=== PATIENT | female | born 1955 | race Caucasian/White ===

== ENCOUNTER 2016-08-16 09:29 | Inpatient (IN) | payer MEDICARE ==
[2016-08-16] MEDS ORDERED: NS 0.9% 1000 ML* 2,000 ML IV ONE (10:20)
[2016-08-16] MEDS ORDERED: metroNIDAZOLE IV 500 MG/100ML* 500 MG/100 ML BAG IVPB ONE (10:23)
[2016-08-16] MEDS ORDERED: Cefepime(*) 2 GM in NS 0.9% 50 ML* 50 ML IVPB ONE (10:23)
[2016-08-16] MEDS ORDERED: Vancomycin(*) 1,000 MG in NS 0.9% 250 ML* 250 ML IVPB ONE (10:23)
--- NOTE | 2016-08-16 11:20 | RAD ---
INDICATION: Left great toe infection. TECHNIQUE: 3 views of the left great toe were obtained. FINDINGS: There is prominent soft tissue swelling present around the distal phalanx of the great toe. No significant focal osseous abnormality or erosion is seen. IMPRESSION: SOFT TISSUE SWELLING, NO SPECIFIC EVIDENCE FOR OSTEOMYELITIS. IF THE PATIENT'S SYMPTOMS PERSIST CONSIDER MR IMAGING WITHOUT CONTRAST FOR FURTHER EVALUATION.
[2016-08-16 12:26] LABS: Hematocrit 38 % (35-47); Mean Corpuscular HGB Conc 35 g/dl (31-36); Mean Corpuscular Hemoglobin 30 pg (27-31); Mean Corpuscular Volume 86 fL (80-97); Mean Platelet Volume 8 um3 (7.4-10.4); Red Blood Count 4.39 10^6/ul (4.0-5.4); Red Cell Distribution Width 13 % (10.5-15); White Blood Count 8.1 10^3/ul (3.5-10.8)
[2016-08-16] MEDS ORDERED: NS 0.9% 50 ML* 50 ML ONE (12:33)
[2016-08-16] MEDS ORDERED: NS 0.9% 250 ML* 250 ML ONE (12:33)
[2016-08-16] MEDS ORDERED: Vancomycin(*) 1,000 MG - ED ONCE IVPB ONE ×2 (12:40)
[2016-08-16 12:44] LABS: BUN/Creatinine Ratio 22.5 (8-20); C Reactive Protein 46.41 mg/L (< 5.00); Calcium 9.5 mg/dL (8.6-10.3); EGFR African American 48.4 (>60); EGFR Non-African American 37.6 (>60); Globulin 3.7 g/dL (2-4); Potassium 4.6 mmol/L (3.5-5.0); Total Bilirubin 0.4 mg/dL (0.2-1.0); Total Protein 7.7 g/dL (6.4-8.9)
[2016-08-16] MEDS ORDERED: LORazepam TAB(*) 1 MG PO PRN (13:21)
[2016-08-16] MEDS ORDERED: Dextrose 50% Syringe 50 ML* 25 GM/50 ML SYRINGE IV PUSH PRN (13:32)
[2016-08-16] MEDS ORDERED: Acetaminophen TAB* 325 MG PO PRN (13:34)
--- NOTE | 2016-08-16 13:56 | ED ---
German Cox Billy, scribed for Dipak Jaquez MD on 08/16/16 at 1015 . Lower Extremity - HPI Summary HPI Summary: Patient is a 61 year-old diabetic female coming to [facility] for evaluation of a wound on her left great toe. She says her symptoms began 2 weeks ago and she was started on Amoxicillin/Clavulanate 3 days ago. However, the wound is worsening without any improvement. Positive fevers and chills in the last several days. - History of Current Complaint Chief Complaint: EDExtremityLower Stated Complaint: WOUND ON TOE Time Seen by Provider: 08/16/16 09:51 Hx Obtained From: Patient Mechanism Of Injury: Unknown Onset of Pain: Days Onset/Duration: Days Severity Initially: Moderate Severity Currently: Moderate Timing: Constant Location: Is Discrete @ - left great toe Associated Signs And Symptoms: Positive: Swelling, Redness Aggravating Factor(s): Nothing Alleviating Factor(s): Nothing - Allergies/Home Medications Allergies/Adverse Reactions: Allergies Allergy/AdvReac Type Severity Reaction Status Date / Time Codeine Allergy Intermediate Itching Verified 03/27/16 07:03 Fish Allergy Allergy ITCHY Verified 03/27/16 07:03 Hydromorphone [From Dilaudid] Allergy Hives Verified 03/27/16 07:03 Lidocaine Allergy Itching Verified 03/27/16 07:03 Oxycodone Allergy Itching Verified 05/02/16 17:05 Sulfamethoxazole Allergy Unknown Verified 03/27/16 07:03 w/Trimethoprim Reaction [From Bactrim] Details Home Medications: Home Medications Amoxicillin/Clavulanate TAB* [Augmentin TAB 875*] 875 mg PO BID 08/16/16 [ History Confirmed 08/16/16] Chlorzoxazone [Lorzone] 500 mg PO TID 08/16/16 [History Confirmed 08/16/16] Gabapentin CAP(*) [Neurontin 300 CAP(*)] 300 mg PO Q8HR 08/16/16 [History Confirmed 08/16/16] LORazepam TAB(*) [Ativan 1 MG TAB (*)] 1 mg PO BID PRN 08/16/16 [History Confirmed 08/16/16] Metoprolol Succinate XL TAB* [Toprol XL TAB*] 50 mg PO QAM 08/16/16 [History Confirmed 08/16/16] Metronidazole (Topical) [Noritate] 1 % TOPICAL BID PRN 08/16/16 [History Confirmed 08/16/16] Morphine TAB (NF) 15 mg PO TID PRN 08/16/16 [History Confirmed 08/16/16] Simvastatin TAB(NF) [Zocor(NF)] 20 mg PO QPM 08/16/16 [History Confirmed ] PMH/Surg Hx/FS Hx/Imm Hx Endocrine/Hematology History: Reports: Hx Diabetes - type 2 Denies: Hx Thyroid Disease Cardiovascular History: Reports: Hx Hypertension, Other Cardiovascular Problems/ Disorders - SVT, IDDM II (INSULIN DEP) Denies: Hx Pacemaker/ICD Respiratory History: Reports: Hx Sleep Apnea - NO MACHINE Denies: Hx Asthma - ENVIROMENTAL-INDUCED, Hx Chronic Obstructive Pulmonary Disease (COPD) GI History: Reports: Other GI Disorders - CONSTIPATION Denies: Hx Ulcer History: Denies: Hx Renal Disease Musculoskeletal History: Reports: Hx Arthritis, Other Musculoskeletal History - spinal cord deformities Sensory History: Reports: Hx Contacts or Glasses - GLASSES Denies: Hx Hearing Aid Opthamlomology History: Reports: Hx Contacts or Glasses - GLASSES Psychiatric History: Denies: Hx Panic Disorder - Surgical History Surgery Procedure, Year, and Place: lumbar surgery-laminectomy L3-L4 1998, 2nd in feb, 2015;. bilat hip replacement with hip revisions;. hernia repair with mesh;. appendectomy;. hysterectomy;. heart ablasion;. arthroscopic left knee ; Hx Anesthesia Reactions: Yes - ITCHING UPON WAKING UP FROM HYSTERECTOMY Infectious Disease History: No Infectious Disease History: Denies: Hx Hepatitis, Hx Human Immunodeficiency Virus (HIV), Traveled Outside the [place] in Last 30 Days - Family History Known Family History: Positive: Hypertension, Diabetes, Other - Diverticulitis - Social History Alcohol Use: Rare Substance Use Type: Reports: None Hx Tobacco Use: No Smoking Status (MU): Never Smoked Tobacco Review of Systems Positive: Fever, Chills Positive: Other - left toe pain Positive: Other - left toe All Other Systems Reviewed And Are Negative: Yes Physical Exam Triage Information Reviewed: Yes Vital Signs On Initial Exam: Initial Vitals Temp Pulse Resp BP Pulse Ox 96.9 F 77 16 152/52 99 08/16/16 09:31 08/16/16 09:31 08/16/16 09:31 08/16/16 09:31 08/16/16 09:31 Vital Signs Reviewed: Yes Appearance: Positive: Well-Appearing, No Pain Distress Skin: Positive: Warm, Skin Color Reflects Adequate Perfusion, Dry, Other - There is erythema of the left great toe. It appears swollen and there are visible breaks in the skin. Head/Face: Positive: Normal Head/Face Inspection Eyes: Positive: EOMI, SCOT Neck: Positive: Supple, Nontender Respiratory/Lung Sounds: Positive: Clear to Auscultation, Breath Sounds Present Cardiovascular: Positive: RRR Abdomen Description: Positive: Nontender, Soft Musculoskeletal: Positive: Strength/ROM Intact, Pain @ - left great toe Neurological: Positive: Normal, Sensory/Motor Intact, Alert, Oriented to Person Place, Time Psychiatric: Positive: Affect/Mood Appropriate - Ellie Coma Scale Coma Scale Total: 15 Diagnostics - Vital Signs Vital Signs Temp Pulse Resp BP Pulse Ox 08/16/16 09:31 96.9 F 77 16 152/52 99 - Laboratory Lab Results: Lab Results 08/16/16 08/16/16 08/16/16 Range/Units 12:15 12:15 12:15 WBC 8.1 (3.5-10.8) 10^3/ul RBC 4.39 (4.0-5.4) 10^6/ul Hgb 13.0 (12.0-16.0) g/dl Hct 38 (35-47) % MCV 86 (80-97) fL MCH 30 (27-31) pg MCHC 35 (31-36) g/dl RDW 13 (10.5-15) % Plt Count 360 (150-450) 10^3/ul MPV 8 (7.4-10.4) um3 Neut % (Auto) 56.5 (38-83) % Lymph % (Auto) 33.7 (25-47) % [place] % (Auto) 6.5 (1-9) % Eos % (Auto) 2.0 (0-6) % Baso % (Auto) 1.3 (0-2) % Absolute Neuts (auto) 4.6 (1.5-7.7) 10^3/ul Absolute Lymphs (auto) 2.7 (1.0-4.8) 10^3/ul Absolute Monos (auto) 0.5 (0-0.8) 10^3/ul Absolute Eos (auto) 0.2 (0-0.6) 10^3/ul Absolute Basos (auto) 0.1 (0-0.2) 10^3/ul Absolute Nucleated RBC 0 10^3/ul Nucleated RBC % 0 INR (Anticoag Therapy) 0.93 (0.89-1.11) APTT 30.6 (26.0-36.3) seconds Sodium 134 (133-145) mmol/L Potassium 4.6 (3.5-5.0) mmol/L Chloride 100 L (101-111) mmol/L Carbon Dioxide 27 (22-32) mmol/L Anion Gap 7 (2-11) mmol/L BUN 32 H (6-24) mg/dL Creatinine 1.42 H (0.51-0.95) mg/dL Est GFR ( Amer) 48.4 (>60) Est GFR (Non-Af Amer) 37.6 (>60) BUN/Creatinine Ratio 22.5 H (8-20) Glucose 194 H (70-100) mg/dL Lactic Acid (0.5-2.0) mmol/L Calcium 9.5 (8.6-10.3) mg/dL Total Bilirubin 0.40 (0.2-1.0) mg/dL AST 33 (13-39) U/L ALT 42 (7-52) U/L Alkaline Phosphatase 60 (34-104) U/L C-Reactive Protein 46.41 H (< 5.00) mg/L Total Protein 7.7 (6.4-8.9) g/dL Albumin 4.0 (3.2-5.2) g/dL Globulin 3.7 (2-4) g/dL Albumin/Globulin Ratio 1.1 (1-3) /08/29 Range/Units 12:15 WBC (3.5-10.8) 10^3/ul RBC (4.0-5.4) 10^6/ul Hgb (12.0-16.0) g/dl Hct (35-47) % MCV (80-97) fL MCH (27-31) pg MCHC (31-36) g/dl RDW (10.5-15) % Plt Count (150-450) 10^3/ul MPV (7.4-10.4) um3 Neut % (Auto) (38-83) % Lymph % (Auto) (25-47) % [place] % (Auto) (1-9) % Eos % (Auto) (0-6) % Baso % (Auto) (0-2) % Absolute Neuts (auto) (1.5-7.7) 10^3/ul Absolute Lymphs (auto) (1.0-4.8) 10^3/ul Absolute Monos (auto) (0-0.8) 10^3/ul Absolute Eos (auto) (0-0.6) 10^3/ul Absolute Basos (auto) (0-0.2) 10^3/ul Absolute Nucleated RBC 10^3/ul Nucleated RBC % INR (Anticoag Therapy) (0.89-1.11) APTT (26.0-36.3) seconds Sodium (133-145) mmol/L Potassium (3.5-5.0) mmol/L Chloride (101-111) mmol/L Carbon Dioxide (22-32) mmol/L Anion Gap (2-11) mmol/L BUN (6-24) mg/dL Creatinine (0.51-0.95) mg/dL Est GFR ( Amer) (>60) Est GFR (Non-Af Amer) (>60) BUN/Creatinine Ratio (8-20) Glucose (70-100) mg/dL Lactic Acid 1.5 (0.5-2.0) mmol/L Calcium (8.6-10.3) mg/dL Total Bilirubin (0.2-1.0) mg/dL AST (13-39) U/L ALT (7-52) U/L Alkaline Phosphatase (34-104) U/L C-Reactive Protein (< 5.00) mg/L Total Protein (6.4-8.9) g/dL Albumin (3.2-5.2) g/dL Globulin (2-4) g/dL Albumin/Globulin Ratio (1-3) Result Diagrams: 08/16/16 12:15 08/16/16 12:15 Lab Statement: Any lab studies that have been ordered have been reviewed, and results considered in the medical decision making process. - Radiology Toe X-ray Radiology Interpretation Completed By: Radiologist - SOFT TISSUE SWELLING, NO SPECIFIC EVIDENCE FOR OSTEOMYELITIS. IF THE PATIENT'S SYMPTOMS PERSIST CONSIDER MR IMAGING WITHOUT CONTRAST FOR FURTHER EVALUATION. Lower Extremity Course/Dx - Course Course Of Treatment: NO CRITICAL CARE TIME. Assessment/Plan: FAILED OUT PATIENT ABX TREATMENT. ADMIT HOSPITALIST STABLE. - Diagnoses Provider Diagnoses: Diabetic foot infection - Physician Notifications Discussed Care of Patient With: Dr. Pollock (hospitalist) @ [id number]: accepts admission. Discharge - Discharge Plan Condition: Stable Disposition: ADMITTED TO [facility] Referrals: Marylu Barclay MD [Primary Care Provider] - The documentation as recorded by the German slade Billy accurately reflects the service I personally performed and the decisions made by me, Dipak Jaquez MD.
[2016-08-16] MEDS ORDERED: Vancomycin(*) 1,000 MG in NS 0.9% 250 ML* 250 ML IVPB SCH (14:00)
[2016-08-16] MEDS ORDERED: Vancomycin per Pharmacy* NOTE FOLLOW UP PRN (14:55)
[2016-08-16] MEDS: Gabapentin CAP(*) 300 MG PO SCH ×2 (15:52→22:14)
[2016-08-16] MEDS: CHLORZOXAZONE 500 MG PO SCH ×2 (15:53→22:30)
[2016-08-16] MEDS: Heparin VIAL(*) 5000 UNITS/ML VIAL (FIVE THOUSAND) SUBCUT SCH ×2 (15:56→22:17)
[2016-08-16] MEDS: Diltiazem TAB* 30 MG PO SCH (17:51)
[2016-08-16] MEDS: Atorvastatin* 10 MG TAB PO SCH (17:51)
[2016-08-16] MEDS: Venlafaxine EXT RELEASE CAP* 75 MG PO SCH (17:51)
[2016-08-16] MEDS: Ramipril CAP* 10 MG PO SCH (17:52)
--- NOTE | 2016-08-16 17:56 | RAD ---
INDICATION: Left great toe ulcer COMPARISON: None. TECHNIQUE: Ankle-brachial indices and Doppler tracings were obtained of the lower extremities bilaterally.. Volume pulse recordings were acquired at the bilateral ankles. REPORT: Ankle-brachial indices: Right: Value (SBP) Index Brachial: 169 Posterior tibialis: 213 1.26 Dorsalis pedis: 217 1.28 Left: Value (SBP) Index Brachial: 161 Posterior tibialis: 222 1.31 Dorsalis pedis: 199 1.18 Doppler waveforms: In the interrogated lower extremity arteries, Doppler waveforms are slightly deranged in the distribution of the left dorsalis pedis where the waveforms are more biphasic and triphasic. Volume pulse recordings: There is reduced amplitude at the right ankle relative to the left. IMPRESSION: Normal ABIs acquired bilaterally. The waveform acquired at the left dorsalis pedis artery is mildly deranged exhibiting more of a biphasic waveform. Please note that in the presence of calcified atherosclerosis spuriously elevated and/or normal ABIs can be acquired. If there is a strong clinical suspicion for arterial insufficiency contributing to the patient's left great toe ulcer then CTA or MRA with runoff may help better characterize the arteries.
[2016-08-16] MEDS: Insulin LISPRO* 1 UNITS UNIT SUBCUT SCH ×3 (17:57→20:31)
[2016-08-16] MEDS: Insulin GLARGINE(*) 1 UNITS UNIT SUBCUT SCH (17:59)
[2016-08-16] MEDS: Calcium Carbonate CHEW TAB* 500 MG (TUMS) PO PRN (20:15)
[2016-08-16] MEDS: Morphine ORAL.SOLN 10 mg* 2 MG/ML UDC 5 ml PO PRN (20:30)
[2016-08-16] MEDS: metroNIDAZOLE TAB* 250 MG PO SCH (20:30)
[2016-08-16] MEDS ORDERED: Omeprazole CAP* 20 MG PO SCH (21:00)
--- NOTE | 2016-08-16 21:07 | HP ---
HISTORY AND PHYSICAL: DATE OF ADMISSION: 08/16/16 TIME OF EVALUATION: 1:15 p.m. PRIMARY CARE PHYSICIAN: Dr. Bacrlay. CHIEF COMPLAINT: "My foot is infected." HISTORY OF PRESENT ILLNESS: Ms. Miller is a 61-year-old lady with a past medical history of type 2 diabetes, polymyositis, SVT, osteoarthritis status post bilateral total hip replacement, multiple spinal surgeries who presented to the emergency room with complaints of worsening infection to her left hallux. The patient states that she has had a callus on that toe for a long time, but around 10 to 14 days ago, she developed a "crack" in that area. This progressed with mild pain and some erythema, so she saw her clinical lab clerk (Dr. Locke) and had debridement done and was prescribed Augmentin. She states that the edema and erythema got worse and yesterday she developed a low grade fever with body aches. She noticed that she was developing a "blister" on the lateral aspect of that toe and she contacted her clinical lab clerk this morning who recommended she come to the emergency room for further evaluation. She does not remember any trauma to that toe and she states that the toe is sore , but her feet have been numb for a long time, especially after her spinal surgeries. PAST MEDICAL HISTORY: 1. Type 2 diabetes. 2. Polymyositis. 3. Supraventricular tachycardia. 4. Osteoarthritis. 5. Status post bilateral total hip replacement. 6. Status post multiple spinal surgeries, last one was in February 2015 (L4-L5 lumbar diskectomy with Dr. Kang). 7. Status post appendectomy. 8. Status post hysterectomy. MEDICATIONS: 1. Augmentin 875 mg p.o. b.i.d. 2. Lorzone 500 mg p.o. t.i.d. 3. Diltiazem 30 mg p.o. at bedtime. 4. Gabapentin 300 mg p.o. q.8 hours. 5. Lorazepam 1 mg p.o. b.i.d. as needed for anxiety. 6. Metformin 1000 mg p.o. b.i.d. 7. Metoprolol succinate 50 mg p.o. in the morning. 8. Metronidazole 1% topical b.i.d. as needed for rash. 9. Morphine 15 mg p.o. t.i.d. as needed for pain. 10. Omeprazole 40 mg p.o. at bedtime. 11. Ramipril 10 mg p.o. at bedtime. 12. Simvastatin 20 mg p.o. at bedtime. 13. Venlafaxine 75 mg p.o. at bedtime. 14. Lantus 50 units subcutaneously in the morning and 60 units subcutaneously in the evening. 15. Lispro sliding scale 2 units per 10 g of carbs in the morning and 3 units per 10 g of carbs in the evening. ALLERGIES: CODEINE, FISH, HYDROMORPHONE, LIDOCAINE, OXYCODONE, and BACTRIM. FAMILY HISTORY: Mother had a history of Alzheimer's disease. Father had coronary artery disease. Brother had form of small bowel cancer, diabetes, and a sister has SVT, diabetes, and hypertension. SOCIAL HISTORY: She denies alcohol, tobacco, or drug use. Surrogate decision maker is her , Sterling Miller, phone number is [phone]. REVIEW OF SYSTEMS: A 14-point review of systems is deformed and all the pertinent negative and positive findings are in the HPI. PHYSICAL EXAMINATION GENERAL: The patient is a pleasant lady, lying in the ER stretcher in no acute distress. VITAL SIGNS: Temperature 96.9, heart rate is 73, respiratory rate is 16, oxygen saturation 96% on room air, blood pressure 165/68. HEENT: Pupils are equal, moist mucous membranes. CHEST: Breath sounds present bilaterally with no added sounds. CVS: Normal S1 and S2. Regular rate and rhythm. ABDOMEN: Soft. Bowel sounds are present. EXTREMITIES: No edema. She has good pulses bilaterally. Left toe has some edema and erythema with a foamy fluid collection on the lateral aspect. The patient has a callus on the medial aspect with some erythema in the area. NEUROLOGIC: She is alert and oriented x3. Able to move all 4 extremities. LABORATORY AND IMAGING DATA: The patient had a CBC that was normal. INR was 0.93. Chemistry showed sodium of 134, potassium 4.6, chloride of 100, bicarb of 27, BUN of 32, creatinine of 1.4, glucose of 194, lactic acid is 1.5. LFTs are normal. Her CRP is 46. Left great toe x-ray showed soft tissue swelling. No specific evidence for osteomyelitis. ASSESSMENT AND PLAN: Ms. Miller is a 61-year-old lady with a past medical history of type 2 diabetes, supraventricular tachycardia, and polymyositis who presents to the emergency room with complaints of worsening of worsening left hallux infection. 1. Diabetic foot infection. The patient will be admitted as observation to the medical floor. She is going to be treated with vancomycin and cefepime at this point and consultation was requested with Infectious Disease (Dr. Hopkins ) and orthopedist (Dr. Nobles). I believe she may be forming an abscess in the lateral aspect of her toe and may need some I and D and further debridement. 2. Type 2 diabetes. We will check the hemoglobin A1c. We will continue Lantus with lispro sliding scale. 3. Chronic kidney disease stage 3. The patient's renal function is stable at this time. 4. Supraventricular tachycardia. We will continue diltiazem and metoprolol. 5. DVT prophylaxis. The patient has a score of 3 on DVT Prophylaxis Assessment Guide. She will be started on subcutaneous heparin. 6. Code status is full. TIME SPENT: Approximately 50 minutes was spent with the patient interview, medical records review, physical examination to complete the admission, more than half of this time was spent [id number] with the patient in coordination of care. CC: Dr. Barclay; Sonny Locke DPM* [id number]/[facility] #: [id number] [facility] SYSTEMHaley
--- NOTE | 2016-08-16 22:57 | CONS ---
CONSULTATION REPORT: DATE OF CONSULTATION: 08/16/16 REQUESTING PHYSICIAN: Dr. Werner. CONSULTING SERVICE: Infectious Disease. REASON FOR CONSULTATION: Left great toe infection. IMPRESSION: 1. Left great toe callus with subsequent ulcer, lateral superficial abscess and associated cellulitis. Question underlying osteomyelitis. Usual organisms are polymicrobial including staph, strep, Pseudomonas, gram-negative anaerobes. 2. Decreased dorsalis pedis pulse on the left, suspect peripheral arterial disease. 3. Diabetes with peripheral neuropathy. 4. Dermatomyositis. 5. Chronic kidney disease. RECOMMENDATIONS: Agree with vancomycin goal trough 15 to 20, cefepime 1 g IV every 12 hours and will add Flagyl 500 mg by mouth every 12 hours. I unroofed the area of superficial abscess on the lateral toe and sent some bloody purulent fluid for wound culture. We will add an MRI without contrast to evaluate for underlying osteomyelitis. Dr. Nobles has been consulted to see her as well. I discussed with her that debridement is likely to be part of her therapy. HISTORY OF PRESENT ILLNESS: This is a 61-year-old woman with diabetes neuropathy, admitted with left foot infection. She had been well developed 2 weeks ago when she noticed a longstanding callus on the medial toe, opened up, and cracked and became a wound which was a little bit painful which was unusual because she had decreased sensation in her feet. She started seeing her pipe stress engineer who did some debridement of the callus, started her on Augmentin, but despite that has progression of redness, swelling, and appeared to be worsening of the size of the wound. She came to the ER today, an x-ray was done that showed soft tissue swelling. She was started on vancomycin and cefepime today. She overall feels well, though has had some chills and decreased appetite with decreased energy in the last few days. PAST MEDICAL HISTORY: 1. Dermatomyositis. 2. Diabetes with peripheral neuropathy. 3. Gastroesophageal reflux disease. 4. Anxiety. 5. Hyperlipidemia. 6. Tachycardia and a history of ablation. 7. Hypertension. 8. Depression. MEDICATIONS: 1. Tylenol. 2. Lipitor. 3. Calcium carbonate. 4. Cefepime 1 g IV every 12 hours. 5. IV diltiazem. 6. Gabapentin. 7. Heparin subcutaneous injection. 8. Insulin glargine. 9. Insulin lispro. 10. Metoprolol. 11. Ramipril. 12. Vancomycin 1250 mg every 12 hours. ALLERGIES: CODEINE, DILAUDID, LIDOCAINE, OXYCODONE. FAMILY HISTORY: No recurrent infections. SOCIAL HISTORY: She lives in [place]. No pets licking the wound. No sick contacts. REVIEW OF SYSTEMS: Full review of systems was negative except as noted above. PHYSICAL EXAM: Vital Signs: Temperature 36.6, heart rate 70, respiratory rate 18, blood pressure 170/76, O2 sat 99% on room air. In general, she is awake and nondistressed. Neurologic: She is oriented x3. Follows all commands. Decreased sensation to light touch in the bilateral feet. HEENT: There is no conjunctival hemorrhage. Oropharynx without lesions. Neck is supple without nuchal rigidity. Lymph Nodes: There is no cervical, supraclavicular, inguinal, axillary, or epitrochlear lymphadenopathy. Heart has regular rate and rhythm without murmurs, rubs, or gallops. Lungs are clear to auscultation bilaterally. Abdomen: Soft, nontender, nondistended. Skin: There is no splinter hemorrhage. Over her bridge of the nose and bilateral zygomatic arch, there are scattered erythematous pustules and telangiectasia. Musculoskeletal: The left great toe, there is erythema around the lateral plantar wound surrounded by a very indurated callus and then over the lateral toe, there is pus and blood below a section of skin and then in the dorsal part of the toe, there is some erythema where skin has been denuded. Vascular: There are no palpable dorsalis pedis pulses on the left. LABORATORY DATA: Creatinine 1.4. CRP 46. White blood cell count 8, hemoglobin 13, platelets 360. Please see impressions and recommendations as outlined above, which I have discussed with Dr. Werner. Thanks for asking me to see Ms. Miller in consultation. [id number]/[facility] #: [id number] FILIBERTO
[2016-08-16] MEDS: Vancomycin(*) 1,250 MG in NS 0.9% 250 ML* 250 ML IVPB SCH (23:36)
--- NOTE | 2016-08-16 23:46 | CONS ---
CONSULTATION REPORT: DATE OF CONSULT: DATE OF DICTATION: 08/16/16 HISTORY OF PRESENT ILLNESS: Renay is a 61-year-old woman who has been followed by myself in the office previously for variety of diabetic related foot problems. She now for the last couple of weeks has had increased redness of her left great toe and ulceration now. She has been taking amoxicillin and clavulanate 3 days now, but she is not responding well and is admitted today with some general malaise, increasing pain at the toe and a sense of worsening swelling and pain at the toe. PAST MEDICAL HISTORY: She has had history of hypertension. She has had the diabetes type 2 for many years now. She has sleep apnea. She has environmental induced asthma and some generalized aches and pains related to arthritis. MEDICATIONS: Renay has currently been takin. Augmentin. 2. Lorzone 500 mg 3 times a day. 3. Gabapentin 300 mg. 4. Lorazepam 1 mg b.i.d. as needed. 5. Metoprolol 50 mg daily. 6. Morphine tabs 15 mg 3 times a day as needed for pain. 7. Simvastatin 20 mg at night. SOCIAL HISTORY: She is currently not smoking. PHYSICAL EXAM: In the emergency room, her temp was 96.9, respiratory rate 16. She was noted to have white blood count of 8.1, hemoglobin of 13, glucose of 194 , C- reactive protein of 46.4. DIAGNOSTIC STUDIES/LAB DATA: Per admission, radiograph in the emergency room did not show evident erosions consistent with osteomyelitis. IMPRESSION: The patient currently is in the MRI unit to rule out osteomyelitis of the great toe. At this point, I would recommend some broad-spectrum IV antibiotics and tracking for the improvement of the cellulitis. I will followup once the MRI is completed. [id number]/[facility] #: [id number] [facility] SYSTEMHaley
[2016-08-17] MEDS: Gabapentin CAP(*) 300 MG PO SCH ×3 (06:18→20:36)
[2016-08-17] MEDS: Heparin VIAL(*) 5000 UNITS/ML VIAL (FIVE THOUSAND) SUBCUT SCH ×3 (06:20→20:37)
[2016-08-17] MEDS: Morphine ORAL.SOLN 10 mg* 2 MG/ML UDC 5 ml PO PRN ×2 (06:25→17:24)
[2016-08-17 06:54] LABS: Hematocrit 36 % (35-47); Hemoglobin 12.3 g/dl (12.0-16.0); Mean Corpuscular HGB Conc 34 g/dl (31-36); Mean Corpuscular Hemoglobin 29 pg (27-31); Mean Corpuscular Volume 86 fL (80-97); Mean Platelet Volume 8 um3 (7.4-10.4); Red Cell Distribution Width 13 % (10.5-15); White Blood Count 6.1 10^3/ul (3.5-10.8)
[2016-08-17 07:12] LABS: BUN/Creatinine Ratio 19.3 (8-20); C Reactive Protein 29.77 mg/L (< 5.00); Calcium 9.4 mg/dL (8.6-10.3); EGFR African American 51.3 (>60); EGFR Non-African American 39.9 (>60); Potassium 4.4 mmol/L (3.5-5.0)
--- NOTE | 2016-08-17 07:50 | RAD ---
INDICATION: Left great toe ulcer evaluate for osteomyelitis. COMPARISON: Comparison is made with a prior x-ray study of the left great toe from August 16, 2016. TECHNIQUE: Axial, sagittal and coronal T1 and T2-weighted images of the left foot were obtained. FINDINGS: There is focal soft tissue swelling around the distal phalanx of the left great toe. There is bone marrow edema signal intensity present throughout the distal phalanx of the great toe and mild bone marrow edema signal intensity in the proximal phalanx of the great toe. These findings are suggestive of osteomyelitis. In addition there is bone marrow signal intensity present in the distal phalanx of the third toe. No soft tissue fluid collection or abscess is seen. There is mild to moderate osteoarthritic change in the first metatarsal-phalangeal joint. IMPRESSION: THERE IS BONE MARROW EDEMA SIGNAL INTENSITY IN THE PROXIMAL AND DISTAL PHALANGES OF THE GREAT TOE SUSPICIOUS FOR OSTEOMYELITIS. THERE IS ALSO NONSPECIFIC BONE MARROW EDEMA SIGNAL INTENSITY IN THE DISTAL PHALANX OF THE THIRD TOE POSSIBLY REPRESENTING AN ADDITIONAL FOCUS OF OSTEOMYELITIS. NO ABSCESS IS SEEN.
[2016-08-17 08:56] LABS: Erythrocyte Sed Rate 56 mm/Hr (0-30)
[2016-08-17] MEDS: Insulin LISPRO* 1 UNITS UNIT SUBCUT SCH ×7 (08:57→20:35)
[2016-08-17] MEDS ORDERED: Insulin GLARGINE(*) 1 UNITS UNIT SUBCUT SCH (09:00)
[2016-08-17] MEDS: metroNIDAZOLE TAB* 250 MG PO SCH ×2 (10:30→20:37)
[2016-08-17] MEDS: Metoprolol Succinate XL TAB* 50 MG PO SCH (10:31)
[2016-08-17] MEDS: CHLORZOXAZONE 500 MG PO SCH ×3 (10:32→20:36)
[2016-08-17] MEDS: Vancomycin(*) 1,250 MG in NS 0.9% 250 ML* 250 ML IVPB SCH ×2 (10:33→23:06)
[2016-08-17] MEDS ORDERED: Cefepime(*) 1 GM in NS 0.9% 50 ML* 50 ML IVPB SCH ×2 (11:00→14:30)
--- NOTE | 2016-08-17 11:00 | PN ---
Progress Note - Progress Note SOAP: Subjective: DOS: 08/17/16 CC: toe infection HPI: 61 year old woman with DM and 2 weeks of left great toe ulcer, swelling, drainage, redness. No fever but had chills. Had augmentin and podiatric evaluaiton as outpt without improvement. MRI and BRITTANY yesterday. Toe about the same today. No rash or diarrhea. Objective: [] Vital Signs Temp 37.4 C 08/17/16 07:14 Pulse 66 08/17/16 07:14 Resp 18 08/17/16 08:25 BP 128/51 08/17/16 07:14 Pulse Ox 94 08/17/16 07:14 Intake & Output 08/16/16 08/17/16 08/17/16 18:59 06:59 18:59 Intake Total 100 735 Balance 100 735 Weight 228 lb Intake: IV Fluids 100 IVPB 285 Oral 450 Other: # Bowel Movements 0 # Voids 6 Gen:Awake, no distress Neuro:Ox3, decreased sensation to light touch BL feet HEENT: no thrush Neck:supple LN: no visible or palpable LN Heart:RRR no murmur Lungs:CTA BL Abd:+BS NTND soft Skin: no rash MSK: L great toe edema, medial callous, lateral superficial abscess, mild erythema Laboratory Results - last 24 hr 08/16/16 08/16/16 08/16/16 12:15 12:15 12:15 WBC 8.1 RBC 4.39 Hgb 13.0 Hct 38 MCV 86 MCH 30 MCHC 35 RDW 13 Plt Count 360 MPV 8 Neut % (Auto) 56.5 Lymph % (Auto) 33.7 [place] % (Auto) 6.5 Eos % (Auto) 2.0 Baso % (Auto) 1.3 Absolute Neuts (auto) 4.6 Absolute Lymphs (auto) 2.7 Absolute Monos (auto) 0.5 Absolute Eos (auto) 0.2 Absolute Basos (auto) 0.1 Absolute Nucleated RBC 0 Nucleated RBC % 0 ESR INR (Anticoag Therapy) 0.93 APTT 30.6 Sodium 134 Potassium 4.6 Chloride 100 L Carbon Dioxide 27 Anion Gap 7 BUN 32 H Creatinine 1.42 H Est GFR ( Amer) 48.4 Est GFR (Non-Af Amer) 37.6 BUN/Creatinine Ratio 22.5 H Glucose 194 H POC Glucose (mg/dL) Lactic Acid Calcium 9.5 Total Bilirubin 0.40 AST 33 ALT 42 Alkaline Phosphatase 60 C-Reactive Protein 46.41 H Total Protein 7.7 Albumin 4.0 Globulin 3.7 Albumin/Globulin Ratio 1.1 08/16/16 08/16/16 08/16/16 12:15 16:50 20:17 WBC RBC Hgb Hct MCV MCH MCHC RDW Plt Count MPV Neut % (Auto) Lymph % (Auto) [place] % (Auto) Eos % (Auto) Baso % (Auto) Absolute Neuts (auto) Absolute Lymphs (auto) Absolute Monos (auto) Absolute Eos (auto) Absolute Basos (auto) Absolute Nucleated RBC Nucleated RBC % ESR INR (Anticoag Therapy) APTT Sodium Potassium Chloride Carbon Dioxide Anion Gap BUN Creatinine Est GFR ( Amer) Est GFR (Non-Af Amer) BUN/Creatinine Ratio Glucose POC Glucose (mg/dL) 224 H 185 H Lactic Acid 1.5 Calcium Total Bilirubin AST ALT Alkaline Phosphatase C-Reactive Protein Total Protein Albumin Globulin Albumin/Globulin Ratio 08/17/16 08/17/16 08/17/16 06:22 06:23 07:22 WBC 6.1 RBC 4.20 Hgb 12.3 Hct 36 MCV 86 MCH 29 MCHC 34 RDW 13 Plt Count 348 MPV 8 Neut % (Auto) 51.9 Lymph % (Auto) 37.6 [place] % (Auto) 6.9 Eos % (Auto) 2.8 Baso % (Auto) 0.8 Absolute Neuts (auto) 3.2 Absolute Lymphs (auto) 2.3 Absolute Monos (auto) 0.4 Absolute Eos (auto) 0.2 Absolute Basos (auto) 0 Absolute Nucleated RBC 0.01 Nucleated RBC % 0.1 ESR 56 H INR (Anticoag Therapy) APTT Sodium 138 Potassium 4.4 Chloride 104 Carbon Dioxide 27 Anion Gap 7 BUN 26 H Creatinine 1.35 H Est GFR ( Amer) 51.3 Est GFR (Non-Af Amer) 39.9 BUN/Creatinine Ratio 19.3 Glucose 96 POC Glucose (mg/dL) 112 H Lactic Acid Calcium 9.4 Total Bilirubin AST ALT Alkaline Phosphatase C-Reactive Protein 29.77 H Total Protein Albumin Globulin Albumin/Globulin Ratio MRI: L great toe osteomyelitis BRITTANY: BL indices >1 Assessment: 1. L great toe osteomeyelitis, chronic, diabetes related 2. L great tow chronic wound, non pressure related 3. T2DM 4. peripheral neuropathy 5. decr pulses; elevated BRITTANY, suspect arterioscleriosis and component of PAD Plan: 1. continue vancomycin goal tr 15-20, cefepime, and flagyl PO. We discussed options of debridement and antibiotics which carries a high risk of recurrence, she prefers to have this fixed and done with. I think her best chance for that is amputation of her toe. She will discuss more with Dr Nobles. 2. Outpatient CT angio Discussed with Dr Werner 35 minutes floor time >50% face to face in counseling regarding treatment options, side effects, and alternative. All questions answered.
[2016-08-17] MEDS: Cefepime(*) 1 GM in NS 0.9% 50 ML* 50 ML IVPB SCH (15:04)
--- NOTE | 2016-08-17 16:55 | PN ---
Subjective Date of Service: 08/17/16 Interval History: Seen with at bedside No pain Thinks she would like receive surgery over prolonged abx course although still discussing together Has no other complaints Objective Active Medications: Acetaminophen (Tylenol Tab*) 650 mg PO Q6H PRN PRN Reason: pain/fever Atorvastatin Calcium (Lipitor*) 10 mg PO QPM [facility] Last Admin: 08/16/16 17:51 Dose: Not Given Calcium Carbonate (Tums*) 500 mg PO Q4H PRN PRN Reason: INDIGESTION Last Admin: 08/16/16 20:15 Dose: 500 mg Dextrose (D50w Syringe 50 Ml*) 12.5 gm IV PUSH .FOR FS < 60 - SS PRN PRN Reason: FS < 60 Diltiazem HCl (Cardizem Tab*) 30 mg PO QPM [facility] Last Admin: 08/16/16 17:51 Dose: 30 mg Gabapentin (Neurontin Cap(*)) 300 mg PO Q8HR [facility] Last Admin: 08/17/16 14:03 Dose: 300 mg Heparin Sodium (Porcine) (Heparin Vial(*)) 5,000 units SUBCUT Q8HR [facility] Last Admin: 08/17/16 14:03 Dose: 5,000 units Vancomycin HCl 1,250 mg/ (Sodium Chloride) 250 mls @ 166.667 mls/hr IVPB Q12H [facility] Last Admin: 08/17/16 10:33 Dose: 166.667 mls/hr Cefepime HCl 1 gm/ Sodium (Chloride) 50 mls @ 100 mls/hr IVPB Q12H [facility] Last Admin: 08/17/16 15:04 Dose: 100 mls/hr Insulin Glargine (Lantus(*)) 40 units SUBCUT QAM [facility] Last Admin: 08/17/16 10:29 Dose: 40 units Insulin Glargine (Lantus(*)) 50 units SUBCUT QPM [facility] Last Admin: 08/16/16 17:59 Dose: 50 units Insulin Human Lispro (Humalog*) 0 units SUBCUT ACHS [facility] PRN Reason: Protocol Last Admin: 08/17/16 13:54 Dose: 9 units Insulin Human Lispro (Humalog*) 0 units SUBCUT AC [facility] PRN Reason: Protocol Last Admin: 08/17/16 10:28 Dose: 3 units Lorazepam (Ativan Tab(*)) 1 mg PO BID PRN PRN Reason: ANXIETY Metoprolol Succinate (Toprol Xl Tab*) 50 mg PO QAM [facility] Last Admin: 08/17/16 10:31 Dose: 50 mg Metronidazole (Flagyl Tab*) 500 mg PO BID [facility] Last Admin: 08/17/16 10:30 Dose: 500 mg Morphine Sulfate (Morphine Oral.Soln 10 Mg*) 15 mg PO TID PRN PRN Reason: PAIN Last Admin: 08/17/16 06:25 Dose: 15 mg Chlorzoxazone [ (Lorzone] 500 Mg) 500 mg PO TID [facility] Last Admin: 08/17/16 14:07 Dose: Not Given Pharmacy Consult (Vancomycin Per Pharmacy*) 1 note FOLLOW UP . PRN PRN Reason: PER PROTOCOL Pharmacy Profile Note (Vancomycin Trough Check) 1 note FOLLOW UP 1130 ONE Stop: 08/18/16 11:31 Ramipril (Altace Cap*) 10 mg PO QPM [facility] Last Admin: 08/16/16 17:52 Dose: 10 mg Venlafaxine HCl (Effexor Xr Cap*) 75 mg PO QPM [facility] PRN Reason: Protocol Last Admin: 08/16/16 17:51 Dose: 75 mg Vital Signs 08/16/16 08/16/16 08/16/16 17:52 19:42 19:52 Temperature 98.3 F Pulse Rate 70 Respiratory 18 16 18 Rate Blood Pressure 151/72 (mmHg) O2 Sat by Pulse 98 Oximetry 08/16/16 08/16/16 08/16/16 20:30 22:14 22:30 Temperature Pulse Rate Respiratory 18 18 16 Rate Blood Pressure (mmHg) O2 Sat by Pulse Oximetry 08/16/16 08/17/16 08/17/16 23:25 00:14 04:24 Temperature 98.1 F Pulse Rate 74 68 Respiratory 16 16 16 Rate Blood Pressure 145/52 155/64 (mmHg) O2 Sat by Pulse 95 91 Oximetry 08/17/16 08/17/16 08/17/16 06:18 06:25 07:14 Temperature 99.4 F Pulse Rate 66 Respiratory 18 18 Rate Blood Pressure 128/51 (mmHg) O2 Sat by Pulse 94 Oximetry 08/17/16 08/17/16 08/17/16 08:18 08:25 12:56 Temperature Pulse Rate 72 Respiratory 18 18 Rate Blood Pressure 152/72 (mmHg) O2 Sat by Pulse Oximetry 08/17/16 08/17/16 14:03 15:29 Temperature 98.1 F Pulse Rate 64 Respiratory 17 17 Rate Blood Pressure 153/68 (mmHg) O2 Sat by Pulse 97 Oximetry Oxygen Devices in Use Now: None Appearance: NAD Eyes: No Scleral Icterus, PERRLA Ears/Nose/Mouth/Throat: NL Teeth, Lips, Gums, Clear Oropharnyx, Mucous Membranes Moist Neck: NL Appearance and Movements; NL JVP, Trachea Midline Respiratory: Symmetrical Chest Expansion and Respiratory Effort, Clear to Auscultation Cardiovascular: RRR Abdominal: NL Sounds; No Tenderness; No Distention, No Hepatosplenomegaly Lymphatic: No Cervical Adenopathy Extremities: No Edema, - - weak DP and 1+ PT pulses on left Skin: - - ulcer on pad of left first toe with swelling, TTP, minimal erythema Neurological: Alert and Oriented x 3 Result Diagrams: 08/17/16 06:22 08/17/16 06:23 Additional Lab and Data: Lab Results 08/16/16 08/16/16 08/16/16 Range/Units 12:15 12:15 12:15 WBC 8.1 (3.5-10.8) 10^3/ul RBC 4.39 (4.0-5.4) 10^6/ul Hgb 13.0 (12.0-16.0) g/dl Hct 38 (35-47) % MCV 86 (80-97) fL MCH 30 (27-31) pg MCHC 35 (31-36) g/dl RDW 13 (10.5-15) % Plt Count 360 (150-450) 10^3/ul MPV 8 (7.4-10.4) um3 Neut % (Auto) 56.5 (38-83) % Lymph % (Auto) 33.7 (25-47) % [place] % (Auto) 6.5 (1-9) % Eos % (Auto) 2.0 (0-6) % Baso % (Auto) 1.3 (0-2) % Absolute Neuts (auto) 4.6 (1.5-7.7) 10^3/ul Absolute Lymphs (auto) 2.7 (1.0-4.8) 10^3/ul Absolute Monos (auto) 0.5 (0-0.8) 10^3/ul Absolute Eos (auto) 0.2 (0-0.6) 10^3/ul Absolute Basos (auto) 0.1 (0-0.2) 10^3/ul Absolute Nucleated RBC 0 10^3/ul Nucleated RBC % 0 INR (Anticoag Therapy) 0.93 (0.89-1.11) APTT 30.6 (26.0-36.3) seconds Sodium 134 (133-145) mmol/L Potassium 4.6 (3.5-5.0) mmol/L Chloride 100 L (101-111) mmol/L Carbon Dioxide 27 (22-32) mmol/L Anion Gap 7 (2-11) mmol/L BUN 32 H (6-24) mg/dL Creatinine 1.42 H (0.51-0.95) mg/dL Est GFR ( Amer) 48.4 (>60) Est GFR (Non-Af Amer) 37.6 (>60) BUN/Creatinine Ratio 22.5 H (8-20) Glucose 194 H (70-100) mg/dL Lactic Acid (0.5-2.0) mmol/L Calcium 9.5 (8.6-10.3) mg/dL Total Bilirubin 0.40 (0.2-1.0) mg/dL AST 33 (13-39) U/L ALT 42 (7-52) U/L Alkaline Phosphatase 60 (34-104) U/L C-Reactive Protein 46.41 H (< 5.00) mg/L Total Protein 7.7 (6.4-8.9) g/dL Albumin 4.0 (3.2-5.2) g/dL Globulin 3.7 (2-4) g/dL Albumin/Globulin Ratio 1.1 (1-3) /08/29 Range/Units 12:15 WBC (3.5-10.8) 10^3/ul RBC (4.0-5.4) 10^6/ul Hgb (12.0-16.0) g/dl Hct (35-47) % MCV (80-97) fL MCH (27-31) pg MCHC (31-36) g/dl RDW (10.5-15) % Plt Count (150-450) 10^3/ul MPV (7.4-10.4) um3 Neut % (Auto) (38-83) % Lymph % (Auto) (25-47) % [place] % (Auto) (1-9) % Eos % (Auto) (0-6) % Baso % (Auto) (0-2) % Absolute Neuts (auto) (1.5-7.7) 10^3/ul Absolute Lymphs (auto) (1.0-4.8) 10^3/ul Absolute Monos (auto) (0-0.8) 10^3/ul Absolute Eos (auto) (0-0.6) 10^3/ul Absolute Basos (auto) (0-0.2) 10^3/ul Absolute Nucleated RBC 10^3/ul Nucleated RBC % INR (Anticoag Therapy) (0.89-1.11) APTT (26.0-36.3) seconds Sodium (133-145) mmol/L Potassium (3.5-5.0) mmol/L Chloride (101-111) mmol/L Carbon Dioxide (22-32) mmol/L Anion Gap (2-11) mmol/L BUN (6-24) mg/dL Creatinine (0.51-0.95) mg/dL Est GFR ( Amer) (>60) Est GFR (Non-Af Amer) (>60) BUN/Creatinine Ratio (8-20) Glucose (70-100) mg/dL Lactic Acid 1.5 (0.5-2.0) mmol/L Calcium (8.6-10.3) mg/dL Total Bilirubin (0.2-1.0) mg/dL AST (13-39) U/L ALT (7-52) U/L Alkaline Phosphatase (34-104) U/L C-Reactive Protein (< 5.00) mg/L Total Protein (6.4-8.9) g/dL Albumin (3.2-5.2) g/dL Globulin (2-4) g/dL Albumin/Globulin Ratio (1-3) Microbiology and Other Data: Microbiology 08/16/16 16:30 Gram Stain - Final Foot Left Assess/Plan/Problems-Billing Assessment: 61 yo F h/o uncontrolled IDDM, peripheral neuropathy p/w left 1st toe cellulitis with associated osteomyelitis - Patient Problems (1) Osteomyelitis Comment: appreciate ID and ortho assistance suspect surgery although not yet decided BRITTANY not notable for PVD but suspect false negative. c/w cefepime, vanco, flagyl (2) Diabetes Comment: Basal bolus insulin regimen (3) H/O supraventricular tachycardia Comment: cardizem and metoprolol (4) Peripheral neuropathy Comment: gabapentin (5) DVT prophylaxis Comment: HSQ
[2016-08-17] MEDS: Atorvastatin* 10 MG TAB PO SCH (18:08)
[2016-08-17] MEDS: Ramipril CAP* 10 MG PO SCH (18:08)
[2016-08-17] MEDS: Venlafaxine EXT RELEASE CAP* 75 MG PO SCH (18:08)
[2016-08-17] MEDS: Insulin GLARGINE(*) 1 UNITS UNIT SUBCUT SCH (18:09)
[2016-08-17] MEDS: Diltiazem TAB* 30 MG PO SCH (18:15)
[2016-08-17] MEDS: HYDROXYCHLOROQUINE 200 MG PO SCH (23:07)
[2016-08-18] MEDS: Calcium Carbonate CHEW TAB* 500 MG (TUMS) PO PRN ×2 (00:59→19:59)
[2016-08-18] MEDS: Ondansetron INJ* 2 MG/ML VIAL IV PRN ×2 (01:00→19:59)
[2016-08-18] MEDS: Cefepime(*) 1 GM in NS 0.9% 50 ML* 50 ML IVPB SCH ×2 (02:21→16:59)
[2016-08-18] MEDS: Morphine ORAL.SOLN 10 mg* 2 MG/ML UDC 5 ml PO PRN ×3 (02:45→19:57)
[2016-08-18] MEDS: Gabapentin CAP(*) 300 MG PO SCH ×3 (05:16→22:21)
[2016-08-18] MEDS: Insulin LISPRO* 1 UNITS UNIT SUBCUT SCH ×8 (07:28→20:32)
[2016-08-18] MEDS: CHLORZOXAZONE 500 MG PO SCH ×3 (07:29→20:33)
[2016-08-18] MEDS: Metoprolol Succinate XL TAB* 50 MG PO SCH (08:36)
[2016-08-18] MEDS: HYDROXYCHLOROQUINE 200 MG PO SCH ×2 (08:37→20:31)
[2016-08-18] MEDS: metroNIDAZOLE TAB* 250 MG PO SCH ×2 (09:07→20:31)
[2016-08-18] MEDS ORDERED: Vancomycin Trough Check NOTE FOLLOW UP ONE (11:30)
--- NOTE | 2016-08-18 11:37 | PN ---
Progress Note - Progress Note SOAP: Subjective: DOS: 08/18/16 CC: toe infection HPI: 61 year old woman with DM and 2 weeks of left great toe ulcer, swelling, drainage, redness. No fever but had chills. Had augmentin and podiatric evaluaiton as outpt without improvement. Toe pain improved, swelling the same. No fever, rash, or diarrhea. Objective: [] Vital Signs Temp 36.7 C 08/18/16 07:54 Pulse 68 08/18/16 07:54 Resp 18 08/18/16 09:05 BP 138/59 08/18/16 07:54 Pulse Ox 94 08/18/16 07:54 Intake & Output 08/17/16 08/18/16 08/18/16 18:59 06:59 18:59 Intake Total 783 1505 Output Total 0 Balance 783 1505 Intake: IV Fluids 453 60 normal saline 453 60 IVPB 385 ABX - CEFEPIME 110 ABX - VANCOMYCIN 275 Oral 330 1060 Output: Urine 0 Other: # Bowel Movements 0 # Voids 3 4 Gen:Awake, no distress Neuro:Ox3, decreased sensation to light touch BL feet HEENT: no thrush Neck:supple LN: no visible or palpable LN Heart:RRR no murmur Lungs:CTA BL Abd:+BS NTND soft Skin: no rash MSK: L great toe edema, medial callous, lateral superficial abscess, mild erythema Sodium 138 mmol/L (133-145) 08/17/16 06:23 Potassium 4.4 mmol/L (3.5-5.0) 08/17/16 06:23 BUN 26 mg/dL (6-24) H 08/17/16 06:23 Creatinine 1.35 mg/dL (0.51-0.95) H 08/17/16 06:23 Hemoglobin A1c 8.8 % (Less than 6.0) H 08/17/16 06:22 Calcium 9.4 mg/dL (8.6-10.3) 08/17/16 06:23 AST 33 U/L (13-39) 08/16/16 12:15 ALT 42 U/L (7-52) 08/16/16 12:15 Assessment: 1. L great toe osteomeyelitis, chronic, diabetes related 2. L great tow chronic wound, non pressure related 3. T2DM 4. peripheral neuropathy 5. decr pulses; elevated BRITTANY, suspect arterioscleriosis and component of PAD Plan: 1. continue vancomycin goal tr 15-20, cefepime, and flagyl PO. We discussed options of debridement and antibiotics which carries a high risk of recurrence, she prefers to have this fixed and done with. I think her best chance for that is amputation of her toe. She prefers surgical treatment. 2. Outpatient vascular evaluation.
[2016-08-18 12:32] LABS: EGFR African American 53.6 (>60); EGFR Non-African American 41.6 (>60); Vancomycin Trough 16.6 mcg/mL
[2016-08-18] MEDS: Vancomycin(*) 1,250 MG in NS 0.9% 250 ML* 250 ML IVPB SCH (13:29)
[2016-08-18] MEDS: Heparin VIAL(*) 5000 UNITS/ML VIAL (FIVE THOUSAND) SUBCUT SCH ×2 (15:22→22:21)
[2016-08-18] MEDS ORDERED: Sodium Citrate/Citric Acid* 15 ML UDC PO ONE (15:31)
[2016-08-18] MEDS ORDERED: Sodium Citrate/Citric Acid* 15 ML UDC ONE (15:32)
[2016-08-18] MEDS ORDERED: Midazolam* 1 MG/ML 5 ML VIAL (5 MG) ONE (15:38)
[2016-08-18] MEDS ORDERED: fentaNYL* 50 MCG/ML 2 ML VIAL (100 MCG VIAL) ONE (15:38)
[2016-08-18] MEDS ORDERED: Labetalol IV* 5 MG/ML 20 ML VIAL ONE (16:01)
[2016-08-18] MEDS ORDERED: Midazolam* 1 MG/ML 2 ML VIAL (2 MG) ONE (16:02)
--- NOTE | 2016-08-18 17:23 | PN ---
Subjective Date of Service: 08/18/16 Interval History: . Interviewed and examined patient at bedside; Discussed case with Dr. Grier ; Reviewed previous notes and radiology results; patient s/p great toe amputation -- doing well hungry for dinner denies other symptoms. denies CP/SOB/LH/cough/diarrhea Family History: Unchanged from Admission Social History: Unchanged from Admission Past Medical History: Unchanged from Admission Objective Active Medications: . Acetaminophen (Tylenol Tab*) 650 mg PO Q6H PRN PRN Reason: pain/fever Atorvastatin Calcium (Lipitor*) 10 mg PO QPM [facility] [place] Last Admin: 08/17/16 18:08 Dose: 10 mg Calcium Carbonate (Tums*) 500 mg PO Q4H PRN PRN Reason: INDIGESTION Last Admin: 08/18/16 00:59 Dose: 500 mg Dextrose (D50w Syringe 50 Ml*) 12.5 gm IV PUSH .FOR FS < 60 - SS PRN PRN Reason: FS < 60 Diltiazem HCl (Cardizem Tab*) 30 mg PO QPM [facility] Last Admin: 08/17/16 18:15 Dose: 30 mg Gabapentin (Neurontin Cap(*)) 300 mg PO Q8HR [facility] [place] Last Admin: 08/18/16 15:22 Dose: Not Given Heparin Sodium (Porcine) (Heparin Vial(*)) 5,000 units SUBCUT 0600,1400,2200 [facility] [place] Last Admin: 08/18/16 15:22 Dose: Not Given Hydroxychloroquine Sulfate (Plaquenil Tab*) 200 mg PO BID [facility] [place] Last Admin: 08/18/16 08:37 Dose: 200 mg Vancomycin HCl 1,250 mg/ (Sodium Chloride) 250 mls @ 166.667 mls/hr IVPB Q12H [facility] Last Admin: 08/18/16 13:29 Dose: 166.667 mls/hr Cefepime HCl 1 gm/ Sodium (Chloride) 50 mls @ 100 mls/hr IVPB Q12H [facility] [place] Last Admin: 08/18/16 16:59 Dose: Not Given Insulin Glargine (Lantus(*)) 50 units SUBCUT QPM [facility] [place] Last Admin: 08/17/16 18:09 Dose: 50 units Insulin Glargine (Lantus(*)) 40 units SUBCUT 0900 [facility] [place] Insulin Human Lispro (Humalog*) 0 units SUBCUT ACHS [facility] [place] PRN Reason: Protocol Last Admin: 08/18/16 12:27 Dose: Not Given Insulin Human Lispro (Humalog*) 0 units SUBCUT AC [facility] PRN Reason: Protocol Last Admin: 08/18/16 12:27 Dose: Not Given Lorazepam (Ativan Tab(*)) 1 mg PO BID PRN PRN Reason: ANXIETY Metoprolol Succinate (Toprol Xl Tab*) 50 mg PO QAM [facility] [place] Last Admin: 08/18/16 08:36 Dose: 50 mg Metronidazole (Flagyl Tab*) 500 mg PO BID [facility] [place] Last Admin: 08/18/16 09:07 Dose: 500 mg Morphine Sulfate (Morphine Oral.Soln 10 Mg*) 15 mg PO TID PRN PRN Reason: PAIN Last Admin: 08/18/16 09:05 Dose: 15 mg Chlorzoxazone [ (Lorzone] 500 Mg) 500 mg PO TID [facility] [place] Last Admin: 08/18/16 15:22 Dose: Not Given Ondansetron HCl (Zofran Inj*) 4 mg IV Q4H PRN PRN Reason: NAUSEA Last Admin: 08/18/16 01:00 Dose: 4 mg Pharmacy Consult (Vancomycin Per Pharmacy*) 1 note FOLLOW UP . PRN PRN Reason: PER PROTOCOL Ramipril (Altace Cap*) 10 mg PO QPM [facility] [place] Last Admin: 08/17/16 18:08 Dose: 10 mg Venlafaxine HCl (Effexor Xr Cap*) 75 mg PO QPM [facility] [place] PRN Reason: Protocol Last Admin: 08/17/16 18:08 Dose: 75 mg . Vital Signs 08/17/16 08/17/16 08/17/16 17:24 19:24 19:40 Temperature 98.6 F Pulse Rate 67 Respiratory 20 18 16 Rate Blood Pressure 153/66 (mmHg) O2 Sat by Pulse 96 Oximetry 08/17/16 08/17/16 08/17/16 20:00 20:36 22:36 Temperature Pulse Rate Respiratory 18 18 18 Rate Blood Pressure (mmHg) O2 Sat by Pulse Oximetry Oxygen Devices in Use Now: None Appearance: NAD Ears/Nose/Mouth/Throat: NL Teeth, Lips, Gums Neck: NL Appearance and Movements; NL JVP Respiratory: Symmetrical Chest Expansion and Respiratory Effort Cardiovascular: NL Sounds; No Murmurs; No JVD Abdominal: NL Sounds; No Tenderness; No Distention Extremities: No Edema, - - s/p R great toe amputation Skin: No Rash or Ulcers Neurological: Alert and Oriented x 3 Lines/Tubes/Other Access: Clean, Dry and Intact Peripheral IV Nutrition: Taking PO's Result Diagrams: 08/17/16 06:22 08/18/16 11:35 Microbiology and Other Data: Microbiology 08/16/16 16:30 Gram Stain - Final Foot Left Assess/Plan/Problems-Billing Assessment: 61 yo F h/o uncontrolled IDDM, peripheral neuropathy p/w left 1st toe cellulitis , chronic wound and underlying osteomyelitis -- diabetic related Likely also vascular insufficiency given decreased pulses and elevated BRITTANY ==> likely peripheral artery disease - Patient Problems (1) Osteomyelitis Current Visit: Yes Status: Acute Priority: High Code(s): M86.9 - OSTEOMYELITIS, UNSPECIFIED Comment: appreciate ID and ortho assistance s/p ammputation today BRITTANY not notable for PVD but suspect false negative. c/w cefepime, vanco, flagyl (2) Diabetes Current Visit: Yes Status: Chronic Priority: High Code(s): E11.9 - TYPE 2 DIABETES MELLITUS WITHOUT COMPLICATIONS Comment: Basal bolus insulin regimen (3) PAD (peripheral artery disease) Current Visit: Yes Status: Acute Priority: High Code(s): I73.9 - PERIPHERAL VASCULAR DISEASE, UNSPECIFIED Comment: - needs outpatient follow up. - Dr. Aleman (4) H/O supraventricular tachycardia Current Visit: Yes Status: Acute Priority: High Code(s): Z86.79 - PERSONAL HISTORY OF OTHER DISEASES OF THE CIRCULATORY SYSTEM Comment: - cardizem and metoprolol (5) Peripheral neuropathy Current Visit: Yes Status: Acute Priority: Medium Code(s): G62.9 - POLYNEUROPATHY, UNSPECIFIED Comment: gabapentin (6) DVT prophylaxis Current Visit: Yes Status: Acute Code(s): OMQ3034 - SNOMED Code(s): 554075414 Comment: [facility]
[2016-08-18] MEDS: Diltiazem TAB* 30 MG PO SCH (18:36)
[2016-08-18] MEDS: Ramipril CAP* 10 MG PO SCH (18:36)
[2016-08-18] MEDS: Atorvastatin* 10 MG TAB PO SCH (18:36)
[2016-08-18] MEDS: Venlafaxine EXT RELEASE CAP* 75 MG PO SCH (18:37)
[2016-08-18] MEDS: Insulin GLARGINE(*) 1 UNITS UNIT SUBCUT SCH (18:38)
[2016-08-19] MEDS: Calcium Carbonate CHEW TAB* 500 MG (TUMS) PO PRN ×2 (00:24→12:15)
[2016-08-19] MEDS: Ondansetron INJ* 2 MG/ML VIAL IV PRN ×2 (00:24→10:23)
[2016-08-19] MEDS: Vancomycin(*) 1,250 MG in NS 0.9% 250 ML* 250 ML IVPB SCH ×2 (00:24→12:24)
[2016-08-19] MEDS: Cefepime(*) 1 GM in NS 0.9% 50 ML* 50 ML IVPB SCH (02:35)
[2016-08-19] MEDS: Morphine ORAL.SOLN 10 mg* 2 MG/ML UDC 5 ml PO PRN ×2 (03:17→10:22)
[2016-08-19] MEDS: CHLORZOXAZONE 500 MG PO SCH ×3 (04:07→14:31)
[2016-08-19] MEDS: Gabapentin CAP(*) 300 MG PO SCH ×3 (05:12→22:07)
[2016-08-19] MEDS: Heparin VIAL(*) 5000 UNITS/ML VIAL (FIVE THOUSAND) SUBCUT SCH ×3 (05:12→22:08)
[2016-08-19 06:09] LABS: Hematocrit 35 % (35-47); Mean Corpuscular HGB Conc 34 g/dl (31-36); Mean Corpuscular Hemoglobin 29 pg (27-31); Mean Corpuscular Volume 86 fL (80-97); Mean Platelet Volume 8 um3 (7.4-10.4); Red Blood Count 4.11 10^6/ul (4.0-5.4); Red Cell Distribution Width 13 % (10.5-15); White Blood Count 7.1 10^3/ul (3.5-10.8)
[2016-08-19 06:27] LABS: BUN/Creatinine Ratio 16.9 (8-20); EGFR African American 59.9 (>60); EGFR Non-African American 46.6 (>60); Potassium 4.1 mmol/L (3.5-5.0)
--- NOTE | 2016-08-19 09:47 | OP ---
DATE OF OPERATION: 08/18/16 - ROOM #420 DATE OF : 55 ATTENDING SURGEON: Ashutosh Nobles MD ASSISTANTS: 1. EVER Copeland 2. KIRSTIN Dang ANESTHESIOLOGIST: Matt Tang MD ANESTHESIA: MAC PRE-OP DIAGNOSIS: Osteomyelitis, left great toe, distal phalanx. POST-OP DIAGNOSIS: Osteomyelitis, left great toe, distal phalanx. OPERATIVE PROCEDURE: Partial amputation, left great toe through proximal phalanx. DESCRIPTION OF PROCEDURE: The patient was taken to the operating room, where we left a longer dorsal and the plantar flap at the IP joint of the left great toe. We disarticulated the great toe by dividing the proximal phalanx at least a centimeter proximal to the joint. Cultures were sent from this area but the surrounding soft tissues appeared to be clean as well as the bone itself. We irrigated thoroughly dropping the tourniquet and obtaining hemostasis. There was brisk bleeding in both dorsal and plantar flaps. We reapproximated the skin flaps with 2-0 Biosyn and 2-0 Surgipro for the skin, interrupted sutures, compression dressing was applied. [id number]/[facility] #: [id number] MTDD
--- NOTE | 2016-08-19 10:06 | PN ---
Progress Note - Progress Note SOAP: Subjective: patient resting comfortably with minimal pain Objective: Vital Signs Temp Pulse Resp BP Pulse Ox 97.7 F 68 16 155/63 97 08/19/16 06:42 08/19/16 06:42 08/19/16 08:00 08/19/16 06:42 08/19/16 06:42 Laboratory Last Values WBC 7.1 10^3/ul (3.5-10.8) 08/19/16 05:40 RBC 4.11 10^6/ul (4.0-5.4) 08/19/16 05:40 Hgb 12.0 g/dl (12.0-16.0) 08/19/16 05:40 Hct 35 % (35-47) 08/19/16 05:40 MCV 86 fL (80-97) 08/19/16 05:40 MCH 29 pg (27-31) 08/19/16 05:40 MCHC 34 g/dl (31-36) 08/19/16 05:40 RDW 13 % (10.5-15) 08/19/16 05:40 Plt Count 321 10^3/ul (150-450) 08/19/16 05:40 MPV 8 um3 (7.4-10.4) 08/19/16 05:40 Neut % (Auto) 64.0 % (38-83) 08/19/16 05:40 Lymph % (Auto) 24.4 % (25-47) L 08/19/16 05:40 [place] % (Auto) 8.0 % (1-9) 08/19/16 05:40 Eos % (Auto) 2.8 % (0-6) 08/19/16 05:40 Baso % (Auto) 0.8 % (0-2) 08/19/16 05:40 Absolute Neuts (auto) 4.6 10^3/ul (1.5-7.7) 08/19/16 05:40 Absolute Lymphs (auto) 1.7 10^3/ul (1.0-4.8) 08/19/16 05:40 Absolute Monos (auto) 0.6 10^3/ul (0-0.8) 08/19/16 05:40 Absolute Eos (auto) 0.2 10^3/ul (0-0.6) 08/19/16 05:40 Absolute Basos (auto) 0.1 10^3/ul (0-0.2) 08/19/16 05:40 Absolute Nucleated RBC 0 10^3/ul 08/19/16 05:40 Nucleated RBC % 0 08/19/16 05:40 ESR 56 mm/Hr (0-30) H 08/17/16 06:22 INR (Anticoag Therapy) 0.93 (0.89-1.11) 08/16/16 12:15 APTT 30.6 seconds (26.0-36.3) 08/16/16 12:15 Sodium 135 mmol/L (133-145) 08/19/16 05:40 Potassium 4.1 mmol/L (3.5-5.0) 08/19/16 05:40 Chloride 101 mmol/L (101-111) 08/19/16 05:40 Carbon Dioxide 28 mmol/L (22-32) 08/19/16 05:40 Anion Gap 6 mmol/L (2-11) 08/19/16 05:40 BUN 20 mg/dL (6-24) 08/19/16 05:40 Creatinine 1.18 mg/dL (0.51-0.95) H 08/19/16 05:40 Est GFR ( Amer) 59.9 (>60) 08/19/16 05:40 Est GFR (Non-Af Amer) 46.6 (>60) 08/19/16 05:40 BUN/Creatinine Ratio 16.9 (8-20) 08/19/16 05:40 Glucose 201 mg/dL (70-100) H 08/19/16 05:40 POC Glucose (mg/dL) 190 mg/dL (74-106) H 08/19/16 07:55 Hemoglobin A1c 8.8 % (Less than 6.0) H 08/17/16 06:22 Lactic Acid 1.5 mmol/L (0.5-2.0) 08/16/16 12:15 Calcium 9.0 mg/dL (8.6-10.3) 08/19/16 05:40 Total Bilirubin 0.40 mg/dL (0.2-1.0) 08/16/16 12:15 AST 33 U/L (13-39) 08/16/16 12:15 ALT 42 U/L (7-52) 08/16/16 12:15 Alkaline Phosphatase 60 U/L (34-104) 08/16/16 12:15 C-Reactive Protein 29.77 mg/L (< 5.00) H 08/17/16 06:23 Total Protein 7.7 g/dL (6.4-8.9) 08/16/16 12:15 Albumin 4.0 g/dL (3.2-5.2) 08/16/16 12:15 Globulin 3.7 g/dL (2-4) 08/16/16 12:15 Albumin/Globulin Ratio 1.1 (1-3) 08/16/16 12:15 Vancomycin Trough 16.6 mcg/mL 08/18/16 11:35 incision: c/d PE: moving toes well, able to plantar flex/dorsiflex ankle, good cap refill, diminished sensation to toes secondary to neuropathy Assessment: s/p left great toe amputation Plan: 1) Continue Abx per ID 2) ID and Medicine following 3) OK to D/C once cleared by medicine/ID; F/U with Giuliano next week for wound check.
[2016-08-19] MEDS: Insulin LISPRO* 1 UNITS UNIT SUBCUT SCH ×7 (10:07→22:06)
[2016-08-19] MEDS: HYDROXYCHLOROQUINE 200 MG PO SCH ×2 (10:09→22:05)
[2016-08-19] MEDS: metroNIDAZOLE TAB* 250 MG PO SCH ×2 (10:12→22:07)
[2016-08-19] MEDS: Insulin GLARGINE(*) 1 UNITS UNIT SUBCUT SCH ×2 (10:12→18:23)
[2016-08-19] MEDS: Metoprolol Succinate XL TAB* 50 MG PO SCH (10:12)
[2016-08-19] MEDS ORDERED: NS 0.9% 250 ML* 250 ML ONE (12:04)
--- NOTE | 2016-08-19 13:51 | PN ---
Progress Note - Progress Note SOAP: Subjective: DOS: 08/19/16 CC: toe infection HPI: 61 year old woman with DM and 2 weeks of left great toe ulcer, swelling, drainage, redness. No fever but had chills. Had augmentin and podiatric evaluaiton as outpt without improvement. Toe surgery 08/18, tolerated it well. Nausea today, no fever, rash, diarrhea, or foot pain Objective: [] Vital Signs Temp 36.5 C 08/19/16 06:42 Pulse 68 08/19/16 06:42 Resp 16 08/19/16 12:22 BP 155/63 08/19/16 06:42 Pulse Ox 97 08/19/16 06:42 Intake & Output 08/18/16 08/19/16 08/19/16 18:59 06:59 18:59 Intake Total 1260 1245 700 Balance 1260 1245 700 Intake: IV Fluids 900 40 lr 900 normal saline 40 IVPB 405 ABX - CEFEPIME 110 ABX - VANCOMYCIN 275 normal saline 20 Oral 360 800 700 Other: Estimated Void Medium # Bowel Movements 0 # Voids 3 1 Gen:Awake, no distress Neuro:Ox3, decreased sensation to light touch BL feet HEENT: no thrush Neck:supple LN: no visible or palpable LN Heart:RRR no murmur Lungs:CTA BL Abd:+BS NTND soft Skin: no rash MSK: left foot wrapped Laboratory Results - last 24 hr 08/18/16 08/18/16 08/18/16 15:28 16:21 20:06 WBC RBC Hgb Hct MCV MCH MCHC RDW Plt Count MPV Neut % (Auto) Lymph % (Auto) [place] % (Auto) Eos % (Auto) Baso % (Auto) Absolute Neuts (auto) Absolute Lymphs (auto) Absolute Monos (auto) Absolute Eos (auto) Absolute Basos (auto) Absolute Nucleated RBC Nucleated RBC % Sodium Potassium Chloride Carbon Dioxide Anion Gap BUN Creatinine Est GFR ( Amer) Est GFR (Non-Af Amer) BUN/Creatinine Ratio Glucose POC Glucose (mg/dL) 104 148 H 209 H Calcium 08/19/16 08/19/16 08/19/16 05:40 05:40 07:55 WBC 7.1 RBC 4.11 Hgb 12.0 Hct 35 MCV 86 MCH 29 MCHC 34 RDW 13 Plt Count 321 MPV 8 Neut % (Auto) 64.0 Lymph % (Auto) 24.4 L [place] % (Auto) 8.0 Eos % (Auto) 2.8 Baso % (Auto) 0.8 Absolute Neuts (auto) 4.6 Absolute Lymphs (auto) 1.7 Absolute Monos (auto) 0.6 Absolute Eos (auto) 0.2 Absolute Basos (auto) 0.1 Absolute Nucleated RBC 0 Nucleated RBC % 0 Sodium 135 Potassium 4.1 Chloride 101 Carbon Dioxide 28 Anion Gap 6 BUN 20 Creatinine 1.18 H Est GFR ( Amer) 59.9 Est GFR (Non-Af Amer) 46.6 BUN/Creatinine Ratio 16.9 Glucose 201 H POC Glucose (mg/dL) 190 H Calcium 9.0 08/19/16 11:19 WBC RBC Hgb Hct MCV MCH MCHC RDW Plt Count MPV Neut % (Auto) Lymph % (Auto) [place] % (Auto) Eos % (Auto) Baso % (Auto) Absolute Neuts (auto) Absolute Lymphs (auto) Absolute Monos (auto) Absolute Eos (auto) Absolute Basos (auto) Absolute Nucleated RBC Nucleated RBC % Sodium Potassium Chloride Carbon Dioxide Anion Gap BUN Creatinine Est GFR ( Amer) Est GFR (Non-Af Amer) BUN/Creatinine Ratio Glucose POC Glucose (mg/dL) 256 H Calcium Microbiology 08/16/16 12:15 Aerobic Blood Culture - Preliminary Blood Venous No Growth Day 3 Anaerobic Blood Culture - Preliminary No Growth Day 3 Blood Culture - Final 08/16/16 12:15 Aerobic Blood Culture - Preliminary Blood Venous No Growth Day 3 Anaerobic Blood Culture - Preliminary No Growth Day 3 Blood Culture - Final 08/18/16 16:08 Wound Gram Stain - Final Wound Skin and Soft Tissue MRSA/MSSA (PCR - Final Mrsa Negative S.aureus Negative 08/16/16 16:30 Gram Stain - Final Foot Left Wound Culture - Final Normal Rekha Assessment: 1. L great toe osteomeyelitis, chronic, diabetes related s/p partial amputation ; GPC on GS, SA neg by PCR ?Strep vs CoNS 2. T2DM 3. peripheral neuropathy 4. decr pulses; elevated BRITTANY, suspect arterioscleriosis and component of PAD Plan: 1. continue vancomycin goal tr 15-20, DC cefepime. Will plan on outpatient vancomycin goal tr 15-20 while awaiting cultures. weekly cbc, cmp, crp, vanco trough 2. Outpatient vascular evaluation. Discussed with Dr Carrillo 35 minutes floor time >50% in counseling regarding superintendent container terminal antibiotic therapy , side effects, monitoring; and vascular evaluation. All questions answered.
--- NOTE | 2016-08-19 16:01 | CONSULT ---
Consult Consult: Date of Service: 08/19/16 CPT Code: 69152 Reason for Consultation: Evaluation for arterial insufficiency in a diabetic woman status post left great toe amputation. HPI: Mrs. Miller is a 61 YOF that [place] [facility] [place] painful, infected left great toe. She reports having a "callus that cracked" weeks ago and the toe progressively became swollen, red and painful. At the time of inpatient consultation she is POD #1 right great toe amputation. Prior to her toe infection, she denies symptoms characteristic of claudication and denies "rest pain" symptoms. ROS: Denies dizziness, headache Denies acute visual problems No SOB No chest pain + Low back pain that occasionally "shoots down her legs" Reduced sensation at the bilateral feet PE: NAD, AAO x 3 Normocephalic CN 2-12 grossly intact Lung CTAB RRR, S1/S2 No carotid bruits 2+ pulses at bilateral upper extremities, ASSISTANT ANALYST 1-2+ palpable pulses at bilateral popliteal arteries and left PT Could not definitely palpate left DP Right foot bandaged with compression wrap s/p great toe amputation Reduced sensation to light touch at bilateral plantar surface feet Selected Entries 08/19/16 06:42 Temperature 97.7 F Temperature Temporal Artery Source Scan Pulse Rate 68 Respiratory 16 Rate Blood Pressure 155/63 (mmHg) Blood Pressure 87 Mean O2 Sat by Pulse 97 Oximetry Patient on Room Yes Air BRITTANY, 08/16/16 Reviewed personally. Non-compressible right digit and elevated IP arteries indicate a degree of calcified vasculopathy, but waveforms are present. Laboratory Tests 08/19/16 08/19/16 08/19/16 05:40 05:40 11:19 WBC 7.1 RBC 4.11 Hgb 12.0 Hct 35 BUN 20 Creatinine 1.18 H Est GFR (Non-Af Amer) 46.6 POC Glucose (mg/dL) 256 H Assessment: 61 YOF POD #1 left great toe amputation for infection. Physical examination, clinical history and BRITTANY indicate no significant named arterial insufficiency. Likely her left great toe infection is due to diabetic microvascular disease and /or inadequate glucose control. At this time there is no indication for angiography and/or endovascular revascularization. Plan & Recommendations: 1. Post surgical care per Dr. Nobles. 2. Wound care, IV abx, etc per Dr. Hopkins. 3. 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 4. If/when she develops signs/symptoms of arterial insufficiency she was encouraged to contact Interventional Radiology and was given our clinic contact information.
[2016-08-19] MEDS: Cyclobenzaprine TAB* 10 MG PO PRN (16:05)
[2016-08-19] MEDS: Diltiazem TAB* 30 MG PO SCH (18:18)
[2016-08-19] MEDS: Ramipril CAP* 10 MG PO SCH (18:19)
[2016-08-19] MEDS: Venlafaxine EXT RELEASE CAP* 75 MG PO SCH (18:19)
[2016-08-19] MEDS: Atorvastatin* 10 MG TAB PO SCH (18:19)
[2016-08-19] MEDS: Morphine TAB Extended Release (*) 15 MG TAB.ER PO PRN (18:24)
--- NOTE | 2016-08-19 19:30 | PN ---
Subjective Date of Service: 08/19/16 Interval History: . "feels crumby" back hurts from hospital bed wants to go home PICC and home IV Abx being set up Family History: Unchanged from Admission Social History: Unchanged from Admission Past Medical History: Unchanged from Admission Objective Active Medications: . Acetaminophen (Tylenol Tab*) 650 mg PO Q6H PRN PRN Reason: pain/fever Atorvastatin Calcium (Lipitor*) 10 mg PO QPM [facility] Last Admin: 08/19/16 18:19 Dose: 10 mg Calcium Carbonate (Tums*) 500 mg PO Q4H PRN PRN Reason: INDIGESTION Last Admin: 08/19/16 12:15 Dose: 500 mg Cyclobenzaprine HCl (Flexeril Tab*) 10 mg PO TID PRN PRN Reason: back spasm Last Admin: 08/19/16 16:05 Dose: 10 mg Dextrose (D50w Syringe 50 Ml*) 12.5 gm IV PUSH .FOR FS < 60 - SS PRN PRN Reason: FS < 60 Diltiazem HCl (Cardizem Tab*) 30 mg PO QPM [facility] Last Admin: 08/19/16 18:18 Dose: 30 mg Gabapentin (Neurontin Cap(*)) 300 mg PO Q8HR [facility] Last Admin: 08/19/16 14:23 Dose: 300 mg Heparin Sodium (Porcine) (Heparin Vial(*)) 5,000 units SUBCUT 0600,1400,2200 [facility] Last Admin: 08/19/16 14:24 Dose: 5,000 units Heparin Sodium (Porcine) (Heparin Flush Picc/Ml/Cvc(*)) 1 - 3 ml FLUSH 0600, 1800 [facility]Y PRN Reason: Protocol Last Admin: 08/19/16 18:23 Dose: 1 ml Hydroxychloroquine Sulfate (Plaquenil Tab*) 200 mg PO BID [facility] Last Admin: 08/19/16 10:09 Dose: 200 mg Vancomycin HCl 1,250 mg/ (Sodium Chloride) 250 mls @ 166.667 mls/hr IVPB 2200 ONE Stop: 08/19/16 23:29 Vancomycin HCl 1,250 mg/ (Sodium Chloride) 250 mls @ 166.667 mls/hr IVPB Q12H [facility] Insulin Glargine (Lantus(*)) 50 units SUBCUT QPM [facility] Last Admin: 08/19/16 18:23 Dose: 50 units Insulin Glargine (Lantus(*)) 40 units SUBCUT 0900 [facility] Last Admin: 08/19/16 10:12 Dose: 40 units Insulin Human Lispro (Humalog*) 0 units SUBCUT ACHS [facility] PRN Reason: Protocol Last Admin: 08/19/16 18:20 Dose: 6 units Insulin Human Lispro (Humalog*) 0 units SUBCUT AC [facility] PRN Reason: Protocol Last Admin: 08/19/16 18:39 Dose: Not Given Lorazepam (Ativan Tab(*)) 1 mg PO BID PRN PRN Reason: ANXIETY Metoprolol Succinate (Toprol Xl Tab*) 50 mg PO QAM [facility] Last Admin: 08/19/16 10:12 Dose: 50 mg Metronidazole (Flagyl Tab*) 500 mg PO BID [facility] Last Admin: 08/19/16 10:12 Dose: 500 mg Morphine Sulfate (Ms Contin(*)) 15 mg PO TID PRN PRN Reason: PAIN Last Admin: 08/19/16 18:24 Dose: 15 mg Ondansetron HCl (Zofran Inj*) 4 mg IV Q4H PRN PRN Reason: NAUSEA Last Admin: 08/19/16 10:23 Dose: 4 mg Pharmacy Consult (Vancomycin Per Pharmacy*) 1 note FOLLOW UP . PRN PRN Reason: PER PROTOCOL Ramipril (Altace Cap*) 10 mg PO QPM [facility] Last Admin: 08/19/16 18:19 Dose: 10 mg Venlafaxine HCl (Effexor Xr Cap*) 75 mg PO QPM [facility] PRN Reason: Protocol Last Admin: 08/19/16 18:19 Dose: 75 mg Vital Signs 08/18/16 08/18/16 08/18/16 19:57 20:00 21:57 Temperature Pulse Rate Respiratory 18 18 18 Rate Blood Pressure (mmHg) O2 Sat by Pulse Oximetry 08/18/16 08/18/16 08/19/16 22:21 23:40 03:17 Temperature 98.3 F Pulse Rate 65 Respiratory 18 18 20 Rate Blood Pressure 145/49 (mmHg) O2 Sat by Pulse 96 Oximetry Oxygen Devices in Use Now: None Appearance: NAD Ears/Nose/Mouth/Throat: Clear Oropharnyx Neck: NL Appearance and Movements; NL JVP Respiratory: Symmetrical Chest Expansion and Respiratory Effort Cardiovascular: NL Sounds; No Murmurs; No JVD Abdominal: NL Sounds; No Tenderness; No Distention Extremities: - - R foot dressed / wrapped Skin: No Rash or Ulcers Neurological: Alert and Oriented x 3 Lines/Tubes/Other Access: Clean, Dry and Intact PICC Line - placed today Nutrition: Taking PO's Result Diagrams: 08/19/16 05:40 08/19/16 05:40 Additional Lab and Data: . Microbiology and Other Data: Microbiology 08/16/16 16:30 Gram Stain - Final Foot Left Assess/Plan/Problems-Billing Assessment: 61 yo F h/o uncontrolled IDDM, peripheral neuropathy p/w left 1st toe cellulitis , chronic wound and underlying osteomyelitis -- diabetic related Likely also vascular insufficiency given decreased pulses and elevated BRITTANY ==> likely peripheral artery disease - Patient Problems (1) Osteomyelitis Current Visit: Yes Status: Acute Priority: High Code(s): M86.9 - OSTEOMYELITIS, UNSPECIFIED Comment: appreciate ID and ortho assistance s/p ammputation 08/19/15 BRITTANY not notable for PVD - vascular consult supports c/w cefepime, vanco, flagyl --> [facility] of [facility]. (2) Diabetes Current Visit: Yes Status: Chronic Priority: High Code(s): E11.9 - TYPE 2 DIABETES MELLITUS WITHOUT COMPLICATIONS Comment: Basal bolus insulin regimen (3) PAD (peripheral artery disease) Current Visit: Yes Status: Ruled-out Priority: High Code(s): I73.9 - PERIPHERAL VASCULAR DISEASE, UNSPECIFIED Comment: - no indication for intervention per Dr. Aleman (4) H/O supraventricular tachycardia Current Visit: Yes Status: Acute Priority: High Code(s): Z86.79 - PERSONAL HISTORY OF OTHER DISEASES OF THE CIRCULATORY SYSTEM Comment: - cardizem and metoprolol (5) Peripheral neuropathy Current Visit: Yes Status: Acute Priority: Medium Code(s): G62.9 - POLYNEUROPATHY, UNSPECIFIED Comment: gabapentin (6) DVT prophylaxis Current Visit: Yes Status: Acute Priority: High Code(s): [id number] - Comment: [facility]
[2016-08-19] MEDS ORDERED: Vancomycin(*) 1,250 MG in NS 0.9% 250 ML* 250 ML IVPB ONE (22:00)
[2016-08-20] MEDS: Calcium Carbonate CHEW TAB* 500 MG (TUMS) PO PRN (00:27)
[2016-08-20] MEDS: Ondansetron INJ* 2 MG/ML VIAL IV PRN (00:27)
[2016-08-20] MEDS ORDERED: Docusate CAP* 100 MG PO PRN (02:47)
[2016-08-20] MEDS ORDERED: Senna TAB PO PRN (02:47)
[2016-08-20] MEDS: Gabapentin CAP(*) 300 MG PO SCH (05:14)
[2016-08-20] MEDS: Morphine TAB Extended Release (*) 15 MG TAB.ER PO PRN (05:15)
[2016-08-20] MEDS: Cyclobenzaprine TAB* 10 MG PO PRN (05:22)
[2016-08-20] MEDS: Heparin VIAL(*) 5000 UNITS/ML VIAL (FIVE THOUSAND) SUBCUT SCH ×2 (05:23→12:21)
[2016-08-20] MEDS ORDERED: Vancomycin(*) 1,250 MG in NS 0.9% 250 ML* 250 ML IVPB SCH (08:00)
[2016-08-20] MEDS: Insulin LISPRO* 1 UNITS UNIT SUBCUT SCH ×4 (09:05→12:52)
[2016-08-20] MEDS: metroNIDAZOLE TAB* 250 MG PO SCH (09:06)
[2016-08-20] MEDS: Insulin GLARGINE(*) 1 UNITS UNIT SUBCUT SCH (09:06)
[2016-08-20] MEDS: Metoprolol Succinate XL TAB* 50 MG PO SCH (09:07)
[2016-08-20] MEDS: HYDROXYCHLOROQUINE 200 MG PO SCH (09:10)
--- NOTE | 2016-08-20 11:01 | PN ---
Progress Note - Progress Note SOAP: Subjective: [61 y/o female s/o R great toe amputation 08/18 for osteomyelitis. Patient reports feeling well, VSS overnight. Pain controlled, eager for D/C. No questions/ concerns. ] Objective: [General- Resting comfortably in bed, NAD OA MSK- + movement of 2-5 toes R foot, surgical dressing intact, no odor, no drainage noted. neg homans sign, minimal edema RLE. Vital Signs Temp 99.4 F 08/19/16 23:26 Pulse 65 08/19/16 23:26 Resp 15 08/20/16 07:14 BP 152/47 08/19/16 23:26 Pulse Ox 96 08/19/16 23:26 Intake & Output 08/19/16 08/20/16 08/20/16 18:59 06:59 18:59 Intake Total 1209 945 Balance 1209 945 Intake: IV Fluids 269 30 ABX - VANCOMYCIN 269 normal saline 30 IVPB 275 ABX - VANCOMYCIN 275 Oral 940 640 Other: Estimated Void Large # Bowel Movements 0 # Voids 0 Laboratory Results - last 24 hr 08/19/16 08/19/16 08/19/16 11:19 17:04 21:35 POC Glucose (mg/dL) 256 H 209 H 225 H 08/20/16 07:47 POC Glucose (mg/dL) 163 H ] Assessment: [61 y/o female s/o R great toe amputation 08/18 for osteomyelitis.] Plan: [- Home today - Follow up with Dr. Nobles within 10 days - Keep surgical dressing in place, no showering, no getting wet. Active Medications Generic Name Dose Route Start Last Admin Trade Name Freq PRN Reason Stop Dose Admin Acetaminophen 650 mg 08/16/16 13:34 Tylenol Tab* PO Q6H PRN pain/fever Atorvastatin Calcium 10 mg 08/16/16 18:00 08/19/16 18:19 Lipitor* PO 10 mg QPM SPEEDY Administration Calcium Carbonate 500 mg 08/16/16 16:32 08/20/16 00:27 Tums* PO 500 mg Q4H PRN Administration INDIGESTION Cyclobenzaprine HCl 10 mg 08/19/16 14:38 08/20/16 05:22 Flexeril Tab* PO 10 mg TID PRN Administration back spasm Dextrose 12.5 gm 08/16/16 13:32 D50w Syringe 50 Ml* IV PUSH .FOR FS < 60 - SS PRN FS < 60 Diltiazem HCl 30 mg 08/16/16 18:00 08/19/16 18:18 Cardizem Tab* PO 30 mg QPM [facility] Administration Docusate Sodium 100 mg 08/20/16 02:47 08/20/16 05:15 Colace Cap* PO 100 mg BID PRN Administration CONSTIPATION Gabapentin 300 mg 08/16/16 14:00 08/20/16 05:14 Neurontin Cap(*) PO 300 mg Q8HR [facility]ED[facility] Administration Heparin Sodium (Porcine) 5,000 units 08/18/16 14:00 08/20/16 05:23 Heparin Vial(*) SUBCUT 5,000 units 0600,1400,2200 [facility] Administration Heparin Sodium (Porcine) 1 - 3 ml 08/19/16 18:00 08/20/16 10:58 Heparin Flush Picc/Ml/Cvc(*) FLUSH 1 ml 0600,1800 [facility] Administration Protocol Hydroxychloroquine Sulfate 200 mg 08/17/16 23:00 08/20/16 09:10 Plaquenil Tab* PO 200 mg BID [facility] Administration Vancomycin HCl 1,250 mg/ 250 mls @ 166.667 mls/hr 08/20/16 08:00 08/20/16 08: 35 Sodium Chloride IVPB 166.667 mls/hr Q12H [facility] Administration Insulin Glargine 50 units 08/16/16 18:00 08/19/16 18:23 Lantus(*) SUBCUT 50 units QPM [facility] Administration Insulin Glargine 40 units 08/19/16 09:00 08/20/16 09:06 Lantus(*) SUBCUT 40 units 0900 [facility] Administration Insulin Human Lispro 0 units 08/16/16 16:30 08/20/16 09:05 Humalog* SUBCUT 3 units ACHS [facility] Administration Protocol Insulin Human Lispro 0 units 08/16/16 16:30 08/20/16 09:05 Humalog* SUBCUT 7 units AC [facility] Administration Protocol Lorazepam 1 mg 08/16/16 13:21 Ativan Tab(*) PO BID PRN ANXIETY Metoprolol Succinate 50 mg 08/17/16 09:00 08/20/16 09:07 Toprol Xl Tab* PO 50 mg QAM [facility] Administration Metronidazole 500 mg 08/16/16 21:00 08/20/16 09:06 Flagyl Tab* PO 500 mg BID [facility] Administration Morphine Sulfate 15 mg 08/19/16 17:32 08/20/16 05:15 Ms Contin(*) PO 15 mg TID PRN Administration PAIN Ondansetron HCl 4 mg 08/18/16 00:52 08/20/16 00:27 Zofran Inj* IV 4 mg Q4H PRN Administration NAUSEA Pharmacy Consult 1 note 08/16/16 14:55 Vancomycin Per Pharmacy* FOLLOW UP . PRN PER PROTOCOL Ramipril 10 mg 08/16/16 18:00 08/19/16 18:19 Altace Cap* PO 10 mg QPM [facility] Administration Senna 2 tab 08/20/16 02:47 08/20/16 05:15 Senokot Tab* PO 2 tab BEDTIME PRN Administration CONSTIPATION Venlafaxine HCl 75 mg 08/16/16 18:00 08/19/16 18:19 Effexor Xr Cap* PO 75 mg QPM [facility] Administration Protocol ]
[2016-08-20 11:43] VITALS: BP 116/59
--- NOTE | 2016-08-20 14:20 | PN ---
Hospitalist Progress Note . HOSPITALIST DISCHARGE NOTE: See dc instructions and summary by me. Patient stable for dc dc instructions reviewed with the patient at the bedside. DC patient home today.
--- NOTE | 2016-08-21 13:01 | DS ---
DISCHARGE SUMMARY: DATE OF ADMISSION: 08/16/16 DATE OF DISCHARGE: 08/20/16 STATUS DURING HOSPITALIZATION: Inpatient/admitted. PRIMARY CARE PROVIDER: Dr. Marylu Barclay, [facility]. ORTHOPEDIC SURGEON: Dr. Ashutosh Nobles. ID ASSOCIATE PROFESSOR: Dr. Hopkins. PRINCIPAL DISCHARGE DIAGNOSES: Left great toe diabetic foot infection with surrounding cellulitis and underlying acute osteomyelitis, status post amputation of that toe for source control with continuation of home antibiotics (vancomycin) for 2 weeks with reevaluation scheduled in the outpatient setting. SECONDARY DIAGNOSES: 1. Type 2 diabetes mellitus with hemoglobin A1c 8.8 (uncontrolled) in the hospital. 2. Chronic kidney disease, stage 3, secondary to diabetic nephropathy. 3. Insulin-dependent diabetes. 4. Supraventricular tachycardia, controlled on diltiazem/metoprolol. 5. Osteoarthritis and chronic opiate use. 6. Polymyositis. 7. Status post bilateral total hip replacement/multiple spine surgeries with most recent one in February 2015 as a L4-L5 lumbar diskectomy with Dr. Kang. 8. History of appendectomy and hysterectomy. DISCHARGE MEDICATION REGIMEN: 1. Vancomycin 1 g IV twice daily with dose to be adjusted based on trough and this is assisted by visiting nurses. 2. Acetaminophen 650 mg every 6 hours p.r.n. pain/fever. 3. Discontinue Augmentin (amoxicillin/clavulanic acid) that was taken before admission. 4. Chlorzoxazone/Lorzone 375 mg tabs 500 mg by mouth 3 times daily (muscle relaxant). 5. Diltiazem 30 mg by mouth in the evening. 6. Gabapentin 300 mg by mouth every 8 hours. 7. Lorazepam 1 mg by mouth twice daily p.r.n. anxiety/back pain. 8. Metoprolol succinate XL 50 mg by mouth in the morning. 9. Metronidazole cream 1% strength topically twice daily as needed to areas of skin rash. 10. Morphine 15 mg by mouth 3 times daily p.r.n. as previously taking. 11. Omeprazole 40 mg by mouth at bedtime. 12. Ramipril 10 mg by mouth at night. 13. Simvastatin 20 mg by mouth in the evening. 14. Venlafaxine/Effexor 75 mg by mouth in the evening. 15. Metformin 1000 mg by mouth twice daily. 16. Glargine insulin 50 units subcu in the morning and 60 units subcu in the evening with lispro subcutaneously twice daily for sliding coverage/preprandial dosing. HISTORY OF PRESENT ILLNESS AND HOSPITAL COURSE: Please see the comprehensive H and P by Dr. Cata Werner on 08/16/16 as well as the subsequent orthopedic and Infectious Disease consultations by Dr. Nobles and Dr. Hopkins, respectively. In brief, Ms. Miller is a 61-year-old female with a history notable for insulin- dependent type 2 diabetes, polymyositis, SVT, and osteoarthritis, who complained of worsening infection to her left hallux. The patient had a hallux on that toe for a long time, but about 2 weeks prior to admission, she developed a crack in that area. She saw her director nursing service, Dr. Locke, and had debridement done and was prescribed Augmentin. The edema and erythema worsened and there was a low-grade fever with body aches. She was developing a blister on the lateral aspect of the toe and the patient recommended to go to the emergency room for further evaluation. There was not any notable trauma to that toe and her feet are numb, so there might have been some subacute trauma over the prior two weeks. At any rate, the patient was diagnosed with acute osteomyelitis of that toe as a result of the lower extremity MRI that was done on 08/16/16. She also had lower extremity arterial studies/ABIs showing no significant peripheral vascular disease. Dr. Moulton did a consultation that was confirmatory of the absence of significant peripheral arterial disease or at least to an extent that would warrant any further invasive testing or intervention. In conjunction with Dr. Nobles and Dr. Hopkins, a careful analysis was undertaken considering the patient's risk tolerance for medical management, conservative therapy, and all involved opted for an amputation and that happened on 08/18/16 without difficulty. Subsequent day, the patient felt somewhat ill in general and IV antibiotics were being arranged and the patient stayed until 08/20/16 at which time she was discharged in stable condition. The orthopedic consult service gave the patient exclusive instructions about dressing changes and orthopedic followup. Likewise, visiting nursing will assist the patient in her vancomycin dosing and a PICC was placed on August 19 to that end. The patient is being discharged in stable condition. She can follow up with Dr. Barclay next week, week of 08/22/16. The patient can go back to the hospital if she has any worsening symptoms including, but not limited to , chest pain, shortness of breath, lightheadedness, fevers, worsening wound, purulent drainage from that site, or any other concerning symptoms that might evolve and she said she would comply with the instruction. CONDITION AT DISCHARGE: Stable. CC: Dr. Barclay; Dr. Nobles; Dr. Hopkins* [id number]/[facility] #: [id number] MTDD
== END 2016-08-20 14:00 | disposition home or self-care (01) | DRG 617 ==
LOC: ED 09:29 → MEDTELE 11:42 → UNDOADMOB 11:42 → MED 12:51 → OBSVTOIN 16:56
PROVIDERS: ADMIT Internal Medicine; ATTEND Internal Medicine
PROC: 0Y6Q0Z1 Detachment at Left 1st Toe, High, Open Approach (ICD-10-PCS; principal; 2016-08-18 15:00)
PROC: 02HV33Z Insertion of Infusion Device into Superior Vena Cava, Percutaneous Approach (ICD-10-PCS; 2016-08-19)
DX: E11.69 Type 2 diabetes mellitus with other specified complication (principal); M86.172 Other acute osteomyelitis, left ankle and foot; E11.21 Type 2 diabetes mellitus with diabetic nephropathy; M33.20 Polymyositis, organ involvement unspecified; E11.22 Type 2 diabetes mellitus with diabetic chronic kidney disease; E11.65 Type 2 diabetes mellitus with hyperglycemia; N18.3 Chronic kidney disease, stage 3 (moderate); E11.51 Type 2 diabetes mellitus with diabetic peripheral angiopathy without gangrene; I47.1 Supraventricular tachycardia; L03.032 Cellulitis of left toe; I12.9 Hypertensive chronic kidney disease with stage 1 through stage 4 chronic kidney disease, or unspecified chronic kidney disease; M19.90 Unspecified osteoarthritis, unspecified site; E78.5 Hyperlipidemia, unspecified; Z96.643 Presence of artificial hip joint, bilateral; Z79.4 Long term (current) use of insulin; Z79.84 Long term (current) use of oral hypoglycemic drugs; Z79.891 Long term (current) use of opiate analgesic; Z79.899 Other long term (current) drug therapy; Z88.6 Allergy status to analgesic agent; Z88.5 Allergy status to narcotic agent; Z88.8 Allergy status to other drugs, medicaments and biological substances; Z91.013 Allergy to seafood; Z83.3 Family history of diabetes mellitus; Z82.49 Family history of ischemic heart disease and other diseases of the circulatory system; Z80.0 Family history of malignant neoplasm of digestive organs; F32.9 Major depressive disorder, single episode, unspecified
CPT/HCPCS: 36415; 80048; 80053; 80202; 82565; 83036; 83605; 84520; 85025; 85610; 85652; 85730; 86140; 87040; 87070; 87073; 87077; 87186; 87205; 87640; 87641; 93922; A9270-GY; C1751; J0692; J1644; J2250; J2405; J3010; J3370

== ENCOUNTER 2017-07-13 10:36 | Observation (INO) | payer MEDICARE ==
[2017-07-13] MEDS ORDERED: ceFAZolin 2 GM in 100 MLS NS (*) BAG IVPB ONE (10:37)
[2017-07-13] MEDS ORDERED: fentaNYL* 50 MCG/ML 2 ML VIAL (100 MCG VIAL) ONE (11:18)
[2017-07-13] MEDS ORDERED: Propofol* 10 MG/ML 20 ML BTL IV PUSH ONE (11:18)
[2017-07-13] MEDS ORDERED: Ondansetron INJ* 2 MG/ML VIAL ONE (11:18)
[2017-07-13] MEDS ORDERED: Midazolam* 1 MG/ML 10 ML VIAL (10 MG) ONE (11:18)
[2017-07-13] MEDS ORDERED: Ondansetron INJ* 2 MG/ML VIAL IV PRN (11:38)
[2017-07-13] MEDS ORDERED: Docusate CAP* 100 MG PO PRN (11:38)
[2017-07-13] MEDS ORDERED: oxyCODONE/Acetamin 5/325 MG* TAB PO PRN (11:38)
[2017-07-13] MEDS ORDERED: oxyCODONE TAB* 5 MG TAB PO PRN (11:38)
[2017-07-13] MEDS ORDERED: traZODone TAB* 50 MG TAB PO PRN (11:38)
[2017-07-13] MEDS ORDERED: diPHENhydraMINE IV* 50 MG/ML 1 ml VIAL (BENADRYL) IV PRN (11:38)
[2017-07-13] MEDS ORDERED: Naloxone* 0.4 MG/ML 1 ML VIAL IV PRN (11:42)
[2017-07-13] MEDS ORDERED: Bupivacaine 0.5% SDV PF* 10-30ML VIAL ONE (11:43)
[2017-07-13] MEDS ORDERED: METRONIDAZOLE 1% TOPICAL PRN (11:49)
[2017-07-13] MEDS ORDERED: LORazepam TAB(*) 1 MG PO PRN (11:49)
[2017-07-13] MEDS ORDERED: Insulin LISPRO* 1 UNITS UNIT SUBCUT SCH (12:00)
[2017-07-13] MEDS ORDERED: Morphine TAB Extended Release (*) 30 MG TAB.ER PO SCH ×2 (13:00→17:00)
--- NOTE | 2017-07-13 13:09 | OP ---
Operative Report - Blank - Operative Report Date of Operation: 07/13/17 Note: PATIENT: Renay Miller DATE OF : 55 DATE OF SURGERY: 07/13/17 SURGEON: Tin Arzola MD ASSOCIATE PROFESSOR OF PHYSICS: Emmy CURTIS, whos assistance was necessary for positioning, retraction, help with instrumentation, and closure. ANESTHESIOLOGIST: Dr. Wilson PREOPERATIVE DIAGNOSIS: Right 3rd toe osteomyelitis POSTOPERATIVE DIAGNOSIS: Right 3rd toe osteomyelitis OPERATION: Right 3rd toe amputation at the level of the MTP joint ANESTHESIA: MAC IMPLANTS: none TOURNIQUET TIME: Less than 30 minutes with an ankle Esmarch tourniquet. SPECIMENS: Toe to pathology. Culture swabs to microbiology. ESTIMATED BLOOD LOSS: minimal COMPLICATIONS: none STATUS: Stable from the operating room to the recovery room then admitted to the floor. INDICATIONS FOR PROCEDURE: Renay had a right plantar 3rd toe ulcer and was found to have underlying osteomyelitis. Both operative and non operative treatment alternatives were reviewed. Further, the nature and risks of surgery were reviewed in careful detail. Our discussions regarding the risks of surgery included, but were not limited to, infection, wound problems, nerve injury, neuroma, RSD, persistent symptoms, blood clot, persistent or worsening infection, failure of the surgery , need for further amputation, and even the remote chance of catastrophic complication, including loss of limb. DESCRIPTION OF PROCEDURE: The patient was seen in the preoperative holding unit and informed written consent was obtained. The appropriate extremity was marked. The patient was then brought to the operating room and carefully positioned on the operating room table. Anesthesia was induced. All bony prominences were padded with great care. A chlorhexidine based pre-scrub was performed followed by a chloraprep prep and drape in standard sterile fashion. A surgical safety pause was then conducted in which we confirmed the appropriate patient, extremity, planned procedure, availability of equipment, indication and administration of prophylactic antibiotics, and DVT prophylaxis in the form of a compression boot on the non-surgical extremity. I began with application of an ankle Esmarch tourniquet. Care was taken not to compress the infected toe. I then made an incision to remove the distal aspect of the toe. I maintained as much healthy soft-tissue length as was possible. Because of the large plantar ulcer, I had to make the skin flap dorsally. The phalanges were dissected out and the toe was amputated at the level of the MTP joint. The toe was then sent to pathology. The remaining soft tissues were healthy appearing. There was no purulence expressed from more proximal. We then irrigated copiously after removing the ankle Esmarch tourniquet. The skin edges were pink. We closed with 3-0 monocryl and then 3-0 nylon and then placed a sterile dressing and a splint with the ankle in neutral. The patient was then awakened from anesthesia and transferred to the recovery room in stable condition. There were no complications. All needle and sponge counts were correct at the end of the case. ATTESTATION: I attest I was present and scrubbed and performed the critical portions of the procedure myself. POSTOPERATIVE PLAN: The patient will follow up will be in two weeks for a wound check, but we will likely leave the sutures in for 3 weeks. Antibiotic treatment will be guided by the infectious disease service.
[2017-07-13] MEDS: CHLORZOXAZONE 500 MG PO SCH ×2 (15:35→21:24)
[2017-07-13] MEDS ORDERED: ZOSYN 3.375 GM x ONE DOSE over 30 miuntes IVPB ×2 (16:00)
[2017-07-13] MEDS: Insulin LISPRO* 1 UNITS UNIT SUBCUT SCH ×2 (16:50→21:11)
[2017-07-13] MEDS ORDERED: Acetaminophen TAB* 325 MG PO PRN (16:54)
[2017-07-13 17:17] LABS: EGFR Non-African American 43.4 (>60)
[2017-07-13] MEDS: Gabapentin CAP(*) 300 MG PO SCH (17:51)
[2017-07-13] MEDS: Morphine TAB Extended Release (*) 15 MG TAB.ER PO SCH ×2 (17:52→22:11)
[2017-07-13] MEDS ORDERED: Omeprazole CAP* 20 MG PO SCH (18:00)
[2017-07-13] MEDS ORDERED: Diltiazem CD CAP* 120 MG PO SCH (18:00)
[2017-07-13] MEDS ORDERED: CMC: Rosuvastatin (NF) 5 MG TAB PO SCH (18:00)
[2017-07-13] MEDS ORDERED: Ramipril CAP* 10 MG PO SCH (18:00)
[2017-07-13] MEDS ORDERED: Diltiazem TAB* 30 MG PO SCH (18:00)
[2017-07-13] MEDS ORDERED: Venlafaxine EXT RELEASE CAP* 75 MG PO SCH (18:00)
[2017-07-13] MEDS ORDERED: Insulin GLARGINE(*) 1 UNITS UNIT SUBCUT SCH ×2 (18:00)
[2017-07-13] MEDS ORDERED: metFORMIN* 500 MG TAB PO SCH (21:00)
[2017-07-13] MEDS: ADVAN IVPB SCH (21:12)
[2017-07-13] MEDS: D5W IVPB SCH (21:12)
[2017-07-13] MEDS: CEFAZOLIN IVPB SCH (21:12)
[2017-07-13] MEDS: Piperacillin/Tazobac ADVAN(*) 3.375 GM in NS 0.9% 100 ML* 100 ML IVPB SCH (21:35)
[2017-07-13] MEDS ORDERED: traMADol TAB* 50 MG PO PRN (23:42)
--- NOTE | 2017-07-14 00:02 | CONS ---
CC: Dr. Marylu Barclay, Dr. Tin Arzola * CONSULTATION REPORT: DATE OF CONSULT: 07/13/17 PRIMARY CARE PROVIDER: Dr. Marylu Barclay. CONSULTING PROVIDER: Dr. Tin Arzola. MY ATTENDING WHILE IN THE HOSPITAL: Dr. Blaire De La Cruz. REASON FOR CONSULTATION: Comanagement of comorbid medical conditions. HISTORY OF PRESENT ILLNESS: Ms. Miller is a 62-year-old female with a past medical history significant for diabetes mellitus with significant neuropathy, left great toe amputation due to osteomyelitis, hypertension, chronic kidney disease and dermatomyositis who presents with a chronic wound of her 3rd toe of her right foot, which has failed conservative management and outpatient antibiotics, has had a positive MRI for osteomyelitis and is examined status post amputation. The patient states that she was previously on 3 weeks of Augmentin at home and before that she was on clindamycin. She states these helped a little bit, but they were not adequate in removing the inflammation from her toe. The patient also had mupirocin ointment given to her by Dr. Jeremy Hopkins who she follows as outpatient, which did help. The patient had routine debridements on her toe with fixed route bus operator, which were not effective in treatment for her ulcer. The patient is observed and examined in the postoperative setting and has no complaints. No chest pain, shortness of breath , dizziness, palpitations. The patient's estimated blood loss in surgery was 30. The patient underwent local anesthesia. The patient has dermatomyositis diagnosed 4 years ago. She was previously treated with Plaquenil and stopped that 6 months ago and has not had any increase in her weakness or muscle pain, but these do occur intermittently and after the course of her illness. The patient has SVT, which has not been an issue as along as she stays on her Cardizem and metoprolol. She follows with Cardiology for this. The patient has no other recent illnesses or symptoms. The patient is planning to transfer the care of her diabetes to Dr. Meadows of Endocrinology because of her uncontrolled blood sugars despite escalation in her insulin therapy. The patient recently had an MRI of her left foot, which previously had an amputation for concern about worsening of her left hallux ulcer. This did not show any osteomyelitis. PAST MEDICAL HISTORY: Diabetes mellitus, uncontrolled, most recent hemoglobin A1c 9.0; peripheral neuropathy; hypertension; SVT; depression; anxiety; dermatomyositis; lumbar radiculopathy; chronic kidney disease stage 3. PAST SURGICAL HISTORY: Appendectomy, hysterectomy, bilateral hip replacement and revisions, L4 and L5 diskectomy, left great toe amputation. MEDICATIONS: On admission: 1. Ramipril 10 mg p.o. q.p.m. 2. Metformin 1000 mg p.o. b.i.d. 3. Insulin lispro 0 to 100 units. 4. Venlafaxine 75 mg p.o. q.p.m. 5. Omeprazole 40 mg p.o. q.p.m. 6. Cardizem CD 120 mg p.o. q.p.m. 7. Morphine 15 mg p.o. t.i.d. as needed. 8. Gabapentin 600 mg p.o. q.p.m. 9. Nitro cream 1 topical application b.i.d. as needed. 10. Metoprolol succinate 50 mg p.o. q.p.m. 11. Lorazepam 1 mg p.o. b.i.d. as needed. 12. Lorzone 500 mg p.o. t.i.d. 13. Tylenol 650 mg p.o. q.6 hours as needed. 14. Opana 5 mg p.o. q.4 hours as needed. 15. Rosuvastatin 5 mg p.o. q.p.m. 16. Insulin glargine 60 units subcutaneous q.p.m. 17. Insulin glargine 50 units subcutaneous q.a.m. ALLERGIES: CODEINE, FISH CONTAINING PRODUCTS, HYDROMORPHONE, LEVOFLOXACIN, LIDOCAINE, OXYCODONE, BACTRIM. FAMILY HISTORY: The patient has family history of diabetes, hypertension. The patient's mother had a stroke. The patient's brother of intestinal cancer. 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 She denies smoking. She is . She has several children and grandchildren. She likes to be a full code. Her healthcare proxy would be her . She had a colonoscopy 1 year ago, which found 6 polyps, 3 of which were precancerous. PHYSICAL EXAM: General: The patient is a 62-year-old female who appears stated age and sitting comfortably in bed in no acute distress. Vital Signs: Temperature 97.9, pulse rate 61, respiratory rate 18, oxygen saturation 96% on room air, and blood pressure 136/73. HEENT: Head: Normocephalic, atraumatic. Sclerae anicteric. No conjunctival injection. Nasal mucosa moist. Oral mucosa moist. No pharyngeal erythema, discharge, or exudate. The patient has significant telangiectasias on her bilateral cheeks. Neck: Supple, nontender. No lymphadenopathy. No carotid bruit auscultated. Cardiac: Regular rate and rhythm. No clicks, murmurs, gallops, or rubs. Pulses are 2+ in bilateral dorsalis pedis, posterior tibialis, and radial areas. Respiratory: Clear to auscultation bilaterally. No wheezes, rales, or rhonchi. Good air exchange bilaterally. Abdomen: Soft, nontender, and nondistended. Bowel sounds present and normoactive in all 4 quadrants. No hepatosplenomegaly. No abdominal bruits auscultated. Genitourinary: The patient has no suprapubic tenderness or CVA tenderness. Skin: Telangiectasias as above. The patient has a surgically absent 1st toe on her left foot with no evidence of infection at the wound base and surgically absent 3rd toe on her right foot covered by a bulky dressing with good capillary refill. Neuro: Cranial nerves II through XII intact. No focal deficits. Psychiatric: Pleasant and cooperative. LABORATORY DATA: Preoperatively not obtained. Sodium 134, potassium 5.2, chloride 99, carbon dioxide 29, anion gap 6, BUN 30, creatinine 1.25, glucose 278, hemoglobin A1c 9.0, calcium 9.5. Bilirubin 0.5, AST 30, ALT 50, alkaline phosphatase 70, CK 235, protein 7, albumin 4.1, globulin 2.9. Triglycerides 153, cholesterol 142, LDL cholesterol 73, HDL cholesterol 38. DIAGNOSTIC STUDIES: None. ASSESSMENT AND PLAN: Impression: Ms. Miller is a 62-year-old female with past medical history significant for diabetes mellitus with a significant peripheral neuropathy, chronic kidney disease, dermatomyositis and history of osteomyelitis, who is postoperative for amputation of her right 3rd toe due to osteomyelitis. The patient is doing well postoperatively and will be admitted to the hospital for IV antibiotics, Infectious Disease consultation and supportive care. 1. Status post right 3rd toe amputation. The patient is examined postoperatively. The patient has no chest pain, shortness of breath or other evidence of complications with the surgery, management per primary team with pain control and a bowel regimen. 2. Osteomyelitis of 3rd toe. Appreciate Infectious Disease consult. We will start the patient on Zosyn while she is in the hospital. We will obtain blood cultures. We will change the patient's antibiotic coverage if necessary based on pathology and the culture from the surgical specimen. The patient has no signs of stomach infection at this time. 3. Diabetes mellitus. The patient has poorly controlled diabetes. Recent hemoglobin A1c is 9.0. The patient is planning on transferring her care for her diabetes to an tube wrapper for consideration of insulin pump. The patient will be on decreased dose of her glargine insulin while she is in the hospital due to decreased oral intake today. The patient will have sliding scale insulin with fingerstick, blood glucose monitoring a.c. and h.s. and will have her basal insulin increased as needed. The patient's metformin will be held in the hospital, and the appropriateness of this medication going forward, given the patient's chronic kidney disease, should be assessed by her tube wrapper. At the very least, the patient should be discharged on half the current dose she is on due to her EGFR of 43 at this time. 4. Chronic Pain. Continue Morphine ER and Duloxetine. Postoperative pain management per primary team. 5. Chronic Kidney Disease, Stage III. Slightly improved creatinine from baseline. Dose medications accordingly and will avoid nephrotoxic medications as possible. 6. Supraventricular Tachycardia. Currently in NSR. Continue Metoprolol and Diltiazem. 7. Hypertension. Currently normotensive. Continue home medications perioperatively. 8. FEN: The patient will have a consistent carbohydrate, heart-healthy diet and fluids per primary team. 9. DVT prophylaxis: The patient will be on heparin subcu. 10. Code status: The patient would like to be full code. The patient would like her to be her healthcare proxy. DISPOSITION: Disposition per primary team. We will follow along with you. TIME SPENT: Roughly 60 minutes was spent on this consultation, 30 of which was spent [id number] with the patient obtaining history and physical and discussing treatment plan. This plan has been discussed with my attending, Dr. Blaire De La Cruz, and she is in agreement. Thank you for this consultation. We will follow along with you. EVER MARTINEZ [id number]/[facility] #: [id number] FILIBERTO
[2017-07-14] MEDS: D5W IVPB SCH ×2 (04:40→12:29)
[2017-07-14] MEDS: CEFAZOLIN IVPB SCH ×2 (04:40→12:29)
[2017-07-14] MEDS: ADVAN IVPB SCH ×2 (04:40→12:29)
[2017-07-14] MEDS: Morphine TAB Extended Release (*) 15 MG TAB.ER PO SCH ×2 (05:06→12:25)
[2017-07-14] MEDS: Piperacillin/Tazobac ADVAN(*) 3.375 GM in NS 0.9% 100 ML* 100 ML IVPB SCH ×2 (05:07→13:44)
[2017-07-14] MEDS ORDERED: Aspirin TAB* 325 MG PO SCH (09:00)
[2017-07-14] MEDS ORDERED: Insulin GLARGINE(*) 1 UNITS UNIT SUBCUT SCH ×2 (09:00)
[2017-07-14] MEDS ORDERED: Metoprolol Succinate XL TAB* 50 MG PO SCH (09:00)
[2017-07-14] MEDS: CHLORZOXAZONE 500 MG PO SCH ×2 (09:38→13:13)
[2017-07-14] MEDS: Insulin LISPRO* 1 UNITS UNIT SUBCUT SCH ×2 (09:51→13:11)
[2017-07-14 12:11] VITALS: BP 141/55
[2017-07-14] MEDS: Gabapentin CAP(*) 300 MG PO SCH (12:27)
[2017-07-14] MEDS ORDERED: Gabapentin CAP(*) 300 MG PO ONE (13:00)
--- NOTE | 2017-07-14 13:36 | PN ---
Progress Note - Progress Note Date of Service: 07/14/17 SOAP: Subjective: PO day 1 S/P right 3rd toe amputation due to distal 3rd toe osteomyelitis with Dr. Arzola. Patient is seen lying comfortably in bed, eating breakfast. She has been having some sharp shooting pains in her toes. She is usually on 300 mg gabapentin in morning and lunch and 600 mg at night, she has not had gabapentin overnight. She would like to go home today. Denies any N/V, numbness, tingling, fevers, chills, SOB, CP. Objective: Vital Signs Temp Pulse Resp BP Pulse Ox 99.8 F 74 16 141/55 95 07/14/17 11:36 07/14/17 11:36 07/14/17 12:27 07/14/17 11:36 07/14/17 11:36 Laboratory Results - last 24 hr 07/13/17 07/13/17 07/13/17 16:37 16:38 20:58 Sodium 136 Potassium 4.3 Chloride 100 L Carbon Dioxide 30 Anion Gap 6 BUN 28 H Creatinine 1.25 H Est GFR ( Amer) 55.8 Est GFR (Non-Af Amer) 43.4 BUN/Creatinine Ratio 22.4 H Glucose 157 H POC Glucose (mg/dL) 165 H 249 H Calcium 9.1 07/14/17 07/14/17 08:15 12:38 Sodium Potassium Chloride Carbon Dioxide Anion Gap BUN Creatinine Est GFR ( Amer) Est GFR (Non-Af Amer) BUN/Creatinine Ratio Glucose POC Glucose (mg/dL) 172 H 186 H Calcium Vital Signs Temp 99.8 F 07/14/17 11:36 Pulse 74 07/14/17 11:36 Resp 16 07/14/17 12:27 BP 141/55 07/14/17 11:36 Pulse Ox 95 07/14/17 11:36 Intake & Output 07/13/17 07/14/17 07/14/17 18:59 06:59 18:59 Intake Total 1052 1670.7 268 Output Total 1350 1100 1000 Balance -298 570.7 -732 Weight 215 lb 3.2 oz Intake: IV Fluids 1052 190.7 148 ABX - CEFAZOLIN 50 ABX - ZOSYN 100 LR 900 NS 50ML, Cefazolin 2G 50 Oral 1480 120 Output: Urine 1350 1100 1000 Other: Estimated Void Medium # Bowel Movements 0 Estimated Blood Loss MINIMAL Comment General: WN, WD, NAD, A&Ox3, normal mood and affect. Lying comfortably in bed. RLE: Splint and dressing C/D/I, no swelling or erythema at toes or proximal calf. Calf soft, non-tender. Brisk capillary refill. No sensation in toes ( baseline), sensation intact at proximal calf. Assessment: 62 yo POD 1 SP right 3rd toe amputation Plan: 1. Patient orthopedically stable 2. Consult to ID for antibiotics recommendations prior to discharge 3. Heel touch weight bearing right foot 4. Appreciate Hospitalists input, will d/c metformin on discharge until patient follows up with programmer numerical control. 5. Consider discharge today if ID agrees
--- NOTE | 2017-07-14 14:15 | PN ---
Subjective Date of Service: 07/14/17 Interval History: Patient seen and examined. Feeling well, no complaints of fever, fatigue, chills. No n/v/d. Tolerated procedure well yesterday. Pain controlled. Objective Active Medications: Acetaminophen (Tylenol Tab*) 650 mg PO Q6H PRN PRN Reason: FEVER/PAIN Last Admin: 07/13/17 17:51 Dose: 650 mg Aspirin (Aspirin Tab*) 325 mg PO DAILY [facility] Last Admin: 07/14/17 09:47 Dose: 325 mg Diltiazem HCl (Cardizem Cd Cap*) 120 mg PO QPM [facility] Last Admin: 07/13/17 17:52 Dose: 120 mg Diphenhydramine HCl (Benadryl Iv*) 25 mg IV Q6H PRN PRN Reason: itching Last Admin: 07/13/17 18:07 Dose: 25 mg Docusate Sodium (Colace Cap*) 100 mg PO BID PRN PRN Reason: CONSTIPATION Gabapentin (Neurontin Cap(*)) 600 mg PO QPM [facility] Gabapentin (Neurontin Cap(*)) 300 mg PO DAILY [facility] Gabapentin (Neurontin Cap(*)) 300 mg PO DAILY [facility] Piperacillin Sod/Tazobactam (Sod 3.375 gm/ Sodium Chloride) 100 mls @ 25 mls/ hr IVPB Q8H [facility] Last Admin: 07/14/17 13:44 Dose: 25 mls/hr Insulin Glargine (Lantus(*)) 30 units SUBCUT QAM [facility] Last Admin: 07/14/17 09:50 Dose: 30 unit Insulin Glargine (Lantus(*)) 45 units SUBCUT QPM [facility] Last Admin: 07/13/17 17:52 Dose: 45 unit Insulin Human Lispro (Humalog*) 0 units SUBCUT ACHS [facility] PRN Reason: Protocol Last Admin: 07/14/17 13:11 Dose: 3 unit Lorazepam (Ativan Tab(*)) 1 mg PO BID PRN PRN Reason: ANXIETY Metoprolol Succinate (Toprol Xl Tab*) 50 mg PO QAM [facility] Last Admin: 07/14/17 09:47 Dose: 50 mg Morphine Sulfate (Ms Contin(*)) 15 mg PO 0500,1300,2100 [facility] Last Admin: 07/14/17 12:25 Dose: 15 mg Pto: Chlorzoxazone ([Lorzone] 500 Mg) 500 mg PO TID [facility] Last Admin: 07/14/17 13:13 Dose: Not Given Non-Formulary Medication (Metronidazole [Noritate]) 1 % TOPICAL BID PRN PRN Reason: RASH Omeprazole (Prilosec Cap*) 40 mg PO QPM [facility] Last Admin: 07/13/17 17:51 Dose: 40 mg Ondansetron HCl (Zofran Inj*) 4 mg IV Q6H PRN PRN Reason: nausea Oxycodone HCl (Roxycodone Tab*) 10 mg PO Q4H PRN PRN Reason: SEVERE PAIN Oxycodone/Acetaminophen (Percocet 5/325 Tab*) 2 tab PO Q4H PRN PRN Reason: PAIN Ramipril (Altace Cap*) 10 mg PO QPM [facility] Last Admin: 07/13/17 17:51 Dose: 10 mg Rosuvastatin Calcium (Crestor (Nf)) 5 mg PO QPM [facility] PRN Reason: Protocol Last Admin: 07/13/17 18:01 Dose: 5 mg Tramadol HCl (Ultram*) 50 mg PO Q6H PRN PRN Reason: PAIN Last Admin: 07/14/17 00:42 Dose: 50 mg Trazodone HCl (Desyrel Tab*) 25 mg PO BEDTIME PRN PRN Reason: insomnia Venlafaxine HCl (Effexor Xr Cap*) 75 mg PO QPM [facility] PRN Reason: Protocol Last Admin: 07/13/17 17:50 Dose: 75 mg Vital Signs - 8 hr 07/14/17 07/14/17 07/14/17 07:00 07:47 08:15 Temperature 98.4 F Pulse Rate 72 Respiratory 16 16 16 Rate Blood Pressure 154/66 (mmHg) O2 Sat by Pulse 93 Oximetry 07/14/17 07/14/17 07/14/17 11:36 12:25 12:27 Temperature 99.8 F Pulse Rate 74 Respiratory 16 16 16 Rate Blood Pressure 141/55 (mmHg) O2 Sat by Pulse 95 Oximetry Oxygen Devices in Use Now: None Appearance: Alert, NAD Eyes: No Scleral Icterus, PERRLA Ears/Nose/Mouth/Throat: NL Teeth, Lips, Gums, Mucous Membranes Moist Neck: NL Appearance and Movements; NL JVP, Trachea Midline Respiratory: Symmetrical Chest Expansion and Respiratory Effort, Clear to Auscultation Cardiovascular: NL Sounds; No Murmurs; No JVD, RRR Abdominal: NL Sounds; No Tenderness; No Distention Extremities: - - dressing CDI right foot Skin: No Rash or Ulcers Neurological: Alert and Oriented x 3 Nutrition: Taking PO's Result Diagrams: 07/13/17 16:38 Microbiology and Other Data: Microbiology 07/13/17 12:18 Anaerobic Culture - Preliminary Wound - Right Third No Growth Day 1 07/13/17 12:18 Gram Stain - Final Toe - Right Third Wound Culture - Preliminary No Growth Day 1 Assess/Plan/Problems-Billing Assessment: This is a 62 year old female with history of DM with neuropathy, depression/ anxiety, dermatomyositis, HTN, renal disease, with osteo and ulcer of right 3rd toe, s/p amputation POD1. - Patient Problems (1) Osteomyelitis Code(s): M86.9 - OSTEOMYELITIS, UNSPECIFIED SNOMED Code(s): 20390965 Comment: - S/P amputation 3rd right toe, POD1 - POC as per ortho - ID following, continue augmentin x 14 days and outpatient follow up (2) Peripheral neuropathy Code(s): G62.9 - POLYNEUROPATHY, UNSPECIFIED SNOMED Code(s): 975110019 Comment: - Continue gabapentin and morphine TID (3) Diabetes Code(s): E11.9 - TYPE 2 DIABETES MELLITUS WITHOUT COMPLICATIONS SNOMED Code(s) : 63443621 Comment: - A1C = 9.0 - Lispro SS ACHS - Can go back to home regimen of long acting and short acting insulin (4) PAD (peripheral artery disease) Code(s): I73.9 - PERIPHERAL VASCULAR DISEASE, UNSPECIFIED SNOMED Code(s): 202164404 Comment: - Continue gabapentin and morphine (5) H/O supraventricular tachycardia Current Visit: No Status: Acute Priority: High Code(s): Z86.79 - PERSONAL HISTORY OF OTHER DISEASES OF THE CIRCULATORY SYSTEM SNOMED Code(s): 518844797377183 Comment: - cardizem and metoprolol (6) Full code status Code(s): Z78.9 - OTHER SPECIFIED HEALTH STATUS SNOMED Code(s): 827620395 Status and Disposition: medically optimized for DC when clear by ortho and ID.
[2017-07-14] MEDS ORDERED: Gabapentin CAP(*) 300 MG PO SCH (21:00)
--- NOTE | 2017-07-14 21:27 | CONS ---
CONSULTATION REPORT: DATE OF CONSULTATION: 07/14/17 REQUESTING PROVIDER: Dr. Guerrero. CONSULTING SERVICE: Infectious Disease. REASON FOR CONSULTATION: Right 3rd toe osteomyelitis. IMPRESSION: 1. Chronic osteomyelitis of the proximal phalanx of the right 3rd toe, which has been amputated. The culture is negative. She was not on antibiotics recently. The metatarsal head was apparently healthy appearing at the time of surgery and also was not abnormal on MRI obtained on 07/04/17. 2. Diabetes with neuropathy. RECOMMENDATION: Augmentin 500 mg by mouth twice a day for 14 days. HISTORY OF PRESENT ILLNESS: This is a 62-year-old woman with diabetes and neuropathy, admitted with a right 3rd toe infection. She had had an ulcer there for over a month with some serous drainage. She had initially been on Levaquin. It was first red, the redness receded a little bit, but the ulcer persisted. She had an MRI on 07/04/17 that showed osteomyelitis of the proximal phalanx. She came to the hospital on 07/13/17 and had this surgery done the same day. She had no fever since then. Her appetite is good. No rash or diarrhea while on Zosyn. PAST MEDICAL HISTORY: 1. Diabetes with neuropathy. 2. Chronic kidney disease. 3. Hypertension. 4. Depression. 5. Anxiety. 6. Status post appendectomy. 7. Status post hysterectomy. 8. Status post bilateral hip arthroplasties. 9. Lumbar spine surgery. 10. Partial amputation of left great toe. MEDICATIONS: 1. Tylenol. 2. Aspirin. 3. Docusate. 4. Gabapentin. 5. Insulin glargine. 6. Ativan as needed. 7. Omeprazole. 8. Zosyn 3.375 g IV every 8 hours by extended infusion. 9. Ramipril. 10. Rosuvastatin. 11. Tramadol. 12. Trazodone. 13. Effexor. ALLERGIES: CODEINE, BACTRIM, DILANTIN, LIDOCAINE. SOCIAL HISTORY: She lives in [place]. She has no travel or sick contacts. FAMILY HISTORY: No recurrent infections. REVIEW OF SYSTEMS: All negative except as noted above in the history of present illness to a 14-point review of systems. PHYSICAL EXAMINATION: Vital Signs: Temperature is 37, heart rate 70, respiratory rate 16, blood pressure 140/50, oxygen saturation 95% on room air. In general, she is awake, not in distress. Neurologic: She is oriented x3. Follows all commands. Moves all extremities. Sensation: Decreased to light touch in both feet. HEENT: There is no conjunctival hemorrhage. Lymph Nodes: No inguinal, axillary, or epitrochlear lymphadenopathy. Heart has regular rate and rhythm without murmurs, rubs, or gallops. Lungs are clear to auscultation bilaterally. Abdomen: Soft, nontender, nondistended. There are bowel sounds present. Skin: There is no rash or splinter hemorrhage. Musculoskeletal: The right foot is casted. The toes are warm. LABORATORY DATA: Creatinine 1.2, glucose 157. Please see impressions and recommendations as outlined above, which I have discussed with EVER Matt. Thanks for asking me to see Ms. Miller in consultation. [id number]/[facility] #: [id number] MTDD
[2017-07-15] MEDS ORDERED: Gabapentin CAP(*) 300 MG PO SCH ×4 (05:00→13:00)
--- NOTE | 2017-07-15 16:11 | DS ---
AMENDED REPORT NOW INCLUDES COSIGNER DESIGNATION - ESIGNED BEFORE ADJUSTMENT DISCHARGE SUMMARY: DATE OF ADMISSION: 07/13/17 DISCHARGE DIAGNOSES: 07/14/17 ATTENDING PROVIDER: Dr. Arzola * (DICTATED BY EVER AYALA) CHIEF COMPLAINT: 1. Left foot pain. 2. Peripheral neuropathy. 3. Diabetes. 4. Peripheral artery disease. 5. History of supraventricular tachycardia. DISCHARGE DIAGNOSES: 1. Status post right third toe amputation secondary to osteomyelitis. 2. Peripheral neuropathy. 3. Diabetes. 4. Peripheral artery disease. 5. History of supraventricular tachycardia. PROCEDURE: Right third toe amputation. CONSULTATIONS: Physical Therapy, Occupational Therapy, Infectious Disease, and hospitalist, and medicine. BRIEF HISTORY: Ms. Miller is a very pleasant 62-year-old female who presented with right foot pain and was found to have osteomyelitis in her third toe. She was taken to the OR by Dr. Arzola on 07/13/17 and underwent a third right foot toe amputation. HOSPITAL COURSE: Ms. Miller was admitted to [facility] on 07/13/17 where she underwent a right third toe amputation. Postoperatively she recovered on the short stay surgical unit. On postop day 1, she was seen by Physical Therapy and advanced to regular diet without difficulty. Pain was controlled with gabapentin and morphine. She was also seen by hospitalist service and Infectious Disease who recommended b.i.d. Augmentin for 14 days on discharge. Vital signs remained stable throughout the day. DVT prophylaxis was with aspirin daily. She was discharged on postop day 1 when she was orthopedically and medically stable for discharge home with help from her significant other. PHYSICAL EXAMINATION: General: The patient is seen at bedside. She well nourished, well developed, and in no acute distress. Alert and oriented x3. Vital Signs: On date of discharge, temperature 99.8; pulse rate 74; respiration rate 16; oxygen saturation 95%; blood pressure 141/55. Examination of the right lower extremity showed a dressing that was clean, dry, and intact. She was able to move her toes. There was no erythema or swelling of the other digits. She lacks sensation on her distal toes which is her baseline. She was able to feel light touch proximal to her splint. Her calf was soft, nontender, and nonerythematous. She has 2+ popliteal pulses. LABORATORY DATA: On discharge, sodium 136; potassium 4.3; chloride 100; carbon dioxide 30; BUN 28; creatinine 1.25, which is baseline. DISCHARGE MEDICATIONS: 1. Acetaminophen 325 mg q.6 hours as needed for pain. 2. Augmentin 875 mg b.i.d. for 14 days. 3. Aspirin 325 mg daily for DVT prophylaxis. 4. Lorzone 375 mg t.i.d. 5. Diltiazem 30 mg at night. 6. Colace 100 mg b.i.d. as needed for constipation. 7. Gabapentin 300 mg in the morning, 300 mg at lunch, and 600 mg at night. 8. Lantus 50 units in the morning, 60 units at night. 9. Lorazepam 1 mg b.i.d. 10. Metoprolol 50 mg in the morning. 11. Metronidazole 60 g cream 1% topical application twice daily. 12. Morphine 15 mg tablet t.i.d. 13. Omeprazole 40 mg at night. 14. Oxymorphone 5 mg q.4 hours. 15. Ramipril 10 mg at night. 16. Rosuvastatin 5 mg at night. 17. Venlafaxine 75 mg at night. CONDITION ON DISCHARGE: Stable. DISCHARGE INSTRUCTIONS: Ms. Miller is a 62-year-old female postop day 1 status post right third toe amputation secondary to osteomyelitis. She was seen by Infectious Disease while in the hospital who deemed her stable enough to take oral Augmentin b.i.d. for 14 days. She will follow up with Orthopedics in clinic at 14 days to assess incision and wound as she declined following up with Infectious Disease at that time. She will continue aspirin 325 mg daily until she is seen in the clinic. She will continue her home pain medications and will take the Colace up to 3 times a day for constipation. She will follow up in [address] Arzola for incision check and suture removal. She was instructed to go immediately to the ER should she develop chest pain or shortness of breath. Should she develop fever, increasing pain, or redness, she will call the office immediately. EVER AYALA [id number]/[facility] #: [id number] [facility] CENTERHaley
== END 2017-07-14 15:25 | disposition home or self-care (01) ==
LOC: OR 10:36 → SSU 11:38
PROVIDERS: ADMIT Orthopaedic Surgery; ATTEND Orthopaedic Surgery
PROC: 0Y6T0Z0 Detachment at Right 3rd Toe, Complete, Open Approach (ICD-10-PCS; principal; 2017-07-13 12:15)
DX: L97.514 Non-pressure chronic ulcer of other part of right foot with necrosis of bone (principal); L97.524 Non-pressure chronic ulcer of other part of left foot with necrosis of bone; M86.9 Osteomyelitis, unspecified; M14.671 Charcot's joint, right ankle and foot; M79.672 Pain in left foot; I73.9 Peripheral vascular disease, unspecified; I47.1 Supraventricular tachycardia; I12.9 Hypertensive chronic kidney disease with stage 1 through stage 4 chronic kidney disease, or unspecified chronic kidney disease; N18.3 Chronic kidney disease, stage 3 (moderate); E11.22 Type 2 diabetes mellitus with diabetic chronic kidney disease; E11.42 Type 2 diabetes mellitus with diabetic polyneuropathy; F32.9 Major depressive disorder, single episode, unspecified; F41.9 Anxiety disorder, unspecified; Z79.899 Other long term (current) drug therapy; Z79.4 Long term (current) use of insulin; Z88.8 Allergy status to other drugs, medicaments and biological substances; Z88.2 Allergy status to sulfonamides; G89.29 Other chronic pain
CPT/HCPCS: 36415; 80048; 87040; 87070; 87073; 87205; 88305; 88311; 96365; 96366; 96367; A9270-GY; G0378; G8993-GO-CI; G8994-GO-CI; G8995-GO-CI; J0690; J1200; J2250; J2405; J2543; J2704; J3010

== ENCOUNTER 2017-08-07 19:51 | Observation (INO) | payer MEDICARE ==
[2017-08-07] MEDS ORDERED: Piperacillin/Tazobac ADVAN(*) 3.375 GM in NS 0.9% 100 ML* 100 ML IVPB ONE (22:21)
[2017-08-07 22:53] LABS: ABS Basophils 0.1 10^3/ul (0-0.2); ABS Eosinophils 0.2 10^3/ul (0-0.6); ABS Lymphocytes 2.6 10^3/ul (1.0-4.8); ABS Monocytes 0.8 10^3/ul (0-0.8); ABS Neutrophils 7.1 10^3/ul (1.5-7.7); ABS Nucleated RBC 0 10^3/ul; Eosinophil % 2.1 % (0-6); Hematocrit 35 % (35-47); Hemoglobin 11.9 g/dl (12.0-16.0); Lymphocyte % 23.7 % (25-47); Mean Corpuscular HGB Conc 34 g/dl (31-36); Mean Corpuscular Hemoglobin 29 pg (27-31); Mean Corpuscular Volume 86 fL (80-97); Mean Platelet Volume 8.5 um3 (7.4-10.4); Nucleated Red Blood Cells % 0.1; Platelet Count 285 10^3/ul (150-450); Red Blood Count 4.11 10^6/ul (4.0-5.4); Red Cell Distribution Width 13 % (10.5-15); White Blood Count 10.8 10^3/ul (3.5-10.8)
[2017-08-07 22:59] LABS: INR 0.9 (0.77-1.02)
[2017-08-07 23:04] LABS: EGFR Non-African American 41.5 (>60)
--- NOTE | 2017-08-08 00:38 | ED ---
Mike Cox Angela, scribed for Oliverio Horowitz MD on 08/07/17 at 2233 . Lower Extremity - HPI Summary HPI Summary: This pt is a 62 y/o female with history of diabetes s/p right third toe amputation presenting to [facility] c/o gradually worsening left great toe pain and swelling. Pt reports her pain is located on the stump of the left toe s/p partial amputation in the past. Pt also notes associated pain with palpation and redness around the area. She states she has sensory numbness of the toes at baseline. - History of Current Complaint Chief Complaint: EDExtremityLower Stated Complaint: LT FOOT INFECTION Hx Obtained From: Patient Mechanism Of Injury: Other - no injury Onset of Pain: Days Onset/Duration: Still Present Severity Currently: Mild Pain Intensity: 3 Pain Scale Used: 0-10 Numeric Timing: Lasting Weeks Location: Is Discrete @ - left great toe Associated Signs And Symptoms: Positive: Redness Aggravating Factor(s): Nothing Alleviating Factor(s): Nothing Related History: Other - s/p partial left great toe amputation in the past - Allergies/Home Medications Allergies/Adverse Reactions: Allergies Allergy/AdvReac Type Severity Reaction Status Date / Time codeine Allergy Intermediate Itching Verified 08/07/17 23:28 Fish Containing Products Allergy Itching Verified 08/07/17 23:28 hydromorphone [From Dilaudid] Allergy Hives Verified 08/07/17 23:28 levofloxacin Allergy See Comment Verified 08/07/17 23:28 lidocaine Allergy Itching Verified 08/07/17 23:28 oxycodone Allergy Itching Verified 08/07/17 23:28 sulfamethoxazole AdvReac Vomiting Verified 08/07/17 23:28 [From Bactrim] trimethoprim [From Bactrim] AdvReac Vomiting Verified 08/07/17 23:28 PMH/Surg Hx/FS Hx/Imm Hx Endocrine/Hematology History: Reports: Hx Diabetes Denies: Hx Thyroid Disease Cardiovascular History: Reports: Hx Hypertension, Other Cardiovascular Problems/ Disorders - SVT Denies: Hx Pacemaker/ICD Respiratory History: Reports: Hx Asthma - reports mild, Hx Sleep Apnea - doesn' t use CPAP, hasn't been checked in years Denies: Hx Chronic Obstructive Pulmonary Disease (COPD) GI History: Reports: Other GI Disorders - occas constipation from meds Denies: Hx Ulcer History: Denies: Hx Renal Disease Musculoskeletal History: Reports: Hx Arthritis - osteo, Hx Back Problems, Other Musculoskeletal History - polymyositis Sensory History: Reports: Hx Contacts or Glasses - readers Denies: Hx Hearing Aid Opthamlomology History: Reports: Hx Contacts or Glasses - readers Neurological History: Reports: Hx Nerve Disease - neuropathy Psychiatric History: Reports: Hx Anxiety, Hx Depression Denies: Hx Panic Disorder - Surgical History Surgery Procedure, Year, and Place: lumbar surgery-laminectomy L3-L4 1998, 2nd in feb, 2015;. bilat hip replacement with hip revisions;. hernia repair with mesh;. appendectomy;. hysterectomy (with revision d/to complications);. heart ablasion;. arthroscopic left knee;. 10/29-LEFT GREAT TOE / REMOVED Hx Anesthesia Reactions: No Infectious Disease History: Yes Infectious Disease History: Denies: Hx Hepatitis, Hx Human Immunodeficiency Virus (HIV), Hx of Known/ Suspected MRSA, Traveled Outside the [place] in Last 30 Days - Family History Known Family History: Positive: Hypertension, Diabetes, Other - Diverticulitis - Social History Alcohol Use: Rare Substance Use Type: Reports: Prescribed Hx Tobacco Use: No Smoking Status (MU): Never Smoked Tobacco Review of Systems Negative: Fever Eyes: Negative ENT: Negative Cardiovascular: Negative Respiratory: Negative Gastrointestinal: Negative Genitourinary: Negative Musculoskeletal: Other - left great toe pain Skin: Other - left great toe redness Positive: Numbness - sensory numbness at baseline of toes All Other Systems Reviewed And Are Negative: Yes Physical Exam - Summary Physical Exam Summary: General: No acute distress Appearance: Well-appearing, Well-nourished Skin: Warm Eyes: Normal ENT: Normal Neck: Supple, nontender Respiratory: Clear to auscultation Cardiovascular: Normal S1, S2. No murmurs. Normal distal pulses in tibial and radial bilaterally. Abdomen: Soft, nontender Musculoskeletal: Left great toe stump as redness and inferior ulceration around the base of the stump with surrounding erythema and open wound. Minimal tenderness with palpation. Area of streaking extending from the toe to the stump and to the ankle consistent with lymphangitis. Palpable pulses in bilateral tibial areas. Right third toe amputated with minimal surrounding erythema and no tenderness. Neurological: Normal, A&Ox3 Psychiatric: Normal Triage Information Reviewed: Yes Vital Signs On Initial Exam: Initial Vitals Temp Pulse Resp BP Pulse Ox 98.4 F 76 18 174/124 99 08/07/17 20:01 08/07/17 20:01 08/07/17 20:01 08/07/17 20:01 08/07/17 20:01 Vital Signs Reviewed: Yes Diagnostics - Vital Signs Vital Signs Temp Pulse Resp BP Pulse Ox 08/07/17 21:26 73 99 08/07/17 21:24 179/68 08/07/17 20:01 98.4 F 76 18 174/124 99 - Laboratory Lab Results: Lab Results 08/07/17 08/07/17 08/07/17 Range/Units 22:30 22:30 22:30 WBC 10.8 (3.5-10.8) 10^3/ul RBC 4.11 (4.0-5.4) 10^6/ul Hgb 11.9 L (12.0-16.0) g/dl Hct 35 (35-47) % MCV 86 (80-97) fL MCH 29 (27-31) pg MCHC 34 (31-36) g/dl RDW 13 (10.5-15) % Plt Count 285 (150-450) 10^3/ul MPV 8.5 (7.4-10.4) um3 Neut % (Auto) 65.8 (38-83) % Lymph % (Auto) 23.7 L (25-47) % [place] % (Auto) 7.7 H (0-7) % Eos % (Auto) 2.1 (0-6) % Baso % (Auto) 0.7 (0-2) % Absolute Neuts (auto) 7.1 (1.5-7.7) 10^3/ul Absolute Lymphs (auto) 2.6 (1.0-4.8) 10^3/ul Absolute Monos (auto) 0.8 (0-0.8) 10^3/ul Absolute Eos (auto) 0.2 (0-0.6) 10^3/ul Absolute Basos (auto) 0.1 (0-0.2) 10^3/ul Absolute Nucleated RBC 0 10^3/ul Nucleated RBC % 0.1 ESR 77 H (0-30) mm/Hr INR (Anticoag Therapy) 0.90 (0.77-1.02) Sodium 132 L (133-145) mmol/L Potassium 4.3 (3.5-5.0) mmol/L Chloride 95 L (101-111) mmol/L Carbon Dioxide 27 (22-32) mmol/L Anion Gap 10 (2-11) mmol/L BUN 27 H (6-24) mg/dL Creatinine 1.30 H (0.51-0.95) mg/dL Est GFR ( Amer) 53.4 (>60) Est GFR (Non-Af Amer) 41.5 (>60) BUN/Creatinine Ratio 20.8 H (8-20) Glucose 234 H (70-100) mg/dL Lactic Acid (0.5-2.0) mmol/L Calcium 9.6 (8.6-10.3) mg/dL Total Bilirubin 0.40 (0.2-1.0) mg/dL AST 19 (13-39) U/L ALT 22 (7-52) U/L Alkaline Phosphatase Pending C-Reactive Protein 81.33 H (< 5.00) mg/L Total Protein 7.4 (6.4-8.9) g/dL Albumin 3.8 (3.2-5.2) g/dL Globulin 3.6 (2-4) g/dL Albumin/Globulin Ratio 1.1 (1-3) //18 Range/Units 22:30 WBC (3.5-10.8) 10^3/ul RBC (4.0-5.4) 10^6/ul Hgb (12.0-16.0) g/dl Hct (35-47) % MCV (80-97) fL MCH (27-31) pg MCHC (31-36) g/dl RDW (10.5-15) % Plt Count (150-450) 10^3/ul MPV (7.4-10.4) um3 Neut % (Auto) (38-83) % Lymph % (Auto) (25-47) % [place] % (Auto) (0-7) % Eos % (Auto) (0-6) % Baso % (Auto) (0-2) % Absolute Neuts (auto) (1.5-7.7) 10^3/ul Absolute Lymphs (auto) (1.0-4.8) 10^3/ul Absolute Monos (auto) (0-0.8) 10^3/ul Absolute Eos (auto) (0-0.6) 10^3/ul Absolute Basos (auto) (0-0.2) 10^3/ul Absolute Nucleated RBC 10^3/ul Nucleated RBC % ESR (0-30) mm/Hr INR (Anticoag Therapy) (0.77-1.02) Sodium (133-145) mmol/L Potassium (3.5-5.0) mmol/L Chloride (101-111) mmol/L Carbon Dioxide (22-32) mmol/L Anion Gap (2-11) mmol/L BUN (6-24) mg/dL Creatinine (0.51-0.95) mg/dL Est GFR ( Amer) (>60) Est GFR (Non-Af Amer) (>60) BUN/Creatinine Ratio (8-20) Glucose (70-100) mg/dL Lactic Acid 1.9 (0.5-2.0) mmol/L Calcium (8.6-10.3) mg/dL Total Bilirubin (0.2-1.0) mg/dL AST (13-39) U/L ALT (7-52) U/L Alkaline Phosphatase C-Reactive Protein (< 5.00) mg/L Total Protein (6.4-8.9) g/dL Albumin (3.2-5.2) g/dL Globulin (2-4) g/dL Albumin/Globulin Ratio (1-3) Result Diagrams: 08/07/17 22:30 08/07/17 22:30 Lab Statement: Any lab studies that have been ordered have been reviewed, and results considered in the medical decision making process. - Radiology Left grea toe XR Radiology Interpretation Completed By: ED Physician - no evidence of obvious bony erosion or subcutaneous air Lower Extremity Course/Dx - Course Assessment/Plan: streaking consistent with cellulitis with lymphangitis, admitted for iv treatment - Diagnoses Provider Diagnoses: Cellulitis with lymphangitis - Physician Notifications Discussed Care Of Patient With: Sean Franklin - 0037 Time Discussed With Above Provider: 00:37 Instructed by Provider To: Admit As Inpatient Discharge - Sign-Out/Discharge Documenting (check all that apply): Discharge - Discharge Plan Condition: Stable Disposition: ADMITTED TO [facility] Referrals: Marylu Barclay MD [Primary Care Provider] - - Billing Disposition and Condition Condition: STABLE Disposition: [facility] The documentation as recorded by the Mike slade Angela accurately reflects the service I personally performed and the decisions made by me, Oliverio Horowitz MD.
[2017-08-08] MEDS ORDERED: CMCS: Melatonin (NF) 3 MG TAB PO PRN (01:46)
[2017-08-08] MEDS ORDERED: Ondansetron INJ* 2 MG/ML VIAL IV PRN (01:46)
[2017-08-08] MEDS ORDERED: OXYMORPHONE IR 5 MG PO PRN (01:49)
[2017-08-08] MEDS ORDERED: LORazepam TAB(*) 1 MG PO PRN (01:49)
--- NOTE | 2017-08-08 01:54 | HP ---
H&P (Free Text) History and Physical: PCP: Alem Barclay MD Date/Time: 08/08/2017 0120 CC: toe drainage HPI: Mrs Miller is a 62YO female HX of DM2 w/ CKD 3b & neuropathy s/p toe amputations who presents with 2 weeks of drainage from a callous on the plantar surface of her L 1st toe stump which turned red ~2 days ago and Monday became associated with pain and redness streaking up the medial aspect of her L ankle. There have been subjective F/C, but no sweats, N/V, or other issues. PMedHx DM2 w/ polyneuropathy & CKD 3b HTN HLD polymyositis SVT depression anxiety GERD Ambulatory Orders Ramipril CAP* [Altace CAP*] 10 mg PO QPM 10/22/12 zzInsulin inj LISPRO* [zzHumaLOG inj*] 0 - 100 unit SUBCUT SEE INSTRUCTIONS 02/24 Venlafaxine CAP (NF) [Effexor CAP (NF)] 75 mg PO QPM 09/22/14 Diltiazem TAB* [Cardizem 30 MG Tab*] 30 mg PO QPM 02/19/15 Omeprazole CAP* [Prilosec CAP* 20 MG] 40 mg PO QPM 02/19/15 Gabapentin CAP(*) [Neurontin 300 CAP(*)] 600 mg PO BID 08/16/16 LORazepam TAB(*) [Ativan 1 MG TAB (*)] 1 mg PO BID PRN 08/16/16 Metoprolol Succinate XL TAB* [Toprol XL TAB*] 50 mg PO QAM 08/16/16 Morphine TAB (NF) 15 mg PO TID PRN 08/16/16 metroNIDAZOLE [Noritate] 1 % TOPICAL BID PRN 08/16/16 Acetaminophen TAB* [Tylenol TAB*] 650 mg PO Q6H PRN #0 tab 08/20/16 Insulin GLARGINE(*) [Lantus(*)] 50 units SUBCUT QAM 07/10/17 Insulin GLARGINE(*) [Lantus(*)] 60 units SUBCUT QPM 07/10/17 Oxymorphone HCl [Opana] 5 mg PO Q4HR PRN 07/10/17 Rosuvastatin Calcium 5 mg PO QPM 07/10/17 Aspirin TAB* [Aspirin 325 MG TAB*] 325 mg PO DAILY tab 07/14/17 Gabapentin CAP(*) 1,200 mg PO BEDTIME 08/07/17 metFORMIN* 500 mg PO DAILY 08/07/17 Allergies codeine Allergy (Intermediate, Verified 08/07/17 23:28) Itching Fish Containing Products Allergy (Verified 08/07/17 23:28) Itching hydromorphone [From Dilaudid] Allergy (Verified 08/07/17 23:28) Hives levofloxacin Allergy (Verified 08/07/17 23:28) See Comment caused joint pain in knees lidocaine Allergy (Verified 08/07/17 23:28) Itching oxycodone Allergy (Verified 08/07/17 23:28) Itching sulfamethoxazole [From Bactrim] Adverse Reaction (Verified 08/07/17 23:28) Vomiting trimethoprim [From Bactrim] Adverse Reaction (Verified 08/07/17 23:28) Vomiting PSurgHx amputation L 1st toe distal phalanx amputation of R 3rd toe appendectomy hysterectomy B ARCADIO L-spine surgery SocHx: no tobacco, alcohol, or recreational drugs; lives with her ; 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; full code status FamHx: Mother: passed in her 70s 2nd CVAs w/ Alzheimer's; Father: passed in his 70s 2nd CAD; sisters x3: DM2, HTN, SVT; Brother: passed at 71 2nd small bowel CA w/ DM2 ROS: as above, otherwise reviewed and all were negative vitals: Vital Signs Temp 36.9 C 08/07/17 20:01 Pulse 79 08/08/17 00:01 Resp 18 08/07/17 20:01 BP 159/68 08/08/17 00:01 Pulse Ox 98 08/08/17 00:01 Intake & Output 08/07/17 08/07/17 08/08/17 11:59 23:59 11:59 Intake Total 100 Balance 100 Weight 97.522 kg Intake: IV Fluids 100 Constitutional: NAD, normally developed, obese white female HEENM: atraumatic; sclera/conjunctiva: anicteric/clear; hearing: clinically intact; oropharynx: clear, moist Neck: soft tissue: non-tender; thyroid: normal Pulmonary: clear to auscultation bilaterally, good aeration, no accessory muscle use CV: RR/RR, normal S1S2, no carotid bruit, no jugular venous distention, 2+ B DP/ PT, no edema Abdominal: soft, non-distended, non-tender, no rebound/guarding/rigidity, normoactive bowel sounds, no hepatosplenomegaly or masses, no costovertebral angle tenderness Musculoskeletal: general: surgically absent R 3rd toe & L 1st distal phalanx Integumental: stump of L 1st toe with erythema, serosanguinous drainage from plantar callus, no malodor, mild erythema & tenderness streaking up the L medial ankle & distal LE, no flocculence Psychiatric orientation: AA&O to PPS affect: calm mood: cooperative eye contact: good content: reliable responses: timely insight: fair to poor Testing: Lab Results 08/07/17 08/07/17 08/07/17 Range/Units 22:30 22:30 22:30 WBC 10.8 (3.5-10.8) 10^3/ul RBC 4.11 (4.0-5.4) 10^6/ul Hgb 11.9 L (12.0-16.0) g/dl Hct 35 (35-47) % MCV 86 (80-97) fL MCH 29 (27-31) pg MCHC 34 (31-36) g/dl RDW 13 (10.5-15) % Plt Count 285 (150-450) 10^3/ul MPV 8.5 (7.4-10.4) um3 Neut % (Auto) 65.8 (38-83) % Lymph % (Auto) 23.7 L (25-47) % [place] % (Auto) 7.7 H (0-7) % Eos % (Auto) 2.1 (0-6) % Baso % (Auto) 0.7 (0-2) % Absolute Neuts (auto) 7.1 (1.5-7.7) 10^3/ul Absolute Lymphs (auto) 2.6 (1.0-4.8) 10^3/ul Absolute Monos (auto) 0.8 (0-0.8) 10^3/ul Absolute Eos (auto) 0.2 (0-0.6) 10^3/ul Absolute Basos (auto) 0.1 (0-0.2) 10^3/ul Absolute Nucleated RBC 0 10^3/ul Nucleated RBC % 0.1 ESR 77 H (0-30) mm/Hr INR (Anticoag Therapy) 0.90 (0.77-1.02) Sodium 132 L (133-145) mmol/L Potassium 4.3 (3.5-5.0) mmol/L Chloride 95 L (101-111) mmol/L Carbon Dioxide 27 (22-32) mmol/L Anion Gap 10 (2-11) mmol/L BUN 27 H (6-24) mg/dL Creatinine 1.30 H (0.51-0.95) mg/dL Est GFR ( Amer) 53.4 (>60) Est GFR (Non-Af Amer) 41.5 (>60) BUN/Creatinine Ratio 20.8 H (8-20) Glucose 234 H (70-100) mg/dL Lactic Acid (0.5-2.0) mmol/L Calcium 9.6 (8.6-10.3) mg/dL Total Bilirubin 0.40 (0.2-1.0) mg/dL AST 19 (13-39) U/L ALT 22 (7-52) U/L Alkaline Phosphatase Pending C-Reactive Protein 81.33 H (< 5.00) mg/L Total Protein 7.4 (6.4-8.9) g/dL Albumin 3.8 (3.2-5.2) g/dL Globulin 3.6 (2-4) g/dL Albumin/Globulin Ratio 1.1 (1-3) // Range/Units 22:30 WBC (3.5-10.8) 10^3/ul RBC (4.0-5.4) 10^6/ul Hgb (12.0-16.0) g/dl Hct (35-47) % MCV (80-97) fL MCH (27-31) pg MCHC (31-36) g/dl RDW (10.5-15) % Plt Count (150-450) 10^3/ul MPV (7.4-10.4) um3 Neut % (Auto) (38-83) % Lymph % (Auto) (25-47) % [place] % (Auto) (0-7) % Eos % (Auto) (0-6) % Baso % (Auto) (0-2) % Absolute Neuts (auto) (1.5-7.7) 10^3/ul Absolute Lymphs (auto) (1.0-4.8) 10^3/ul Absolute Monos (auto) (0-0.8) 10^3/ul Absolute Eos (auto) (0-0.6) 10^3/ul Absolute Basos (auto) (0-0.2) 10^3/ul Absolute Nucleated RBC 10^3/ul Nucleated RBC % ESR (0-30) mm/Hr INR (Anticoag Therapy) (0.77-1.02) Sodium (133-145) mmol/L Potassium (3.5-5.0) mmol/L Chloride (101-111) mmol/L Carbon Dioxide (22-32) mmol/L Anion Gap (2-11) mmol/L BUN (6-24) mg/dL Creatinine (0.51-0.95) mg/dL Est GFR ( Amer) (>60) Est GFR (Non-Af Amer) (>60) BUN/Creatinine Ratio (8-20) Glucose (70-100) mg/dL Lactic Acid 1.9 (0.5-2.0) mmol/L Calcium (8.6-10.3) mg/dL Total Bilirubin (0.2-1.0) mg/dL AST (13-39) U/L ALT (7-52) U/L Alkaline Phosphatase C-Reactive Protein (< 5.00) mg/L Total Protein (6.4-8.9) g/dL Albumin (3.2-5.2) g/dL Globulin (2-4) g/dL Albumin/Globulin Ratio (1-3) Impression: 62F HX DM2 w/ CKD 3b & polyneurpathy presents with L 1st toe stump infection DIAGNOSIS & PLAN Primary diabetic L 1st toe stump infection : IV piperacillin/tazobactam & vancomycin : IVFs : blood & wound CXs : pain control : supportive care Secondary DM2 w/ polyneuropathy & CKD 3b : A1c 9.Jun : basal/bolus/correctional insulin : continue gabapentin : hold metformin : insulin carb ratio diet HTN : continue ramipril, metoprolol, & diltiazem HLD : continue rosuvastatin SVT : continue metoprolol & diltiazem depression : continue venlafaxine anxiety : continue lorazepam GERD : continue omeprazole Admission Rational: observation for initiation of IV ABX & evaluation for osteomyelitis DVTp: heparin SQ Code Status: full HCP:
[2017-08-08] MEDS ORDERED: Vancomycin per Pharmacy* NOTE FOLLOW UP SCH (02:00)
[2017-08-08] MEDS ORDERED: Piperacillin/Tazobac ADVAN(*) 3.375 GM in NS 0.9% 100 ML* 100 ML IVPB SCH (02:00)
[2017-08-08] MEDS ORDERED: Acetaminophen TAB* 325 MG ONE (02:20)
[2017-08-08] MEDS: Acetaminophen TAB* 325 MG PO PRN ×2 (02:23→17:38)
[2017-08-08] MEDS ORDERED: Vancomycin(*) 1,500 MG in NS 0.9% 250 ML* 250 ML IVPB ONE (02:30)
[2017-08-08] MEDS: NS 0.9% 1000 ML* 1,000 ML IV SCH ×2 (03:03→19:54)
[2017-08-08] MEDS: Heparin VIAL(*) 5000 UNITS/ML VIAL (FIVE THOUSAND) SUBCUT SCH ×3 (05:00→21:51)
[2017-08-08] MEDS: Piperacillin/Tazobactam 13.5 GM IV 24 hour continuous infusion IVPB SCH ×2 (05:02)
[2017-08-08 05:52] LABS: ABS Basophils 0.1 10^3/ul (0-0.2); ABS Eosinophils 0.3 10^3/ul (0-0.6); ABS Lymphocytes 2.7 10^3/ul (1.0-4.8); ABS Nucleated RBC 0 10^3/ul; Eosinophil % 2.6 % (0-6); Hematocrit 33 % (35-47); Hemoglobin 11.2 g/dl (12.0-16.0); Lymphocyte % 27.1 % (25-47); Mean Corpuscular HGB Conc 34 g/dl (31-36); Mean Corpuscular Hemoglobin 29 pg (27-31); Mean Corpuscular Volume 85 fL (80-97); Mean Platelet Volume 8.3 um3 (7.4-10.4); Nucleated Red Blood Cells % 0; Platelet Count 260 10^3/ul (150-450); Red Blood Count 3.87 10^6/ul (4.0-5.4); Red Cell Distribution Width 13 % (10.5-15); White Blood Count 10.1 10^3/ul (3.5-10.8)
[2017-08-08 06:11] LABS: EGFR Non-African American 36.9 (>60)
--- NOTE | 2017-08-08 07:38 | RAD ---
INDICATION: Left great toe amputation with ulceration COMPARISON: Left foot July 07, 2017 TECHNIQUE: AP, lateral, and oblique views were obtained. FINDINGS: The distal great toe amputation site shows no definitive bony erosion but there are soft tissue changes now consistent with ulceration is indicated in the clinical history. The osseous structures and joint spaces are otherwise unchanged. IMPRESSION: SOFT TISSUE ULCERATION ABOUT THE AMPUTATION OF THE GREAT TOE
[2017-08-08] MEDS: Morphine ORAL.SOLN 10 mg* 2 MG/ML UDC 5 ml PO PRN ×3 (07:52→23:32)
[2017-08-08] MEDS: Gabapentin CAP(*) 300 MG PO SCH ×2 (08:54→21:45)
[2017-08-08] MEDS: Aspirin TAB* 325 MG PO SCH (08:54)
[2017-08-08] MEDS: Metoprolol Succinate XL TAB* 50 MG PO SCH (08:54)
[2017-08-08] MEDS: Docusate CAP* 100 MG PO SCH ×2 (08:54→21:45)
[2017-08-08] MEDS ORDERED: Insulin GLARGINE(*) 1 UNITS UNIT SUBCUT SCH ×2 (09:00→18:00)
[2017-08-08] MEDS: Insulin LISPRO* 1 UNITS UNIT SUBCUT SCH ×7 (09:04→21:50)
--- NOTE | 2017-08-08 11:04 | RAD ---
Indication: LEFT first toe infection. Assess for osteomyelitis. History of osteomyelitis. Comparison: August 07, 2017 radiographs. July 12, 2017 MRI. Technique: WAFUa 1.5 Char BR362H with GEM suite. Noncontrast MRI of the LEFT great toe with incomplete inclusion of the remaining toes. Report: Minimal bone marrow edema at the distal margin of the distal diaphyseal amputation site of the proximal phalanx at the lateral margin corresponding decreased T1 marrow hyperintensity new compared with the prior exam. Bone marrow signal is otherwise normal at the first digit. Soft tissue edema at the stump over the amputation site and throughout the visualized forefoot including the subcutaneous tissue plane and intrinsic skeletal musculature without evidence for a loculated abscess collection. Negative for significant joint effusions. Subchondral cyst and subchondral marrow edema at the second metatarsal phalangeal joint secondary to degenerative arthropathy. IMPRESSION: Subtle new marrow signal abnormality at the lateral margin of the amputation site stump at the distal diaphysis of the first proximal phalanx compared with the July 12, 2017 exam concerning for a small site of osteomyelitis given the clinical context. Diffuse soft tissue edema most prominent over the amputation site stump without evidence for a loculated abscess collection.
[2017-08-08] MEDS: Vancomycin(*) 1,000 MG in NS 0.9% 250 ML* 250 ML IVPB SCH (15:21)
--- NOTE | 2017-08-08 16:04 | PN ---
Subjective Date of Service: 08/08/17 Interval History: Pt is feeling well. She denies any pain of the L 1st toe. She thinks the erythema is a little better. There is less streaking up the foot/leg. No diarrhea, SOB. Objective Active Medications: Acetaminophen (Tylenol Tab*) 650 mg PO Q6H PRN PRN Reason: FEVER/PAIN Last Admin: 08/08/17 02:23 Dose: 650 mg Aspirin (Aspirin Tab*) 325 mg PO DAILY [facility] Last Admin: 08/08/17 08:54 Dose: 325 mg Atorvastatin Calcium (Lipitor*) 10 mg PO QPM [facility] PRN Reason: Protocol Diltiazem HCl (Cardizem Tab*) 30 mg PO QPM [facility] Docusate Sodium (Colace Cap*) 200 mg PO BID [facility] Last Admin: 08/08/17 08:54 Dose: 200 mg Gabapentin (Neurontin Cap(*)) 600 mg PO BID [facility] Last Admin: 08/08/17 08:54 Dose: 600 mg Heparin Sodium (Porcine) (Heparin Vial(*)) 5,000 units SUBCUT Q8HR [facility] Last Admin: 08/08/17 13:46 Dose: 5,000 units Sodium Chloride (Ns 0.9% 1000 Ml*) 1,000 mls @ 75 mls/hr IV PER RATE [facility] Last Admin: 08/08/17 03:03 Dose: 75 mls/hr Piperacillin Sod/Tazobactam (Sod 13.5 gm/ Sodium Chloride) 500 mls @ 20.833 mls /hr IVPB Q24H [facility] Last Admin: 08/08/17 05:02 Dose: 20.833 mls/hr Vancomycin HCl 1,000 mg/ (Sodium Chloride) 250 mls @ 166.667 mls/hr IVPB Q12H [facility] Last Admin: 08/08/17 15:21 Dose: 166.667 mls/hr Insulin Glargine (Lantus(*)) 60 units SUBCUT BID [facility] Insulin Human Lispro (Humalog*) 0 units SUBCUT AC [facility] PRN Reason: Protocol Last Admin: 08/08/17 13:46 Dose: 4 units Insulin Human Lispro (Humalog*) 0 units SUBCUT ACHS [facility] PRN Reason: Protocol Last Admin: 08/08/17 13:46 Dose: 12 units Lorazepam (Ativan Tab(*)) 1 mg PO BID PRN PRN Reason: ANXIETY Melatonin (Melatonin (Nf)) 3 mg PO BEDTIME PRN; Protocol PRN Reason: Sleep Metoprolol Succinate (Toprol Xl Tab*) 50 mg PO QAM [facility] Last Admin: 08/08/17 08:54 Dose: 50 mg Morphine Sulfate (Morphine Oral.Soln 10 Mg*) 15 mg PO TID PRN PRN Reason: PAIN Last Admin: 08/08/17 07:52 Dose: 15 mg Omeprazole (Prilosec Cap*) 40 mg PO QPM [facility] Ondansetron HCl (Zofran Inj*) 4 mg IV Q6H PRN PRN Reason: NAUSEA Oxymorphone HCl (Opana Ir (Nf)) 5 mg PO Q4HR PRN PRN Reason: PAIN Pharmacy Consult (Vancomycin Per Pharmacy*) 1 note FOLLOW UP .VANC PER PHARMACY [facility] Pharmacy Profile Note (Vancomycin Trough Check) 1 note FOLLOW UP 1500 ONE Stop: 08/09/17 15:01 Ramipril (Altace Cap*) 10 mg PO QPM [facility] Venlafaxine HCl (Effexor Xr Cap*) 75 mg PO QPM [facility] PRN Reason: Protocol Vital Signs - 8 hr 08/08/17 08/08/17 08/08/17 07:57 08:54 10:47 Temperature Pulse Rate Respiratory 18 16 16 Rate Blood Pressure (mmHg) O2 Sat by Pulse Oximetry 08/08/17 08/08/17 10:59 11:03 Temperature 98.5 F Pulse Rate 76 Respiratory 18 16 Rate Blood Pressure 146/60 (mmHg) O2 Sat by Pulse 98 Oximetry Oxygen Devices in Use Now: None Appearance: Middle aged female sitting up in bed, NAD Eyes: No Scleral Icterus Ears/Nose/Mouth/Throat: Mucous Membranes Moist Respiratory: Symmetrical Chest Expansion and Respiratory Effort, Clear to Auscultation Cardiovascular: NL Sounds; No Murmurs; No JVD, RRR, No Edema Abdominal: NL Sounds; No Tenderness; No Distention Extremities: No Clubbing, Cyanosis Skin: No Nodules or Sclerosis, - - small ulceration on the plantar surface of the stump of the L 1st toe, small amount of fluid able to be exprssed from the wound. Mild erythema of the L 1st toe stump and slight streak up the foot Neurological: Alert and Oriented x 3 Result Diagrams: 08/08/17 05:45 08/08/17 05:45 Additional Lab and Data: Lab Results 08/07/17 08/07/17 08/07/17 Range/Units 22:30 22:30 22:30 WBC 10.8 (3.5-10.8) 10^3/ul RBC 4.11 (4.0-5.4) 10^6/ul Hgb 11.9 L (12.0-16.0) g/dl Hct 35 (35-47) % MCV 86 (80-97) fL MCH 29 (27-31) pg MCHC 34 (31-36) g/dl RDW 13 (10.5-15) % Plt Count 285 (150-450) 10^3/ul MPV 8.5 (7.4-10.4) um3 Neut % (Auto) 65.8 (38-83) % Lymph % (Auto) 23.7 L (25-47) % [place] % (Auto) 7.7 H (0-7) % Eos % (Auto) 2.1 (0-6) % Baso % (Auto) 0.7 (0-2) % Absolute Neuts (auto) 7.1 (1.5-7.7) 10^3/ul Absolute Lymphs (auto) 2.6 (1.0-4.8) 10^3/ul Absolute Monos (auto) 0.8 (0-0.8) 10^3/ul Absolute Eos (auto) 0.2 (0-0.6) 10^3/ul Absolute Basos (auto) 0.1 (0-0.2) 10^3/ul Absolute Nucleated RBC 0 10^3/ul Nucleated RBC % 0.1 ESR 77 H (0-30) mm/Hr INR (Anticoag Therapy) 0.90 (0.77-1.02) Sodium 132 L (133-145) mmol/L Potassium 4.3 (3.5-5.0) mmol/L Chloride 95 L (101-111) mmol/L Carbon Dioxide 27 (22-32) mmol/L Anion Gap 10 (2-11) mmol/L BUN 27 H (6-24) mg/dL Creatinine 1.30 H (0.51-0.95) mg/dL Est GFR ( Amer) 53.4 (>60) Est GFR (Non-Af Amer) 41.5 (>60) BUN/Creatinine Ratio 20.8 H (8-20) Glucose 234 H (70-100) mg/dL Lactic Acid (0.5-2.0) mmol/L Calcium 9.6 (8.6-10.3) mg/dL Total Bilirubin 0.40 (0.2-1.0) mg/dL AST 19 (13-39) U/L ALT 22 (7-52) U/L Alkaline Phosphatase Pending C-Reactive Protein 81.33 H (< 5.00) mg/L Total Protein 7.4 (6.4-8.9) g/dL Albumin 3.8 (3.2-5.2) g/dL Globulin 3.6 (2-4) g/dL Albumin/Globulin Ratio 1.1 (1-3) 08/07/17 Range/Units 22:30 WBC (3.5-10.8) 10^3/ul RBC (4.0-5.4) 10^6/ul Hgb (12.0-16.0) g/dl Hct (35-47) % MCV (80-97) fL MCH (27-31) pg MCHC (31-36) g/dl RDW (10.5-15) % Plt Count (150-450) 10^3/ul MPV (7.4-10.4) um3 Neut % (Auto) (38-83) % Lymph % (Auto) (25-47) % [place] % (Auto) (0-7) % Eos % (Auto) (0-6) % Baso % (Auto) (0-2) % Absolute Neuts (auto) (1.5-7.7) 10^3/ul Absolute Lymphs (auto) (1.0-4.8) 10^3/ul Absolute Monos (auto) (0-0.8) 10^3/ul Absolute Eos (auto) (0-0.6) 10^3/ul Absolute Basos (auto) (0-0.2) 10^3/ul Absolute Nucleated RBC 10^3/ul Nucleated RBC % ESR (0-30) mm/Hr INR (Anticoag Therapy) (0.77-1.02) Sodium (133-145) mmol/L Potassium (3.5-5.0) mmol/L Chloride (101-111) mmol/L Carbon Dioxide (22-32) mmol/L Anion Gap (2-11) mmol/L BUN (6-24) mg/dL Creatinine (0.51-0.95) mg/dL Est GFR ( Amer) (>60) Est GFR (Non-Af Amer) (>60) BUN/Creatinine Ratio (8-20) Glucose (70-100) mg/dL Lactic Acid 1.9 (0.5-2.0) mmol/L Calcium (8.6-10.3) mg/dL Total Bilirubin (0.2-1.0) mg/dL AST (13-39) U/L ALT (7-52) U/L Alkaline Phosphatase C-Reactive Protein (< 5.00) mg/L Total Protein (6.4-8.9) g/dL Albumin (3.2-5.2) g/dL Globulin (2-4) g/dL Albumin/Globulin Ratio (1-3) Microbiology and Other Data: Microbiology 08/08/17 05:05 Gram Stain - Final Toe - Left Big Assess/Plan/Problems-Billing Ms Miller is a 62 yo F who has a h/o type II DM (uncontrolled), HTN, HLD and depression/anxiety who presented to the ER with c/o redness and drainage from a wound on the plantar surface of the left 1st toe stump. - Patient Problems (1) Diabetic foot ulcer Current Visit: Yes Status: Acute Code(s): E11.621 - TYPE 2 DIABETES MELLITUS WITH FOOT ULCER; L97.509 - NON-PRESSURE CHRONIC ULCER OTH PRT UNSP FOOT W UNSP SEVERITY SNOMED Code(s): 427351728 Comment: The patient has a small ulcer on the plantar surface of the L 1st toe stump. She had erythema and streaking up the dorsum of the L foot. Will continue vanco and zosyn for now. ID consult tomorrow. Appreciate ortho consult. (2) Type II diabetes mellitus Current Visit: Yes Status: Acute Comment: Sugars are uncontrolled. Will increase lantus to 60 units SQ BID. Stop metformin as her creatinine is close to the cut off of when it should be stopped. Will try to get better blood sugar control with aggressive adjustments. (3) HTN (hypertension) Current Visit: Yes Status: Acute Code(s): I10 - ESSENTIAL (PRIMARY) HYPERTENSION SNOMED Code(s): 73331140 Comment: BP has not been optimally controlled. Will add amlodipine and monitor the BP. (4) HLD (hyperlipidemia) Current Visit: Yes Status: Acute Code(s): E78.5 - HYPERLIPIDEMIA, UNSPECIFIED SNOMED Code(s): 56197028 Comment: Continue lipitor. (5) DVT prophylaxis Current Visit: Yes Status: Acute Priority: High Code(s): PQX5519 - SNOMED Code(s): 243231337 Comment: SQ heparin (6) Full code status Current Visit: Yes Status: Acute Code(s): Z78.9 - OTHER SPECIFIED HEALTH STATUS SNOMED Code(s): 488329567
--- NOTE | 2017-08-08 17:30 | CONS ---
ADDENDUM NOW INCLUDED ON THIS REPORT CONSULTATION REPORT: DATE OF CONSULT: 08/08/17. PROVIDER: Dr. Tin Arzola. CHIEF COMPLAINT: Infection of left great toe. HISTORY OF PRESENT ILLNESS: Ms. Miller is a 62-year-old female who presented to the emergency room on 08/07/17 with a past medical history of type 2 diabetes , as well as previous left great toe distal phalanx amputation ( October 2016, Dr Nobles) and right third toe amputation ( 1 month ago, Dr Arzola). She presents today with left great toe pain and redness and discharge. Discharge has been present from a callus on the bottom of the toe for 2 weeks and redness of the toe began 2 to 3 days ago, associated with tenderness as well as streaking up the medial leg. The patient states that she has felt feverish, and as though she has had chills. Since admission to the hospital, she has been started on vanco and Zosyn. She feels that the redness, pain, fever, and chills have improved. The patient has done well with anesthesia throughout her previous surgeries. She has no history of heart attack, stroke or blood clot. Her filament welder is Dr. Crocker. Her primary care doctor is Dr. Barclay. She does not currently have an grommet machine operator. PAST MEDICAL HISTORY: Type 2 diabetes with polyneuropathy, chronic kidney disease, hypertension, hyperlipidemia, polymyositis, SVT, depression, anxiety, GERD. PAST SURGICAL HISTORY: Amputation left great toe distal phalanx in October [address] Nobles, amputation right third toe one month ago by Dr. Arzola, appendectomy, hysterectomy, total hip arthroplasty, lumbar spine surgery. MEDICATIONS: As in chart. FAMILY HISTORY: Mother of a CVA in her 70s. Mother also had diabetes. SOCIAL HISTORY: No tobacco, alcohol or drug use. Lives at home with her . 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 REVIEW OF SYSTEMS: General: Confirms fever and chills at home, improved with IV antibiotics. HEENT: No headache. No changes in vision. No changes in hearing. Heart: History of SVT. No history of IA. No chest pain. No irregular beats. Respiratory: No chronic pulmonary issues. Has had a respiratory infection over the past week, which seems to be improving with a residual cough. No shortness of breath. GI: No abdominal pain. No nausea. No vomiting, no diarrhea. : No dysuria. Musculoskeletal: Left great toe pain. No other joint pain reported. Reports moving extremities well. Neuro: Decreased sensation of bilateral feet. Skin: Redness of left great toe, with streaking up the medial leg prior to admission. Hematology: No history of blood clots. PHYSICAL EXAM: Vital Signs: Temperature 98.7, pulse 81, respiratory rate 16, oxygen saturation 99, blood pressure 161/69. General: The patient is well appearing, in no acute distress. HEENT: Atraumatic, normocephalic. EOMI. Hearing and vision grossly intact. Pulmonary: Normal rate and effort of breathing. Clear to auscultation bilaterally. Cardio: Regular rate and rhythm. S1 and S2. No pedal edema. Abdomen: Soft, nontender, no masses. Large midline herniation that is nontender and reduces spontaneously with lying flat. Musculoskeletal: Moves upper and lower extremities well. Right third toe surgically absent. Left first toe distal phalanx surgically absent. Moves remaining toes well. Dorsiflexion and plantar flexion bilaterally intact. Integumentary: Left great toe erythematous dorsally and distally without extension past MTP and no streaking. Plantar aspect callus cracked open proximally though no current drainage and not malodorous. Distal aspect with nickel sized collection of purulence, tender to palpation. Vascular: Doppler was used to evaluate pulses of bilateral lower extremities. Dorsalis pedis pulses are bilaterally are present by Doppler alone. Posterior tibial pulses are 2+ to palpation. Bilateral capillary refill less than two seconds distally. DIAGNOSTIC DATA/LAB DATA: White blood cell count 10.1, hemoglobin 11.2, hematocrit 33. Sodium 132, creatinine 1.44, glucose 345, C-reactive protein 81.33 on 08/07/17, ESR 77 on 08/07/17. Lower extremity MRI done on 08/08/17, the impression showing subtle new marrow of signal abnormality at the lateral margin of the amputation site stump in the distal diaphysis of the first proximal phalanx compared to 07/12/17 exam, which is concerning for a small site of osteomyelitis, diffuse soft tissue edema most prominent over the amputation site stump without evidence for a loculated abscess collection. IMPRESSION: Cellulitis left great toe, rule out osteomyelitis. PLAN: The patient is familiar with both Dr. Arzola and with Dr. Nobles. For the time being antibiotic treatment is recommended. She will be seen by infectious disease for antibiotic guidance. Recommend patient to regularly see an grommet machine operator outpatient for optimal diabetic management. EVER DHILLON [id number]/[facility] #: [id number]/[facility] #: [id number] FIL[place]
[2017-08-08] MEDS: Omeprazole CAP* 20 MG PO SCH (17:38)
[2017-08-08] MEDS: Atorvastatin* 10 MG TAB PO SCH (17:39)
[2017-08-08] MEDS: Diltiazem TAB* 30 MG PO SCH (17:39)
[2017-08-08] MEDS: Ramipril CAP* 10 MG PO SCH (17:39)
[2017-08-08] MEDS: Venlafaxine EXT RELEASE CAP* 75 MG PO SCH (17:39)
[2017-08-08] MEDS ORDERED: Insulin LISPRO* 1 UNITS UNIT SUBCUT ONE (18:22)
--- NOTE | 2017-08-08 20:57 | CONS ---
CONSULTATION REPORT: ADDENDUM: DATE OF CONSULT: 08/08/17 PHYSICAL EXAM: Doppler was used to evaluate pulses of bilateral lower extremities. Dorsalis pedis pulses bilaterally are present by Doppler alone. Posterior tibial pulses are 2+ to palpation. EVER DHILLON [id number]/[facility] #: [id number] [facility]OSPITALHaley
[2017-08-08] MEDS: Insulin GLARGINE(*) 1 UNITS UNIT SUBCUT SCH (21:48)
[2017-08-09] MEDS: Vancomycin(*) 1,000 MG in NS 0.9% 250 ML* 250 ML IVPB SCH (03:17)
[2017-08-09] MEDS: Morphine ORAL.SOLN 10 mg* 2 MG/ML UDC 5 ml PO PRN ×3 (05:21→21:59)
[2017-08-09] MEDS: Piperacillin/Tazobactam 13.5 GM IV 24 hour continuous infusion IVPB SCH ×2 (05:24)
[2017-08-09] MEDS: Heparin VIAL(*) 5000 UNITS/ML VIAL (FIVE THOUSAND) SUBCUT SCH ×3 (05:32→21:31)
[2017-08-09] MEDS ORDERED: amLODIPine TAB* 5 MG PO SCH (09:00)
[2017-08-09] MEDS: Docusate CAP* 100 MG PO SCH ×2 (09:23→21:26)
[2017-08-09] MEDS: Metoprolol Succinate XL TAB* 50 MG PO SCH (09:24)
[2017-08-09] MEDS: Gabapentin CAP(*) 300 MG PO SCH ×2 (09:24→21:24)
[2017-08-09] MEDS: Aspirin TAB* 325 MG PO SCH (09:24)
[2017-08-09] MEDS: Insulin GLARGINE(*) 1 UNITS UNIT SUBCUT SCH ×2 (09:26→21:28)
[2017-08-09] MEDS: Insulin LISPRO* 1 UNITS UNIT SUBCUT SCH ×7 (09:26→21:30)
--- NOTE | 2017-08-09 09:30 | PN ---
Subjective Date of Service: 08/09/17 Interval History: Pt is feeling ok. She states she is bummed that she is still in the hospital. She denies any pain. No SOB, N/V, CP. Objective Active Medications: Acetaminophen (Tylenol Tab*) 650 mg PO Q6H PRN PRN Reason: FEVER/PAIN Last Admin: 08/08/17 17:38 Dose: 650 mg Amlodipine Besylate (Norvasc Tab*) 5 mg PO DAILY [facility] Aspirin (Aspirin Tab*) 325 mg PO DAILY [facility] Last Admin: 08/08/17 08:54 Dose: 325 mg Atorvastatin Calcium (Lipitor*) 10 mg PO QPM [facility] PRN Reason: Protocol Last Admin: 08/08/17 17:39 Dose: 10 mg Diltiazem HCl (Cardizem Tab*) 30 mg PO QPM [facility] Last Admin: 08/08/17 17:39 Dose: 30 mg Docusate Sodium (Colace Cap*) 200 mg PO BID [facility] Last Admin: 08/08/17 21:45 Dose: 200 mg Gabapentin (Neurontin Cap(*)) 600 mg PO BID [facility] Last Admin: 08/08/17 21:45 Dose: 600 mg Heparin Sodium (Porcine) (Heparin Vial(*)) 5,000 units SUBCUT Q8HR [facility] Last Admin: 08/09/17 05:32 Dose: 5,000 units Sodium Chloride (Ns 0.9% 1000 Ml*) 1,000 mls @ 75 mls/hr IV PER RATE [facility] Last Admin: 08/08/17 19:54 Dose: 75 mls/hr Piperacillin Sod/Tazobactam (Sod 13.5 gm/ Sodium Chloride) 500 mls @ 20.833 mls /hr IVPB Q24H [facility] Last Admin: 08/09/17 05:24 Dose: 20.833 mls/hr Vancomycin HCl 1,000 mg/ (Sodium Chloride) 250 mls @ 166.667 mls/hr IVPB Q12H [facility] Last Admin: 08/09/17 03:17 Dose: 166.667 mls/hr Insulin Glargine (Lantus(*)) 60 units SUBCUT BID [facility] Last Admin: 08/08/17 21:48 Dose: 60 units Insulin Human Lispro (Humalog*) 0 units SUBCUT AC [facility] PRN Reason: Protocol Last Admin: 08/08/17 18:23 Dose: 2 units Insulin Human Lispro (Humalog*) 0 units SUBCUT ACHS [facility] PRN Reason: Protocol Last Admin: 08/08/17 21:50 Dose: 6 units Lorazepam (Ativan Tab(*)) 1 mg PO BID PRN PRN Reason: ANXIETY Melatonin (Melatonin (Nf)) 3 mg PO BEDTIME PRN; Protocol PRN Reason: Sleep Metoprolol Succinate (Toprol Xl Tab*) 50 mg PO QAM [facility] Last Admin: 08/08/17 08:54 Dose: 50 mg Morphine Sulfate (Morphine Oral.Soln 10 Mg*) 15 mg PO TID PRN PRN Reason: PAIN Last Admin: 08/09/17 05:21 Dose: 15 mg Omeprazole (Prilosec Cap*) 40 mg PO QPM [facility] Last Admin: 08/08/17 17:38 Dose: 40 mg Ondansetron HCl (Zofran Inj*) 4 mg IV Q6H PRN PRN Reason: NAUSEA Oxymorphone HCl (Opana Ir (Nf)) 5 mg PO Q4HR PRN PRN Reason: PAIN Pharmacy Consult (Vancomycin Per Pharmacy*) 1 note FOLLOW UP .VANC PER PHARMACY [facility] Pharmacy Profile Note (Vancomycin Trough Check) 1 note FOLLOW UP 1500 ONE Stop: 08/09/17 15:01 Ramipril (Altace Cap*) 10 mg PO QPM [facility] Last Admin: 08/08/17 17:39 Dose: 10 mg Venlafaxine HCl (Effexor Xr Cap*) 75 mg PO QPM [facility] PRN Reason: Protocol Last Admin: 08/08/17 17:39 Dose: 75 mg Vital Signs - 8 hr 08/09/17 08/09/17 08/09/17 01:56 02:40 03:18 Temperature 98.8 F Pulse Rate 66 Respiratory 16 16 16 Rate Blood Pressure 152/69 (mmHg) O2 Sat by Pulse 96 Oximetry 08/09/17 08/09/17 08/09/17 05:21 07:58 08:00 Temperature 97.6 F Pulse Rate 71 Respiratory 16 18 16 Rate Blood Pressure 150/72 (mmHg) O2 Sat by Pulse 99 Oximetry Oxygen Devices in Use Now: None Appearance: Middle aged female sitting up in bed, eating breakfast, NAD Eyes: No Scleral Icterus Ears/Nose/Mouth/Throat: Mucous Membranes Moist Respiratory: Symmetrical Chest Expansion and Respiratory Effort, Clear to Auscultation Cardiovascular: NL Sounds; No Murmurs; No JVD, RRR, No Edema Abdominal: NL Sounds; No Tenderness; No Distention Extremities: No Clubbing, Cyanosis Skin: No Nodules or Sclerosis, - - no significant erythema on the dorsum of the L foot, mild erythema at the tip of the L 1st toe stump, small ulceration noted to the pad of the L 1st proximal phalanx, linear crack at the base of the L 1st toe stump Neurological: Alert and Oriented x 3 Result Diagrams: 08/08/17 05:45 08/08/17 05:45 Additional Lab and Data: Lab Results 08/07/17 08/07/17 08/07/17 Range/Units 22:30 22:30 22:30 WBC 10.8 (3.5-10.8) 10^3/ul RBC 4.11 (4.0-5.4) 10^6/ul Hgb 11.9 L (12.0-16.0) g/dl Hct 35 (35-47) % MCV 86 (80-97) fL MCH 29 (27-31) pg MCHC 34 (31-36) g/dl RDW 13 (10.5-15) % Plt Count 285 (150-450) 10^3/ul MPV 8.5 (7.4-10.4) um3 Neut % (Auto) 65.8 (38-83) % Lymph % (Auto) 23.7 L (25-47) % [place] % (Auto) 7.7 H (0-7) % Eos % (Auto) 2.1 (0-6) % Baso % (Auto) 0.7 (0-2) % Absolute Neuts (auto) 7.1 (1.5-7.7) 10^3/ul Absolute Lymphs (auto) 2.6 (1.0-4.8) 10^3/ul Absolute Monos (auto) 0.8 (0-0.8) 10^3/ul Absolute Eos (auto) 0.2 (0-0.6) 10^3/ul Absolute Basos (auto) 0.1 (0-0.2) 10^3/ul Absolute Nucleated RBC 0 10^3/ul Nucleated RBC % 0.1 ESR 77 H (0-30) mm/Hr INR (Anticoag Therapy) 0.90 (0.77-1.02) Sodium 132 L (133-145) mmol/L Potassium 4.3 (3.5-5.0) mmol/L Chloride 95 L (101-111) mmol/L Carbon Dioxide 27 (22-32) mmol/L Anion Gap 10 (2-11) mmol/L BUN 27 H (6-24) mg/dL Creatinine 1.30 H (0.51-0.95) mg/dL Est GFR ( Amer) 53.4 (>60) Est GFR (Non-Af Amer) 41.5 (>60) BUN/Creatinine Ratio 20.8 H (8-20) Glucose 234 H (70-100) mg/dL Lactic Acid (0.5-2.0) mmol/L Calcium 9.6 (8.6-10.3) mg/dL Total Bilirubin 0.40 (0.2-1.0) mg/dL AST 19 (13-39) U/L ALT 22 (7-52) U/L Alkaline Phosphatase Pending C-Reactive Protein 81.33 H (< 5.00) mg/L Total Protein 7.4 (6.4-8.9) g/dL Albumin 3.8 (3.2-5.2) g/dL Globulin 3.6 (2-4) g/dL Albumin/Globulin Ratio 1.1 (1-3) // Range/Units 22:30 WBC (3.5-10.8) 10^3/ul RBC (4.0-5.4) 10^6/ul Hgb (12.0-16.0) g/dl Hct (35-47) % MCV (80-97) fL MCH (27-31) pg MCHC (31-36) g/dl RDW (10.5-15) % Plt Count (150-450) 10^3/ul MPV (7.4-10.4) um3 Neut % (Auto) (38-83) % Lymph % (Auto) (25-47) % [place] % (Auto) (0-7) % Eos % (Auto) (0-6) % Baso % (Auto) (0-2) % Absolute Neuts (auto) (1.5-7.7) 10^3/ul Absolute Lymphs (auto) (1.0-4.8) 10^3/ul Absolute Monos (auto) (0-0.8) 10^3/ul Absolute Eos (auto) (0-0.6) 10^3/ul Absolute Basos (auto) (0-0.2) 10^3/ul Absolute Nucleated RBC 10^3/ul Nucleated RBC % ESR (0-30) mm/Hr INR (Anticoag Therapy) (0.77-1.02) Sodium (133-145) mmol/L Potassium (3.5-5.0) mmol/L Chloride (101-111) mmol/L Carbon Dioxide (22-32) mmol/L Anion Gap (2-11) mmol/L BUN (6-24) mg/dL Creatinine (0.51-0.95) mg/dL Est GFR ( Amer) (>60) Est GFR (Non-Af Amer) (>60) BUN/Creatinine Ratio (8-20) Glucose (70-100) mg/dL Lactic Acid 1.9 (0.5-2.0) mmol/L Calcium (8.6-10.3) mg/dL Total Bilirubin (0.2-1.0) mg/dL AST (13-39) U/L ALT (7-52) U/L Alkaline Phosphatase C-Reactive Protein (< 5.00) mg/L Total Protein (6.4-8.9) g/dL Albumin (3.2-5.2) g/dL Globulin (2-4) g/dL Albumin/Globulin Ratio (1-3) Microbiology and Other Data: Microbiology 08/08/17 05:05 Gram Stain - Final Toe - Left Big Assess/Plan/Problems-Billing Ms Miller is a 62 yo F who has a h/o type II DM (uncontrolled), HTN, HLD and depression/anxiety who presented to the ER with c/o redness and drainage from a wound on the plantar surface of the left 1st toe stump. - Patient Problems (1) Diabetic foot ulcer Current Visit: Yes Status: Acute Code(s): E11.621 - TYPE 2 DIABETES MELLITUS WITH FOOT ULCER; L97.509 - NON-PRESSURE CHRONIC ULCER OTH PRT UNSP FOOT W UNSP SEVERITY SNOMED Code(s): 557652196 Comment: The patient has a small ulcer on the plantar surface of the L 1st toe stump and at the base of the toe. She had erythema and streaking up the dorsum of the L foot which has now essentially resolved. Will continue vanco and zosyn for now. ID consult pending. ? 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 (2) Type II diabetes mellitus Current Visit: Yes Status: Acute Comment: Blood sugar this AM slightly better. Will continue lantus 60 units SQ BID and follow the sugars. Will continue to adjust insulin regimen as needed. (3) HTN (hypertension) Current Visit: Yes Status: Acute Code(s): I10 - ESSENTIAL (PRIMARY) HYPERTENSION SNOMED Code(s): 57002611 Comment: BP remains moderately elevated. Amlodipine initiated today. Monitor BP and if still not at goal will continue to adjust meds. (4) HLD (hyperlipidemia) Current Visit: Yes Status: Acute Code(s): E78.5 - HYPERLIPIDEMIA, UNSPECIFIED SNOMED Code(s): 09349524 Comment: Continue lipitor. (5) DVT prophylaxis Current Visit: Yes Status: Acute Priority: High Code(s): VZO4619 - SNOMED Code(s): 343817693 Comment: SQ heparin (6) Full code status Current Visit: Yes Status: Acute Code(s): Z78.9 - OTHER SPECIFIED HEALTH STATUS SNOMED Code(s): 980654159
[2017-08-09] MEDS: NS 0.9% 1000 ML* 1,000 ML IV SCH ×2 (09:31→22:17)
--- NOTE | 2017-08-09 13:46 | CONS ---
CONSULTATION REPORT: DATE OF CONSULT: 08/09/17 REQUESTING PHYSICIAN: Dr. De La Cruz. CONSULTING SERVICE: Infectious Disease. REASON FOR CONSULTATION: Left foot cellulitis and osteomyelitis. IMPRESSION: 1. History of left great toe partial amputation, now with a cellulitis with some spread up her left leg. MRI shows increased T2 intensity and loss of T1 intensity at the distal aspect of the proximal phalanx of that toe. Taken together, she has acute osteomyelitis and cellulitis. Her cellulitis is improving on broad-spectrum antibiotics. Given the streaking, I suspect streptococcal infection. 2. Insulin-dependent diabetes with neuropathy. 3. Chronic kidney disease. 4. LEVAQUIN allergy. RECOMMENDATIONS: Clindamycin 300 mg by mouth 3 times a day for 4 weeks. We will follow her toe while she has attention to some wound care and antibiotics. If she is not progressing, then I think amputation will need to be reconsidered. HISTORY OF PRESENT ILLNESS: This is a 62-year-old diabetic woman with neuropathy, admitted with left foot redness and swelling that developed since Monday. She noticed some redness along the otherwise healed left toe amputation site and some streaking up her legs. She came to the hospital, was started on vancomycin and Zosyn yesterday. She had a mild leukocytosis of 11, 000, sed rate of 77. She had no fevers, chills, or sweats. Since she has been here, she had improvement in the streaking up her leg and the redness is just centered around the great toe amputation site, as I mentioned, otherwise healed. She feels well today, eating okay, tolerating antibiotics well, has been bearing weight without pain. PAST MEDICAL HISTORY: 1. Insulin-dependent diabetes with hyperglycemia. 2. Peripheral neuropathy due to diabetes. 3. Chronic kidney disease due to diabetes. 4. Hypertension. 5. Hyperlipidemia. 6. Myositis. 7. SVT. 8. Depression. 9. Anxiety. 10. Gastroesophageal reflux disease. 11. History of osteomyelitis, status post amputation right third toe and distal phalanx of the left great toe. MEDICATIONS: 1. Tylenol. 2. Amlodipine. 3. Aspirin. 4. Lipitor. 5. Diltiazem. 6. Docusate. 7. Gabapentin. 8. Heparin subcutaneous injection. 9. Insulin glargine. 10. Insulin lispro with meals. 11. Lorazepam as needed. 12. Omeprazole. 13. Zosyn by continuous infusion. 14. Ramipril. 15. Vancomycin 1 g every 12 hours. ALLERGIES: DILAUDID, CODEINE, LEVAQUIN. FAMILY HISTORY: No recurrent infections. SOCIAL HISTORY: She lives in [place]. No sick contacts. No injection drugs. REVIEW OF SYSTEMS: All negative except as noted above, the 14-point review of systems. PHYSICAL EXAM: Vital Signs: Temperature is 36.4, heart rate is 70, respiratory rate 16, blood pressure 150/70, oxygen saturation 99% on room air. In general, she is awake and not in distress. Neurologic: She is oriented x3. Follows all commands. HEENT: There is no conjunctival hemorrhage. Oropharynx without lesions. Neck: Supple without mass. Heart: Regular rate and rhythm without murmurs, rubs or gallops. Lungs: Clear to auscultation bilaterally. Abdomen: Soft, nontender, nondistended. There are bowel sounds present. Skin: There is no rash or splinter hemorrhages. Musculoskeletal: There is no spine tenderness to palpation. In the left great toe, distal phalanx is surgically absent. The previous amputation site is intact. There is a plantar callus with some skin cracking. No surrounding erythema there. She has erythema on the dorsal aspect of that toe, extending up into the forefoot without crepitus or fluctuance. There is no tenderness to palpation. There is decreased sensation to light touch in both feet. DIAGNOSTIC STUDIES/LAB DATA: White blood cell count 10, hemoglobin 11, platelets 260,000. Creatinine is 1.4. C-reactive protein was 80 on admission. Please see impressions and recommendations outlined above, which I have discussed with EVER Perry. Thank you for asking me to see Ms. Miller in consultation. [id number]/[facility] #: [id number] FILIBERTO
--- NOTE | 2017-08-09 14:08 | PN ---
Progress Note - Progress Note Date of Service: 08/09/17 SOAP: Subjective: []Patient seen at bedside. Denies LLE pain, fever or chills. Objective: [] Laboratory Last Values WBC 10.1 10^3/ul (3.5-10.8) 08/08/17 05:45 RBC 3.87 10^6/ul (4.0-5.4) L 08/08/17 05:45 Hgb 11.2 g/dl (12.0-16.0) L 08/08/17 05:45 Hct 33 % (35-47) L 08/08/17 05:45 MCV 85 fL (80-97) 08/08/17 05:45 MCH 29 pg (27-31) 08/08/17 05:45 MCHC 34 g/dl (31-36) 08/08/17 05:45 RDW 13 % (10.5-15) 08/08/17 05:45 Plt Count 260 10^3/ul (150-450) 08/08/17 05:45 MPV 8.3 um3 (7.4-10.4) 08/08/17 05:45 Neut % (Auto) 59.7 % (38-83) 08/08/17 05:45 Lymph % (Auto) 27.1 % (25-47) 08/08/17 05:45 Mccormick % (Auto) 9.6 % (0-7) H 08/08/17 05:45 Eos % (Auto) 2.6 % (0-6) 08/08/17 05:45 Baso % (Auto) 1.0 % (0-2) 08/08/17 05:45 Absolute Neuts (auto) 6.0 10^3/ul (1.5-7.7) 08/08/17 05:45 Absolute Lymphs (auto) 2.7 10^3/ul (1.0-4.8) 08/08/17 05:45 Absolute Monos (auto) 1.0 10^3/ul (0-0.8) H 08/08/17 05:45 Absolute Eos (auto) 0.3 10^3/ul (0-0.6) 08/08/17 05:45 Absolute Basos (auto) 0.1 10^3/ul (0-0.2) 08/08/17 05:45 Absolute Nucleated RBC 0 10^3/ul 08/08/17 05:45 Nucleated RBC % 0 08/08/17 05:45 ESR 77 mm/Hr (0-30) H 08/07/17 22:30 INR (Anticoag Therapy) 0.90 (0.77-1.02) 08/07/17 22:30 APTT 29.0 seconds (26.0-36.3) 08/08/17 05:46 Sodium 132 mmol/L (133-145) L 08/08/17 05:45 Potassium 4.1 mmol/L (3.5-5.0) 08/08/17 05:45 Chloride 99 mmol/L (101-111) L 08/08/17 05:45 Carbon Dioxide 25 mmol/L (22-32) 08/08/17 05:45 Anion Gap 8 mmol/L (2-11) 08/08/17 05:45 BUN 24 mg/dL (6-24) 08/08/17 05:45 Creatinine 1.44 mg/dL (0.51-0.95) H 08/08/17 05:45 Est GFR ( Amer) 47.4 (>60) 08/08/17 05:45 Est GFR (Non-Af Amer) 36.9 (>60) 08/08/17 05:45 BUN/Creatinine Ratio 16.7 (8-20) 08/08/17 05:45 Glucose 321 mg/dL (70-100) H 08/08/17 05:45 POC Glucose (mg/dL) 203 mg/dL (70-100) H 08/09/17 11:26 Lactic Acid 1.9 mmol/L (0.5-2.0) 08/07/17 22:30 Calcium 8.7 mg/dL (8.6-10.3) 08/08/17 05:45 Total Bilirubin 0.40 mg/dL (0.2-1.0) 08/07/17 22:30 AST 19 U/L (13-39) 08/07/17 22:30 ALT 22 U/L (7-52) 08/07/17 22:30 Alkaline Phosphatase 69 U/L (34-104) 08/07/17 22:30 C-Reactive Protein 81.33 mg/L (< 5.00) H 08/07/17 22:30 Total Protein 7.4 g/dL (6.4-8.9) 08/07/17 22:30 Albumin 3.8 g/dL (3.2-5.2) 08/07/17 22:30 Globulin 3.6 g/dL (2-4) 08/07/17 22:30 Albumin/Globulin Ratio 1.1 (1-3) 08/07/17 22:30 Temp Pulse Resp BP Pulse Ox 97.8 F 71 16 151/70 99 08/09/17 11:38 08/09/17 11:38 08/09/17 13:12 08/09/17 11:38 08/09/17 08:00 General: Patient is well appearing, NAD. Sitting comfortably in bed. LLE: Left great toe with minimal erythema distally, no fluctuance. No streaking erythema, no edema of foot. Tip of great toe amputation stump now with 2 mm opening from which serosanguinous discharge can be expressed. Plantar surface callus appears dry, crack along proximal aspect without drainage. 1+ DP/PT. Nonadherent dressing and gauze wrap placed. Calf supple, nontender, nonerythematous. Assessment: []Left great toe infection Plan: []Patient was seen by infectious disease today. Recommendation is clindamycin 300 mg PO TID x 4 weeks May DC when medically ready Follow up with Ortho early next week
[2017-08-09] MEDS ORDERED: Vancomycin Trough Check NOTE FOLLOW UP ONE (15:00)
[2017-08-09] MEDS: Acetaminophen TAB* 325 MG PO PRN (16:53)
[2017-08-09] MEDS: Ramipril CAP* 10 MG PO SCH (18:12)
[2017-08-09] MEDS: Diltiazem TAB* 30 MG PO SCH (18:12)
[2017-08-09] MEDS: Atorvastatin* 10 MG TAB PO SCH (18:12)
[2017-08-09] MEDS: Omeprazole CAP* 20 MG PO SCH (18:13)
[2017-08-09] MEDS: Venlafaxine EXT RELEASE CAP* 75 MG PO SCH (18:13)
[2017-08-09] MEDS: Clindamycin CAP* 150 MG PO SCH (21:27)
[2017-08-10] MEDS: Clindamycin CAP* 150 MG PO SCH (05:37)
[2017-08-10] MEDS: Heparin VIAL(*) 5000 UNITS/ML VIAL (FIVE THOUSAND) SUBCUT SCH (05:37)
[2017-08-10] MEDS: Piperacillin/Tazobactam 13.5 GM IV 24 hour continuous infusion IVPB SCH ×2 (05:38)
[2017-08-10] MEDS: Morphine ORAL.SOLN 10 mg* 2 MG/ML UDC 5 ml PO PRN (08:02)
[2017-08-10 08:11] VITALS: BP 139/61
[2017-08-10] MEDS ORDERED: amLODIPine TAB* 5 MG PO SCH (09:00)
[2017-08-10] MEDS: Aspirin TAB* 325 MG PO SCH (09:42)
[2017-08-10] MEDS: Metoprolol Succinate XL TAB* 50 MG PO SCH (09:42)
[2017-08-10] MEDS: Docusate CAP* 100 MG PO SCH (09:42)
[2017-08-10] MEDS: Gabapentin CAP(*) 300 MG PO SCH (09:42)
[2017-08-10] MEDS: Insulin GLARGINE(*) 1 UNITS UNIT SUBCUT SCH (09:43)
[2017-08-10] MEDS: Insulin LISPRO* 1 UNITS UNIT SUBCUT SCH ×2 (09:43→09:44)
--- NOTE | 2017-08-10 09:50 | CONSULT ---
Consult Consult: Chief Complaint: Left foot pain. History: Renay is a 62-year-old woman was recently performed a right- sided second toe amputation on. she was admitted to the hospital for a new problem. She developed pain, drainage, erythema of the left hallux. She was admitted to the hospitalist service. She was started on antibiotics and the symptoms improved. I was consulted to assist in the care of the left hallux infection. Please see the note by Renetta Luu for a full orthopedics history. The pain is located at left Hallux and is daily, mild, burning. Pain worse with weight-bearing and lessened when weight bearing is discontinued. Denies associated fevers or chills. Review of Systems: Negative for fever, recent visual changes, difficulty swallowing, chest pain, shortness of breath, abdominal pain, hematuria, easy bruising, diffuse weakness or lack of coordination, and diffuse rash. Past medical history: Type 2 diabetes, neuropathy, hypertension, depression, anxiety Past surgical history: Appendectomy, hysterectomy, bilateral hip replacements and revisions, lumbar spine surgery, toe amputations. 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 She just had twin girl grandchildren. She is not a smoker. Physical Examination: Constitutional: Temp Pulse Resp BP Pulse Ox 97.5 F 61 18 139/61 99 08/10/17 08:06 08/10/17 08:06 08/10/17 09:42 08/10/17 08:06 08/10/17 08:06 General appearance is healthy and non-septic in no acute distress. Cardiovascular: Pulse examination demonstrates palpable PT pedal pulses with brisk capillary refill. There are no varicosities. Lymphatic: No lymphadenopathy appreciated. Skin: Bilateral upper and lower extremity examination demonstrates no ulcerative lesions aside from those of the involved extremity detailed below, if present. Psychiatric / Neurological: Appropriate affect. Alert and oriented to person, place and time. There is no significant abnormality in coordination appreciated. Normoreflexive deep tendon reflex of the affected extremity. Musculoskeletal: Gait analysis reveals a stable gait. Bilateral upper extremities and contralateral lower extremity show full range of motion with no evidence of instability and no tenderness with palpation and 5 /5 strength. There is no gross deformity. Exam reveals neutral hindfoot alignment. Sitting, there is 5/5 motor strength and impaired light touch sensation. Swelling/edema - minimal and localized to left hallux The skin and nails are normal to inspection/palpation without evidence of RSD or lymphadenopathy. 5-40 ankle ROM, stable. There is an ulceration at left hallux amputation stump that measures 1 cm. Associated erythema - now localized only to hallux. Associated drainage - none on my exam although per report there has been drainage. No streaking erythema Studies: MRI shows possible small foci of osteomyelitis at the residual distal phalanx. Impression and Plan: Left hallux ulcer with infection and likely small foci of osteomyelitis. We discussed treatment options, including both operative and non operative treatment options. Given the benign appearance at this time, and small foci an MRI, I think it is reasonable to try a course of nonoperative treatment with antibiotics. She was in agreement with this plan. If this fails , we will likely have to remove the entire hallux given the placement of the ulcer. I will plan on seeing her back in the office next week for a wound check. She should remain heel weightbearing while we are trying to get this to heal. Antibiotics will be guided by the infectious disease service. All questions were answered. Tin Arzola MD
--- NOTE | 2017-08-11 03:10 | DS ---
CC: Dr. Barclay; Dr. Arzola; Dr. Hopkins * DISCHARGE SUMMARY: DATE OF ADMISSION: 08/08/17 DATE OF DISCHARGE: 08/10/17 PRIMARY CARE PROVIDER: Dr. Barclay. ORTHOPEDIC SURGEON: Dr. Arzola. INFECTIOUS DISEASE SPECIALIST: Dr. Hopkins. PRINCIPAL DIAGNOSES: Cellulitis and osteomyelitis of the left first toe stump and streaking up the dorsum of the left foot. SECONDARY DIAGNOSES: 1. Type 2 diabetes - uncontrolled with most recent A1c in end june 9.0%. 2. Hypertension. 3. Hyperlipidemia. 4. History of polymyositis. 5. Depression/anxiety. 6. Gastroesophageal reflux disease. DISCHARGE MEDICATIONS: 1. Gabapentin 600 mg p.o. b.i.d. and 1200 mg p.o. q.h.s. 2. Tylenol 650 mg p.o. q.6 hours p.r.n. pain. 3. Diltiazem 30 mg p.o. q.h.s. 4. Aspirin 325 mg p.o. daily. 5. Omeprazole 40 mg p.o. q.h.s. 6. Morphine immediate-release tablets 15 mg p.o. t.i.d. p.r.n. pain. 7. Metoprolol XL 50 mg p.o. daily. 8. Ativan 1 mg p.o. b.i.d. p.r.n. anxiety. 9. Lispro via carb counting t.i.d. with meals. 10. Metronidazole cream applied topically twice daily for rash. 11. Venlafaxine 75 mg p.o. q.h.s. 12. Crestor 5 mg p.o. q.h.s. 13. Ramipril 10 mg p.o. q.h.s. 14. Oxymorphone 5 mg p.o. q.4 hours p.r.n. pain. 15. Lantus 60 units subcutaneous twice daily (increased dose). 16. Clindamycin 300 mg p.o. t.i.d. x28 days. 17. Amlodipine 10 mg p.o. daily (new). HOSPITAL COURSE: Ms. Miller is a 62-year-old female with a known history of type 2 diabetes that is not well controlled, hypertension, and hyperlipidemia, who presents to the emergency room with complaints of drainage from the left first toe stump. Additionally, she noted redness streaking up the medial aspect of the left foot to the ankle. The patient was admitted for treatment of diabetic foot ulcer with associated cellulitis. The patient did undergo an MRI of the foot, which revealed a subtle new marrow signal abnormality at the lateral margin of the amputation site stump at the distal diaphysis of the first proximal phalanx compared with the 07/12/2017 exam concerning for a small site of osteomyelitis. The patient was treated with Zosyn while in the hospital. She was seen in consultation by Orthopedic Surgery, who at this time has not recommended surgical management of the small area of osteomyelitis, and by Dr. Hopkins from Infectious Disease. The decision was made to treat the patient with clindamycin 300 mg p.o. 3 times daily for 4 weeks. She is also to obtain good wound care via the wound center. She was seen by a wound nurse prior to discharge, where it was recommended that antibiotic ointment to be applied to the tip of the toe as well as at the base of the toe where there is a crack and to apply ointment or cream to the callus to try to soften this and then follow up with the wound center for further wound care. If the patient does not show any improvement, then amputation will need to be reconsidered. Of note, during the course of the hospitalization, the patient's blood sugars initially were felt to be uncontrolled. This was on Lantus 50 units in the morning and 60 units in the evening, this has since been increased to 60 units twice daily. The patient's blood sugars have been in better range with this. I have discontinued her metformin as her creatinine is hovering right around 1.4, which is cut off for female to be on metformin. I did explain to the patient that it is important that she obtain good blood sugar control. She will continue on the increased dose of Lantus as well as use carb counting with meals. The patient does state that on the morning of discharge, she felt like she had a low glucose. Her blood sugar was not taken; however, she did eat a half cup of fruit and used glucose tablets that she had with her. Her blood sugar in the morning of 08/10/17 is yet to be obtained. The patient will need very close monitoring of her diabetes care. The patient also was found to be hypertensive and not at goal with her blood pressure. I have added amlodipine 5 mg daily and still has not improved her blood pressure to goal, therefore this is being increased to 10 mg daily at discharge. The patient should continue to have her blood pressure monitored. On the day of discharge, the patient was found lying in bed sleeping, easily awakened to voice. Her vital signs are stable. She is without fever. Again, her blood pressure is not well controlled though this will be worked on. Her cardiac exam reveals a normal S1, S2. Regular rate and rhythm. She has no lower extremity edema. Her pulmonary exam reveals clear lungs anteriorly. Her abdomen is soft, nontender, and nondistended. Her skin exam reveals a callus to the plantar surface of the left first toe stump with a small approximately 2- mm ulceration in the center of this. There is also a linear crack at the base of the toe. There is what appears to be a small blister on the tip of the toe. Serous fluid is able to be expressed from the wound. No purulence is noted at this time. There is no erythema of the toe or streaking up the foot. FOLLOWUP CONCERNS: The patient is being discharged home today, 08/10/17. ACTIVITY LEVEL: As tolerated. DIET: Diabetic. CONDITION ON DISCHARGE: Stable. TIME SPENT: Thirty-five minutes was spent discharging this patient. [id number]/[facility] #: [id number] FILIBERTO
== END 2017-08-10 11:10 | disposition home or self-care (01) ==
LOC: ED 19:51 → SSU 08-08 01:25
PROVIDERS: ADMIT Hospitalist; ATTEND Hospitalist
DX: L03.116 Cellulitis of left lower limb (principal); M86.8X7 Other osteomyelitis, ankle and foot; L97.529 Non-pressure chronic ulcer of other part of left foot with unspecified severity; Z89.412 Acquired absence of left great toe; E11.621 Type 2 diabetes mellitus with foot ulcer; I12.9 Hypertensive chronic kidney disease with stage 1 through stage 4 chronic kidney disease, or unspecified chronic kidney disease; E11.22 Type 2 diabetes mellitus with diabetic chronic kidney disease; N18.3 Chronic kidney disease, stage 3 (moderate); E78.5 Hyperlipidemia, unspecified; I47.1 Supraventricular tachycardia; F41.9 Anxiety disorder, unspecified; F32.9 Major depressive disorder, single episode, unspecified; K21.9 Gastro-esophageal reflux disease without esophagitis; E11.42 Type 2 diabetes mellitus with diabetic polyneuropathy; Z79.4 Long term (current) use of insulin; Z79.899 Other long term (current) drug therapy; Z88.5 Allergy status to narcotic agent; Z88.2 Allergy status to sulfonamides; Z88.8 Allergy status to other drugs, medicaments and biological substances
CPT/HCPCS: 36415; 80048; 80053; 83605; 85025; 85610; 85652; 85730; 86140; 87040; 87070; 87077; 87205; 96365; 96366; 96367; 96372; 99285; A9270-GY; G0378; J1644; J2405; J2543; J3370

== ENCOUNTER 2017-12-24 10:31 | Inpatient (IN) | payer MEDICARE ==
--- NOTE | 2017-12-24 11:36 | ED ---
Skin Complaint - HPI Summary HPI Summary: Diabetic patient here with left toe wound that she noticed this morning. This wound is over the tip of the hallux and small but open and draining some purulent discharge. The area along the dorsal aspect of the toe, foot and up into the calf is red with streaking and tender to touch above the ankle. Patient does not have tenderness from the ankle distally as she has neuropathy here. Denies fever, chills. She reports she noticed a crack within her IP crease yesterday and has been battling with a deep ulcer along the plantar surface of this toe for at least 3 months. She's been hospitalized in the past for an infection in this toe. She's follows with Dr. Maradiaga to the wound clinic and has undergone multiple treatments such as hyperbaric, antibiotics, wound dressing such as silver colloid and special boots to alleviate pressure. That wound is unchanged however she reports as of yesterday she "gave up" on the wound clinic and expects she may have to have her toe removed. She doesn't necessarily want this procedure however she is frustrated with her lack of healing at this point. She admits that she was taken off of her metformin which she was taking in addition to her insulin a few months back as her renal function was poor. Her sugars were in the 300s which is high for her for about 6 weeks while she was waiting to get into see Dr. hodge to adjust her insulin level. He finally did increase this from 60-70 units and her sugar is now in the 200s which is better for her. - History of Current Complaint Chief Complaint: EDRashSkinAbscess Time Seen by Provider: 12/24/17 11:05 Stated Complaint: POSS LT FOOT INFECTION Hx Obtained From: Patient Pain Intensity: 0 - Additional Pertinent History Primary Care Physician: [id number] - Allergy/Home Medications Allergies/Adverse Reactions: Allergies Allergy/AdvReac Type Severity Reaction Status Date / Time Fish Containing Products Allergy Mild Itching Verified 12/24/17 10:44 hydromorphone [From Dilaudid] Allergy Mild Hives Verified 12/24/17 10:44 codeine AdvReac Mild Itching Verified 12/24/17 10:44 levofloxacin AdvReac Mild Knee pain Verified 12/24/17 10:44 lidocaine AdvReac Mild Itching Verified 12/24/17 10:44 oxycodone AdvReac Mild Itching Verified 12/24/17 10:44 sulfamethoxazole AdvReac Vomiting Verified 12/24/17 10:44 [From Bactrim] trimethoprim [From Bactrim] AdvReac Vomiting Verified 12/24/17 10:44 Home Medications: Home Medications Insulin GLARGINE(*) [Lantus(*)] 70 units SUBCUT BID 12/24/17 [History Confirmed 12/24/17] PMH/Surg Hx/FS Hx/Imm Hx Endocrine/Hematology History: Reports: Hx Diabetes - insulin Denies: Hx Thyroid Disease Cardiovascular History: Reports: Hx Hypertension - CONTROLLED BY MEDS., Other Cardiovascular Problems/Disorders - SVT Denies: Hx Pacemaker/ICD Respiratory History: Reports: Hx Asthma - reports mild, Hx Sleep Apnea - doesn' t use CPAP, hasn't been checked in years Denies: Hx Chronic Obstructive Pulmonary Disease (COPD) GI History: Reports: Hx Diverticulosis - asymtpomatic, Hx Gastroesophageal Reflux Disease - takes omeprazole, Other GI Disorders - occas constipation from meds Denies: Hx Ulcer History: Reports: Hx Chronic Renal Failure Denies: Hx Renal Disease Musculoskeletal History: Reports: Hx Arthritis - osteo, Hx Back Problems, Hx Orthopedic Injury - toe amputations, Hx Joint Replacement - B/L hips x 2, Other Musculoskeletal History - polymyositis Sensory History: Denies: Hx Contacts or Glasses, Hx Hearing Aid Opthamlomology History: Denies: Hx Contacts or Glasses Neurological History: Reports: Hx Peripheral Neuropathy - B/L feet Psychiatric History: Reports: Hx Anxiety, Hx Depression Denies: Hx Panic Disorder - Surgical History Surgery Procedure, Year, and Place: lumbar surgery-laminectomy L3-L4 1998, 2nd in feb, 2015;. bilat hip replacement with hip revisions;. hernia repair with mesh;. appendectomy;. hysterectomy (with revision d/to complications);. heart ablasion;. arthroscopic left knee;. 10/29-LEFT GREAT TOE 1/2 REMOVED Hx Anesthesia Reactions: No Infectious Disease History: No Infectious Disease History: Denies: Hx Hepatitis, Hx Human Immunodeficiency Virus (HIV), Hx of Known/ Suspected MRSA, Traveled Outside the [place] in Last 30 Days - Family History Known Family History: Positive: Hypertension, Diabetes, Other - Diverticulitis - Social History Alcohol Use: Rare Substance Use Type: Reports: None Hx Tobacco Use: No Smoking Status (MU): Never Smoked Tobacco Review of Systems Constitutional: Negative Negative: Fever, Chills, Fatigue Negative: Vomiting, Nausea Positive: Edema - Lt toe Skin: Other - wounds Positive: Numbness - B/L peripheral neuropathy ankles down Psychological: Normal All Other Systems Reviewed And Are Negative: Yes Physical Exam Triage Information Reviewed: Yes Vital Signs On Initial Exam: Initial Vitals Temp Pulse Resp BP Pulse Ox 98.6 F 68 18 133/66 97 12/24/17 10:45 12/24/17 10:45 12/24/17 10:45 12/24/17 10:45 12/24/17 10:45 Vital Signs Reviewed: Yes Appearance: Positive: Well-Appearing, No Pain Distress, Well-Nourished Skin: Positive: Warm, Skin Color Reflects Adequate Perfusion, Numb - B/L feet from ankles down/out;, Tender - along erythematous streaking from dorsal aspect of Lt hallux wound at tip up to proximal 1/3 of calf (can only feel portion proximal to ankle), Weeping Skin/Lesions - 2mm open wound over tip of Lt hallux - scant purulent drainage; 3mm wound opening through callous over plantar surface which appears deep and dry Head/Face: Positive: Normal Head/Face Inspection Eyes: Positive: EOMI ENT: Positive: Hearing grossly normal Respiratory/Lung Sounds: Positive: Breath Sounds Present Cardiovascular: Positive: Pulses are Symmetrical in both Upper and Lower Extremities. Negative: Leg Edema Left, Leg Edema Right Musculoskeletal: Positive: Strength/ROM Intact Neurological: Positive: Alert, Oriented to Person Place, Time, CN Intact II- III. Negative: Sensory/Motor Intact - motor intact - sensory missing over feet Psychiatric: Positive: Normal - upset about potentially losing toe but calm, polite and in good spirits Diagnostics - Vital Signs Vital Signs Temp Pulse Resp BP Pulse Ox 12/24/17 11:10 64 139/84 96 12/24/17 10:45 98.6 F 68 18 133/66 97 - Laboratory Result Diagrams: 12/24/17 11:54 12/24/17 11:54 Lab Statement: Any lab studies that have been ordered have been reviewed, and results considered in the medical decision making process. Course/Dx - Course Course Of Treatment: Patient presents with left hallux wounds. One is chronic, about 3 months or longer, and the other is newly noticed this morning. Drainage from new wound was cultured and found to carry both MRSA and MSSA. Her labs are remarkable for elevated CRP and ESR (28.3 and 46 respectively). Her WBCs however are normal at 8 and lactic acid level normal at 1.3. An x-ray was initially ordered to assess for osteomyelitis. This was found to be negative however given her labs and clinical presentation, MRI was ordered. Contrast will be avoided as patient's renal function is less than desirable. Bun is 31 and creatinine 1.45 however this has improved from level I.6 since stopping metformin. Her glucose today is 319 which is elevated for her. Ordered vancomycin 15mg/kg and cefepime (timing may need to be adjusted for renal function). Discussed w/ Dr. Vasquez who agrees to admit. Pt aware and agrees w/ plan. - Diagnoses Provider Diagnoses: Infection of toe, Peripheral neuropathy, Diabetes Discharge - Sign-Out/Discharge Documenting (check all that apply): Patient Departure - Discharge Plan Condition: Stable Disposition: ADMITTED TO [facility] - Billing Disposition and Condition Condition: STABLE Disposition: Admitted to [facility]
--- NOTE | 2017-12-24 12:11 | RAD ---
INDICATION: Left great toe infection. COMPARISON: Comparison is made with a prior study from August 07, 2017. TECHNIQUE: 3 views of the left great toe were obtained. FINDINGS: The patient is status post amputation of the left great toe at the level of the distal aspect of the proximal phalanx. There is surrounding soft tissue swelling. There is a small focus of gas which likely is related to a soft tissue ulcer which is present on the prior study. No erosive change or periosteal reaction is seen. IMPRESSION: SOFT TISSUE SWELLING, NO SPECIFIC EVIDENCE FOR OSTEOMYELITIS. IF THERE IS A HIGH CLINICAL INDEX OF SUSPICION FOR OSTEOMYELITIS CONSIDER AN MRI WITHOUT CONTRAST.
[2017-12-24 12:19] LABS: ABS Basophils 0 10^3/ul (0-0.2); ABS Eosinophils 0.2 10^3/ul (0-0.6); ABS Lymphocytes 2.2 10^3/ul (1.0-4.8); ABS Monocytes 0.6 10^3/ul (0-0.8); ABS Nucleated RBC 0 10^3/ul; Eosinophil % 2.3 % (0-6); Hematocrit 35 % (35-47); Hemoglobin 12.1 g/dl (12.0-16.0); Mean Corpuscular HGB Conc 34 g/dl (31-36); Mean Corpuscular Hemoglobin 29 pg (27-31); Mean Corpuscular Volume 85 fL (80-97); Mean Platelet Volume 8.6 um3 (7.4-10.4); Nucleated Red Blood Cells % 0.1; Platelet Count 340 10^3/ul (150-450); Red Blood Count 4.16 10^6/ul (4.00-5.40); Red Cell Distribution Width 13 % (10.5-15)
[2017-12-24 12:42] LABS: EGFR Non-African American 36.6 (>60)
[2017-12-24] MEDS ORDERED: Vancomycin(*) 1,500 MG in NS 0.9% 250 ML* 250 ML IVPB ONE ×2 (13:08→13:16)
[2017-12-24] MEDS ORDERED: Cefepime 2 GM in Dextrose(*) 2 GM/50 ML BAG IV ONE (13:18)
[2017-12-24] MEDS ORDERED: NS 0.9% 250 ML* 250 ML ONE (13:22)
[2017-12-24] MEDS ORDERED: Acetaminophen TAB* 325 MG PO PRN (14:14)
[2017-12-24] MEDS ORDERED: LORazepam TAB(*) 1 MG PO PRN (14:14)
[2017-12-24] MEDS ORDERED: Oxymorphone IR (NF) 5 MG TAB PO PRN (14:14)
[2017-12-24] MEDS ORDERED: Dextrose 50% Syringe 50 ML* 25 GM/50 ML SYRINGE IV PUSH PRN (14:29)
[2017-12-24] MEDS ORDERED: Vancomycin per Pharmacy* NOTE FOLLOW UP SCH (15:00)
[2017-12-24] MEDS ORDERED: Vancomycin(*) 1,500 MG in NS 0.9% 250 ML* 250 ML IVPB SCH (15:00)
--- NOTE | 2017-12-24 16:15 | HP ---
CC: Dr. Marylu Barclay* HISTORY AND PHYSICAL: DATE OF ADMISSION: 12/24/17 TIME OF EVALUATION: 2 p.m. PRIMARY CARE PROVIDER: Dr. Marylu Barclay. CHIEF COMPLAINT: "My toe is red again." HISTORY OF PRESENT ILLNESS: Ms. Miller is a 62-year-old female with a past medical history of type 2 diabetes with diabetic neuropathy and diabetic nephropathy, hypertension, hyperlipidemia, polymyositis, SVT, depression, anxiety, GERD, who presents to the emergency room with complaints of drainage from the stump of her left hallux. The patient states that she has had this callus on the plantar surface of her left hallux for a long time and in July that stump became red and it had drainage. She was admitted to [facility], treated with antibiotics and discharged home under the impression of cellulitis and osteomyelitis of the left 1st toe stump. She went home to complete 28 days of clindamycin. She states that she continued to follow up with Dr. Hopkins as an outpatient and also at the [facility] and initially she had some improvement, but she states that the wound has become worse, is open again. She states that the "crack" that she had in the lateral aspect of her hallux has returned with drainage with erythema and this is now extending towards her foot. There is no fever. No chills, nausea, vomiting, diarrhea, or urinary complaints. The patient states that she has been camping at [place] and putting more weight on the foot "that I'm supposed to." PAST MEDICAL HISTORY: 1. Type 2 diabetes. 2. Diabetic neuropathy. 3. Diabetic nephropathy. 4. Hypertension. 5. Hyperlipidemia. 6. Polymyositis. 7. SVT. 8. Depression. 9. GERD. 10. Obesity with a BMI of 32. PAST SURGICAL HISTORY: 1. Status post amputation of the left 1st toe distal phalanx. 2. Status post amputation of the right 3rd toe. 3. Status post appendectomy. 4. Status post hysterectomy. 5. Status post lumbar spine surgery. MEDICATION LIST: 1. Acetaminophen 650 mg p.o. q.6 hours p.r.n. pain or fever. 2. Amlodipine 10 mg p.o. daily. 3. Diltiazem 30 mg p.o. at bedtime. 4. Fluticasone nasal spray 50 mcg 2 sprays both nares daily. 5. Gabapentin 600 mg p.o. b.i.d. and 1200 mg at bedtime. 6. Lantus 70 units subcutaneously b.i.d. 7. Lorazepam 1 mg p.o. b.i.d. as needed for anxiety. 8. Metoprolol succinate 50 mg p.o. q.a.m. 9. Metronidazole cream topical to facial rosacea as needed. 10. Morphine 15 mg p.o. t.i.d. as needed for moderate pain. 11. Omeprazole 40 mg p.o. at bedtime. 12. Opana 5 mg p.o. q.4 hours p.r.n. severe pain. 13. Ramipril 10 mg p.o. at bedtime. 14. Rosuvastatin 5 mg p.o. at bedtime. 15. Venlafaxine 75 mg p.o. at bedtime. 16. Lispro sliding scale with 2 units for 10 g of carbs in the morning and 3 units for 10 g of carbs in the evening. ALLERGIES: FISH, HYDROMORPHONE, CODEINE, LEVOFLOXACIN, LIDOCAINE, OXYCODONE, and BACTRIM. SOCIAL HISTORY: No history of tobacco, alcohol or drug use. 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 Surrogate decision maker is her , Sterling Miller; phone number is [phone]. REVIEW OF SYSTEMS: A 14-point review of systems was performed and all the pertinent negative and positive findings are in the HPI. PHYSICAL EXAMINATION GENERAL: The patient is a pleasant lady, sitting up in the ED stretcher, not in acute distress. VITAL SIGNS: Temperature 98.6, heart rate is 70, respiratory rate is 18, oxygen saturation 95% on room air, blood pressure is 154/69. HEENT: Pupils are equal. Moist mucous membranes. CHEST: Breath sounds present bilaterally with no added sounds. CVS: Normal S1, S2. Regular rate and rhythm. ABDOMEN: Obese. Bowel sounds present. EXTREMITIES: The patient has mild erythema on the left 1st toe stump with small amount of serous drainage. She has callus on the plantar aspect with an opening. There is some erythema extending from the stump up to her 1st metatarsal and towards the dorsum of the foot. Pulses are diminished bilaterally. NEURO: She is alert and oriented x3. Able to move all 4 extremities. DIAGNOSTIC STUDIES/LAB DATA: The patient had a CBC that showed WBC of 8, hemoglobin of 12, hematocrit of 35, platelets of 340 with 62% neutrophils. Chemistry showed a sodium of 134, potassium of 4.4, chloride of 99, bicarb of 29 , BUN of 31, creatinine of 1.4, glucose of 319, lactic acid of 1.3, calcium of 9.2. LFTs were normal. CRP was 28.3 and ESR was 46. Toe x-ray showed soft tissue swelling with no specific evidence for osteomyelitis. If there is a high clinical index of suspicion for osteo, consider an MRI without contrast. ASSESSMENT AND PLAN: Ms. Miller is a 62-year-old lady with a past medical history of type 2 diabetes, diabetic neuropathy, diabetic nephropathy with chronic kidney disease stage 3, hypertension, hyperlipidemia, polymyositis, supraventricular tachycardia, depression, anxiety, gastroesophageal reflux disease, status post left 1st toe distal phalanx amputation secondary to osteomyelitis, who presented to the emergency room with complaints of erythema and drainage from the same area. 1. Diabetic foot infection. The patient will be admitted to the medical floor. Cultures were sent in the emergency room and PCR was positive for MRSA. The patient was already started on vancomycin and cefepime and we are going to continue it. An MRI of her foot was ordered by the Emergency Room and I am also going to order BRITTANY. I am going to consult Dr. Hopkins and Dr. Nobles depending on those results and we are going to continue treatment with vancomycin and cefepime. It is unclear at this time if she will need further surgical treatment. 2. Type 2 diabetes. We will check hemoglobin A1c. We will continue Lantus and cover her fingersticks with lispro sliding scale. 3. Hypertension. We will continue amlodipine, diltiazem, metoprolol, and ramipril. 4. Hyperlipidemia. Continue statin. 5. Supraventricular tachycardia. Continue metoprolol and diltiazem. 6. Depression. Continue venlafaxine. 7. Anxiety. Continue lorazepam. 8. Gastroesophageal reflux disease. Continue omeprazole. 9. Obesity. The patient will be referred to [facility]. 10. DVT prophylaxis: The patient has a score of 3 on the DVT Prophylaxis Risk Assessment Guide and she will be started on subcutaneous heparin. 11. Code status is full. TIME SPENT: Approximately 50 minutes was spent with the patient's interview, medical records review, physical examination to complete this admission, more than half of this time was spent [id number] with the patient and coordination of care. [id number]/[facility] #: [id number] FILIBERTO
[2017-12-24] MEDS: Insulin LISPRO* 1 UNITS UNIT SUBCUT SCH ×3 (17:33→21:36)
[2017-12-24] MEDS: Venlafaxine EXT RELEASE CAP* 75 MG PO SCH (17:34)
[2017-12-24] MEDS: Ramipril CAP* 10 MG PO SCH (17:34)
[2017-12-24] MEDS: Omeprazole CAP* 20 MG PO SCH (17:34)
[2017-12-24] MEDS: Diltiazem TAB* 30 MG PO SCH (17:34)
[2017-12-24] MEDS: Atorvastatin* 10 MG TAB PO SCH (17:34)
[2017-12-24] MEDS ORDERED: Insulin GLARGINE(*) 1 UNITS UNIT SUBCUT SCH (21:00)
[2017-12-24] MEDS: Heparin VIAL(*) 5000 UNITS/ML VIAL (FIVE THOUSAND) SUBCUT SCH (21:05)
[2017-12-24] MEDS: Gabapentin CAP(*) 400 MG PO SCH (21:05)
[2017-12-24] MEDS: Cefepime 1 GM in Dextrose(*) 1 GM/50 ML BAG IV SCH (21:06)
[2017-12-24] MEDS: Morphine ORAL.SOLN 10 mg* 2 MG/ML UDC 5 ml PO PRN (21:31)
[2017-12-25] MEDS: Gabapentin CAP(*) 300 MG PO SCH ×3 (02:02→14:24)
[2017-12-25] MEDS: Heparin VIAL(*) 5000 UNITS/ML VIAL (FIVE THOUSAND) SUBCUT SCH ×3 (05:12→22:21)
[2017-12-25] MEDS: Vancomycin(*) 750 MG in NS 0.9% 250 ML* 250 ML IVPB SCH ×2 (05:12→17:07)
[2017-12-25 07:13] LABS: ABS Basophils 0.1 10^3/ul (0-0.2); ABS Eosinophils 0.3 10^3/ul (0-0.6); ABS Lymphocytes 2.4 10^3/ul (1.0-4.8); ABS Monocytes 0.6 10^3/ul (0-0.8); ABS Nucleated RBC 0 10^3/ul; Eosinophil % 3.3 % (0-6); Hematocrit 35 % (35-47); Hemoglobin 12.3 g/dl (12.0-16.0); Mean Corpuscular HGB Conc 35 g/dl (31-36); Mean Corpuscular Hemoglobin 29 pg (27-31); Mean Corpuscular Volume 84 fL (80-97); Mean Platelet Volume 8.4 um3 (7.4-10.4); Nucleated Red Blood Cells % 0.1; Platelet Count 319 10^3/ul (150-450); Red Blood Count 4.19 10^6/ul (4.00-5.40); Red Cell Distribution Width 13 % (10.5-15); White Blood Count 8.4 10^3/ul (3.5-10.8)
[2017-12-25 07:31] LABS: EGFR Non-African American 41.9 (>60)
[2017-12-25] MEDS: Insulin LISPRO* 1 UNITS UNIT SUBCUT SCH ×7 (08:11→22:21)
[2017-12-25] MEDS: Morphine ORAL.SOLN 10 mg* 2 MG/ML UDC 5 ml PO PRN ×3 (08:55→22:37)
[2017-12-25] MEDS: Fluticasone NASAL SPRAY 50MCG* 16 gm SPRAY BTL BOTH NARES SCH (08:59)
[2017-12-25] MEDS ORDERED: Fluticasone NASAL SPRAY 50MCG* 16 gm SPRAY BTL BOTH NARES SCH (09:00)
[2017-12-25] MEDS: amLODIPine TAB* 5 MG PO SCH (09:01)
[2017-12-25] MEDS: Metoprolol Succinate XL TAB* 50 MG PO SCH (09:01)
[2017-12-25] MEDS: Insulin GLARGINE(*) 1 UNITS UNIT SUBCUT SCH ×2 (09:04→22:22)
[2017-12-25] MEDS: Cefepime 1 GM in Dextrose(*) 1 GM/50 ML BAG IV SCH ×2 (09:27→22:22)
--- NOTE | 2017-12-25 10:39 | PN ---
Subjective Date of Service: 12/25/17 Interval History: HOSPITALIST PROGRESS NOTE Patient seen and examined at bedside. She offers no new complaints today. Left 1st toe stump redness is improved. She denies pain. Family History: Unchanged from Admission Social History: Unchanged from Admission Past Medical History: Unchanged from Admission Objective Active Medications: Acetaminophen (Tylenol Tab*) 650 mg PO Q6H PRN PRN Reason: pain/fever Amlodipine Besylate (Norvasc Tab*) 10 mg PO DAILY [facility] Last Admin: 12/25/17 09:01 Dose: 10 mg Atorvastatin Calcium (Lipitor*) 10 mg PO QPM [facility]; Protocol Last Admin: 12/24/17 17:34 Dose: 10 mg Dextrose (D50w Syringe 50 Ml*) 12.5 gm IV PUSH .FOR FS < 60 - SS PRN PRN Reason: FS < 60 Diltiazem HCl (Cardizem Tab*) 30 mg PO QPM [facility] Last Admin: 12/24/17 17:34 Dose: 30 mg Fluticasone Propionate (Flonase Nasal [place] 50mcg*) 1 spray BOTH NARES DAILY [facility] Last Admin: 12/25/17 08:59 Dose: 1 spray Gabapentin (Neurontin Cap(*)) 1,200 mg PO BEDTIME [facility] Last Admin: 12/24/17 21:05 Dose: 1,200 mg Gabapentin (Neurontin Cap(*)) 600 mg PO BID@0900,1400 [facility] Last Admin: 12/25/17 09:01 Dose: 600 mg Heparin Sodium (Porcine) (Heparin Vial(*)) 5,000 units SUBCUT Q8HR [facility] Last Admin: 12/25/17 05:12 Dose: 5,000 units Cefepime HCl (Maxipime 1 Gm In Dextrose Duplex (*)) 1 gm in 50 mls @ 100 mls/ hr IV Q12H [facility] Last Admin: 12/25/17 09:27 Dose: 100 mls/hr Vancomycin HCl 750 mg/ Sodium (Chloride) 250 mls @ 166.667 mls/hr IVPB Q12H [facility] ; Protocol Last Admin: 12/25/17 05:12 Dose: 166.667 mls/hr Insulin Glargine (Lantus(*)) 65 units SUBCUT BID [facility] Last Admin: 12/25/17 09:04 Dose: 65 units Insulin Human Lispro (Humalog*) 0 units SUBCUT ACHS [facility]; Protocol Last Admin: 12/25/17 08:11 Dose: Not Given Insulin Human Lispro (Humalog*) 0 units SUBCUT AC [facility]; Protocol Last Admin: 12/25/17 09:28 Dose: 4 units Lorazepam (Ativan Tab(*)) 1 mg PO BID PRN PRN Reason: ANXIETY Metoprolol Succinate (Toprol Xl Tab*) 50 mg PO QAM [facility] Last Admin: 12/25/17 09:01 Dose: 50 mg Morphine Sulfate (Morphine Oral.Soln 10 Mg*) 15 mg PO TID PRN PRN Reason: Moderate Pain Last Admin: 12/25/17 08:55 Dose: 15 mg Omeprazole (Prilosec Cap*) 40 mg PO QPM [facility] Last Admin: 12/24/17 17:34 Dose: 40 mg Oxymorphone HCl (Opana Ir (Nf)) 5 mg PO Q4HR PRN PRN Reason: SEVERE PAIN Pharmacy Consult (Vancomycin Per Pharmacy*) 1 note FOLLOW UP .VANC PER PHARMACY [facility] Pharmacy Profile Note (Vancomycin Trough Check) 1 note FOLLOW UP 0530 ONE Stop: 12/26/17 05:31 Ramipril (Altace Cap*) 10 mg PO QPM [facility] Last Admin: 12/24/17 17:34 Dose: 10 mg Venlafaxine HCl (Effexor Xr Cap*) 75 mg PO QPM [facility]; Protocol Last Admin: 12/24/17 17:34 Dose: 75 mg Vital Signs - 8 hr 12/25/17 12/25/17 12/25/17 03:25 08:55 09:01 Temperature 98.2 F Pulse Rate 65 Respiratory 18 14 14 Rate Blood Pressure 125/50 (mmHg) O2 Sat by Pulse 94 Oximetry Oxygen Devices in Use Now: None Appearance: Pleasant obese lady sitting up in bed in [facility]. Eyes: No Scleral Icterus Ears/Nose/Mouth/Throat: Mucous Membranes Moist Neck: Trachea Midline Respiratory: Symmetrical Chest Expansion and Respiratory Effort, Clear to Auscultation Cardiovascular: NL Sounds; No Murmurs; No JVD, RRR Extremities: - - Left 1st toe stump with plantar callus and small open are at the tip, no drainage at this time. Erythema has receded from dorsum of the foot Neurological: Alert and Oriented x 3, NL Muscle Strength and Tone Result Diagrams: 12/25/17 06:59 12/25/17 06:59 Assess/Plan/Problems-Billing Assessment: Mrs Miller is a 62yo F with PMH of type 2 DM, diabetic nephropathy with CKD stage 3, diabetic neuropathy, HTN, HLD, polymyositis, who presented to ED with c /o worsening erythema on her left 1st toe stump with new open area and drainage. - Patient Problems (1) Diabetic foot ulcer Comment: - With infection. - The patient has a small ulcer on the plantar surface of the L 1st toe stump and at the ti of the stump. She had erythema and streaking up the dorsum of the L foot which has now essentially resolved. - Continue Vanco and Cefepime for now. - Known osteomyelitis, but concern it may be spreading - for MRI today. - Ortho consult requested. (2) Type II diabetes mellitus Comment: - Chronically uncontrolled - A1c is 10. - Continue Lantus and Lispro SS. - Referred to [facility]. (3) HTN (hypertension) Comment: - Controlled - continue Amlodipine, Diltiazem, Metoprolol, and Ramipril. (4) HLD (hyperlipidemia) Comment: - Continue Atorvastatin. (5) DVT prophylaxis Comment: - SQ heparin. (6) Full code status Status and Disposition: Inpatient.
[2017-12-25] MEDS: HYDROCORTISONE 2.5% BOTH EYES SCH ×2 (11:07→22:22)
--- NOTE | 2017-12-25 15:45 | RAD ---
INDICATION: Left great toe with acute and chronic wounds redness and drainage with history of osteomyelitis. COMPARISON: Comparison is made with a prior MRI of the left foot from August 08, 2017 and prior x-ray study of the left great toe from December 24, 2017. TECHNIQUE: Axial, sagittal and coronal T1 and T2-weighted images of the left foot were obtained. FINDINGS: There is diffuse soft tissue swelling in the foot. The patient is status post amputation of the great toe at the level of the distal aspect of the proximal phalanx. There appears to be an open wound in this region. There is very mild bone marrow edema present in the distal aspect of the proximal phalanx at the surgical site which may indicate early osteomyelitis. There is also bone marrow edema at the tibiotalar, talonavicular and calcaneocuboid joints likely related to arthritic change. No focal fluid collection is seen. IMPRESSION: THERE IS VERY MILD EDEMA IN THE DISTAL ASPECT OF THE PROXIMAL PHALANX AT THE GREAT TOE AT THE SURGICAL SITE SUGGESTING THE POSSIBILITY OF EARLY OSTEOMYELITIS.
[2017-12-25] MEDS: Venlafaxine EXT RELEASE CAP* 75 MG PO SCH (16:43)
[2017-12-25] MEDS: Diltiazem TAB* 30 MG PO SCH (16:43)
[2017-12-25] MEDS: Omeprazole CAP* 20 MG PO SCH (16:43)
[2017-12-25] MEDS: Atorvastatin* 10 MG TAB PO SCH (16:43)
[2017-12-25] MEDS: Ramipril CAP* 10 MG PO SCH (16:43)
--- NOTE | 2017-12-25 21:43 | CONS ---
CONSULTATION REPORT: DATE OF CONSULT: DATE OF DICTATION: 12/25/2017. ATTENDING PROVIDER: Dr. Tin Arzola. CHIEF COMPLAINT: Left foot callus and cellulitis. HISTORY OF PRESENT ILLNESS: Ms. Miller is a 62-year-old female with past medical history of type 2 diabetes with diabetic neuropathy, hypertension, hyperlipidemia, polymyositis, SVT, depression, anxiety, GERD. She presents to the emergency room with complaints of drainage and redness of her left great toe , which has had previous partial amputation. She states that last time she was on antibiotics for this was in July at which time she required a PICC line for IV antibiotics for at least one month. She has since had hyperbaric oxygen therapy, but there was a crack in her toe that has never gone away and has started to drain. She does not have any feeling in the foot, this area is nonpainful. She has not felt that she has had any fever or chills, nausea, vomiting. PAST MEDICAL HISTORY: Includes diabetes type 2, diabetic neuropathy, hypertension, hyperlipidemia, polymyositis, SVT. PAST SURGICAL HISTORY: Status post amputation of left great toe distal phalanx , status post amputation of right 3rd toe, status post appendectomy, status post hysterectomy, status post lumbar spine surgery. ALLERGIES: FISH, HYDROMORPHONE, CODEINE, LEVOFLOXACIN, LIDOCAINE, OXYCODONE, BACTRIM. SOCIAL HISTORY: No history of tobacco, alcohol, or drug use. REVIEW OF SYSTEMS: General: Denies fever, chills, generalized weakness, recent illness HEENT: No recent head trauma, headache or change in vision Cardiac: Denies chest pain or irregular beats. Denies history of heart attack Respiratory: Denies shortness of breath or cough. GI: Denies abdominal pain, nausea, vomiting, diarrhea : No dysuria MSK: left great toe redness and discharge Neuro: bilateral lower extremities with neuropathy Skin: Erythema of left great toe Hematology: Denies history of blood clot. PHYSICAL EXAM: General: The patient is well appearing, in no acute distress. HEENT: Normocephalic, atraumatic head. Eyes: EOMI. Extremities: Left lower extremity, left great toe with surgical amputation of the distal phalanx. Stump with a pea-sized ulceration on the plantar surface, which has no active drainage. Distal tip with crack without any current drainage, though the patient reports this is where it has been draining from and in the first webspace there is a cracked open area again without drainage. There is currently minimal erythema and there is no tenderness to palpation. There is no fluctuance. There is no tracking erythema proximally and there is no edema of the foot. The patient has flexion and extension of all toes and at the ankle. Bilateral DP pulses 2+, PT pulses 1+. ASSESSMENT: Ms. Miller is a 62-year-old female with infection of her left great toe, possible osteomyelitis. PLAN: Pending results of the MRI, if osteomyelitis is present, the patient may likely require amputation of the great toe. If not, we will continue with IV antibiotics. We will await results. For now, she will continue on IV antibiotics as ordered by Medicine. EVER DHILLON [id number]/NIDHI #: [id number] FILIBERTO
[2017-12-25] MEDS: Gabapentin CAP(*) 400 MG PO SCH (22:19)
[2017-12-26] MEDS ORDERED: Vancomycin Trough Check NOTE FOLLOW UP ONE (05:30)
[2017-12-26] MEDS: Heparin VIAL(*) 5000 UNITS/ML VIAL (FIVE THOUSAND) SUBCUT SCH ×3 (06:32→21:47)
[2017-12-26 06:48] LABS: EGFR Non-African American 44.2 (>60)
[2017-12-26 06:52] LABS: Vancomycin Trough 10.6 mcg/mL
[2017-12-26] MEDS: Vancomycin(*) 750 MG in NS 0.9% 250 ML* 250 ML IVPB SCH (07:25)
[2017-12-26] MEDS: Morphine ORAL.SOLN 10 mg* 2 MG/ML UDC 5 ml PO PRN ×2 (08:51→20:18)
[2017-12-26] MEDS: HYDROCORTISONE 2.5% BOTH EYES SCH ×2 (08:54→20:52)
[2017-12-26] MEDS: Metoprolol Succinate XL TAB* 50 MG PO SCH (08:55)
[2017-12-26] MEDS: Gabapentin CAP(*) 300 MG PO SCH ×2 (08:55→14:24)
[2017-12-26] MEDS: Insulin LISPRO* 1 UNITS UNIT SUBCUT SCH ×9 (08:56→20:45)
[2017-12-26] MEDS: amLODIPine TAB* 5 MG PO SCH (08:56)
[2017-12-26] MEDS: Insulin GLARGINE(*) 1 UNITS UNIT SUBCUT SCH ×2 (09:00→20:44)
[2017-12-26] MEDS: Fluticasone NASAL SPRAY 50MCG* 16 gm SPRAY BTL BOTH NARES SCH (09:10)
[2017-12-26] MEDS: Cefepime 1 GM in Dextrose(*) 1 GM/50 ML BAG IV SCH ×2 (09:50→20:43)
[2017-12-26] MEDS: Lactobacillus Acidophilus* 1 TAB PO SCH ×2 (12:09→20:44)
--- NOTE | 2017-12-26 13:10 | RAD ---
CLINICAL HISTORY: LLQ pain, r/o diverticulitis COMPARISON: March 27, 2016 TECHNIQUE: Multiple contiguous axial CT scans were obtained of the abdomen and pelvis, without intravenous contrast enhancement. Coronal and sagittal multiplanar reformations are submitted for review. Oral contrast was administered. FINDINGS: The study is limited by the lack of intravenous contrast. This limits evaluation of the solid organs and vasculature. Evaluation is limited by streak artifact from bilateral hip prostheses, which limits evaluation of the pelvis. LUNG BASES: The lung bases are clear. LIVER: The liver is diffusely low in attenuation compared to the spleen. There are no focal hepatic parenchymal masses. BILE DUCTS: There is no intrahepatic or extrahepatic biliary dilatation. GALLBLADDER: The gallbladder is normal, without pericholecystic inflammatory change. PANCREAS: The pancreas is normal, without mass or ductal dilatation. SPLEEN: Normal in size and appearance. UPPER GI TRACT: Evaluation of the gastrointestinal tract is limited by incomplete gastric distention. The upper GI tract is unremarkable. SMALL BOWEL AND MESENTERY: The small bowel is normal in contour, course, and caliber. There is no obstruction or dilatation. COLON: There are multiple diverticula of the sigmoid colon. There is mild stranding of the perisigmoid fat best seen on coronal image 61. There is no loculated fluid collection to suggest abscess. ADRENALS: Normal bilaterally. KIDNEYS: The kidneys are normal in shape, size, contour, and axis. There is no hydronephrosis or nephrolithiasis. BLADDER: The bladder is not well evaluated secondary to incomplete distention and streak artifact. PELVIC ORGANS: The left ovary is identified. The pelvic organs are otherwise not visualized. AORTA: There is calcific atherosclerotic disease of the abdominal aorta and its branches, without aneurysmal dilatation IVC: Unremarkable LYMPH NODES: There is no lymphadenopathy by size criteria. ABDOMINAL WALL: A hernia repair mesh is noted. BONES AND SOFT TISSUES: There are mild diffuse degenerative changes. The patient is status post bilateral hip arthroplasty. OTHER: None IMPRESSION: 1. DIVERTICULOSIS WITH MILD PERICOLONIC INFILTRATE CHANGE OF THE SIGMOID COLON SUGGESTIVE OF EARLY ACUTE DIVERTICULITIS WITHOUT LOCULATED FLUID COLLECTION TO SUGGEST ABSCESS. 2. FATTY INFILTRATION OF THE LIVER.
--- NOTE | 2017-12-26 13:19 | PN ---
Subjective Date of Service: 12/26/17 Interval History: HOSPITALIST PROGRESS NOTE Patient seen and examined at bedside. Care reviewed and d/w Joel Newman RN. She c/o mild LLQ and 2 episodes of diarrhea. States she had similar symptoms in the past when she had diverticulitis before. Denies left foot pain, drainage persists. Family History: Unchanged from Admission Social History: Unchanged from Admission Past Medical History: Unchanged from Admission Objective Active Medications: Acetaminophen (Tylenol Tab*) 650 mg PO Q6H PRN PRN Reason: pain/fever Amlodipine Besylate (Norvasc Tab*) 10 mg PO DAILY [facility] Last Admin: 12/26/17 08:56 Dose: 10 mg Atorvastatin Calcium (Lipitor*) 10 mg PO QPM [facility]; Protocol Last Admin: 12/25/17 16:43 Dose: 10 mg Dextrose (D50w Syringe 50 Ml*) 12.5 gm IV PUSH .FOR FS < 60 - SS PRN PRN Reason: FS < 60 Diltiazem HCl (Cardizem Tab*) 30 mg PO QPM [facility] Last Admin: 12/25/17 16:43 Dose: 30 mg Fluticasone Propionate (Flonase Nasal [place] 50mcg*) 1 spray BOTH NARES DAILY [facility] Last Admin: 12/26/17 09:10 Dose: 1 spray Gabapentin (Neurontin Cap(*)) 1,200 mg PO BEDTIME [facility] Last Admin: 12/25/17 22:19 Dose: 1,200 mg Gabapentin (Neurontin Cap(*)) 600 mg PO BID@0900,1400 [facility] Last Admin: 12/26/17 08:55 Dose: 600 mg Heparin Sodium (Porcine) (Heparin Vial(*)) 5,000 units SUBCUT Q8HR [facility] Last Admin: 12/26/17 06:32 Dose: 5,000 units Cefepime HCl (Maxipime 1 Gm In Dextrose Duplex (*)) 1 gm in 50 mls @ 100 mls/ hr IV Q12H [facility] Last Admin: 12/26/17 09:50 Dose: 100 mls/hr Vancomycin HCl 1,000 mg/ (Sodium Chloride) 250 mls @ 166.667 mls/hr IVPB 0600, 1800 [facility]; Protocol Insulin Glargine (Lantus(*)) 70 units SUBCUT BID [facility] Last Admin: 12/26/17 09:00 Dose: 70 units Insulin Human Lispro (Humalog*) 0 units SUBCUT ACHS [facility]; Protocol Last Admin: 12/26/17 12:37 Dose: 6 units Insulin Human Lispro (Humalog*) 0 units SUBCUT AC [facility]; Protocol Last Admin: 12/26/17 12:26 Dose: Not Given Lactobacillus Rhamnosus (Lactobacillus Acidophilus*) 1 tab PO BID [facility] Last Admin: 12/26/17 12:09 Dose: 1 tab Lorazepam (Ativan Tab(*)) 1 mg PO BID PRN PRN Reason: ANXIETY Metoprolol Succinate (Toprol Xl Tab*) 50 mg PO QAM [facility] Last Admin: 12/26/17 08:55 Dose: 50 mg Morphine Sulfate (Morphine Oral.Soln 10 Mg*) 15 mg PO TID PRN PRN Reason: Moderate Pain Last Admin: 12/26/17 08:51 Dose: 15 mg Pto Nf Med* ( Hydrocortisone 2.5% Ointment 1 Applic) 1 applic BOTH EYES BID [facility] Last Admin: 12/26/17 08:54 Dose: 1 applic Omeprazole (Prilosec Cap*) 40 mg PO QPM [facility] Last Admin: 12/25/17 16:43 Dose: 40 mg Oxymorphone HCl (Opana Ir (Nf)) 5 mg PO Q4HR PRN PRN Reason: SEVERE PAIN Pharmacy Consult (Vancomycin Per Pharmacy*) 1 note FOLLOW UP .VANC PER PHARMACY [facility] Pharmacy Profile Note (Vancomycin Trough Check) 1 note FOLLOW UP 0600 ONE Stop: 12/28/17 06:01 Ramipril (Altace Cap*) 10 mg PO QPM [facility] Last Admin: 12/25/17 16:43 Dose: 10 mg Venlafaxine HCl (Effexor Xr Cap*) 75 mg PO QPM [facility]; Protocol Last Admin: 12/25/17 16:43 Dose: 75 mg Vital Signs - 8 hr 12/26/17 12/26/17 12/26/17 07:53 08:00 08:05 Temperature 97.1 F 97.9 F Pulse Rate 73 Respiratory 16 13 Rate Blood Pressure 106/51 (mmHg) O2 Sat by Pulse 99 Oximetry 12/26/17 12/26/17 12/26/17 08:51 08:55 10:00 Temperature Pulse Rate Respiratory 13 13 18 Rate Blood Pressure (mmHg) O2 Sat by Pulse Oximetry Oxygen Devices in Use Now: None Appearance: Pleasant lady sitting up in bed in NAD. Eyes: No Scleral Icterus Ears/Nose/Mouth/Throat: Mucous Membranes Moist Neck: Trachea Midline Abdominal: - - Obese, soft, mild LLQ tenderness, NG, NR, BS+ Extremities: - - Left foot erythema has resolved, but toe stump still has drainage Neurological: Alert and Oriented x 3, NL Muscle Strength and Tone Result Diagrams: 12/25/17 06:59 12/26/17 06:03 Assess/Plan/Problems-Billing Assessment: Mrs Miller is a 62yo F with PMH of type 2 DM, diabetic nephropathy with CKD stage 3, diabetic neuropathy, HTN, HLD, polymyositis, who presented to ED with c /o worsening erythema on her left 1st toe stump with new open area and drainage. - Patient Problems (1) Diabetic foot ulcer Comment: - With infection. - The patient has a small ulcer on the plantar surface of the L 1st toe stump and at the ti of the stump. She had erythema and streaking up the dorsum of the L foot which has now essentially resolved. - Continue Vanco and Cefepime for now. - MRI showed very mild edema at the tip of amputation site, suggestive of early osteomyelitis - awaiting Ortho input re: need for surgery. (2) Diverticulitis Comment: - Symptoms compatible with diverticulitis - continue Cefepime and check CT abd/pelvis. (3) Type II diabetes mellitus Comment: - Chronically uncontrolled - A1c is 10. - Continue Lantus and Lispro SS. - Referred to [facility]. (4) HTN (hypertension) Comment: - Controlled - continue Amlodipine, Diltiazem, Metoprolol, and Ramipril. (5) HLD (hyperlipidemia) Comment: - Continue Atorvastatin. (6) DVT prophylaxis Comment: - SQ heparin. (7) Full code status Status and Disposition: Inpatient.
--- NOTE | 2017-12-26 14:54 | PN ---
Progress Note - Progress Note Date of Service: 12/26/17 SOAP: Subjective: []Patient seen and examined today. She is feeling well without fever or chills. She does feel her toe has improved since admission. Objective: []General: NAD, appears well LLE: left great toe is not erythematous, it is mildly edematous. She has a pea sized ulcer on the plantar surface without any active drainage. Distal aspect as well as first webspace with a crack also with no active drainage. Assessment: []Left great toe osteomyelitis Plan: [] Keep toe wrapped in gauze Patient was offered both operative and nonoperative approach to treatment. Due to her previous attempt at nonoperative treatment which include IV antibiotics and hyperbaric oxygen therapy, she has elected to undergo left great toe amputation. She will be seen tomorrow morning be Dr Arzola. Dr Vasquez is aware of the upcoming operative procedure this 12/28 Vital Signs Temp 97.9 F 12/26/17 08:05 Pulse 73 12/26/17 07:53 Resp 11 12/26/17 14:24 BP 106/51 12/26/17 07:53 Pulse Ox 99 12/26/17 07:53 Intake & Output 12/25/17 12/26/17 12/26/17 18:59 06:59 18:59 Intake Total 1940 425 480 Balance 1940 425 480 Weight 215 lb 8 oz Intake: IV Fluids 50 Cefepime 50 IVPB 325 Cefepime 55 Vancomycin 270 Oral 1890 100 480 Other: Estimated Void Medium # Bowel Movements 1 1 Estimated Stool Amount Medium # Voids 4 2 Laboratory Last Values WBC 8.4 10^3/ul (3.5-10.8) 12/25/17 06:59 RBC 4.19 10^6/ul (4.00-5.40) 12/25/17 06:59 Hgb 12.3 g/dl (12.0-16.0) 12/25/17 06:59 Hct 35 % (35-47) 12/25/17 06:59 MCV 84 fL (80-97) 12/25/17 06:59 MCH 29 pg (27-31) 12/25/17 06:59 MCHC 35 g/dl (31-36) 12/25/17 06:59 RDW 13 % (10.5-15) 12/25/17 06:59 Plt Count 319 10^3/ul (150-450) 12/25/17 06:59 MPV 8.4 um3 (7.4-10.4) 12/25/17 06:59 Neut % (Auto) 59.7 % (38-83) 12/25/17 06:59 Lymph % (Auto) 29.0 % (25-47) 12/25/17 06:59 Hitchcock % (Auto) 7.2 % (0-7) H 12/25/17 06:59 Eos % (Auto) 3.3 % (0-6) 12/25/17 06:59 Baso % (Auto) 0.8 % (0-2) 12/25/17 06:59 Absolute Neuts (auto) 5.0 10^3/ul (1.5-7.7) 12/25/17 06:59 Absolute Lymphs (auto) 2.4 10^3/ul (1.0-4.8) 12/25/17 06:59 Absolute Monos (auto) 0.6 10^3/ul (0-0.8) 12/25/17 06:59 Absolute Eos (auto) 0.3 10^3/ul (0-0.6) 12/25/17 06:59 Absolute Basos (auto) 0.1 10^3/ul (0-0.2) 12/25/17 06:59 Absolute Nucleated RBC 0 10^3/ul 12/25/17 06:59 Nucleated RBC % 0.1 12/25/17 06:59 ESR 46 mm/Hr (0-30) H 12/24/17 11:54 Sodium 136 mmol/L (135-145) 12/26/17 06:03 Potassium 4.6 mmol/L (3.5-5.0) 12/26/17 06:03 Chloride 102 mmol/L (101-111) 12/26/17 06:03 Carbon Dioxide 29 mmol/L (22-32) 12/26/17 06:03 Anion Gap 5 mmol/L (2-11) 12/26/17 06:03 BUN 27 mg/dL (6-24) H 12/26/17 06:03 Creatinine 1.23 mg/dL (0.51-0.95) H 12/26/17 06:03 Est GFR ( Amer) 53.5 (>60) 12/26/17 06:03 Est GFR (Non-Af Amer) 44.2 (>60) 12/26/17 06:03 BUN/Creatinine Ratio 22.0 (8-20) H 12/26/17 06:03 Glucose 273 mg/dL (70-100) H 12/26/17 06:03 POC Glucose (mg/dL) 223 mg/dL (70-100) H 12/26/17 12:13 Hemoglobin A1c 10.0 % (4.0-5.6) H 12/25/17 06:59 Lactic Acid 1.3 mmol/L (0.5-2.0) 12/24/17 11:54 Calcium 8.8 mg/dL (8.6-10.3) 12/26/17 06:03 Total Bilirubin 0.40 mg/dL (0.2-1.0) 12/24/17 11:54 AST 37 U/L (13-39) 12/24/17 11:54 ALT 40 U/L (7-52) 12/24/17 11:54 Alkaline Phosphatase 80 U/L (34-104) 12/24/17 11:54 C-Reactive Protein 28.30 mg/L (<8.01) H 12/24/17 11:54 Total Protein 7.0 g/dL (6.4-8.9) 12/24/17 11:54 Albumin 3.7 g/dL (3.2-5.2) 12/24/17 11:54 Globulin 3.3 g/dL (2-4) 12/24/17 11:54 Albumin/Globulin Ratio 1.1 (1-3) 12/24/17 11:54 Vancomycin Trough 10.6 mcg/mL 12/26/17 06:03 Random Vancomycin 10.6 mcg/mL 12/26/17 06:03
[2017-12-26] MEDS: Atorvastatin* 10 MG TAB PO SCH (17:01)
[2017-12-26] MEDS: Venlafaxine EXT RELEASE CAP* 75 MG PO SCH (17:02)
[2017-12-26] MEDS: Ramipril CAP* 10 MG PO SCH (17:02)
[2017-12-26] MEDS: Omeprazole CAP* 20 MG PO SCH (17:02)
[2017-12-26] MEDS: Diltiazem TAB* 30 MG PO SCH (17:03)
[2017-12-26] MEDS: Vancomycin(*) 1,000 MG in NS 0.9% 250 ML* 250 ML IVPB SCH (17:04)
[2017-12-26] MEDS: Gabapentin CAP(*) 400 MG PO SCH (20:44)
[2017-12-27] MEDS: Heparin VIAL(*) 5000 UNITS/ML VIAL (FIVE THOUSAND) SUBCUT SCH ×3 (05:55→21:17)
[2017-12-27] MEDS: Vancomycin(*) 1,000 MG in NS 0.9% 250 ML* 250 ML IVPB SCH ×2 (05:55→18:42)
[2017-12-27] MEDS: Metoprolol Succinate XL TAB* 50 MG PO SCH (09:17)
[2017-12-27] MEDS: Cefepime 1 GM in Dextrose(*) 1 GM/50 ML BAG IV SCH ×2 (09:17→21:14)
[2017-12-27] MEDS: Lactobacillus Acidophilus* 1 TAB PO SCH ×2 (09:17→21:17)
[2017-12-27] MEDS: Fluticasone NASAL SPRAY 50MCG* 16 gm SPRAY BTL BOTH NARES SCH (09:18)
[2017-12-27] MEDS: amLODIPine TAB* 5 MG PO SCH (09:18)
[2017-12-27] MEDS: Morphine ORAL.SOLN 10 mg* 2 MG/ML UDC 5 ml PO PRN ×3 (09:18→22:28)
[2017-12-27] MEDS: Gabapentin CAP(*) 300 MG PO SCH ×2 (09:19→13:46)
[2017-12-27] MEDS: Insulin LISPRO* 1 UNITS UNIT SUBCUT SCH ×7 (09:26→21:15)
[2017-12-27] MEDS: Insulin GLARGINE(*) 1 UNITS UNIT SUBCUT SCH ×2 (09:27→21:14)
[2017-12-27] MEDS: HYDROCORTISONE 2.5% BOTH EYES SCH ×2 (09:29→21:27)
--- NOTE | 2017-12-27 10:07 | PN ---
Progress Note - Progress Note Date of Service: 12/27/17 Note: I saw and examined Renay today. She has had a long-standing left hallux plantar ulcer, refractory to extensive wound care and HBO. She had an MRI showing some osteo at the proximal phalanx underlying the ulcer. The ulcer currently is not draining and the toe has no erythema. The rest of the foot is benign appearing. She feels well. We discussed continued non-op vs operative options. She would like to have the hallux amputated which I think is reasonable given the prolonged course of the problem. We will plan on a left great toe amputation tomorrow. NPO at midnight. Tin Arzola MD
--- NOTE | 2017-12-27 13:34 | PN ---
Subjective Date of Service: 12/27/17 Interval History: HOSPITALIST PROGRESS NOTE Patient seen and examined at bedside. She feels well today, abdominal pain is improved, has less flatulence. Looking forward to surgery tomorrow. Family History: Unchanged from Admission Social History: Unchanged from Admission Past Medical History: Unchanged from Admission Objective Active Medications: Acetaminophen (Tylenol Tab*) 650 mg PO Q6H PRN PRN Reason: pain/fever Amlodipine Besylate (Norvasc Tab*) 10 mg PO DAILY [facility] Last Admin: 12/27/17 09:18 Dose: 10 mg Atorvastatin Calcium (Lipitor*) 10 mg PO QPM [facility]; Protocol Last Admin: 12/26/17 17:01 Dose: 10 mg Dextrose (D50w Syringe 50 Ml*) 12.5 gm IV PUSH .FOR FS < 60 - SS PRN PRN Reason: FS < 60 Diltiazem HCl (Cardizem Tab*) 30 mg PO QPM [facility] Last Admin: 12/26/17 17:03 Dose: 30 mg Fluticasone Propionate (Flonase Nasal [place] 50mcg*) 1 spray BOTH NARES DAILY [facility] Last Admin: 12/27/17 09:18 Dose: 1 spray Gabapentin (Neurontin Cap(*)) 1,200 mg PO BEDTIME [facility] Last Admin: 12/26/17 20:44 Dose: 1,200 mg Gabapentin (Neurontin Cap(*)) 600 mg PO BID@0900,1400 [facility] Last Admin: 12/27/17 09:19 Dose: 600 mg Heparin Sodium (Porcine) (Heparin Vial(*)) 5,000 units SUBCUT Q8HR [facility] Last Admin: 12/27/17 05:55 Dose: 5,000 units Cefepime HCl (Maxipime 1 Gm In Dextrose Duplex (*)) 1 gm in 50 mls @ 100 mls/ hr IV Q12H [facility] Last Admin: 12/27/17 09:17 Dose: 100 mls/hr Vancomycin HCl 1,000 mg/ (Sodium Chloride) 250 mls @ 166.667 mls/hr IVPB 0600, 1800 [facility]; Protocol Last Admin: 12/27/17 05:55 Dose: 166.667 mls/hr Insulin Glargine (Lantus(*)) 70 units SUBCUT BID [facility] Last Admin: 12/27/17 09:27 Dose: 70 units Insulin Human Lispro (Humalog*) 0 units SUBCUT ACHS [facility]; Protocol Last Admin: 12/27/17 09:30 Dose: Not Given Insulin Human Lispro (Humalog*) 0 units SUBCUT AC [facility]; Protocol Last Admin: 12/27/17 09:26 Dose: 6 units Lactobacillus Rhamnosus (Lactobacillus Acidophilus*) 1 tab PO BID [facility] Last Admin: 12/27/17 09:17 Dose: 1 tab Lorazepam (Ativan Tab(*)) 1 mg PO BID PRN PRN Reason: ANXIETY Metoprolol Succinate (Toprol Xl Tab*) 50 mg PO QAM [facility] Last Admin: 12/27/17 09:17 Dose: 50 mg Morphine Sulfate (Morphine Oral.Soln 10 Mg*) 15 mg PO TID PRN PRN Reason: Moderate Pain Last Admin: 12/27/17 09:18 Dose: 15 mg Pto Nf Med* ( Hydrocortisone 2.5% Ointment 1 Applic) 1 applic BOTH EYES BID [facility] Last Admin: 12/27/17 09:29 Dose: 1 applic Omeprazole (Prilosec Cap*) 40 mg PO QPM [facility] Last Admin: 12/26/17 17:02 Dose: 40 mg Oxymorphone HCl (Opana Ir (Nf)) 5 mg PO Q4HR PRN PRN Reason: SEVERE PAIN Pharmacy Consult (Vancomycin Per Pharmacy*) 1 note FOLLOW UP .VANC PER PHARMACY [facility] Pharmacy Profile Note (Vancomycin Trough Check) 1 note FOLLOW UP 0600 ONE Stop: 12/28/17 06:01 Ramipril (Altace Cap*) 10 mg PO QPM [facility] Last Admin: 12/26/17 17:02 Dose: 10 mg Venlafaxine HCl (Effexor Xr Cap*) 75 mg PO QPM [facility]; Protocol Last Admin: 12/26/17 17:02 Dose: 75 mg Vital Signs - 8 hr 12/27/17 12/27/17 12/27/17 07:34 09:18 09:19 Temperature 98.3 F Pulse Rate 63 Respiratory 16 16 16 Rate Blood Pressure 139/61 (mmHg) O2 Sat by Pulse 98 Oximetry Oxygen Devices in Use Now: None Appearance: Pleasant lady lying in bed in NAD. Eyes: No Scleral Icterus Ears/Nose/Mouth/Throat: Mucous Membranes Moist Neck: Trachea Midline Respiratory: Symmetrical Chest Expansion and Respiratory Effort, Clear to Auscultation Cardiovascular: RRR - Normal S1 and S2 Abdominal: - - Obese, soft, minimal LLQ discomfort, NG, NR, BS+ Extremities: - - No left foot erythema, left 1s toe wound unchanged Neurological: Alert and Oriented x 3, NL Muscle Strength and Tone Result Diagrams: 12/25/17 06:59 12/26/17 06:03 Microbiology and Other Data: Microbiology 12/24/17 11:15 Skin and Soft Tissue MRSA/MSSA (PCR - Final Toe - Left Mrsa Positive S.aureus Positive Gram Stain - Final Wound Culture - Preliminary Pseudomonas Aeruginosa Escherichia Coli Assess/Plan/Problems-Billing Assessment: Mrs Miller is a 62yo F with PMH of type 2 DM, diabetic nephropathy with CKD stage 3, diabetic neuropathy, HTN, HLD, polymyositis, who presented to ED with c /o worsening erythema on her left 1st toe stump with new open area and drainage. - Patient Problems (1) Diabetic foot ulcer Comment: - With infection. - The patient has a small ulcer on the plantar surface of the L 1st toe stump and at the ti of the stump. She had erythema and streaking up the dorsum of the L foot which has now essentially resolved. - Continue Vanco and Cefepime for now. - MRI showed very mild edema at the tip of amputation site, suggestive of early osteomyelitis - Ortho input appreciated - plan for hallux amputation tomorrow. - EKG shows NSR at with q waves is II, III, avF, suggestive of an old inferior wall PR, unchanged from prior. - RCRI is 2 predicting a risk of 2.4-3.6% of cardiac complications. - Patient is optimized for proposed procedure. (2) Diverticulitis Comment: - CT abd/pelvis showed early sigmoid diverticulitis - continue Cefepime. - Will benefit of GI f/u as outpatient for colonoscopy vs flex sig. (3) Type II diabetes mellitus Comment: - Chronically uncontrolled - A1c is 10. - Continue Lantus and Lispro SS. - Referred to [facility]. (4) HTN (hypertension) Comment: - Controlled - continue Amlodipine, Diltiazem, Metoprolol, and Ramipril. (5) HLD (hyperlipidemia) Comment: - Continue Atorvastatin. (6) DVT prophylaxis Comment: - SQ heparin. (7) Full code status Status and Disposition: Inpatient.
[2017-12-27] MEDS: Diltiazem TAB* 30 MG PO SCH (18:43)
[2017-12-27] MEDS: Ramipril CAP* 10 MG PO SCH (18:43)
[2017-12-27] MEDS: Omeprazole CAP* 20 MG PO SCH (18:43)
[2017-12-27] MEDS: Atorvastatin* 10 MG TAB PO SCH (18:43)
[2017-12-27] MEDS: Venlafaxine EXT RELEASE CAP* 75 MG PO SCH (18:43)
[2017-12-27] MEDS: Gabapentin CAP(*) 400 MG PO SCH (21:16)
[2017-12-28] MEDS ORDERED: Vancomycin Trough Check NOTE FOLLOW UP ONE (06:00)
[2017-12-28] MEDS: Heparin VIAL(*) 5000 UNITS/ML VIAL (FIVE THOUSAND) SUBCUT SCH ×3 (06:12→21:15)
[2017-12-28 07:00] LABS: EGFR Non-African American 44.7 (>60)
[2017-12-28] MEDS: Insulin LISPRO* 1 UNITS UNIT SUBCUT SCH ×8 (07:18→21:14)
[2017-12-28] MEDS: Vancomycin(*) 1,000 MG in NS 0.9% 250 ML* 250 ML IVPB SCH ×2 (07:53→18:39)
[2017-12-28] MEDS: Morphine ORAL.SOLN 10 mg* 2 MG/ML UDC 5 ml PO PRN ×2 (08:32→21:32)
[2017-12-28] MEDS: amLODIPine TAB* 5 MG PO SCH (08:33)
[2017-12-28] MEDS: Metoprolol Succinate XL TAB* 50 MG PO SCH (08:33)
[2017-12-28] MEDS: Lactobacillus Acidophilus* 1 TAB PO SCH ×2 (08:33→21:11)
[2017-12-28] MEDS: Gabapentin CAP(*) 300 MG PO SCH ×2 (08:33→16:02)
[2017-12-28] MEDS: HYDROCORTISONE 2.5% BOTH EYES SCH ×2 (08:37→21:15)
[2017-12-28] MEDS: Fluticasone NASAL SPRAY 50MCG* 16 gm SPRAY BTL BOTH NARES SCH (08:50)
[2017-12-28] MEDS: Insulin GLARGINE(*) 1 UNITS UNIT SUBCUT SCH ×2 (09:45→21:14)
[2017-12-28 09:54] LABS: Hematocrit 35 % (35-47); Hemoglobin 12.1 g/dl (12.0-16.0)
[2017-12-28] MEDS: Cefepime 1 GM in Dextrose(*) 1 GM/50 ML BAG IV SCH ×2 (09:55→21:10)
[2017-12-28 09:59] LABS: INR 0.94 (0.77-1.02)
[2017-12-28] MEDS ORDERED: Ondansetron INJ* 2 MG/ML VIAL ONE (13:00)
[2017-12-28] MEDS ORDERED: Dexamethasone IV* 4 MG/ML 1 ML (4 MG) ONE (13:00)
[2017-12-28] MEDS ORDERED: Propofol* 10 MG/ML 20 ML BTL IV PUSH ONE (13:00)
[2017-12-28] MEDS ORDERED: Lidocaine 2% PF * 5 ML VIAL ONE (13:00)
[2017-12-28] MEDS ORDERED: fentaNYL* 50 MCG/ML 2 ML VIAL (100 MCG VIAL) ONE (13:00)
[2017-12-28] MEDS ORDERED: Midazolam* 1 MG/ML 5 ML VIAL (5 MG) ONE (13:00)
[2017-12-28] MEDS ORDERED: KETAMINE HCL* 50 MG/ML 10 ML VIAL ONE (13:00)
[2017-12-28] MEDS ORDERED: Dextrose 50% Syringe 50 ML* 25 GM/50 ML SYRINGE ONE (13:44)
[2017-12-28] MEDS ORDERED: ROPIVACAINE 5 MG/ML 30 ML BTL (0.5%) ONE (13:49)
[2017-12-28] MEDS ORDERED: Naloxone* 0.4 MG/ML 1 ML VIAL IV PRN (14:05)
[2017-12-28] MEDS ORDERED: Ondansetron INJ* 2 MG/ML VIAL IV PRN (14:05)
[2017-12-28] MEDS ORDERED: fentaNYL* 50 MCG/ML 2 ML VIAL (100 MCG VIAL) IV PRN (14:05)
--- NOTE | 2017-12-28 14:13 | PN ---
Subjective Date of Service: 12/28/17 Interval History: HOSPITALIST PROGRESS NOTE Patient seen and examined at bedside. Care reviewed and d/w Josey Ware RN. She feels well today, offers no new complaints. Family History: Unchanged from Admission Social History: Unchanged from Admission Past Medical History: Unchanged from Admission Objective Active Medications: Acetaminophen (Tylenol Tab*) 650 mg PO Q6H PRN PRN Reason: pain/fever Amlodipine Besylate (Norvasc Tab*) 10 mg PO DAILY [facility] Last Admin: 12/28/17 08:33 Dose: 10 mg Atorvastatin Calcium (Lipitor*) 10 mg PO QPM [facility]; Protocol Last Admin: 12/27/17 18:43 Dose: 10 mg Dextrose (D50w Syringe 50 Ml*) 12.5 gm IV PUSH .FOR FS < 60 - SS PRN PRN Reason: FS < 60 Diltiazem HCl (Cardizem Tab*) 30 mg PO QPM [facility] Last Admin: 12/27/17 18:43 Dose: 30 mg Fentanyl Citrate (Fentanyl*) 25 mcg IV Q5M PRN PRN Reason: PAIN - MODERATE Fluticasone Propionate (Flonase Nasal [place] 50mcg*) 1 spray BOTH NARES DAILY [facility] Last Admin: 12/28/17 08:50 Dose: 1 spray Gabapentin (Neurontin Cap(*)) 1,200 mg PO BEDTIME [facility] Last Admin: 12/27/17 21:16 Dose: 1,200 mg Gabapentin (Neurontin Cap(*)) 600 mg PO BID@0900,1400 [facility] Last Admin: 12/28/17 08:33 Dose: 600 mg Heparin Sodium (Porcine) (Heparin Vial(*)) 5,000 units SUBCUT Q8HR [facility] Cefepime HCl (Maxipime 1 Gm In Dextrose Duplex (*)) 1 gm in 50 mls @ 100 mls/ hr IV Q12H [facility] Last Admin: 12/28/17 09:55 Dose: 100 mls/hr Vancomycin HCl 1,000 mg/ (Sodium Chloride) 250 mls @ 166.667 mls/hr IVPB 0600, 1800 [facility]; Protocol Last Admin: 12/28/17 07:53 Dose: 166.667 mls/hr Insulin Glargine (Lantus(*)) 35 units SUBCUT BID [facility] Last Admin: 08/16/18 09:45 Dose: Not Given Insulin Human Lispro (Humalog*) 0 units SUBCUT ACHS [facility]; Protocol Last Admin: 12/28/17 11:27 Dose: Not Given Insulin Human Lispro (Humalog*) 0 units SUBCUT AC [facility]; Protocol Last Admin: 12/28/17 11:27 Dose: Not Given Lactobacillus Rhamnosus (Lactobacillus Acidophilus*) 1 tab PO BID [facility] Last Admin: 12/28/17 08:33 Dose: 1 tab Lorazepam (Ativan Tab(*)) 1 mg PO BID PRN PRN Reason: ANXIETY Metoprolol Succinate (Toprol Xl Tab*) 50 mg PO QAM [facility] Last Admin: 12/28/17 08:33 Dose: 50 mg Morphine Sulfate (Morphine Oral.Soln 10 Mg*) 15 mg PO TID PRN PRN Reason: Moderate Pain Last Admin: 12/28/17 08:32 Dose: 15 mg Naloxone HCl (Narcan*) 0.08 mg IV Q2M PRN PRN Reason: severe induced resp depression Pto Nf Med* ( Hydrocortisone 2.5% Ointment 1 Applic) 1 applic BOTH EYES BID [facility] Last Admin: 12/28/17 08:37 Dose: Not Given Omeprazole (Prilosec Cap*) 40 mg PO QPM [facility] Last Admin: 12/27/17 18:43 Dose: 40 mg Ondansetron HCl (Zofran Inj*) 4 mg IV ONCE PRN PRN Reason: NAUSEA/VOMITING Oxymorphone HCl (Opana Ir (Nf)) 5 mg PO Q4HR PRN PRN Reason: SEVERE PAIN Pharmacy Consult (Vancomycin Per Pharmacy*) 1 note FOLLOW UP .VANC PER PHARMACY [facility] Ramipril (Altace Cap*) 10 mg PO QPM [facility] Last Admin: 12/27/17 18:43 Dose: 10 mg Venlafaxine HCl (Effexor Xr Cap*) 75 mg PO QPM [facility]; Protocol Last Admin: 12/27/17 18:43 Dose: 75 mg Vital Signs - 8 hr 12/28/17 12/28/17 12/28/17 08:01 08:02 08:32 Temperature 98.0 F Pulse Rate 72 Respiratory 18 16 16 Rate Blood Pressure 112/52 (mmHg) O2 Sat by Pulse 98 Oximetry 12/28/17 12/28/17 12/28/17 08:33 11:12 11:27 Temperature 98.4 F Pulse Rate 63 Respiratory 16 18 16 Rate Blood Pressure 116/42 (mmHg) O2 Sat by Pulse 97 Oximetry Oxygen Devices in Use Now: None Appearance: Pleasant lady lying in bed in NAD. Eyes: No Scleral Icterus Ears/Nose/Mouth/Throat: Mucous Membranes Moist Neck: Trachea Midline Respiratory: Symmetrical Chest Expansion and Respiratory Effort, Clear to Auscultation Cardiovascular: RRR - Normal S1 and S2 Extremities: - - Left toe stump unchanged Neurological: Alert and Oriented x 3, NL Muscle Strength and Tone Result Diagrams: 12/28/17 09:42 12/28/17 09:42 Assess/Plan/Problems-Billing Assessment: Mrs Miller is a 62yo F with PMH of type 2 DM, diabetic nephropathy with CKD stage 3, diabetic neuropathy, HTN, HLD, polymyositis, who presented to ED with c /o worsening erythema on her left 1st toe stump with new open area and drainage. - Patient Problems (1) Diabetic foot ulcer Comment: - With infection. - The patient has a small ulcer on the plantar surface of the L 1st toe stump and at the ti of the stump. She had erythema and streaking up the dorsum of the L foot which has now essentially resolved. - Continue Vanco and Cefepime. - MRI showed very mild edema at the tip of amputation site, suggestive of early osteomyelitis - Ortho input appreciated - plan for hallux amputation today. - EKG shows NSR at with q waves is II, III, avF, suggestive of an old inferior wall GA, unchanged from prior. - RCRI is 2 predicting a risk of 2.4-3.6% of cardiac complications. - Patient is optimized for proposed procedure. (2) Diverticulitis Comment: - CT abd/pelvis showed early sigmoid diverticulitis - continue Cefepime. - Will benefit of GI f/u as outpatient for colonoscopy vs flex sig. (3) Type II diabetes mellitus Comment: - Chronically uncontrolled - A1c is 10. - Gave Lispro coverage and will hold Lantus for now (d/w Anesthesia). - Referred to [facility]. (4) HTN (hypertension) Comment: - Controlled - continue Amlodipine, Diltiazem, Metoprolol, and Ramipril. (5) HLD (hyperlipidemia) Comment: - Continue Atorvastatin. (6) DVT prophylaxis Comment: - SQ heparin. (7) Full code status Status and Disposition: Inpatient.
--- NOTE | 2017-12-28 14:46 | OP ---
Operative Report - Blank - Operative Report Date of Operation: 12/28/17 Note: PATIENT: Renay Miller DATE OF : 1955 DATE OF SURGERY: 12/28/2017 SURGEON: Tin Arzola MD COMPENSATION AND HRIS ANALYST: EVER Copeland, whos assistance was necessary for positioning, retraction, help with instrumentation, and closure. ANESTHESIOLOGIST: Dr. Rodriguez PREOPERATIVE DIAGNOSIS: Left great toe diabetic foot ulcer and underlying osteomyelitis POSTOPERATIVE DIAGNOSIS: Left great toe diabetic foot ulcer and underlying osteomyelitis OPERATION: Left great toe amputation at the level of the MTP joint ANESTHESIA: MAC IMPLANTS: none TOURNIQUET TIME: Less than 30 minutes with an ankle Esmarch tourniquet. SPECIMENS: Toe to pathology ESTIMATED BLOOD LOSS: minimal COMPLICATIONS: none STATUS: Stable from the operating room to the recovery room. INDICATIONS FOR PROCEDURE: Renay has had a persistent left great toe ulcer refractory to extensive non- op treatment. She developed an infection. She expressed to me her desire to have the toe amputated. Both operative and non operative treatment alternatives were reviewed. Further, the nature and risks of surgery were reviewed in careful detail. Our discussions regarding the risks of surgery included, but were not limited to, wound infection, wound problems, nerve injury, neuroma, RSD , persistent symptoms, blood clot, persistent or worsening infection, failure of the surgery, need for further amputation, and even the remote chance of catastrophic complication, including loss of limb. DESCRIPTION OF PROCEDURE: The patient was seen in the preoperative holding unit and informed written consent was obtained. The appropriate extremity was marked. The patient was then brought to the operating room and carefully positioned on the operating room table. Anesthesia was induced. All bony prominences were padded with great care. A chlorhexidine based pre-scrub was performed followed by a chloraprep prep and drape in standard sterile fashion. A surgical safety pause was then conducted in which we confirmed the appropriate patient, extremity, planned procedure, availability of equipment, indication and administration of antibiotics, and DVT prophylaxis in the form of a compression boot on the non- surgical extremity. I began with application of an ankle Esmarch tourniquet. Care was taken not to compress the infected toe. I then made an incision to remove the distal aspect of the toe and the ulcer. I maintained as much healthy soft-tissue length as was possible. The phalanges were dissected out and the toe was amputated at the level of the MTP joint. The toe was then sent to pathology. The remaining soft tissues were healthy appearing. There was no purulence expressed from more proximal. We then irrigated copiously after removing the ankle Esmarch tourniquet. The skin edges were pink. We closed with 3-0 monocryl and then 3-0 prolene and then placed a sterile dressing and splint in the neutral position. The patient was then awakened from anesthesia and transferred to the recovery room in stable condition. There were no complications. All needle and sponge counts were correct at the end of the case. ATTESTATION: I attest I was present and scrubbed and performed the critical portions of the procedure myself. POSTOPERATIVE PLAN: The patient may be heel weight-bearing and will follow up will be in two weeks for a wound check, but we will likely leave the sutures in for 3 weeks. Antibiotic treatment will be guided by the infectious disease service.
[2017-12-28] MEDS: Ramipril CAP* 10 MG PO SCH (18:39)
[2017-12-28] MEDS: Omeprazole CAP* 20 MG PO SCH (18:40)
[2017-12-28] MEDS: Venlafaxine EXT RELEASE CAP* 75 MG PO SCH (18:40)
[2017-12-28] MEDS: Atorvastatin* 10 MG TAB PO SCH (18:40)
[2017-12-28] MEDS: Diltiazem TAB* 30 MG PO SCH (18:40)
[2017-12-28] MEDS: Gabapentin CAP(*) 400 MG PO SCH (21:11)
[2017-12-29] MEDS: Heparin VIAL(*) 5000 UNITS/ML VIAL (FIVE THOUSAND) SUBCUT SCH ×3 (05:14→21:46)
[2017-12-29] MEDS: Vancomycin(*) 1,000 MG in NS 0.9% 250 ML* 250 ML IVPB SCH ×2 (05:14→18:04)
[2017-12-29] MEDS: Gabapentin CAP(*) 300 MG PO SCH ×2 (09:31→13:16)
[2017-12-29] MEDS: Metoprolol Succinate XL TAB* 50 MG PO SCH (09:31)
[2017-12-29] MEDS: Insulin LISPRO* 1 UNITS UNIT SUBCUT SCH ×7 (09:32→21:46)
[2017-12-29] MEDS: amLODIPine TAB* 5 MG PO SCH (09:32)
[2017-12-29] MEDS: Cefepime 1 GM in Dextrose(*) 1 GM/50 ML BAG IV SCH ×2 (09:32→21:44)
[2017-12-29] MEDS: Morphine ORAL.SOLN 10 mg* 2 MG/ML UDC 5 ml PO PRN ×2 (09:32→18:02)
[2017-12-29] MEDS: Lactobacillus Acidophilus* 1 TAB PO SCH ×2 (09:32→21:45)
[2017-12-29] MEDS: Fluticasone NASAL SPRAY 50MCG* 16 gm SPRAY BTL BOTH NARES SCH (09:32)
[2017-12-29] MEDS: Insulin GLARGINE(*) 1 UNITS UNIT SUBCUT SCH ×2 (09:33→21:45)
[2017-12-29] MEDS: HYDROCORTISONE 2.5% BOTH EYES SCH ×2 (09:35→21:48)
--- NOTE | 2017-12-29 11:07 | PN ---
Subjective Date of Service: 12/29/17 Interval History: HOSPITALIST PROGRESS NOTE Patient seen and examined at bedside. Care reviewed and d/w Cassia Boswell RN. She feels well today. Has some throbbing sensation on her foot when dangling, but otherwise feels well. Abdominal pain is resolved, no N/V, tolerating diet well. Family History: Unchanged from Admission Social History: Unchanged from Admission Past Medical History: Unchanged from Admission Objective Active Medications: Acetaminophen (Tylenol Tab*) 650 mg PO Q6H PRN PRN Reason: pain/fever Amlodipine Besylate (Norvasc Tab*) 10 mg PO DAILY [facility] Last Admin: 12/29/17 09:32 Dose: 10 mg Atorvastatin Calcium (Lipitor*) 10 mg PO QPM [facility]; Protocol Last Admin: 12/28/17 18:40 Dose: 10 mg Dextrose (D50w Syringe 50 Ml*) 12.5 gm IV PUSH .FOR FS < 60 - SS PRN PRN Reason: FS < 60 Diltiazem HCl (Cardizem Tab*) 30 mg PO QPM [facility] Last Admin: 12/28/17 18:40 Dose: 30 mg Fluticasone Propionate (Flonase Nasal [place] 50mcg*) 1 spray BOTH NARES DAILY [facility] Last Admin: 12/29/17 09:32 Dose: 1 spray Gabapentin (Neurontin Cap(*)) 1,200 mg PO BEDTIME [facility] Last Admin: 12/28/17 21:11 Dose: 1,200 mg Gabapentin (Neurontin Cap(*)) 600 mg PO BID@0900,1400 [facility] Last Admin: 12/29/17 09:31 Dose: 300 mg Heparin Sodium (Porcine) (Heparin Vial(*)) 5,000 units SUBCUT Q8HR [facility] Last Admin: 12/29/17 05:14 Dose: 5,000 units Cefepime HCl (Maxipime 1 Gm In Dextrose Duplex (*)) 1 gm in 50 mls @ 100 mls/ hr IV Q12H [facility] Last Admin: 12/29/17 09:32 Dose: 100 mls/hr Vancomycin HCl 1,000 mg/ (Sodium Chloride) 250 mls @ 166.667 mls/hr IVPB 0600, 1800 [facility]; Protocol Last Admin: 12/29/17 05:14 Dose: 166.667 mls/hr Insulin Glargine (Lantus(*)) 35 units SUBCUT BID [facility] Last Admin: 12/29/17 09:33 Dose: 35 units Insulin Human Lispro (Humalog*) 0 units SUBCUT ACHS [facility]; Protocol Last Admin: 12/29/17 09:32 Dose: 2 units Insulin Human Lispro (Humalog*) 0 units SUBCUT AC [facility]; Protocol Last Admin: 12/29/17 09:33 Dose: 3 units Lactobacillus Rhamnosus (Lactobacillus Acidophilus*) 1 tab PO BID [facility] Last Admin: 12/29/17 09:32 Dose: 1 tab Lorazepam (Ativan Tab(*)) 1 mg PO BID PRN PRN Reason: ANXIETY Metoprolol Succinate (Toprol Xl Tab*) 50 mg PO QAM [facility] Last Admin: 12/29/17 09:31 Dose: 50 mg Morphine Sulfate (Morphine Oral.Soln 10 Mg*) 15 mg PO TID PRN PRN Reason: Moderate Pain Last Admin: 12/29/17 09:32 Dose: 15 mg Pto Nf Med* ( Hydrocortisone 2.5% Ointment 1 Applic) 1 applic BOTH EYES BID [facility] Last Admin: 12/29/17 09:35 Dose: 1 applic Omeprazole (Prilosec Cap*) 40 mg PO QPM [facility] Last Admin: 12/28/17 18:40 Dose: 40 mg Oxymorphone HCl (Opana Ir (Nf)) 5 mg PO Q4HR PRN PRN Reason: SEVERE PAIN Pharmacy Consult (Vancomycin Per Pharmacy*) 1 note FOLLOW UP .VANC PER PHARMACY [facility] Ramipril (Altace Cap*) 10 mg PO QPM [facility] Last Admin: 12/28/17 18:39 Dose: 10 mg Venlafaxine HCl (Effexor Xr Cap*) 75 mg PO QPM [facility]; Protocol Last Admin: 12/28/17 18:40 Dose: 75 mg Vital Signs - 8 hr 12/29/17 12/29/17 12/29/17 03:24 08:17 09:31 Temperature 97.7 F 98.4 F Pulse Rate 62 65 Respiratory 16 16 Rate Blood Pressure 121/49 134/61 (mmHg) O2 Sat by Pulse 95 97 Oximetry 12/29/17 09:32 Temperature Pulse Rate Respiratory 16 Rate Blood Pressure (mmHg) O2 Sat by Pulse Oximetry Oxygen Devices in Use Now: None Appearance: Pleasant lady sitting up in bed in NAD. Eyes: No Scleral Icterus Ears/Nose/Mouth/Throat: Mucous Membranes Moist Neck: Trachea Midline Extremities: - - LLE in splint Neurological: Alert and Oriented x 3, NL Muscle Strength and Tone Result Diagrams: 12/28/17 09:42 12/28/17 09:42 Microbiology and Other Data: Microbiology 12/24/17 11:15 Skin and Soft Tissue MRSA/MSSA (PCR - Final Toe - Left Mrsa Positive S.aureus Positive Gram Stain - Final Wound Culture - Preliminary Pseudomonas Aeruginosa Escherichia Coli Assess/Plan/Problems-Billing Assessment: Mrs Miller is a 62yo F with PMH of type 2 DM, diabetic nephropathy with CKD stage 3, diabetic neuropathy, HTN, HLD, polymyositis, who presented to ED with c /o worsening erythema on her left 1st toe stump with new open area and drainage. - Patient Problems (1) Diabetic foot ulcer Comment: - With infection. - The patient has a small ulcer on the plantar surface of the L 1st toe stump and at the ti of the stump. She had erythema and streaking up the dorsum of the L foot which has now essentially resolved. - Continue Vanco and Cefepime. - MRI showed very mild edema at the tip of amputation site, suggestive of early osteomyelitis - Ortho input appreciated - plan for hallux amputation today. - EKG shows NSR at with q waves is II, III, avF, suggestive of an old inferior wall [place], unchanged from prior. - RCRI is 2 predicting a risk of 2.4-3.6% of cardiac complications. - Patient is optimized for proposed procedure. (2) Diverticulitis Comment: - CT abd/pelvis showed early sigmoid diverticulitis - continue Cefepime. - Will benefit of GI f/u as outpatient for colonoscopy vs flex sig. (3) Type II diabetes mellitus Comment: - Chronically uncontrolled - A1c is 10. - Gave Lispro coverage and will hold Lantus for now (d/w Anesthesia). - Referred to [facility]. (4) HTN (hypertension) Comment: - Controlled - continue Amlodipine, Diltiazem, Metoprolol, and Ramipril. (5) HLD (hyperlipidemia) Comment: - Continue Atorvastatin. (6) DVT prophylaxis Comment: - SQ heparin. (7) Full code status Status and Disposition: Inpatient.
[2017-12-29] MEDS: Venlafaxine EXT RELEASE CAP* 75 MG PO SCH (18:02)
[2017-12-29] MEDS: Omeprazole CAP* 20 MG PO SCH (18:02)
[2017-12-29] MEDS: Ramipril CAP* 10 MG PO SCH (18:02)
[2017-12-29] MEDS: Atorvastatin* 10 MG TAB PO SCH (18:02)
[2017-12-29] MEDS: Diltiazem TAB* 30 MG PO SCH (18:02)
[2017-12-29] MEDS: Gabapentin CAP(*) 400 MG PO SCH (21:47)
[2017-12-30] MEDS: Vancomycin(*) 1,000 MG in NS 0.9% 250 ML* 250 ML IVPB SCH (05:43)
[2017-12-30] MEDS: Heparin VIAL(*) 5000 UNITS/ML VIAL (FIVE THOUSAND) SUBCUT SCH (05:43)
[2017-12-30 07:57] VITALS: BP 118/44
[2017-12-30] MEDS ORDERED: Ciprofloxacin TAB* 500 MG PO ONE (08:00)
[2017-12-30] MEDS ORDERED: Clindamycin CAP* 150 MG PO ONE (08:00)
[2017-12-30] MEDS ORDERED: metroNIDAZOLE TAB* 250 MG PO ONE (08:00)
[2017-12-30] MEDS: Lactobacillus Acidophilus* 1 TAB PO SCH (09:06)
[2017-12-30] MEDS: amLODIPine TAB* 5 MG PO SCH (09:07)
[2017-12-30] MEDS: Gabapentin CAP(*) 300 MG PO SCH (09:07)
[2017-12-30] MEDS: Metoprolol Succinate XL TAB* 50 MG PO SCH (09:07)
[2017-12-30] MEDS: Insulin LISPRO* 1 UNITS UNIT SUBCUT SCH ×2 (09:07→09:08)
[2017-12-30] MEDS: Insulin GLARGINE(*) 1 UNITS UNIT SUBCUT SCH (09:08)
--- NOTE | 2017-12-30 09:08 | PN ---
Progress Note - Progress Note Date of Service: 12/29/17 SOAP: Subjective: POD #1 Left great toe amp, doing well. Min pain. Compliant with heel WB and elevating frequently. Denies CP/SOB, f/c, n/v. Objective: Vitals: T 98.4, P 65, R 16, O2 97%, BP 134/61 Gen: A&O x3, NAD at rest laying in bed LLE: Splint C/D/I, +f/e at remaining MTPs, decreased sensation to toes due to neuropathy, brisk cap refill Assessment: POD #1 Left great toe amp Plan: Cont IV abx Heel WB with splint
[2017-12-30] MEDS: Fluticasone NASAL SPRAY 50MCG* 16 gm SPRAY BTL BOTH NARES SCH (09:09)
[2017-12-30] MEDS: HYDROCORTISONE 2.5% BOTH EYES SCH (09:10)
[2017-12-30] MEDS: Morphine ORAL.SOLN 10 mg* 2 MG/ML UDC 5 ml PO PRN (09:18)
--- NOTE | 2017-12-30 10:05 | PN ---
Progress Note - Progress Note Date of Service: 12/30/17 SOAP: Subjective: POD #2 Left great toe amp, doing well. Pt to be d/c'd today. Occasional sharp pain, thinks it's "nerve pain". Denies CP/SOB Objective: Vitals: Temp Pulse Resp BP Pulse Ox 97.4 F 72 16 118/44 96 12/30/17 07:49 12/30/17 09:00 12/30/17 09:18 12/30/17 07:49 12/30/17 08:00 Gen: A&Ox3, NAD at rest sitting at bedside LLE: Splint C/D/I, +f/e at remaining MTPs, brisk cap refill Assessment: POD #2 Left great toe amp Plan: D/C home today, abx per medicine/ID F/u with Dr. Arzola 10-14 days Cont heel WB LLE
--- NOTE | 2017-12-30 17:16 | DS ---
CC: Dr. Barclay; Dr. Arzola; Dr. Hopkins * DISCHARGE SUMMARY: DATE OF ADMISSION: 12/24/17 DATE OF DISCHARGE: 12/30/17 PRIMARY CARE PROVIDER: Dr. Barclay. ORTHOPEDIST: Dr. Arzola INFECTIOUS DISEASE SPECIALIST: Dr. Hopkins. DISCHARGE DIAGNOSES: 1. Left hallux osteomyelitis, status post amputation/diabetic foot infection. 2. Mild diverticulitis. SECONDARY DIAGNOSES: 1. Type 2 diabetes. 2. Diabetic neuropathy. 3. Diabetic nephropathy. 4. Hypertension. 5. Hyperlipidemia. 6. Polymyositis. 7. Supraventricular tachycardia. 8. Depression. 9. Gastroesophageal reflux disease. 10. Obesity with a BMI of 32. MEDICATION LIST: 1. Hydrocortisone 2.5% cream to areas of rash b.i.d. 2. Morphine 15 mg p.o. t.i.d. p.r.n. pain. 3. Metoprolol succinate 50 mg p.o. q.a.m. 4. Lorazepam 1 mg p.o. b.i.d. as needed for anxiety. 5. Lantus 70 units subcutaneously b.i.d. 6. Diltiazem 30 mg p.o. q.p.m. 7. Insulin lispro sliding scale 2 units per 10 carbs in the morning and 3 units per 10 carbs in the evening. 8. Metronidazole 1% topical b.i.d. as needed for rosacea. 9. Venlafaxine 75 mg p.o. q.p.m. 10. Rosuvastatin 5 mg p.o. q.p.m. 11. Ramipril 10 mg p.o. q.p.m. 12. Opana 5 mg p.o. q.4 hours p.r.n. pain. 13. Omeprazole 40 mg p.o. q.p.m. 14. Amlodipine 10 mg p.o. daily. 15. Acetaminophen 650 mg p.o. q.6 hours p.r.n. pain or fever. 16. Gabapentin 300 mg p.o. b.i.d. and 600 mg p.o. at bedtime. 17. Fluticasone nasal spray 2 sprays to both nares daily. New medications: 1. Ciprofloxacin 500 mg p.o. b.i.d. for 4 weeks. 2. Clindamycin 300 mg p.o. t.i.d. for 4 weeks. 3. Metronidazole 500 mg p.o. q.8 hours for 10 days. 4. Culturelle 1 tablet p.o. b.i.d. HOSPITAL COURSE: Ms. Miller is a 62-year-old lady with a past medical history as stated above, who presented to the emergency room with complaints that her left first toe stump was red, had an open ulcer and it was draining again. For more details about her presentation, I refer you to her history and physical. The patient had been admitted in July 2017, with similar complaints and she had the distal phalanx of the left hallux amputated in the past and had presented with cellulitis and some spread up her left leg. MRI had shown osteomyelitis and Dr. Hopkins suspected streptococcal infection. His recommendation was for clindamycin 300 mg p.o. t.i.d. for 4 weeks and he felt that if she did not have improvement, amputation will need to be reconsidered. The patient states that she took the antibiotics, [facility] and she had some improvement, but has now experienced the same symptoms. Lower extremity MRI showed mild edema to distal aspect of the proximal phalanx at the great toe at the surgical site suggesting a possibility of early osteomyelitis. The patient was seen in consultation by orthopedist (Dr. Arzola) and he discussed multiple options with the patient including nonoperative versus operative options. The patient would like to have the hallux amputated, which he felt was reasonable given the prolonged course of her problems. She underwent the procedure on 12/28/17, and the patient did well postop. Pathology is still pending at this time, but wound culture send in the emergency room was positive for MRSA, Pseudomonas and E. coli (the 2 last ones are both sensitive to ciprofloxacin). The patient will follow up with Dr. Hopkins as an outpatient to address her antibiotics as we receive the further results of the pathology. Also of note is the patient had complaints of left lower quadrant pain and a CT of the abdomen and pelvis showed diverticulosis with mild pericolonic infiltrate change of the sigmoid colon suggestive of early acute diverticulitis without loculated fluid collection to suggest abscess. Cipro and Flagyl should be enough to cover this infection, but the patient will benefit from GI evaluation after this episode is resolved to rule out malignancy. She states that she had a colonoscopy 2 years ago and it was negative, so maybe this time she will benefit from a flex sigmoidoscopy. The patient is feeling well and she is medically stable for discharge. PHYSICAL EXAMINATION: Vital Signs: Temperature 97.4, heart rate 72, respiratory rate 16, oxygen saturation 96% on room air, blood pressure 118/44. General: The patient is a pleasant, obese lady, sitting up in bed, in no acute distress. CVS: Normal S1, S2. Regular rate and rhythm. Chest: Breath sounds present bilaterally with no added sounds. Abdomen is soft. Bowel sounds are present. Extremities: The patient has a left lower extremity splint. Neuro: She is alert and oriented x3. Able to move all 4 extremities. DIET: Consistent-carb diet. ACTIVITIES: Accelerated, heel weightbearing and splint to the left lower extremity. DISPOSITION: To home. STATUS WHILE IN THE HOSPITAL: Inpatient. Please keep in mind that this is a summarized version of this patient's hospital stay. If you need more information, please feel free to call me at or please obtain full medical records. TIME SPENT: Approximately 45 minutes was spent to complete this discharge. [id number]/[facility] #: [id number] FILIBERTO
== END 2017-12-30 12:00 | disposition home health service (06) | DRG 617 ==
LOC: ED 10:31 → MED 14:23
PROVIDERS: ADMIT Internal Medicine; ATTEND Internal Medicine
PROC: 0Y6Q0Z0 Detachment at Left 1st Toe, Complete, Open Approach (ICD-10-PCS; principal; 2017-12-24)
DX: E11.69 Type 2 diabetes mellitus with other specified complication (principal); M86.8X7 Other osteomyelitis, ankle and foot; K57.92 Diverticulitis of intestine, part unspecified, without perforation or abscess without bleeding; I47.1 Supraventricular tachycardia; I10 Essential (primary) hypertension; J45.909 Unspecified asthma, uncomplicated; G47.30 Sleep apnea, unspecified; K57.90 Diverticulosis of intestine, part unspecified, without perforation or abscess without bleeding; K21.9 Gastro-esophageal reflux disease without esophagitis; M19.90 Unspecified osteoarthritis, unspecified site; Z96.643 Presence of artificial hip joint, bilateral; E11.42 Type 2 diabetes mellitus with diabetic polyneuropathy; F41.9 Anxiety disorder, unspecified; F32.9 Major depressive disorder, single episode, unspecified; E11.21 Type 2 diabetes mellitus with diabetic nephropathy; E66.9 Obesity, unspecified; N18.3 Chronic kidney disease, stage 3 (moderate); E11.22 Type 2 diabetes mellitus with diabetic chronic kidney disease; E11.65 Type 2 diabetes mellitus with hyperglycemia; E11.621 Type 2 diabetes mellitus with foot ulcer; R19.7 Diarrhea, unspecified; Z90.710 Acquired absence of both cervix and uterus; Z89.422 Acquired absence of other left toe(s); Z68.32 Body mass index [BMI] 32.0-32.9, adult; Z82.49 Family history of ischemic heart disease and other diseases of the circulatory system; Z83.3 Family history of diabetes mellitus; Z88.5 Allergy status to narcotic agent; Z91.018 Allergy to other foods; Z86.14 Personal history of Methicillin resistant Staphylococcus aureus infection; Z79.4 Long term (current) use of insulin
CPT/HCPCS: 36415; 74176; 80048; 80051; 80053; 80202; 82565; 83036; 83605; 84520; 85014; 85018; 85025; 85610; 85652; 86140; 87070; 87077; 87186; 87205; 87640; 87641; 88305; 88311; 93005; 99284; A9270-GY; J0692; J1100; J1644; J2250; J2405; J2704; J2795; J3010; J3370

== ENCOUNTER 2019-06-20 11:06 | Emergency (ER) | payer MEDICARE ==
--- OUTSIDE RECORDS SUMMARY | 2019-06-20 12:53 | XMS REPORT | Continuity of Care Document ---
:1955 External Reference #:[id number] Author Name Leigh Catherine MD (transmitted by agent of provider Georgina Dye) Address [address] [facility], [place] [address] Care Team Providers Name Role Phone Josey Saleh MD - Care Team Information Director Organizational [phone] Rheumatology Leigh Catherine MD - Internal Medicine Care Team Information Director Organizational [phone] Problems Active Problems Provider Date Thoracic Aortic Ectasia Sunshine Crocker M.D. Onset: 04/22/2013 Paroxysmal supraventricular tachycardia Sunshine Crocker M.D. Onset: 08/25/2014 Essential hypertension Sunshine Crocker M.D. Onset: 08/25/2014 Hyperlipidemia Sunshine Crocker M.D. Onset: 08/25/2014 Type 2 diabetes mellitus Sunshine Crocker M.D. Onset: 08/25/2014 Palpitations Sunshine Crocker M.D. Onset: 12/10/2014 Displacement of lumbar intervertebral disc Helio Kang M.D. Onset: 2014 without myelopathy Thoracic and lumbosacral neuritis Helio Kang M.D. Onset: 04/11/2016 Body mass index 30+ - obesity Sunshine Crocker M.D. Onset: 06/07/2016 Mixed hyperlipidemia Sunshine Crocker M.D. Onset: 06/07/2016 Ulcer of foot Tin Arzola MD Onset: 07/07/2017 Charcot's joint of foot Tin Arzola MD Onset: 07/07/2017 Chronic osteomyelitis of ankle and/or foot Tin Arzola MD Onset: 2017 Type 2 diabetes mellitus with ulcer Tin Arzola MD Onset: 08/11/2017 Acute osteomyelitis of ankle and/or foot Tin Arzola MD Onset: 08/11/2017 Prosthetic arthroplasty of the hip Aleksandra Hicks M.D. Onset: 04/09/2018 Trochanteric bursitis Aleksandra Hicks M.D. Onset: 04/09/2018 Social History Type Date Description Comments Sex Unknown Tobacco Use Start: Unknown Never Smoked Cigarettes Smoking Status Reviewed: 06/04/19 Never Smoked Cigarettes ETOH Use Occasionally consumes alcohol Tobacco Use Start: Unknown Patient has never smoked Recreational Drug Use Denies Drug Use Exercise Type/Frequency Does not exercise Allergies, Adverse Reactions, Alerts Active Allergies Reaction Severity Comments Date Codeine 04/22/2013 Lidocaine 04/22/2013 Bactrim 04/22/2013 Dilaudid 09/29/2014 Levofloxacin knee pain 07/07/2017 Fish 04/26/2019 Inactive Allergies Clindamycin pain abdomen 09/18/2017 Medications Active Medications SIG Qnty Indications Ordering Date Provider Morphine Sulfate ER 1 tab by mouth 90tabs Leigh Catherine MD 05/17/2019 15mg every 8 hours for Tablets ER pain as needed Gabapentin 1 by mouth am and 90caps Z48.89 Maynor Cr 04/02/2015 300mg Capsules midday, 2 at [facility] night Metoprolol Succinate 1 tablet by mouth 90tabs Kacey Herrera, 03/21/2012 ER every in the N.P. 50mg Tablets ER 24HR morning Touanaliliavlad Santos twice a day as Unknown directed 300Unit/ML Solution Pen-Inject Fluticasone Propionate 2 sprays each Unknown nostril qd. 50mcg/Act Suspension Amlodipine Besylate 1 by mouth every Unknown 10mg day Tablets Cartia XT take 1 capsule by 90caps Sunshine Crocker, 120mg Caps ER mouth every day M.D. 24HR Oxymorphone HCL 1 by mouth every 30tabs Leigh Catherine MD 5mg 4 hours as needed Tablets Rosuvastatin Calcium 1 tab by mouth Marylu Barclay 5mg daily MD Yeni Tablets Chlorzoxazone one tablet every Unknown 500mg 8 hours as needed Tablets Noritate prn Unknown 1% Cream Lorazepam as needed max 2 Unknown 1mg Tablets per day Venlafaxine HCL 1 by mouth every Unknown 75mg day Tablets Triamcinolone prn Unknown Acetonide Omeprazole 1 by mouth every Unknown 40mg Capsules day DR Naqvi Insulin 2 units am, 3 Unknown units pm Ramipril 1 po qd 30caps Unknown 10mg Capsules History Medications Lantus 70 units BIDas Kacey Herrera, 04/09/2019 - 100Unit/ML directed N.P. 04/05/2019 Solution Medications Administered in Office Medication SIG Qnty Indications Ordering Provider Date Depomedrol 40MG Ashutosh Nobles M.D. 09/11/2015 Injection Technetium TC 99M Ica Nuclear Schedule 12/02/2014 Tetrofosmin, Per Unit Dose Up To 40 Millicuries Injection Inj, Regadenoson, 0.1 MG Raul Ross M.D., 11/28/2014 Injection FACC, FASNC Inj, Regadenoson, 0.1 MG EVER Fall 11/28/2014 Injection Technetium TC 99M Raul Ross M.D., 11/28/2014 Tetrofosmin, Per Unit Dose FACC, FASNC Up To 40 Millicuries Injection Depomedrol 80MG Kinga More M.D. 11/13/2014 Injection Immunizations Description No Information Available Vital Signs Date Vital Result Comment 06/04/2019 3:44pm Height 67 inches 5'7" Weight 216.00 lb Heart Rate 62 /min BP Systolic 131 mmHg BP Diastolic 66 mmHg Body Temperature 97.0 F O2 % BldC Oximetry 98 % BMI (Body Mass Index) 33.8 kg/m2 04/26/2019 2:14pm Height 67 inches 5'7" Weight 220.00 lb Heart Rate 66 /min BP Systolic Sitting 145 mmHg BP Diastolic Sitting 78 mmHg Body Temperature 97.6 F O2 % BldC Oximetry 94 % BMI (Body Mass Index) 34.5 kg/m2 Results Description No Information Available Procedures Date Code Description Status 04/09/2019 33609 EKG Tracing & Interpretation Completed Medical Devices Description No Information Available Encounters Type Date Location Provider Dx Diagnosis Office Visit 04/26/2019 [facility] Internal Leigh Catherine MD E11.40 Type 2 diabetes 2:20p Medicine - [facility] mellitus with diabetic neuropathy, unsp I10 Essential (primary) hypertension 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 hypertension [facility] E78.2 Mixed hyperlipidemia I47.1 Supraventricular tachycardia Assessments Date Code Description Provider 06/04/2019 E11.40 Type 2 diabetes mellitus with diabetic Leigh Catherine MD neuropathy, unspecified 06/04/2019 M33.90 Dermatopolymyositis, unspecified, organ Leigh Catherine MD involvement unspecified 06/04/2019 E78.5 Hyperlipidemia, unspecified Leigh Catherine MD 06/04/2019 R94.5 Abnormal results of liver function studies Leigh Catherine MD 06/04/2019 G89.29 Other chronic pain Leigh Catherine MD 04/26/2019 E11.40 Type 2 diabetes mellitus with diabetic Leigh Catherine MD neuropathy, unspecified 04/26/2019 I10 Essential (primary) hypertension Leigh Catherine MD 04/26/2019 Z79.4 prison (current) use of insulin Leigh Catherine MD 04/26/2019 R00.0 Tachycardia, unspecified Leigh Catherine MD 04/26/2019 E78.5 Hyperlipidemia, unspecified Leigh Catherine MD 04/26/2019 F33.1 Major depressive disorder, recurrent, Leigh Catherine MD moderate 04/26/2019 F41.9 Anxiety disorder, unspecified Leigh Catherine MD 04/26/2019 G61.1 Serum neuropathy Leigh Catherine MD 04/26/2019 K21.9 Gastro-esophageal reflux disease without Leigh Catherine MD esophagitis 04/26/2019 G89.4 Chronic pain syndrome Leigh Catherine MD 04/26/2019 Z12.31 Encounter for screening mammogram for Leigh Catherine MD malignant neoplasm of breast 04/19/2019 M19.071 Primary osteoarthritis, right ankle and foot Tin Arzola MD 04/09/2019 I47.1 Supraventricular tachycardia Sunshine Crocker M.D. 04/09/2019 I10 Essential (primary) hypertension Kacey Herrera, N.P. 04/09/2019 E78.2 Mixed hyperlipidemia Kacey Herrera N.P. 04/09/2019 I47.1 Supraventricular tachycardia Kacey Herrera N.P. Plan of Treatment Future Appointment(s):07/12/2019 2:40 pm - Leigh Catherine [facility] Leigh Catherine MDE11.40 Type 2 diabetes mellitus with diabetic neuropathy, unspecifiedComments:Continue to f/u with Dr. MeadowsM33.90 Dermatopolymyositis, unspecified, organ involvement unspecifiedReferral:Ann Marie Gutierrez MD, NobxpnkrpcitV24.5 Hyperlipidemia, unspecifiedComments:Continue nflfkvxG43.5 Abnormal results of liver function studiesNew Xrays:US Abdomen Limited, Scheduled: 06/21/19G89.29 Other chronic painComments:Medication refilledFollow up:F/U 1 months Functional Status Description No Information Available Mental Status Description No Information Available Referrals Refer to Dr Reason for Referral Status Appt Date Ann Marie Gutierrez MD Dermatomyositis; [facility]. Wants Sent a local doc [address], [place] [address] [phone]
--- OUTSIDE RECORDS SUMMARY | 2019-06-20 12:53 | XMS REPORT | Continuity of Care Document ---
:1955 External Reference #:[id number] Author Name Leigh Catherine MD (transmitted by agent of provider Any Mckay) Address [address] [facility], [place] [address] Care Team Providers Name Role Phone Josey Saleh MD - Care Team Information Photographic Laboratory Technician [phone] Rheumatology Leigh Catherine MD - Internal Medicine Care Team Information Photographic Laboratory Technician [phone] Problems Active Problems Provider Date Thoracic Aortic [...] Unknown Never Smoked Cigarettes Smoking Status Reviewed: 04/26/19 Never Smoked Cigarettes ETOH Use Occasionally consumes [...] Medications SIG Qnty Indications Ordering Date Provider Gabapentin 1 by mouth am and 90caps Z48.89 Maynor Cr 04/02/2015 300mg Capsules midday, 2 at [place], M.DMelissa night Metoprolol Succinate 1 tablet by mouth 90tabs Kacey Herrera, 03/21/2012 ER every in the N.P. 50mg Tablets ER 24HR morning Toujeo Max Solostar twice a day as Unknown directed 300Unit/ML Solution Pen-Inject Fluticasone Propionate 2 sprays each Unknown nostril qd. 50mcg/Act Suspension Morphine Sulfate take 1 tab every Unknown 15mg 8 hours as needed Tablets for pain. Amlodipine Besylate 1 by mouth every Unknown 10mg day Tablets Cartia XT take 1 capsule by 90caps Sunshine Crocker, 120mg Caps ER mouth every day M.D. 24HR Oxymorphone HCL 1 by mouth every Unknown 5mg 4 hours as needed Tablets Rosuvastatin [...] mouth every Unknown 40mg Capsules day DR Hummaggie Insulin 2 units am, 3 Unknown units [...] Millicuries Injection Inj, Regadenoson, 0.1 MG Raul Enrique Ross M.D., 11/28/2014 Injection FACC, FASNC Inj, Regadenoson, 0.1 MG EVER Fall 11/28/2014 Injection Technetium TC 99M Raul Ross M.D., 11/28/2014 Tetrofosmin, Per Unit Dose FACC, FASNC Up To 40 Millicuries Injection Depomedrol 80MG Kinga More M.D. 11/13/2014 Injection Immunizations Description No Information Available Vital Signs Date Vital Result Comment 04/26/2019 2:14pm Height 67 inches 5'7" Weight 220.00 lb Heart Rate 66 /min BP Systolic Sitting 145 mmHg BP Diastolic Sitting 78 mmHg Body Temperature 97.6 F O2 % BldC Oximetry 94 % BMI (Body Mass Index) 34.5 kg/m2 04/19/2019 11:10am Height 67 inches 5'7" Weight 218.25 lb Heart Rate 64 /min BP Systolic 152 mmHg BP Diastolic 84 mmHg Respiratory Rate 17 /min Body Temperature 97.1 F Pain Level 3 BMI (Body Mass Index) 34.2 kg/m2 Results Description No Information Available Procedures Date Code Description Status 04/09/2019 70932 EKG Tracing & Interpretation Completed Medical Devices Description No Information Available Encounters Type Date Location Provider Dx Diagnosis Office Visit 04/19/2019 [facility] Tin Arzola, M19.071 Primary 11:00a at [place] osteoarthritis, right ankle and foot Office Visit 04/09/2019 [facility] Kacey Herrera, I10 Essential ( primary) 2:30p Of Dietary Services Manager N.P. 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 04/09/2019 E78.2 Mixed hyperlipidemia Kacey Herrera, N.P. 04/09/2019 I47.1 Supraventricular tachycardia Kacey Herrera, N.P. 11/07/2018 M51.26 Other intervertebral disc displacement, Chiqui Leticia, PA-C lumbar region 11/07/2018 M51.36 Other intervertebral disc degeneration, Chiqui Kelly PA-C lumbar region Plan of Treatment Future Appointment(s):05/21/2019 3:40 pm - [facility] Leigh Catherine MDE11.40 Type 2 diabetes mellitus with diabetic neuropathy, vglklyjsmtsD05 Essential (primary) pkshctiorupbK65.4 halfway (current) use of klgdnbwN41.0 Tachycardia, nrsedsjgtbzL63.5 Hyperlipidemia, ypckftspuqaS14.1 Major depressive disorder, recurrent, jmnmxbfkR29.9 Anxiety disorder, bteonvcpuivX31.1 Serum muprisbfboD10.9 Gastro- esophageal reflux disease without bhkpgnmqmgeT69.4 Chronic pain syndromeFollow up:NATALY for prev PCP F/U 3 yiwvkC61.31 Encounter for screening mammogram for malignant neoplasm of breast Functional Status Description No Information Available Mental Status Description No Information Available Referrals Description No Information Available
--- OUTSIDE RECORDS SUMMARY | 2019-06-20 12:53 | XMS REPORT | Continuity of Care Document ---
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 Onset: 04/11/2016 Body mass index [...] Cr 04/02/2015 300mg Capsules midday, 2 at [facility] [place] night Metoprolol Succinate 1 tablet by mouth 90tabs Kacey Herrera, 03/21/2012 ER every in the N.P. 50mg Tablets ER 24HR morning Toclayton Santos twice a day as Unknown directed [...] BMI (Body Mass Index) 34.5 kg/m2 Results Test Acquired Facility Test Result H/L Range Note Date Drug 06/04/2019 [facility] Urine Presumptive Abnormal None [address] Hydrocodone Posi <SEE [place] [address] Screen NOTE> Clinic [phone] Urine Oxycodone Screen Presumptive Posi <SEE NOTE> Abnormal None Detect 2 Urine Fentanyl Screen None Detected None Detect Urine Methadone Screen None Detected None Detect Urine Buprenorphine Screen None Detected None Detect Urine Amphetamine Screen None Detected None Detect Urine Barbiturates Screen None Detected None Detect Urine Benzodiazepine Screen None Detected None Detect Urine Cannabinoids Screen None Detected None Detect Urine Opiates Screen Presumptive Posi <SEE NOTE> Abnormal None Detect 3 Urine Phencyclidine Screen None Detected None Detect 4 Urine Cocaine Screen None Detected None Detect 1 Presumptive Positive Presumptive positive results are unconfirmed. 2 Presumptive Positive Presumptive positive results are unconfirmed. 3 Presumptive Positive Presumptive positive results are unconfirmed. 4 The specimen was tested at the listed cutoffs: Drug Class Test level (ng/mL) Hydrocodone 300 Oxycodone 100 Fentanyl 1 Methadone 150 Buprenorphine 5 Amphetamines 500 Barbiturates 200 Benzodiazepines 200 Cocaine 150 Cannabinoids 50 Opiates 300 PCP 25 Specimen was received without chain of custody. Results should be used for medical purposes only. 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 R00.0 Tachycardia, unspecified E78.5 Hyperlipidemia, unspecified F33.1 Major depressive disorder, recurrent, moderate F41.9 Anxiety disorder, unspecified G61.1 Serum neuropathy K21.9 Gastro-esophageal reflux disease without esophagitis G89.4 Chronic pain syndrome Z12.31 Encntr screen mammogram for malignant neoplasm of breast Office Visit 04/19/2019 [place] Tin Arzola, M19.071 Primary 11:00a Orthopedics at [facility] right ankle and foot Office Visit 04/09/2019 [place] I10 Essential (primary) 2:30p Cardiology Of Javier N.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 04/09/2019 I47.1 Supraventricular tachycardia Kacey Herrera, N.P. Plan of Treatment Future Appointment(s):07/12/2019 2:40 pm - Leigh Catherine MD at [facility] Internal Medicine - [facility]06/04/2019 - Leigh Catherine MDE11.40 Type 2 diabetes mellitus with diabetic neuropathy, unspecifiedComments:Continue to f/u with Dr. MeadowsM33.90 Dermatopolymyositis, unspecified, organ involvement unspecifiedReferral:Ann Marie Gutierrez MD, ZyeyrybeqwpqH54.5 Hyperlipidemia, unspecifiedComments:Continue ogrbgtdK50.5 Abnormal results of liver function studiesNew Xrays:US Abdomen Limited, Scheduled: 06/21/19G89.29 Other chronic painComments:Medication refilledFollow up:F/U 1 months Functional Status Description No Information Available Mental Status Description No Information Available Referrals Refer to Dr Reason for Referral Status Appt Date Ann Marie Gutierrez MD Dermatomyositis; pt saw Rheum in [facility]. Wants Sent a local doc [address], [address] [place] [id number] [phone]
--- OUTSIDE RECORDS SUMMARY | 2019-06-20 12:53 | XMS REPORT | Continuity of Care Document ---
:1955 External Reference #:[id number] Author Name Jenn Ventura, [employer] Address [address] [place] [address] Problems Active Problems Provider Date Incontinence of feces Onset: 08/02/2018 Chronic kidney disease Onset: 04/30/2018 Acute osteomyelitis of ankle and/or foot Onset: 08/16/2017 Candidal vulvovaginitis Onset: 08/02/2017 Closed fracture of second metatarsal bone of right foot Onset: 01/16/2016 Diverticular disease Onset: 08/20/2015 Dermatomyositis Onset: 11/21/2014 Chronic kidney disease stage 3 due to type 2 diabetes Onset: 04/19/2014 mellitus Inactive Problems Lumbar radiculopathy Onset: 12/06/2018 Inactive: 12/06/2018 Chronic pain Onset: 12/06/2018 Inactive: 12/06/2018 Social History Type Date Description Comments Sex Unknown Tobacco Use Start: Unknown Patient has never smoked Smoking Status Reviewed: 04/23/19 Patient has never smoked Allergies, Adverse Reactions, Alerts Active Allergies Reaction Severity Comments Date Codeine No Reaction Indicated 01/18/2019 Lidocaine No Reaction Indicated 01/18/2019 Fish No Reaction Indicated 01/18/2019 Bactrim Nausea, vomiting and diarrhea 01/18/2019 Dilaudid No Reaction Indicated 01/18/2019 Medications Active Medications SIG Qnty Indications Ordering Date Provider Gabapentin Oral; Take 1 270caps Padma 02/19/2019 300mg Capsule By Mouth Karnow, DO Capsules Every 8 Hours Morphine Sulfate ER take 1 tablet by 90tabs Padma 11/05/2018 mouth three times Karnow, DO 15mg Tablets ER daily as needed - maximum daily dose of 3 per day Oxymorphone HCL Take 1 Tablet By 30tabs Padma 10/23/2018 5mg Mouth Every 8 Hours Karnow, DO Tablets as Needed Maximum Daily Dose Of 3 Per Day Omeprazole Oral; Take 1 90caps Unknown 09/02/2018 40mg Capsule By Mouth Capsules DR Every Day Metoprolol Succinate 1 daily Oral Unknown 06/13/2018 ER 50mg Tablets ER 24HR Venlafaxine HCL ER Oral; Take 1 90caps Unknown 04/23/2018 Capsule By Mouth 75mg Caps ER 24HR Every Day Humalog Subcutaneous 40units Unknown 12/27/2017 100Unit/ML Solution Amlodipine Besylate Oral; Take 1 Tablet 90tabs Unknown 09/13/2017 By Mouth Every Day 10mg Tablets Rosuvastatin Calcium Oral; Take 1 Tablet 30tabs Unknown 11/28/2016 By Mouth Every Day 5mg Tablets [facility] Insulin 1 N/A 100units Unknown 04/06/2016 Syringe/0.5ML/30G X 5/16" 30G X 5/16" 0.5 ML Misc Triamcinolone apply twice daily 120units Unknown 02/21/2016 Acetonide External 0.5% Ointment Chlorzoxazone Oral; Take 1 Tablet 270tabs Unknown 02/21/2016 500mg By Mouth Three Tablets Times Daily Ramipril Oral; Take 1 90caps Unknown 11/18/2015 10mg Capsule By Mouth Capsules Every Day Diltiazem HCL ER 1 daily Oral Unknown 11/28/2014 120mg Caps ER 24HR Cetirizine HCL 1 at bedtime prn 30tabs Unknown 05/26/2014 10mg Oral Tablets Barrettanaliliavlad Santos 75 units am and pm Unknown 300Unit/ML Solution Pen-Inject History Medications Doxycycline Hyclate 2 tabs by mouth 2caps Padma Isaacs, 03/25/2019 - DO 03/27/2019 100mg Capsules Lantus Subcutaneous 30units Unknown 12/16/2018 - 100Unit/ML 01/30/2019 Solution Lantus Subcutaneous; Inject 30units Unknown 11/02/2018 - 100Unit/ML 50 Units Under The 12/16/2018 Solution Skin In The Morning And Inject 60 Units Under The Skin AT Bedtime Immunizations CPT Code Status Date Vaccine Lot # [id number] Given 03/08/2019 Flu < 65 years [id number] 56244 Given 06/13/2018 Prevnar 13 47533 Given 03/07/2018 Influenza Virus Vaccine, Quadrivalent, Split, Im Use 0.25ML 92339 Given 03/07/2018 Influenza Virus Vaccine, Quadrivalent, Split, Im Use 0.25ML 48383 Given 03/07/2018 Influenza Virus Vaccine, Quadrivalent, Split, Im Use 0.25ML 64477 Given 03/07/2018 Flu < 65 years 52320 Given 03/07/2018 Influenza Virus Vaccine, Quadrivalent, Split, Preservative Free 81663 Given 03/07/2018 Flumist 66345 Given 03/07/2018 Flu High Dose 46491 Given 03/07/2018 Influenza Virus Vaccine, Split, Preserv Free, Intradermal Use 39224 Given 03/21/2016 Influenza Virus Vaccine, Split, Preserv Free, Intradermal Use 73759 Given 03/21/2016 Flu High Dose 02871 Given 03/21/2016 Flumist 70516 Given 03/21/2016 Influenza Virus Vaccine, Quadrivalent, Split, Preservative Free 04149 Given 03/21/2016 Flu < 65 years 33357 Given 03/21/2016 Influenza Virus Vaccine, Quadrivalent, Split Virus, Im Use 0.5ML 27306 Given 05/20/2015 Influenza Virus Vaccine, Quadrivalent, Split Virus, Im Use 0.5ML 06479 Given 05/20/2015 Flu < 65 years 05283 Given 05/20/2015 Influenza Virus Vaccine, Quadrivalent, Split, Preservative Free 30263 Given 05/20/2015 Flumist 77814 Given 05/20/2015 Flu High Dose 14414 Given 05/21/2014 Flu High Dose 29022 Given 05/21/2014 Flumist 28694 Given 05/21/2014 Influenza Virus Vaccine, Quadrivalent, Split, Preservative Free 65165 Given 05/21/2014 Flu < 65 years 16355 Given 05/21/2014 Influenza Virus Vaccine, Quadrivalent, Split Virus, Im Use 0.5ML 37325 Given 02/08/2013 Influenza Virus Vaccine Split Virus Intramuscular Use 0.5ML 69962 Given 02/08/2013 Flu High Dose 42331 Given 02/08/2013 Flumist 56116 Given 02/08/2013 Influenza Virus Vaccine, Quadrivalent, Split, Preservative Free 23459 Given 02/08/2013 Flu < 65 years 19418 Given 02/08/2013 Influenza Virus Vaccine, Quadrivalent, Split, Im Use 0.25ML 95342 Given 02/08/2013 Influenza Virus Vaccine, Quadrivalent, Split, Im Use 0.25ML 95483 Given 02/08/2013 Influenza Virus Vaccine, Quadrivalent, Split, Im Use 0.25ML 46129 Given 02/17/2012 Influenza Virus Vaccine, Quadrivalent, Split, Im Use 0.25ML 11249 Given 02/17/2012 Influenza Virus Vaccine, Quadrivalent, Split, Im Use 0.25ML 86167 Given 02/17/2012 Influenza Virus Vaccine, Quadrivalent, Split, Im Use 0.25ML 54667 Given 02/17/2012 Flu < 65 years 65486 Given 02/17/2012 Influenza Virus Vaccine, Quadrivalent, Split, Preservative Free 16344 Given 02/17/2012 Flumist 76612 Given 02/17/2012 Flu High Dose 96173 Given 02/17/2012 Influenza Virus Vaccine Split Virus Intramuscular Use 0.5ML 52881 Given 04/05/2011 Flu High Dose 79254 Given 04/05/2011 Flumist 59916 Given 04/05/2011 Influenza Virus Vaccine, Quadrivalent, Split, Preservative Free 43473 Given 04/05/2011 Flu < 65 years 29863 Given 04/05/2011 Influenza Virus Vaccine, Quadrivalent, Split, Im Use 0.25ML 62507 Given 04/05/2011 Influenza Virus Vaccine, Quadrivalent, Split, Im Use 0.25ML 26736 Given 04/05/2011 Influenza Virus Vaccine, Quadrivalent, Split, Im Use 0.25ML 88126 Given 04/28/2010 Tdap - Boostrix/Adacel 24188 Given 04/28/2010 Influenza Virus Vaccine, Quadrivalent, Split, Im Use 0.25ML 19905 Given 04/28/2010 Influenza Virus Vaccine, Split Virus, Preservative Free Im 0.5ML 19322 Given 04/23/2009 Influenza Virus Vaccine, Quadrivalent, Split, Im Use 0.25ML 33584 Given 03/03/2008 Influenza Virus Vaccine, Quadrivalent, Split, Im Use 0.25ML 92397 Given 05/15/2003 Pneumovax - for >=2years - PPSV23 71290 Given 05/15/2003 Influenza Virus Vaccine, Quadrivalent, Split, Im Use 0.25ML 37883 Given 05/15/2002 Pneumovax - for >=2years - PPSV23 Vital Signs Date Vital Result Comment 04/23/2019 3:59pm BP Systolic 150 mmHg BP Diastolic 76 mmHg Heart Rate 70 /min Body Temperature 98.2 F O2 % BldC Oximetry 97 % 04/01/2019 2:12pm BP Systolic 116 mmHg right arm BP Diastolic 62 mmHg right arm Heart Rate 89 /min Body Temperature 97.8 F O2 % BldC Oximetry 96 % Results Test Acquired Date Facility Test Result H/L Range Note Lyme Disease AB 04/01/2019 [facility] IgG Immunoblot Negative Negative Immunoblot WB [address] [place] [address] [phone] IgG detected against None kDa IgM Immunoblot Negative Negative IgM detected against None kDa Lyme Disease Interpretation See Comment 1 Comp Metabolic 04/01/2019 [facility] Sodium 138 mmol/L Normal 135-[address] [place] [address] [phone] Potassium 4.6 mmol/L Normal 3.5-5.0 Chloride 101 mmol/L Normal 101-111 Co2 Carbon Dioxide 30 mmol/L Normal 22-32 Anion Gap 7 mmol/L Normal 2-11 Glucose 232 mg/dL High 70-100 Blood Urea Nitrogen 25 mg/dL High 6-24 Creatinine 1.25 mg/dL High 0.51-0.95 BUN/Creatinine Ratio 20.0 Normal 8-20 Calcium 9.2 mg/dL Normal 8.6-10.3 Total Protein 6.8 g/dL Normal 6.4-8.9 Albumin 4.1 g/dL Normal 3.2-5.2 Globulin 2.7 g/dL Normal 2-4 Albumin/Globulin Ratio 1.5 Normal 1-3 Total Bilirubin 0.40 mg/dL Normal 0.2-1.0 Alkaline Phosphatase 68 U/L Normal 34-104 Alt 46 U/L Normal 7-52 Ast 28 U/L Normal 13-39 Egfr Non- 43.3 >60 Egfr 52.4 >60 2 CBC Auto 04/01/2019 [facility] White Blood 7.0 10^3/uL Normal 3.5-10.[address] [place] [address] [phone] Red Blood Count 4.36 10^6/uL Normal 3.70-4.87 Hemoglobin 12.9 g/dL Normal 12.0-16.0 Hematocrit 37 % Normal 35-47 Mean Corpuscular Volume 85 fL Normal 80-97 Mean Corpuscular Hemoglobin 30 pg Normal 27-31 Mean Corpuscular HGB Conc 35 g/dL Normal 31-36 Red Cell Distribution Width 14 % Normal 10-15 Platelet Count 302 10^3/uL Normal 150-450 Mean Platelet Volume 10.3 fL Normal 7.4-10.4 Abs Neutrophils 3.9 10^3/uL Normal 1.5-7.7 Abs Lymphocytes 2.4 10^3/uL Normal 1.0-4.8 Abs Monocytes 0.5 10^3/uL Normal 0-0.8 Abs Eosinophils 0.1 10^3/uL Normal 0-0.6 Abs Basophils 0.0 10^3/uL Normal 0-0.2 Abs Nucleated RBC 0.0 10^3/uL Granulocyte % 55.3 % Lymphocyte % 34.5 % Monocyte % 7.7 % Eosinophil % 2.0 % Basophil % 0.5 % Nucleated Red Blood Cells % 0.1 Creatinine 10/23/2018 N2N/CCD Import Creatinine 1.36 mg/dL High 0.51- 0.95 mg/dL GFR Afr Amer 10/23/2018 N2N/CCD Import GFR Afr Amer 47.5 _ >60 GFR Non Afr Amer 10/23/2018 N2N/CCD Import GFR Non Afr 39.3 _ >60 Amer 1 Specific serologic response to B. burgdorferi infection is not detected, but cannot rule out early infection during which low or undetectable antibody levels to B. burgdorferi may be present. If clinically indicated, a new serum specimen should be submitted in 7-14 days. ADDITIONAL INFORMATION Per CDC criteria, the Lyme IgG Immunoblot is interpreted as positive if IgG-class antibodies are detected to >=5 B. burgdorferi proteins, and the Lyme IgM Immunoblot is interpreted as positive if IgM-class antibodies are detected to >=2 B. burgdorferi proteins. Immunoblot patterns not meeting these criteria should not be interpreted as positive. Epitopes from certain B. burgdorferi proteins (e.g., p41) are conserved across other bacteria, which may lead to the detection of IgM- and/or IgG-class antibodies on the Lyme disease immunoblots in patients without Lyme disease. Immunoblot should only be ordered on specimens that are positive or equivocal by a FDA-licensed Lyme disease antibody screening test (e.g., EIA). Results of the Lyme IgM immunoblot should not be considered in patients with >= 30 days of symptoms. Test Performed by: [facility] [place] [address] [place] [address] [employer] Merchandising Manager: Dipak Sanchez M.D. Ph.D.; CLIA# [id number] 2 Because ethnic data is not always readily available, this report includes an eGFR for both -Americans and non- Americans. The National Kidney Disease Education Program (NKDEP) does not endorse the use of the MDRD equation for patients that are not between the ages of 18 and 70, are , have extremes of body size, muscle mass, or nutritional status, or are non- or non-. According to the National Kidney Foundation, irrespective of diagnosis, the stage of the disease is based on the level of kidney function: Stage Description GFR(mL/min/1.73 m(2)) 1 Kidney damage with normal or decreased GFR 90 2 Kidney damage with mild decrease in GFR 60-89 3 Moderate decrease in GFR 30-59 4 Severe decrease in GFR 15-29 5 Kidney failure <15 (or dialysis) Procedures Description No Information Available Medical Devices Description No Information Available Encounters Type Date Location Provider Dx Diagnosis Office Visit 04/23/2019 4:00p [facility] LESLY Barba H92.02 Otalgia, left ear R23.8 Other skin changes Office Visit 04/01/2019 2:15p [facility] Brown Isaacs, M25.50 Pain in unspecified DO joint R59.0 Localized enlarged lymph nodes E11.9 Type 2 diabetes mellitus without complications I10 Essential (primary) hypertension Office Visit 03/08/2019 10:15a [facility] LESLY Malik S50.02xA Contusion of left elbow, initial encounter M25.512 Pain in left shoulder M62.831 Muscle spasm of calf Z23 Encounter for immunization Office Visit 02/05/2019 11:30a [facility] Lamb M33.90 Dermatopolymyositis, unsp, [employer] organ involvement unspecified Assessments Date Code Description Provider 04/23/2019 H92.02 Otalgia, left ear Jenn Ventura, [employer] 04/23/2019 R23.8 Other skin changes Jenn Josuealfredo, [employer] 04/01/2019 M25.50 Pain in unspecified joint Padmajennifer Isaacs, DO 04/01/2019 R59.0 Localized enlarged lymph nodes Padmajennifer Calzadajesu, DO 04/01/2019 E11.9 Type 2 diabetes mellitus without Padma Isaacs, DO complications 04/01/2019 I10 Essential (primary) hypertension Padma Kargaby, DO 03/08/2019 S50.02xA Contusion of left elbow, initial encounter Leslye Lamb [facility] 03/08/2019 M25.512 Pain in left shoulder Leslye Lamb [facility] 03/08/2019 M62.831 Muscle spasm of calf Leslye Lamb [facility] 03/08/2019 Z23 Encounter for immunization Leslye Lamb [facility] 02/05/2019 M33.90 Dermatopolymyositis, unspecified, organ Leslye Lamb [employer] involvement unspecified Plan of Treatment Future Appointment(s):06/10/2019 3:30 pm - Padma Isaacs DO at [facility]02/2019 - Jenn Salasjohnalma, FNPH92.02 Otalgia, left earComments:No canal lesions or wounds noted. Continue care at home as you have. Return if returning, worsening or new symptoms.R23.8 Other skin changesComments:Tissue on Top of uvula noted to be raised and flowery appearance. Disc. referral to ENT for evaluation. Declined at this time. Unsure if it has always appeared that way. Rec. having her new MD @ [facility] check it out on Monday, otherwise follow-up here as needed if not transferring care. States understanding. Functional Status Description No Information Available Mental Status Description No Information Available Referrals Refer to Reason for Referral Status Appt Date left shoulder pain Sent
--- OUTSIDE RECORDS SUMMARY | 2019-06-20 12:53 | XMS REPORT | Summary of Care ---
:1955 Author Organization [facility] Address [address] [place] [id number] Care Team Providers Name Role Phone Leigh Catherine MD Primary Care Provider Reason for Visit Reason Comments New Patient Consultation (Routine) Status Reason Specialty Diagnoses / Referred By Referred To Contact Procedures Contact Authorized Rheumatology Diagnoses Pain in unspecified joint Dermatomyositis flare? [facility] Rhe[facility] Procedures consult Padma Ferrara DO Medicine Private [address], [place] [address] [facility] [id number] [place] [address] Phone: [phone] Encounter Details Date Type Department Care Team Description 05/16/2019 Office Visit Karla Randall MD Dermatomycosis (Primary Dx); Rheumatology [address] [place], [place] [address] [address] [place] [address] [phone] Allergies Active Allergy Reactions Severity Noted Date Comments Sulfamethoxazole-Trimethoprim 04/19/2019 Codeine Itching 03/15/2013 Hydromorphone 04/19/2019 Fish Allergy 04/19/2019 Lidocaine 04/19/2019 documented as of this encounter (statuses as of 05/16/2019) Medications Medication Sig Dispensed Refills Start End Date Status Date insulin lispro Inject into the 0 Active (HUMALOG KWIKPEN) skin 3 (three) 100 UNIT/ML times daily injection before meals. insulin glargine Inject into the 0 Active (LANTUS SOLOSTAR) skin nightly. 36 100 UNIT/ML units bid injection simvastatin (ZOCOR) Take 20 mg by 0 Active 20 MG tablet mouth nightly. metoprolol Take 50 mg by 0 Active (TOPROL-XL) 50 MG mouth daily. 24 hr tablet omeprazole Take 20 mg by 0 Active (PRILOSEC OTC) 20 mouth daily. MG tablet morphine (ROBERT) Take 20 mg by 0 Active 20 MG 24 hr capsule mouth 2 (two) times daily. oxymorphone (OPANA) Take 5 mg by 0 Active 5 MG tablet mouth every 6 (six) hours as needed. tizanidine Take 4 mg by 0 Active (ZANAFLEX) 4 MG mouth 3 (three) capsule times daily as needed. chlorzoxazone Take 500 mg by 0 Active (PARAFON FORTE) 500 mouth 4 (four) MG tablet times daily as needed. loratadine Take 10 mg by 0 Active (CLARITIN) 10 MG mouth daily. tablet ketotifen (ZADITOR) 1 drop 2 (two) 0 Active 0.025 % ophthalmic times daily. solution Venlafaxine HCl ER venlafaxine ER 0 Active 75 MG Oral Capsule 75 mg Extended Release 24 capsule,extended Hour (EFFEXOR-XR) release 24 hr Insulin Glargine (1 Toujeo SoloStar 0 Active Unit Dial) 300 U-300 Insulin UNIT/ML 300 unit/mL (1.5 Subcutaneous mL) subcutaneous Solution pen Pen-injector (TOUJEO SOLOSTAR) Insulin Lispro 100 Humalog U-100 0 Active UNIT/ML Insulin 100 Subcutaneous unit/mL Solution (HUMALOG) subcutaneous solution Rosuvastatin rosuvastatin 5 0 Active Calcium 5 MG Oral mg tablet Tablet (CRESTOR) Gabapentin 300 MG gabapentin 300 0 Active Oral Capsule mg capsule (NEURONTIN) LORazepam 1 MG Oral Take 1 mg by 0 Active Tablet (ATIVAN) mouth every 6 (six) hours as needed for Anxiety2 Max Daily Dose: AMLODIPINE BESYLATE Take 10 mg by 0 Active PO mouth daily DULoxetine Take 60 mg by 0 05/16/19 Discontinued (CYMBALTA) 60 MG mouth daily. 20 (No longer capsule needed) metformin Take 1,000 mg by 0 05/16/19 Discontinued (GLUCOPHAGE) 1000 mouth 2 (two) 20 (No longer MG tablet times daily with needed) meals. ramipril (ALTACE) Take 10 mg by 0 05/16/19 Discontinued 10 MG tablet mouth daily. 20 (No longer needed) Cholecalciferol Take by mouth. 0 05/16/19 Discontinued (VITAMIN D-400 PO) 20 (No longer needed) documented as of this encounter (statuses as of 05/16/2019) Active Problems Problem Noted Date Dermatomycosis 05/16/2019 Polyarthralgia 05/16/2019 Type II or unspecified type diabetes mellitus without mention of complication, uncontrolled Type II or unspecified type diabetes mellitus with neurological manifestations, uncontrolled(250.62) Hyperlipidemia LDL goal < 100 documented as of this encounter (statuses as of 05/16/2019) Social History Tobacco Use Types Packs/Day Years Used Date Never Smoker 0 Smokeless Tobacco: Never Used Tobacco Cessation: Counseling Given: No Alcohol Use Drinks/Week oz/Week Comments No Sex Assigned at Date Recorded Not on file Job Start Date Occupation Industry Not on file Not on file Not on file Travel History Travel Start Travel End No recent travel history available. documented as of this encounter Last Filed Vital Signs Vital Sign Reading Time Taken Comments Blood Pressure 133/69 05/16/2019 2:00 PM EST Pulse 77 05/16/2019 2:00 PM EST Temperature 36.7 05/16/2019 2:00 PM EST C (98 F) Respiratory Rate 16 05/16/2019 2:00 PM EST Oxygen Saturation 96% 05/16/2019 2:00 PM EST Inhaled Oxygen Concentration - - Weight 97.5 kg (215 lb) 05/16/2019 2:00 PM EST Height 168.9 cm (5' 6.5") 05/16/2019 2:00 PM EST Body Mass Index 34.18 05/16/2019 2:00 PM EST documented in this encounter Progress Notes Karla Womack MD - 05/16/2019 2:00 PM EST Subjective: Patient ID: Renay Miller is a 64 y.o. female. HPI Patient's medications, allergies, past medical, surgical, social and family histories were reviewed and updated as appropriate. This is initial rheumatology consult requested by primary care doctor for diagnosis and management of arthralgia. Dictation on: 05/16/2019 2:33 PM by: KARLA WOMACK [[id number]] Review of Systems Per HPI. Review of complete ROS is negative. 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) Type II or unspecified type diabetes mellitus without mention of complication, uncontrolled Past Surgical History: Procedure Laterality Date LUMBAR DISC SURGERY L3,4 TOTAL HIP ARTHROPLASTY Bilateral with revision Family History Problem Relation Age of Onset Diabetes type II Mother Diabetes type II Brother Social History Tobacco Use Smoking status: Never Smoker Smokeless tobacco: Never Used Substance Use Topics Alcohol use: No Drug use: Not on file Bactrim [sulfamethoxazole-trimethoprim]; Codeine; Dilaudid [hydromorphone]; Fish allergy; and Lidocaine Current Outpatient Medications Medication Sig Dispense Refill AMLODIPINE BESYLATE PO Take 10 mg by mouth daily LORazepam 1 MG Oral Tablet (ATIVAN) Take 1 mg by mouth every 6 (six) hours as needed for Anxiety2 Max Daily Dose: chlorzoxazone (PARAFON FORTE) 500 MG tablet Take 500 mg by mouth 4 (four ) times daily as needed. Cholecalciferol (VITAMIN D-400 PO) Take by mouth. DULoxetine (CYMBALTA) 60 MG capsule Take 60 mg by mouth daily. Gabapentin 300 MG Oral Capsule (NEURONTIN) gabapentin 300 mg capsule Insulin Glargine (1 Unit Dial) 300 UNIT/ML Subcutaneous Solution Pen- injector (TOUJEO SOLOSTAR) Toujeo SoloStar U-300 Insulin 300 unit/mL (1.5 mL) subcutaneous pen insulin glargine (LANTUS SOLOSTAR) 100 UNIT/ML injection Inject into the skin nightly. 36 units bid insulin lispro (HUMALOG KWIKPEN) 100 UNIT/ML injection Inject into the skin 3 (three) times daily before meals. Insulin Lispro 100 UNIT/ML Subcutaneous Solution (HUMALOG) Humalog U-100 Insulin 100 unit/mL subcutaneous solution ketotifen (ZADITOR) 0.025 % ophthalmic solution 1 drop 2 (two) times daily. loratadine (CLARITIN) 10 MG tablet Take 10 mg by mouth daily. metformin (GLUCOPHAGE) 1000 MG tablet Take 1,000 mg by mouth 2 (two) times daily with meals. metoprolol (TOPROL-XL) 50 MG 24 hr tablet Take 50 mg by mouth daily. morphine (ROBERT) 20 MG 24 hr capsule Take 20 mg by mouth 2 (two) times daily. omeprazole (PRILOSEC OTC) 20 MG tablet Take 20 mg by mouth daily. oxymorphone (OPANA) 5 MG tablet Take 5 mg by mouth every 6 (six) hours as needed. ramipril (ALTACE) 10 MG tablet Take 10 mg by mouth daily. Rosuvastatin Calcium 5 MG Oral Tablet (CRESTOR) rosuvastatin 5 mg tablet simvastatin (ZOCOR) 20 MG tablet Take 20 mg by mouth nightly. tizanidine (ZANAFLEX) 4 MG capsule Take 4 mg by mouth 3 (three) times daily as needed. Venlafaxine HCl ER 75 MG Oral Capsule Extended Release 24 Hour (EFFEXOR- XR) venlafaxine ER 75mg capsule,extended release 24 hr No current facility-administered medications for this visit. Objective: Physical Exam Visit Vitals BP 133/69 Pulse 77 Temp 36.7 C (98 F) (Tympanic) Resp 16 Ht 1.689 m (5' 6.5") Wt 97.5 kg (215 lb) SpO2 96% BMI 34.18 kg/m HEENT: diffused mild facial erythema, hearing grossly intact. Chest exam: clear to auscultation, no wheezing or crackles. Good airway entry. Heart exam: regular rate and rhythm, S1, S2 present, no murmur, rub, gallop. Extremities no cyanosis, clubbing or edema. Neuro exam: AAO*3, no focal deficits. Skin exam: No psoriasis or vasculitis skin rash. Joint exam: No active synovitis in both upper and lower extremity joints except both hips replaced. Left shoulder tenderness. Both ankles tenderness. 14/18fibromyalgia tender. Normal gait and stance. Data reviewed: I personally reviewed old chart, labs in [facility], note and other clinical date from her PCP office. Labs done 04/01/2019 Cr 1.25. Glucose 232. 11/17/2014 Rosa-1 137. JOHN speckle 1250. Assessment: 1. 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 Mild skin rash. No muscle disease. Not on treatment. 2. Fibromyalgia. 3. Both hips replaced. 4. 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 5. HTN. 6. CKD stage III. 7. DJD of lumbar spine. S/p back surgery twice. Plan: - Renay was seen today for new patient. Diagnoses and all orders for this visit: Dermatomycosis - JOHN; Future - JOHN Specificity; Future - Sedimentation rate, automated; Future - CBC and Differential; Future - Comprehensive Metabolic Panel; Future - Uric acid; Future - C3 complement; Future - C4 complement; Future - CK; Future - Will discuss further management on next visit. - Activities as tolerated. - Diet: Paleo diet ( no sugar, no diary, low carb diet) , more greens/vegetables , adequate hydration. - Encouraged to maintain good sleep hygiene. - Continue other medications as prescribed by PCP and other specialist. - RV in 2 weeks; above findings, analysis and plan were all discussed with the patient and questionswere answered as much as possible. Thanks for the consult. documented in this encounter Plan of Treatment Name Type Priority Associated Diagnoses Order Schedule JOHN Lab Routine Dermatomycosis 1 Occurrences starting 05/16/2019 until 11/16/2019 JOHN Specificity Lab Routine Dermatomycosis 1 Occurrences starting 05/16/2019 until 11/16/2019 Sedimentation rate, Lab Routine Dermatomycosis 1 Occurrences starting automated 05/16/2019 until 11/16/2019 CBC and Differential Lab Routine Dermatomycosis 1 Occurrences starting 05/16/2019 until 11/16/2019 Comprehensive Metabolic Lab Routine Dermatomycosis 1 Occurrences starting Panel 05/16/2019 until 11/16/2019 Uric acid Lab Routine Dermatomycosis 1 Occurrences starting 05/16/2019 until 11/16/2019 C3 complement Lab Routine Dermatomycosis 1 Occurrences starting 05/16/2019 until 11/16/2019 C4 complement Lab Routine Dermatomycosis 1 Occurrences starting 05/16/2019 until 11/16/2019 CK Lab Routine Dermatomycosis 1 Occurrences starting 05/16/2019 until 11/15/2019 Lyme IgG, IgM antibody Lab Routine Dermatomycosis 1 Occurrences starting 05/16/2019 until 11/15/2019 Health Maintenance Due Date Last Done Comments Hepatitis C Screening (B. 1955 [id number]) Lipid Disorder Screening 1955 MMR Vaccines (1 of 1 - Standard 1956 series) Varicella Vaccines (1 of 2 - 1956 2-dose childhood series) Pneumococcal Vaccine: Pediatrics 1961 (0 to 5 Years) and At-Risk Patients (6 to 64 Years) (1 of 1 - PPSV23) DTaP,Tdap,and Td Vaccines (1 - 1962 Tdap) HIV Screening 1968 Diabetic Foot Exam 1973 Dilated Retinal Exam 1973 Hepatitis B Vaccines (1 of 3 - 1974 Risk 3-dose series) Cervical Cancer Screening 5 years 1976 Breast Cancer Screening 2 years 2005 Colon Cancer Screening 10 yrs 2005 Zoster Vaccines (1 of 2) 2005 Hemoglobin A1c 09/12/2013 03/15/2013 Urine Microalbumin 03/15/2014 03/15/2013 Influenza Vaccine 02/12/2019 Pneumococcal Vaccine: 65+ Years (1 2020 of 2 - PCV13) HIB Vaccines Aged Out No longer eligible based on patient's age to complete this topic Hepatitis A Vaccines Aged Out No longer eligible based on patient's age to complete this topic IPV Vaccines Aged Out No longer eligible based on patient's age to complete this topic documented as of this encounter Results Not on filedocumented in this encounter Visit Diagnoses Diagnosis Dermatomycosis - Primary Dermatomycosis, unspecified Polyarthralgia Pain in joint, multiple sites documented in this encounter
[2019-06-20 13:01] VITALS: BP 112/61
--- NOTE | 2019-06-20 13:20 | UC ---
FLU HPI - HPI Summary HPI Summary: 64yo female presenting with nasal congestion and chest congestion x9 days. Patient states she "feels wheezy and gurgly" when exhaling. States this is worse at night. Notes cough is productive at times. Notes sob with coughing. Notes sinus pressure. Denies sore throat. Notes fever at symptom onset. Notes night sweats x3 days. Denies n/v. Taking tylenol for symptom relief. PMHx signifcant for mild asthma, dermatomyositis, DM, HTN, GERD, and hyperlipidemia. - History of Current Complaint Chief Complaint: UCRespiratory Stated Complaint: FEVER HEAD CONGESTION Hx Obtained From: Patient Pain Intensity: 0 - Allergy/Home Medications Allergies/Adverse Reactions: Allergies Allergy/AdvReac Type Severity Reaction Status Date / Time Fish Containing Products Allergy Mild Itching Verified 06/20/19 13:01 hydromorphone [From Dilaudid] Allergy Mild Hives Verified 06/20/19 13:01 codeine AdvReac Mild Itching Verified 06/20/19 13:01 levofloxacin AdvReac Mild Knee pain Verified 06/20/19 13:01 lidocaine AdvReac Mild Itching Verified 06/20/19 13:01 oxycodone AdvReac Mild Itching Verified 06/20/19 13:01 sulfamethoxazole AdvReac Vomiting Verified 06/20/19 13:01 [From Bactrim] trimethoprim [From Bactrim] AdvReac Vomiting Verified 06/20/19 13:01 Home Medications: Home Medications Amlodipine Besylate [Norvasc] 1 tab PO DAILY 06/20/19 [History Confirmed ] Hydroxychloroquine Sulfate [Plaquenil] 1 tab PO BID 06/20/19 [History Confirmed 06/20/19] PMH/Surg Hx/FS Hx/Imm Hx - Additional Past Medical History Additional PMH: Dermatomyositis Endocrine History: Diabetes, Dyslipidemia Cardiovascular History: Hypertension Respiratory History: Asthma GI/ History: Gastroesophageal Reflux - Surgical History Surgical History: Yes Surgery Procedure, Year, and Place: lumbar surgery-laminectomy L3-L4 1998, 2nd in feb, 2015;. bilat hip replacement with hip revisions;. hernia repair with mesh;. appendectomy;. hysterectomy (with revision d/to complications);. heart ablasion;. arthroscopic left knee;. 10/29-LEFT GREAT TOE 1/2 REMOVED. RIGHT FOOT MIDDLE TOE REMOVED - Family History Known Family History: Positive: Hypertension, Diabetes, Other - Diverticulitis - Social History Alcohol Use: Occasionally Substance Use Type: None Smoking Status (MU): Never Smoked Tobacco - Immunization History Most Recent Influenza Vaccination: 03/2017 Most Recent Tetanus Shot: unk Most Recent Pneumonia Vaccination: pt has had this Review of Systems All Other Systems Reviewed And Are Negative: Yes Constitutional: Positive: Fatigue. Negative: Fever, Chills ENT: Positive: Nasal Discharge Respiratory: Positive: Cough, Other - expiratory wheezing. Negative: Shortness Of Breath Cardiovascular: Positive: Negative Gastrointestinal: Positive: Negative. Negative: Vomiting, Nausea Musculoskeletal: Negative: Myalgia Neurological: Positive: Negative Physical Exam - Summary Physical Exam Summary: Vital Signs Reviewed: Yes A+Ox3, no distress, well-appearing Eyes: Conjunctiva Clear ENT: Hearing grossly normal, TM x 2 clear, +PND, moist, uvula midline, no exudate, no erythema Neck: Positive: Supple Respiratory: Positive: No respiratory distress, No accessory muscle, +faint expiratory wheezing diffuse throughout lung goodman Cardiovascular: RRR nl s1, s2 no m/r Musculoskeletal Exam: CABAN x 4 without difficulty Neurological: Positive: Alert Psychological: Positive: age appropriate behavior Skin: Positive: no rash, no ecchymosis Vital Signs: Initial Vital Signs Temp 97.3 F 06/20/19 12:56 Pulse 92 06/20/19 12:56 Resp 50 06/20/19 12:56 BP 112/61 06/20/19 12:56 Pulse Ox 98 06/20/19 12:56 Lab Results 06/20/19 Range/Units 13:53 Influenza A (Rapid) Negative (Negative) Influenza B (Rapid) Negative (Negative) Diagnostics - Radiology CXR Radiology Interpretation Completed By: Radiologist Summary of Radiographic Findings: FINDINGS: The heart is within normal limits in size. Mediastinal and hilar contours appear within normal limits. The lungs are underinflated and clear. No pleural effusion is seen. IMPRESSION: NO EVIDENCE FOR ACTIVE CARDIOPULMONARY DISEASE. Flu Course/Dx - Course Course Of Treatment: Negative rapid flu. CXR normal. Discussed viral vs bacterial illness with patient. Educated on acute bronchitis and symptomatic treatment, including use of her inhaler as needed for wheezing. Instructed to continue with otc treatment and to follow up with pcp next week for recheck if not improved. Educated on s/s of worsening respiratory illness and instructed to go to ED if any red flags occur. Patient voiced understanding and agreed with treatment plan. - Differential Dx/Diagnosis Differential Diagnosis/HQI/PQRI: Bronchitis, Influenza, Upper Respiratory Infection Provider Diagnosis: Acute bronchitis, Wheezing Discharge ED - Sign-Out/Discharge Documenting (check all that apply): Patient Departure All imaging exams completed and their final reports reviewed: Yes - Discharge Plan Condition: Stable Disposition: HOME Patient Education Materials: Acute Bronchitis (ED), Wheezing (ED) Referrals: Leigh Catherine MD [Primary Care Provider] - 1 Week Additional Instructions: As discussed, your chest xray was normal and your flu test was negative today. You symptoms are likely viral and should resolve without treatment. You may continue to take over the counter cough and cold medications for your cold symptoms. Continue with saline spray or Flonase for symptom relief. Use your inhaler as needed for shortness of breath and wheezing. Get plenty of rest and increase your fluid intake. Follow up with your primary care provider in 7-10 days for recheck of symptoms. Go to the emergency room with any new or worsening symptoms. - Billing Disposition and Condition Condition: STABLE Disposition: Home
[2019-06-20 14:04] LABS: Influenza A Molecular Negative (Negative); Influenza B Molecular Negative (Negative)
[2019-06-20] MEDS ORDERED: Ondansetron ODT TAB* 4 MG SL ONE (14:31)
== END 2019-06-20 14:24 | disposition home or self-care (01) ==
LOC: UCEAST 11:06
DX: J20.9 Acute bronchitis, unspecified (principal); J45.909 Unspecified asthma, uncomplicated; E11.9 Type 2 diabetes mellitus without complications; I10 Essential (primary) hypertension; M33.90 Dermatopolymyositis, unspecified, organ involvement unspecified; R53.83 Other fatigue; Z79.899 Other long term (current) drug therapy; Z91.013 Allergy to seafood; Z88.5 Allergy status to narcotic agent; Z88.1 Allergy status to other antibiotic agents; Z88.2 Allergy status to sulfonamides
CPT/HCPCS: 71046; 99211; G0463

== ENCOUNTER 2019-07-04 16:45 | Emergency (ER) | payer MEDICARE ==
[2019-07-04 16:57] VITALS: BP 145/81
--- NOTE | 2019-07-04 17:15 | ED ---
Skin Complaint - HPI Summary HPI Summary: 64-year-old female with a significant past medical history of insulin-dependent diabetes mellitus presents to the emergency department today with chief complaint of possible infection to the left foot after stabbing her foot with a fishing hook which was stuck in a sock yesterday. Patient states due to her neuropathy she did not realize she was stuck and today there is redness to the dorsal aspect of her foot surrounding the fifth digit. Patient has no pain. Patient has full range of motion, 2+ dorsalis pulses pulse in the left foot. Patient is otherwise well and denies fever, chest pain, abdominal pain, pain with urination, nausea, vomiting, diarrhea. Family history is noncontributory. Patient is missing left great toe due to previous surgery is competition of diabetes. - History of Current Complaint Chief Complaint: EDExtremityLower Time Seen by Provider: 07/04/19 17:07 Stated Complaint: L FOOT INFECTION PER PT Hx Obtained From: Patient Onset/Duration: Started Days Ago Skin Exposure Onset/Duration: Days Ago Timing: Constant Current Severity: None Pain Intensity: 0 Pain Scale Used: 0-10 Numeric Skin Location: Foot Associated Signs & Symptoms: Red Streaks - Additional Pertinent History Primary Care Physician: TALISHA - Allergy/Home Medications Allergies/Adverse Reactions: Allergies Allergy/AdvReac Type Severity Reaction Status Date / Time Fish Containing Products Allergy Mild Itching Verified 07/04/19 16:56 hydromorphone [From Dilaudid] Allergy Mild Hives Verified 07/04/19 16:56 codeine AdvReac Mild Itching Verified 07/04/19 16:56 levofloxacin AdvReac Mild Knee pain Verified 07/04/19 16:56 lidocaine AdvReac Mild Itching Verified 07/04/19 16:56 oxycodone AdvReac Mild Itching Verified 07/04/19 16:56 sulfamethoxazole AdvReac Vomiting Verified 07/04/19 16:56 [From Bactrim] trimethoprim [From Bactrim] AdvReac Vomiting Verified 07/04/19 16:56 Home Medications: Home Medications Ramipril CAP* [Altace CAP*] 10 mg PO QPM 10/22/12 [History Confirmed 06/20/19] zzInsulin inj LISPRO* [zzHumaLOG inj*] 0 - 100 unit SUBCUT SEE INSTRUCTIONS 02/24 [History Confirmed 06/20/19] Venlafaxine CAP (NF) [Effexor CAP (NF)] 75 mg PO QPM 09/22/14 [History Confirmed 06/20/19] Diltiazem TAB* [Cardizem 30 MG Tab*] 30 mg PO QPM 02/19/15 [History Confirmed ] Omeprazole CAP (NF) [Prilosec CAP* 20 MG] 40 mg PO QPM 02/19/15 [History Confirmed 06/20/19] LORazepam TAB(*) [Ativan 1 MG TAB (*)] 1 mg PO DAILY PRN MDD 2 08/16/16 [ History Confirmed 06/20/19] Metoprolol Succinate XL TAB* [Toprol XL TAB*] 50 mg PO QAM 08/16/16 [History Confirmed 06/20/19] Morphine TAB (NF) 15 mg PO TID PRN 08/16/16 [History Confirmed 06/20/19] Acetaminophen TAB* [Tylenol TAB*] 650 mg PO Q6H PRN #0 tab 08/20/16 [Rx Confirmed 06/20/19] Oxymorphone HCl [Opana] 5 mg PO Q4HR PRN 07/10/17 [History Confirmed 06/20/19] Hydrocortisone 2.5% CREAM(NF) 1 applic BID 12/25/17 [History Confirmed 06/20/19] Lactobacillus Acidophilus* 1 tab PO BID #60 tab 12/29/17 [Rx Confirmed 06/20/19] Gabapentin CAP(*) [Neurontin 300 CAP(*)] 300 mg PO BID PRN MDD 3 06/01/18 [ History Confirmed 06/20/19] Chlorzoxazone 100 mg PO TID PRN 06/29/18 [History Confirmed 06/20/19] Ibuprofen [Ibu-200] 600 mg PO BID PRN 02/05/19 [History Confirmed 06/20/19] Cbd Oil 1 dose TOPICAL DAILY PRN 02/25/19 [History Confirmed 06/20/19] Insulin Glargine,Hum.rec.anlog [Toujeo Max Solostar] 300 unit SQ DAILY 02/25/19 [History Confirmed 06/20/19] Amlodipine Besylate [Norvasc] 1 tab PO DAILY 06/20/19 [History Confirmed ] Hydroxychloroquine Sulfate [Plaquenil] 1 tab PO BID 06/20/19 [History Confirmed 06/20/19] Cephalexin CAP* [Keflex CAP*] 500 mg PO QID #28 cap 07/04/19 [Rx] PMH/Surg Hx/FS Hx/Imm Hx Endocrine/Hematology History: Reports: Hx Diabetes - insulin Denies: Hx Thyroid Disease Cardiovascular History: Reports: Hx Hypertension - CONTROLLED BY MEDS., Other Cardiovascular Problems/Disorders - SVT Denies: Hx Pacemaker/ICD Respiratory History: Reports: Hx Asthma - reports mild, Hx Sleep Apnea - doesn' t use CPAP, hasn't been checked in years Denies: Hx Chronic Obstructive Pulmonary Disease (COPD) GI History: Reports: Hx Diverticulosis - asymtpomatic, Hx Gastroesophageal Reflux Disease - takes omeprazole, Other GI Disorders - occas constipation from meds Denies: Hx Ulcer History: Reports: Hx Chronic Renal Failure Denies: Hx Renal Disease Musculoskeletal History: Reports: Hx Arthritis - osteo, Hx Back Problems, Hx Orthopedic Injury - toe amputations, Other Musculoskeletal History - polymyositis Sensory History: Reports: Hx Contacts or Glasses - Reading glasses Denies: Hx Cataracts, Hx Hearing Aid Opthamlomology History: Reports: Hx Contacts or Glasses - Reading glasses Denies: Hx Cataracts Neurological History: Reports: Hx Nerve Disease - neuropathy, Hx Peripheral Neuropathy - B/L feet, Hx Spinal Cord Injury Comment Only: Other Neuro Impairments/Disorders - PAIN CLINIC PT Psychiatric History: Reports: Hx Anxiety, Hx Depression Denies: Hx Panic Disorder - Surgical History Surgery Procedure, Year, and Place: lumbar surgery-laminectomy L3-L4 1998, 2nd in feb, 2015;. bilat hip replacement with hip revisions;. hernia repair with mesh;. appendectomy;. hysterectomy (with revision d/to complications);. heart ablasion;. arthroscopic left knee;. 10/29-LEFT GREAT TOE 1/2 REMOVED. RIGHT FOOT MIDDLE TOE REMOVED Hx Anesthesia Reactions: No Infectious Disease History: No Infectious Disease History: Denies: Hx Hepatitis, Hx Human Immunodeficiency Virus (HIV), Hx of Known/ Suspected MRSA, Traveled Outside the [place] in Last 30 Days - Family History Known Family History: Positive: Hypertension, Diabetes, Other - Diverticulitis - Social History Alcohol Use: Occasionally Substance Use Type: Reports: None Hx Tobacco Use: No Smoking Status (MU): Never Smoked Tobacco Review of Systems Constitutional: Negative Eyes: Negative ENT: Negative Cardiovascular: Negative Respiratory: Negative Gastrointestinal: Negative Genitourinary: Negative Musculoskeletal: Negative Positive: Rash Neurological/Mental Status: Negative Psychological: Normal All Other Systems Reviewed And Are Negative: Yes Physical Exam - Summary Physical Exam Summary: Patient is in no acute distress. Patient has full range of motion of the left foot. Patient is missing great toe due to previous surgery. 2+ dorsalis pedis pulse. Patient is unable to feel sensation in the left foot due to diabetic neuropathy. There is mild erythema noted to the dorsal aspect of the left foot near the fifth toe incorporating the fifth digit. No edema or abscess noted. Triage Information Reviewed: Yes Vital Signs On Initial Exam: Initial Vitals Temp Pulse Resp BP Pulse Ox 98.7 F 80 20 145/81 96 07/04/19 16:53 07/04/19 16:53 07/04/19 16:53 07/04/19 16:53 07/04/19 16:53 Vital Signs Reviewed: Yes Appearance: Positive: Well-Appearing, No Pain Distress, Well-Nourished Skin: Positive: Warm, Skin Color Reflects Adequate Perfusion Eyes: Positive: EOMI, SCOT ENT: Positive: Hearing grossly normal Respiratory/Lung Sounds: Positive: Clear to Auscultation, Breath Sounds Present Cardiovascular: Positive: RRR, S1, S2 Musculoskeletal: Positive: Strength/ROM Intact Neurological: Positive: Sensory/Motor Intact, Alert, Oriented to Person Place, Time, Normal Gait, Facial Symmetry, Speech Normal Psychiatric: Positive: Normal, Affect/Mood Appropriate AVPU Assessment: Alert Procedures - Sedation Patient Received Moderate/Deep Sedation with Procedure: No Diagnostics - Vital Signs Vital Signs Temp Pulse Resp BP Pulse Ox 07/04/19 16:53 98.7 F 80 20 145/81 96 - Laboratory Lab Statement: Any lab studies that have been ordered have been reviewed, and results considered in the medical decision making process. Course/Dx - Course Course Of Treatment: Patient was evaluated in the emergency department today for cellulitis of the left foot. There is no evidence of abscess or significant infection. This appears to be early cellulitis. Patient was given 1 dose of Keflex 500 mg in the emergency department as well as a prescription to continue therapy 4 times a day 7 days. Cellulitic area was marked with a skin marker to monitor therapy. Patient discharged with outpatient follow-up. - Differential Diagnoses - Skin Complaint Differential Diagnoses: Abscess, Cellulitis, Diabetes - Diagnoses Provider Diagnoses: Cellulitis Discharge ED - Sign-Out/Discharge Documenting (check all that apply): Patient Departure - Discharge Plan Condition: Stable Disposition: HOME Prescriptions: Cephalexin CAP* [Keflex CAP*] 500 mg PO QID #28 cap Patient Education Materials: Cellulitis (ED) Referrals: Leigh Catherine MD [Primary Care Provider] - 3 Days Additional Instructions: You were diagnosed with cellulitis of the Left foot today in the emergency department. Please take the antibiotic given as directed. Please follow up with your primary care provider in 3 days for further evaluation and management. Please return to the emergency department immediately if you develop any new or worsening symptoms. - Billing Disposition and Condition Condition: STABLE Disposition: Home - Attestation Statements Provider Attestation: I was available for consult. This patient was seen by the MARIA TERESA. The patient was not presented to, seen by, or examined by me. Martín Jones MD
[2019-07-04] MEDS ORDERED: Cephalexin CAP* 500 MG PO ONE (17:28)
--- OUTSIDE RECORDS SUMMARY | 2019-07-04 17:44 | XMS REPORT | Continuity of Care Document ---
:1955 External Reference #:[id number] Author Name Jamal Ross MD Address [address] [place] [address] Care Team Providers Name Role Phone Leigh Catherine MD Care Team Information Insurance [employer] [phone] Leigh Catherine MD Care Team Information Insurance [employer] [phone] Problems Active Problems Provider Date Essential hypertension Jamal Ross MD Onset: 06/24/2019 Social History Type Date Description Comments Sex Unknown Tobacco Use Start: Unknown Never Smoked Cigarettes Tobacco Use Start: Unknown Never Smoked Cigars Tobacco Use Start: Unknown Never Smoked A Pipe Smokeless Tobacco Never Used Smokeless Tobacco ETOH Use Denies alcohol use Allergies, Adverse Reactions, Alerts Active Allergies Reaction Severity Comments Date Codeine 06/24/2019 Lidocaine 06/24/2019 Medications Active Medications SIG Qnty Indications Ordering Date Provider Diltiazem HCL ER Sunshine Mendoza Beads ConDMelissa 120mg Caps ER 24HR Metoprolol Succinate ER Foster N.P., 50mg Kacey Tablets ER 24HR Omeprazole Marylu Barclay 40mg Capsules DR Boucher Ramipril Marylu Barclay 10mg Capsules Sander Morphine Sulfate ER Leigh Catherine 15mg MD Tablets ER Toujeo Solostar Inject 80 Units Unknown 300Unit/ML Subcutaneously Solution Pen-Inject (Under The Skin) Two Times Daily, Increase To Maximum Of 120 Units Two Times Daily -- Maximum Daily Dose 240 Oxymorphone HCL Take 1 Tablet By Unknown 5mg Tablets Mouth Every 4 Hours as Needed Maximum Daily Dose Of 3 Per Day Hydroxychloroquine Take 1 Tablet By Unknown Sulfate Mouth Two Times 200mg Tablets Daily Marylu Quach 100Unit/ML Solution M.DMelissa Gabapentin Take 1 Capsule By Unknown 300mg Capsules Mouth Every 8 Hours Rosuvastatin Calcium Take 1 Tablet By Unknown 5mg Mouth Every Day Tablets Venlafaxine HCL ER Take 1 Capsule By Unknown 75mg Caps Mouth Every Day ER 24HR Amlodipine Besylate Take 1 Tablet By Unknown 10mg Mouth Every Day Tablets Chlorzoxazone Take 1 Tablet By Unknown 500mg Tablets Mouth Three Times Daily Immunizations Description No Information Available Vital Signs Date Vital Result Comment 06/24/2019 2:40pm Weight 211.00 lb Weight 95.710 kg Height 67 inches 5'7" Height in cm's 170.2 cm BMI (Body Mass Index) 33.0 kg/m2 Results Description No Information Available Procedures Description No Information Available Medical Devices Description No Information Available Encounters Type Date Location Provider Dx Diagnosis Office Visit 06/24/2019 Jamal Jimenez B97.7 Papillomavirus as the 2:15p 05-15-2019 cause of diseases classified elsewhere B08.8 Oth viral infections with skin and mucous membrane lesions Assessments Date Code Description Provider 06/24/2019 B97.7 Papillomavirus as the cause of diseases Jamal Ross MD classified elsewhere 06/24/2019 B08.8 Other specified viral infections characterized by Jamal Ross MD skin and mucous membrane lesions Plan of Treatment 06/24/2019 - Jamal Ross MDB97.7 Papillomavirus as the cause of diseases classified [id number] Other specified viral infections characterized by skin and mucous membrane lesionsComments: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 She is agreeable to not have it surgically excised. In return back only if it becomes symptomatic Functional Status Description No Information Available Mental Status Description No Information Available Referrals Description No Information Available
== END 2019-07-04 17:50 | disposition home or self-care (01) ==
LOC: ED 16:45
DX: L03.116 Cellulitis of left lower limb (principal); E11.22 Type 2 diabetes mellitus with diabetic chronic kidney disease; E11.42 Type 2 diabetes mellitus with diabetic polyneuropathy; I12.9 Hypertensive chronic kidney disease with stage 1 through stage 4 chronic kidney disease, or unspecified chronic kidney disease; N18.9 Chronic kidney disease, unspecified; Z79.4 Long term (current) use of insulin; K21.9 Gastro-esophageal reflux disease without esophagitis; F41.9 Anxiety disorder, unspecified; F32.9 Major depressive disorder, single episode, unspecified; Z96.643 Presence of artificial hip joint, bilateral; Z89.412 Acquired absence of left great toe; Z89.421 Acquired absence of other right toe(s); Z88.2 Allergy status to sulfonamides; Z88.4 Allergy status to anesthetic agent; Z88.1 Allergy status to other antibiotic agents; Z88.5 Allergy status to narcotic agent; Z91.013 Allergy to seafood
CPT/HCPCS: 99282; A9270-GY

== ENCOUNTER 2020-04-20 23:57 | Inpatient (IN) ==
[2020-04-21 03:11] LABS: ABS Lymphocytes 1.1 10^3/ul (1.0-4.8); ABS Monocytes 0.7 10^3/ul (0-0.8); ABS Neutrophils 8.7 10^3/ul (1.5-7.7); Eosinophil % 0.1 %; Hematocrit 35 % (35-47); Hemoglobin 12.2 g/dL (12.0-16.0); Lymphocyte % 10.7 %; Mean Corpuscular HGB Conc 35 g/dL (31-36); Mean Corpuscular Hemoglobin 30 pg (27-31); Mean Corpuscular Volume 87 fL (80-97); Mean Platelet Volume 8.4 fL (7.4-10.4); Platelet Count 226 10^3/uL (150-450); Red Blood Count 4.03 10^6 /uL (3.70-4.87); Red Cell Distribution Width 13 % (10-15); White Blood Count 10.6 10^3/uL (3.5-10.8)
[2020-04-21 03:25] LABS: Albumin 3.8 g/dL (3.2-5.2); Albumin/Globulin Ratio 1.2 (1-3); C Reactive Protein 126.02 mg/L (<8.01); Calcium 8.6 mg/dL (8.6-10.3); EGFR Non-African American 30.6 (>60); Globulin 3.2 g/dL (2-4); Potassium 3.9 mmol/L (3.5-5.0); Total Bilirubin 0.6 mg/dL (0.2-1.0)
[2020-04-21 04:15] LABS: Erythrocyte Sed Rate 32 mm/Hr (0-29)
[2020-04-21] MEDS ORDERED: Clindamycin 600 MG/D5W BAG 600 MG/50 ML BAG IV ONE (04:36)
[2020-04-21] MEDS ORDERED: Al Hydrox/Mg Hydrox/Simet LIQ 30 ML UDC PO PRN (05:53)
[2020-04-21] MEDS ORDERED: Dextrose 50% Syringe 50 ml 25 GM/50 ML SYRINGE IV PUSH PRN (05:56)
[2020-04-21] MEDS ORDERED: NS 0.9% 1000 ml BAG 1,000 ML IV SCH (06:30)
[2020-04-21] MEDS: Heparin 5000 UNITS/ML 1 mL VIAL SUBCUT SCH ×3 (09:30→21:49)
[2020-04-21] MEDS ORDERED: NS 0.9% 250 ml 250 ML ONE ×2 (09:41→09:42)
[2020-04-21] MEDS: DOXYcycline 100 MG in NS 0.9% 250 ml 250 ML IVPB SCH ×2 (10:14→21:50)
[2020-04-21] MEDS: Morphine ORAL.SOLN 10 mg 2 mg/ml UDC 5 ml (10 mg) PO PRN ×2 (14:44→23:38)
[2020-04-21] MEDS: Venlafaxine XR 75 mg PO SCH (17:39)
[2020-04-21] MEDS: Insulin GLARGINE 100 un/ml 10 ml VIAL SUBCUT SCH (20:38)
[2020-04-22] MEDS: Heparin 5000 UNITS/ML 1 mL VIAL SUBCUT SCH ×3 (05:43→22:44)
[2020-04-22 05:59] LABS: ABS Eosinophils 0.1 10^3/ul (0-0.6); ABS Lymphocytes 1.4 10^3/ul (1.0-4.8); ABS Monocytes 0.6 10^3/ul (0-0.8); ABS Neutrophils 3.8 10^3/ul (1.5-7.7); Eosinophil % 1.3 %; Hematocrit 35 % (35-47); Lymphocyte % 24.2 %; Mean Corpuscular HGB Conc 34 g/dL (31-36); Mean Corpuscular Hemoglobin 30 pg (27-31); Mean Corpuscular Volume 87 fL (80-97); Mean Platelet Volume 8.9 fL (7.4-10.4); Platelet Count 198 10^3/uL (150-450); Red Cell Distribution Width 13 % (10-15)
[2020-04-22 06:22] LABS: BUN/Creatinine Ratio 15.9 (8-20); C Reactive Protein 197.15 mg/L (<8.01); Calcium 8.2 mg/dL (8.6-10.3); EGFR African American 43.9 (>60); EGFR Non-African American 36.2 (>60); Potassium 4.5 mmol/L (3.5-5.0)
[2020-04-22] MEDS: Morphine ORAL.SOLN 10 mg 2 mg/ml UDC 5 ml (10 mg) PO PRN ×3 (07:50→22:44)
[2020-04-22] MEDS: DOXYcycline 100 MG in NS 0.9% 250 ml 250 ML IVPB SCH (10:58)
[2020-04-22] MEDS ORDERED: Vancomycin per Pharmacy 1 EA NOTE FOLLOW UP SCH (12:00)
[2020-04-22] MEDS: Cefepime 1 GM in Dextrose 1 GM/50 ML BAG IV SCH ×2 (13:01→23:47)
[2020-04-22] MEDS ORDERED: Vancomycin 1,500 MG in NS 0.9% 250 ml 250 ML IVPB ONE (14:00)
[2020-04-22] MEDS: Venlafaxine XR 75 mg PO SCH (20:05)
[2020-04-22] MEDS: Insulin GLARGINE 100 un/ml 10 ml VIAL SUBCUT SCH (20:24)
[2020-04-23 05:57] LABS: ABS Eosinophils 0.2 10^3/ul (0-0.6); ABS Lymphocytes 2.1 10^3/ul (1.0-4.8); ABS Monocytes 0.8 10^3/ul (0-0.8); ABS Neutrophils 4.1 10^3/ul (1.5-7.7); Eosinophil % 2.2 %; Hematocrit 35 % (35-47); Hemoglobin 12.1 g/dL (12.0-16.0); Lymphocyte % 28.7 %; Mean Corpuscular HGB Conc 34 g/dL (31-36); Mean Corpuscular Hemoglobin 30 pg (27-31); Mean Corpuscular Volume 88 fL (80-97); Mean Platelet Volume 8.9 fL (7.4-10.4); Platelet Count 213 10^3/uL (150-450); Red Blood Count 4.02 10^6 /uL (3.70-4.87); Red Cell Distribution Width 13 % (10-15); White Blood Count 7.2 10^3/uL (3.5-10.8)
[2020-04-23 06:17] LABS: Calcium 8.7 mg/dL (8.6-10.3); EGFR African American 58.5 (>60); EGFR Non-African American 48.3 (>60); Potassium 4.2 mmol/L (3.5-5.0)
[2020-04-23 06:21] LABS: INR 1.07 (0.82-1.09)
[2020-04-23] MEDS: Morphine ORAL.SOLN 10 mg 2 mg/ml UDC 5 ml (10 mg) PO PRN ×2 (08:07→18:05)
[2020-04-23] MEDS ORDERED: Insulin GLARGINE 100 un/ml 10 ml VIAL SUBCUT SCH (09:00)
[2020-04-23] MEDS: Insulin GLARGINE 100 un/ml 10 ml VIAL SUBCUT SCH ×2 (09:50→20:22)
[2020-04-23] MEDS: Cefepime 1 GM in Dextrose 1 GM/50 ML BAG IV SCH (11:21)
[2020-04-23] MEDS: Vancomycin 1000 MG in NS 0.9% 250 ML IVPB SCH (12:01)
[2020-04-23] MEDS ORDERED: Bupivacaine 0.25% SDV 30 ML ONE (14:08)
[2020-04-23] MEDS ORDERED: Midazolam 2 mg/2 ml VIAL 1 mg/ml 2 ml VIAL (2 mg) ONE (14:42)
[2020-04-23] MEDS ORDERED: Lidocaine 2% PF 5 ML VIAL ONE (14:42)
[2020-04-23] MEDS ORDERED: Propofol 10 MG/ML 20 ML BTL ONE (14:42)
[2020-04-23] MEDS ORDERED: Lidocaine 1% VIAL 10 MG/ML VIAL ONE (15:22)
[2020-04-23] MEDS ORDERED: diPHENhydraMINE IV 50 MG/ML 1 ml VIAL (BENADRYL) ONE (15:24)
[2020-04-23] MEDS ORDERED: Naloxone 0.4 mg VIAL 0.4 mg/ml 1 ml VIAL IV PRN (15:36)
[2020-04-23] MEDS ORDERED: Morphine 4 MG/ML VIAL (1 ml) IV PRN (15:36)
[2020-04-23] MEDS ORDERED: Morphine 4 MG/ML VIAL (1 ml) ONE (16:36)
[2020-04-23] MEDS: Venlafaxine XR 75 mg PO SCH (18:07)
[2020-04-24] MEDS: Morphine ORAL.SOLN 10 mg 2 mg/ml UDC 5 ml (10 mg) PO PRN ×3 (00:20→15:58)
[2020-04-24] MEDS: Cefepime 1 GM in Dextrose 1 GM/50 ML BAG IV SCH ×2 (00:28→13:09)
[2020-04-24 05:41] LABS: ABS Basophils 0.1 10^3/ul (0-0.2); ABS Eosinophils 0.2 10^3/ul (0-0.6); ABS Lymphocytes 2.4 10^3/ul (1.0-4.8); ABS Monocytes 0.6 10^3/ul (0-0.8); ABS Neutrophils 3.2 10^3/ul (1.5-7.7); Eosinophil % 3.2 %; Hematocrit 35 % (35-47); Hemoglobin 12.1 g/dL (12.0-16.0); Lymphocyte % 36.8 %; Mean Corpuscular HGB Conc 34 g/dL (31-36); Mean Corpuscular Hemoglobin 30 pg (27-31); Mean Corpuscular Volume 89 fL (80-97); Mean Platelet Volume 9.1 fL (7.4-10.4); Nucleated Red Blood Cells % 0.1; Platelet Count 228 10^3/uL (150-450); Red Blood Count 3.99 10^6 /uL (3.70-4.87); Red Cell Distribution Width 13 % (10-15); White Blood Count 6.4 10^3/uL (3.5-10.8)
[2020-04-24 05:45] LABS: BUN/Creatinine Ratio 13.6 (8-20); C Reactive Protein 96.03 mg/L (<8.01); Calcium 8.7 mg/dL (8.6-10.3); EGFR African American 60.3 (>60); EGFR Non-African American 49.8 (>60); Potassium 3.9 mmol/L (3.5-5.0)
[2020-04-24] MEDS: Insulin GLARGINE 100 un/ml 10 ml VIAL SUBCUT SCH (09:30)
[2020-04-24] MEDS ORDERED: Vancomycin Trough Check NOTE FOLLOW UP ONE (11:30)
[2020-04-24] MEDS ORDERED: cefTRIAXone 2 GM ADDV.VIAL 2 GM in NS 0.9% 100 ml BAG 100 ML IV SCH (14:00)
[2020-04-24] MEDS: Vancomycin 1000 MG in NS 0.9% 250 ML IVPB SCH (14:39)
[2020-04-24 15:26] VITALS: BP 132/64
[2020-04-24] MEDS: Venlafaxine XR 75 mg PO SCH (18:23)
[2020-04-24] MEDS ORDERED: Heparin 5000 UNITS/ML 1 mL VIAL SUBCUT SCH (21:00)
[2020-04-25] MEDS ORDERED: Vancomycin 750 MG in NS 0.9% 250 ML IVPB SCH (06:00)
[2020-04-27] MEDS ORDERED: Vancomycin Trough Check NOTE FOLLOW UP ONE (05:30)
== END 2020-04-24 18:15 | disposition home or self-care (01) | DRG 504 ==
LOC: SSU 23:57 → ED 23:57
PROVIDERS: ADMIT Internal Medicine; ATTEND Internal Medicine

== ENCOUNTER 2021-09-22 09:43 | Observation (INO) ==
[2021-09-22] MEDS ORDERED: Piperacillin/Tazobac ADVAN 3.375 GM in NS 0.9% 100 ml BAG 100 ML IV ONE ×2 (12:48→14:42)
[2021-09-22 13:19] LABS: ABS Basophils 0.1 10^3/ul (0-0.2); ABS Eosinophils 0.1 10^3/ul (0-0.6); ABS Lymphocytes 2.1 10^3/ul (1.0-4.8); ABS Monocytes 0.9 10^3/ul (0-0.8); Eosinophil % 0.6 %; Hematocrit 39 % (35-47); Hemoglobin 13.1 g/dL (12.0-16.0); Lymphocyte % 18.8 %; Mean Corpuscular HGB Conc 34 g/dL (31-36); Mean Corpuscular Hemoglobin 30 pg (27-31); Mean Corpuscular Volume 88 fL (80-97); Mean Platelet Volume 8.4 fL (7.4-10.4); Platelet Count 282 10^3/uL (150-450); Red Blood Count 4.38 10^6 /uL (3.70-4.87); Red Cell Distribution Width 13 % (10-15); White Blood Count 11.1 10^3/uL (3.5-10.8)
[2021-09-22 13:44] LABS: Albumin 4.6 g/dL (3.2-5.2); Albumin/Globulin Ratio 1.5 (1-3); C Reactive Protein 131.48 mg/L (<8.01); Calcium 9.7 mg/dL (8.6-10.3); Globulin 3.1 g/dL (2-4); Potassium 4.5 mmol/L (3.5-5.0); Total Bilirubin 0.7 mg/dL (0.2-1.0); Total Protein 7.7 g/dL (6.4-8.9); eGFR CKD-EPI 43.3 (>60)
[2021-09-22] MEDS ORDERED: Dextrose 50% Syringe 50 ml 25 GM/50 ML SYRINGE IV PUSH PRN (13:57)
[2021-09-22 14:35] LABS: Erythrocyte Sed Rate 32 mm/Hr (0-29)
[2021-09-22] MEDS ORDERED: Zosyn per Pharmacy NOTE FOLLOW UP SCH (15:00)
[2021-09-22] MEDS ORDERED: Zosyn 3.375 GM IV - ED ONCE IV ONE (17:15)
[2021-09-22] MEDS: Morphine ER 15 mg TAB ** extended release PO PRN (18:27)
[2021-09-22] MEDS: Enoxaparin 30 MG/0.3 ML SYR SUBCUT SCH (18:58)
[2021-09-22] MEDS ORDERED: Insulin GLARGINE 100 un/ml 10 ml VIAL SUBCUT SCH (21:00)
[2021-09-22] MEDS: Cefepime 1 GM in Dextrose 1 GM/50 ML BAG IV SCH (21:24)
[2021-09-23] MEDS ORDERED: ZOSYN 3.375 GM Q8H per EXTENDED INFUSION IV SCH (01:00)
[2021-09-23] MEDS: Venlafaxine XR 75 mg PO SCH ×2 (08:36→08:37)
[2021-09-23] MEDS: Morphine ER 15 mg TAB ** extended release PO PRN ×3 (08:36→22:25)
[2021-09-23] MEDS: Cefepime 1 GM in Dextrose 1 GM/50 ML BAG IV SCH ×2 (08:45→21:28)
[2021-09-23] MEDS ORDERED: Insulin GLARGINE 100 un/ml 10 ml VIAL SUBCUT SCH (09:00)
[2021-09-23] MEDS: Enoxaparin 30 MG/0.3 ML SYR SUBCUT SCH (15:15)
[2021-09-24 05:33] LABS: Hematocrit 36 % (35-47); Hemoglobin 12.1 g/dL (12.0-16.0); Mean Corpuscular HGB Conc 34 g/dL (31-36); Mean Corpuscular Hemoglobin 30 pg (27-31); Mean Corpuscular Volume 87 fL (80-97); Mean Platelet Volume 9.1 fL (7.4-10.4); Platelet Count 256 10^3/uL (150-450); Red Blood Count 4.08 10^6 /uL (3.70-4.87); Red Cell Distribution Width 13 % (10-15); White Blood Count 9.4 10^3/uL (3.5-10.8)
[2021-09-24 05:47] LABS: Calcium 8.7 mg/dL (8.6-10.3); Potassium 4.5 mmol/L (3.5-5.0); eGFR CKD-EPI 47.1 (>60)
[2021-09-24] MEDS: Morphine ER 15 mg TAB ** extended release PO PRN (07:40)
[2021-09-24] MEDS: Venlafaxine XR 75 mg PO SCH (08:59)
[2021-09-24] MEDS ORDERED: Insulin GLARGINE 100 un/ml 10 ml VIAL SUBCUT SCH (09:00)
[2021-09-24] MEDS: Cefepime 1 GM in Dextrose 1 GM/50 ML BAG IV SCH (09:01)
[2021-09-24] MEDS ORDERED: Polyethylene Glycol 3350 17 GM PACKET PO PRN (10:55)
[2021-09-24] MEDS ORDERED: Senna TAB 8.6 mg TAB PO PRN (10:55)
[2021-09-24] MEDS ORDERED: Magnesium Hydroxide LIQ 30 ML UDC PO PRN (10:55)
[2021-09-24] MEDS ORDERED: Magnesium Hydroxide LIQ 30 ML UDC PO SCH (11:00)
[2021-09-24 11:29] VITALS: BP 127/62
== END 2021-09-24 15:50 | disposition home or self-care (01) ==
LOC: ED 09:43 → EDHOLD 09:43 → SUATTDRO 14:16 → MED 18:54
PROVIDERS: ADMIT Internal Medicine; ATTEND Internal Medicine

== ENCOUNTER 2022-02-10 14:57 | Inpatient (IN) ==
[2022-02-10] MEDS ORDERED: Cefepime 2 GM in Dextrose 2 GM/50 ML BAG IV ONE (18:53)
[2022-02-10] MEDS ORDERED: metroNIDAZOLE IV 500 MG/100ML 500 MG/100 ML BAG IVPB ONE (18:53)
[2022-02-10] MEDS ORDERED: Vancomycin 1,250 MG in NS 0.9% 250 ml 250 ML IVPB ONE (19:00)
[2022-02-10] MEDS ORDERED: Vancomycin 1,250 MG in NS 0.9% 250 ml 250 ML IVPB SCH (19:00)
[2022-02-10 19:01] LABS: ABS Basophils 0.2 10^3/ul (0-0.2); ABS Eosinophils 0.1 10^3/ul (0-0.6); ABS Lymphocytes 2.1 10^3/ul (1.0-4.8); ABS Monocytes 1.3 10^3/ul (0-0.8); ABS Neutrophils 13.3 10^3/ul (1.5-7.7); Eosinophil % 0.3 %; Hematocrit 35 % (35-47); Lymphocyte % 12.6 %; Mean Corpuscular HGB Conc 35 g/dL (31-36); Mean Corpuscular Hemoglobin 30 pg (27-31); Mean Corpuscular Volume 86 fL (80-97); Mean Platelet Volume 8.4 fL (7.4-10.4); Platelet Count 419 10^3/uL (150-450); Red Blood Count 4.03 10^6 /uL (3.70-4.87); Red Cell Distribution Width 13 % (10-15); White Blood Count 16.9 10^3/uL (3.5-10.8)
[2022-02-10 19:10] LABS: Activated Partial Thrombo Time 32.1 seconds (26.0-38.0); INR 1.04 (0.89-1.11)
[2022-02-10 19:50] LABS: Albumin/Globulin Ratio 1.3 (1-3); C Reactive Protein 189.31 mg/L (<8.01); Calcium 8.9 mg/dL (8.6-10.3); Globulin 3.1 g/dL (2-4); Total Bilirubin 0.5 mg/dL (0.2-1.0); Total Protein 7.1 g/dL (6.4-8.9); eGFR CKD-EPI 34.8 (>60)
[2022-02-10 20:23] LABS: High Sensitivity Troponin 1 Hr 11 pg/mL (<15)
[2022-02-10] MEDS ORDERED: Dextrose 50% Syringe 50 ml 25 GM/50 ML SYRINGE IV PUSH PRN (21:59)
[2022-02-10] MEDS ORDERED: Vancomycin per Pharmacy 1 EA NOTE FOLLOW UP SCH (22:00)
[2022-02-11] MEDS: Morphine ORAL.SOLN 10 mg 2 mg/ml UDC 5 ml (10 mg) PO PRN ×4 (00:09→21:44)
[2022-02-11] MEDS ORDERED: Lactated Ringers 500 ml BAG 500 ML IV ONE (01:44)
[2022-02-11 04:14] LABS: Urine Appearance Clear; Urine Bilirubin Negative (Negative); Urine Blood Negative (Negative); Urine Color Straw; Urine Glucose Negative (Negative); Urine Ketones Negative (Negative); Urine Nitrite Negative (Negative); Urine Protein Negative (Negative); Urine Specific Gravity 1.006 (1.002-1.030); Urine Urobilinogen Negative (Negative)
[2022-02-11] MEDS: metroNIDAZOLE IV 500 MG/100ML 500 MG/100 ML BAG IVPB SCH ×3 (05:34→21:37)
[2022-02-11] MEDS ORDERED: Cefepime ADVAN 1 GM in NS 0.9% 50 ML 50 ML IVPB SCH (09:00)
[2022-02-11] MEDS ORDERED: Vancomycin 1,250 MG in NS 0.9% 250 ml 250 ML IVPB SCH (14:00)
[2022-02-11] MEDS: ceFAZolin 2 GM PREMIX 2 GM/50 ML BAG IVPB SCH ×2 (15:51→22:43)
[2022-02-11] MEDS ORDERED: Insulin GLARGINE 100 un/ml 10 ml VIAL SUBCUT SCH (21:00)
[2022-02-11] MEDS: Venlafaxine XR 75 mg PO SCH (21:46)
[2022-02-12 04:54] LABS: ABS Basophils 0.1 10^3/ul (0-0.2); ABS Eosinophils 0.1 10^3/ul (0-0.6); ABS Lymphocytes 1.6 10^3/ul (1.0-4.8); ABS Monocytes 0.7 10^3/ul (0-0.8); ABS Neutrophils 3.5 10^3/ul (1.5-7.7); Eosinophil % 2.5 %; Hematocrit 33 % (35-47); Hemoglobin 11.3 g/dL (12.0-16.0); Lymphocyte % 27.3 %; Mean Corpuscular HGB Conc 34 g/dL (31-36); Mean Corpuscular Hemoglobin 29 pg (27-31); Mean Corpuscular Volume 86 fL (80-97); Mean Platelet Volume 7.9 fL (7.4-10.4); Nucleated Red Blood Cells % 0.1; Platelet Count 310 10^3/uL (150-450); Red Blood Count 3.87 10^6 /uL (3.70-4.87); Red Cell Distribution Width 13 % (10-15)
[2022-02-12] MEDS: metroNIDAZOLE IV 500 MG/100ML 500 MG/100 ML BAG IVPB SCH ×3 (05:24→20:09)
[2022-02-12 05:49] LABS: Potassium 4.6 mmol/L (3.5-5.0); eGFR CKD-EPI 54.8 (>60)
[2022-02-12 06:07] LABS: Calcium 8.5 mg/dL (8.6-10.3)
[2022-02-12] MEDS: ceFAZolin 2 GM PREMIX 2 GM/50 ML BAG IVPB SCH ×3 (06:46→22:00)
[2022-02-12] MEDS: Morphine ORAL.SOLN 10 mg 2 mg/ml UDC 5 ml (10 mg) PO PRN ×3 (07:26→20:24)
[2022-02-12] MEDS ORDERED: ceFAZolin VIAL VIAL ONE (09:33)
[2022-02-12] MEDS ORDERED: Propofol 10 MG/ML 20 ML BTL ONE ×2 (09:35→10:27)
[2022-02-12] MEDS ORDERED: Ondansetron 4 mg VIAL 2 MG/ML 2 ml VIAL ONE (09:35)
[2022-02-12] MEDS ORDERED: fentaNYL 100 mcg/2 ml 50 MCG/ML VIAL ONE (09:35)
[2022-02-12] MEDS ORDERED: Lidocaine 2% PF 5 ML VIAL ONE (09:35)
[2022-02-12] MEDS ORDERED: Midazolam 5 mg/5 ml VIAL 1 mg/ml 5 ml VIAL (5 mg) ONE (09:36)
[2022-02-12] MEDS ORDERED: Ketamine HCL 50 mg/ml 10 ml VIAL (500 MG) ONE (10:17)
[2022-02-12] MEDS ORDERED: Insulin GLARGINE 100 un/ml 10 ml VIAL SUBCUT ONE (10:53)
[2022-02-12] MEDS ORDERED: Naloxone 0.4 mg VIAL 0.4 mg/ml 1 ml VIAL IV PRN (11:39)
[2022-02-12] MEDS ORDERED: Ondansetron 4 mg VIAL 2 MG/ML 2 ml VIAL IV PRN (11:39)
[2022-02-12] MEDS: Venlafaxine XR 75 mg PO SCH (20:23)
[2022-02-12] MEDS: Insulin GLARGINE 100 un/ml 10 ml VIAL SUBCUT SCH (20:23)
[2022-02-12] MEDS ORDERED: Cefepime 1 GM in Dextrose 1 GM/50 ML BAG IV SCH (21:00)
[2022-02-13] MEDS: metroNIDAZOLE IV 500 MG/100ML 500 MG/100 ML BAG IVPB SCH ×3 (04:36→20:23)
[2022-02-13 05:35] LABS: ABS Eosinophils 0.2 10^3/ul (0-0.6); ABS Lymphocytes 1.8 10^3/ul (1.0-4.8); ABS Monocytes 0.6 10^3/ul (0-0.8); ABS Neutrophils 4.3 10^3/ul (1.5-7.7); Eosinophil % 2.6 %; Hematocrit 33 % (35-47); Hemoglobin 11.3 g/dL (12.0-16.0); Lymphocyte % 26.6 %; Mean Corpuscular HGB Conc 34 g/dL (31-36); Mean Corpuscular Hemoglobin 30 pg (27-31); Mean Corpuscular Volume 86 fL (80-97); Mean Platelet Volume 7.9 fL (7.4-10.4); Platelet Count 343 10^3/uL (150-450); Red Blood Count 3.83 10^6 /uL (3.70-4.87); Red Cell Distribution Width 13 % (10-15); White Blood Count 6.9 10^3/uL (3.5-10.8)
[2022-02-13] MEDS: ceFAZolin 2 GM PREMIX 2 GM/50 ML BAG IVPB SCH ×3 (05:54→22:03)
[2022-02-13 06:00] LABS: Calcium 8.6 mg/dL (8.6-10.3); Potassium 4.4 mmol/L (3.5-5.0)
[2022-02-13] MEDS: Morphine ORAL.SOLN 10 mg 2 mg/ml UDC 5 ml (10 mg) PO PRN ×3 (06:43→17:54)
[2022-02-13] MEDS ORDERED: Vancomycin Trough Check NOTE FOLLOW UP ONE (13:30)
[2022-02-13 15:23] LABS: Vancomycin Trough 2.1 mcg/mL; eGFR CKD-EPI 57.9 (>60)
[2022-02-13] MEDS: Enoxaparin 40 MG/0.4 ML SYR SUBCUT SCH (15:47)
[2022-02-13] MEDS: Insulin GLARGINE 100 un/ml 10 ml VIAL SUBCUT SCH (20:30)
[2022-02-13] MEDS: Venlafaxine XR 75 mg PO SCH (20:30)
[2022-02-14] MEDS: Morphine ORAL.SOLN 10 mg 2 mg/ml UDC 5 ml (10 mg) PO PRN ×4 (02:30→21:51)
[2022-02-14] MEDS: metroNIDAZOLE IV 500 MG/100ML 500 MG/100 ML BAG IVPB SCH ×2 (05:16→12:37)
[2022-02-14 06:28] LABS: ABS Eosinophils 0.2 10^3/ul (0-0.6); ABS Lymphocytes 1.7 10^3/ul (1.0-4.8); ABS Monocytes 0.4 10^3/ul (0-0.8); ABS Neutrophils 4.2 10^3/ul (1.5-7.7); Eosinophil % 2.4 %; Hematocrit 34 % (35-47); Hemoglobin 11.6 g/dL (12.0-16.0); Lymphocyte % 26.3 %; Mean Corpuscular HGB Conc 34 g/dL (31-36); Mean Corpuscular Hemoglobin 30 pg (27-31); Mean Corpuscular Volume 86 fL (80-97); Mean Platelet Volume 8.2 fL (7.4-10.4); Nucleated Red Blood Cells % 0.1; Platelet Count 373 10^3/uL (150-450); Red Blood Count 3.95 10^6 /uL (3.70-4.87); Red Cell Distribution Width 13 % (10-15); White Blood Count 6.6 10^3/uL (3.5-10.8)
[2022-02-14] MEDS: ceFAZolin 2 GM PREMIX 2 GM/50 ML BAG IVPB SCH ×3 (06:34→23:19)
[2022-02-14 06:40] LABS: Calcium 8.8 mg/dL (8.6-10.3); Potassium 4.4 mmol/L (3.5-5.0); eGFR CKD-EPI 60.7 (>60)
[2022-02-14] MEDS: Enoxaparin 40 MG/0.4 ML SYR SUBCUT SCH (15:40)
[2022-02-14] MEDS: Venlafaxine XR 75 mg PO SCH (21:53)
[2022-02-14] MEDS: Insulin GLARGINE 100 un/ml 10 ml VIAL SUBCUT SCH (21:55)
[2022-02-15] MEDS ORDERED: ceFAZolin 2 GM PREMIX 2 GM/50 ML BAG IVPB SCH (06:00)
[2022-02-15] MEDS: Morphine ORAL.SOLN 10 mg 2 mg/ml UDC 5 ml (10 mg) PO PRN ×2 (06:06→12:06)
[2022-02-15 06:14] LABS: ABS Eosinophils 0.2 10^3/ul (0-0.6); ABS Lymphocytes 2.6 10^3/ul (1.0-4.8); ABS Monocytes 0.6 10^3/ul (0-0.8); ABS Neutrophils 4.3 10^3/ul (1.5-7.7); Eosinophil % 2.2 %; Hematocrit 33 % (35-47); Hemoglobin 11.7 g/dL (12.0-16.0); Lymphocyte % 33.7 %; Mean Corpuscular HGB Conc 35 g/dL (31-36); Mean Corpuscular Hemoglobin 30 pg (27-31); Mean Corpuscular Volume 86 fL (80-97); Mean Platelet Volume 8.4 fL (7.4-10.4); Nucleated Red Blood Cells % 0.1; Platelet Count 383 10^3/uL (150-450); Red Blood Count 3.87 10^6 /uL (3.70-4.87); Red Cell Distribution Width 13 % (10-15); White Blood Count 7.7 10^3/uL (3.5-10.8)
[2022-02-15 06:35] LABS: Calcium 8.8 mg/dL (8.6-10.3); Potassium 4.3 mmol/L (3.5-5.0); eGFR CKD-EPI 54.2 (>60)
[2022-02-15 09:07] LABS: C Reactive Protein 31.56 mg/L (<8.01)
[2022-02-15 11:32] VITALS: BP 127/77
== END 2022-02-15 14:15 | disposition home or self-care (01) | DRG 857 ==
LOC: EDHOLD 14:57 → ED 14:57 → SUATTDRO 02-11 00:31 → SSU 02-11 01:00
PROVIDERS: ADMIT Student in an Organized Health Care Education/Training Program; ATTEND Internal Medicine